=== PATIENT | male | born 1945 | race Caucasian/White ===

== ENCOUNTER 2017-12-21 19:54 | Inpatient (IN) | payer MEDICARE, MEDICAID ==
[~2017-12-21] VITALS: Ht 172.7 cm; Wt 78.9 kg
[2017-12-21] MEDS ORDERED: Sodium Chloride 500ML 500 ML IV ONE (20:16)
[2017-12-21 20:17] VITALS: BP 128/76
[2017-12-21 21:14] LABS: ANION GAP 8 mmol/L (5-15); BLOOD UREA NITROGEN 17 mg/dL (7-18); CARBON DIOXIDE 31 MMOL/L (21-32); CHLORIDE 106 MMOL/L (98-107); CREATININE 1.3 MG/DL (0.55-1.30); EOSINOPHILS % (AUTO) 2.4 % (0.0-3.0); HEMATOCRIT 46.1 % (42.0-52.0); HEMOGLOBIN 15.1 G/DL (14.2-18.0); LYMPHOCYTES % (AUTO) 13.8 % (20.0-45.0); MEAN CORPUSCULAR VOLUME 92 FL (80-99); MONOCYTES % (AUTO) 7.6 % (1.0-10.0); NEUTROPHILS % (AUTO) 75.2 % (45.0-75.0); PLATELET COUNT 198 K/UL (150-450); POTASSIUM 3.6 MMOL/L (3.5-5.1); RED BLOOD COUNT 5.01 M/UL (4.70-6.10); RED CELL DISTRIBUTION WIDTH 12.7 % (11.6-14.8); SODIUM 145 MMOL/L (136-145); WHITE BLOOD COUNT 12.3 K/UL (4.8-10.8)
[2017-12-21] MEDS ORDERED: ASPIRIN325 MG ORAL (21:16)
[2017-12-21] MEDS ORDERED: ATIVAN0.5 MG ORAL (21:16)
[2017-12-21] MEDS ORDERED: PROSCAR5 MG ORAL (21:16)
[2017-12-21] MEDS ORDERED: DEPAKOTE ER250 MG ORAL (21:16)
[2017-12-21] MEDS ORDERED: NIACIN100 MG ORAL (21:16)
[2017-12-21] MEDS ORDERED: MAG-OXIDE400 M1 PO (21:16)
[2017-12-21] MEDS ORDERED: TAMSULOSIN HCL0.4 MG ORAL (21:16)
[2017-12-21] MEDS ORDERED: AMANTADINE100 M2 ORAL (21:16)
[2017-12-21] MEDS ORDERED: NEURONTIN400 MG ORAL (21:16)
[2017-12-21] MEDS ORDERED: LABETALOL HCL100 MG ORAL (21:16)
[2017-12-21] MEDS ORDERED: BACLOFEN10 MG ORAL (21:16)
[2017-12-21] MEDS ORDERED: ACETAMINOPHEN325 M1 ORAL (21:16)
[2017-12-21] MEDS ORDERED: NORVASC10 MG ORAL (21:16)
[2017-12-21 21:18] LABS: ALANINE AMINOTRANSFERASE 18 U/L (12-78); ALBUMIN/GLOBULIN RATIO 0.9 (1.0-2.7); ALKALINE PHOSPHATASE 98 U/L (46-116); ASPARTATE AMINO TRANSFERASE 12 U/L (15-37); BILIRUBIN,TOTAL 0.3 MG/DL (0.2-1.0)
--- NOTE | 2017-12-21 21:57 | Emergency Room Report ---
History of Present Illness General Chief Complaint: Nausea, Vomiting, and Diarrhea Source: Patient, Medical Record Present Illness HPI 72-year-old male presents ED for evaluation. Coming from assisted facility with nausea vomiting and diarrhea. Multiple episodes of vomiting and diarrhea today. Patient states he feels weak. Denies chest pain or shortness of breath. Denies fevers or chills. No other aggravating relieving factors. Denies any other associated symptoms Allergies: Coded Allergies: No Known Allergies (Unverified , 12/21/17) Patient History Past Medical History: none Past Surgical History: none Pertinent Family History: none Social History: Denies: smoking, alcohol use, drug use Immunizations: UTD Reviewed Nursing Documentation: PMH: Agreed; PSxH: Agreed Review of Systems All Other Systems: negative except mentioned in HPI Physical Exam Vital Signs Date Time Temp Pulse Resp B/P (MAP) Pulse Ox O2 Delivery O2 Flow Rate FiO2 12/21/17 19:55 98.0 66 17 112/71 96 Room Air 98.1 Sp02 EP Interpretation: reviewed, normal General Appearance: no apparent distress, alert, GCS 15, non-toxic Head: normocephalic, atraumatic Eyes: bilateral eye normal inspection, bilateral eye PERRL ENT: hearing grossly normal, normal pharynx, no angioedema, normal voice Neck: full range of motion, supple/symm/no masses Respiratory: chest non-tender, lungs clear, normal breath sounds, speaking full sentences Cardiovascular #1: regular rate, rhythm, no edema Cardiovascular #2: 2+ carotid (R), 2+ carotid (L), 2+ radial (R), 2+ radial (L) , 2+ dorsalis pedis (R), 2+ dorsalis pedis (L) Gastrointestinal: normal bowel sounds, non tender, soft, non-distended, no guarding, no rebound Rectal: deferred Genitourinary: normal inspection, no CVA tenderness Musculoskeletal: back normal, gait/station normal, normal range of motion, non- tender Neurologic: alert, oriented x3, responsive, motor strength/tone normal, sensory intact, speech normal Psychiatric: judgement/insight normal, memory normal, mood/affect normal, no suicidal/homicidal ideation Reflexes: 3+ bicep (R), 3+ bicep (L), 3+ tricep (R), 3+ tricep (L), 3+ knee (R) , 3+ knee (L) Skin: normal color, no rash, warm/dry, well hydrated Lymphatic: no adenopathy Medical Decision Making Diagnostic Impression: Primary Impression: Gastroenteritis Additional Impression: Intractable vomiting Qualified Codes: R11.2 - Nausea with vomiting, unspecified ER Course Hospital Course 72-year-old male presenting to ED with repeated episodes of vomiting, diarrhea Differential diagnoses include: gastroenterits, dehydration, failure to thrive Clinical course Patient placed on stretcher. 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 After initial history and physical, I ordered labs, IV fluids, EKG, chest x-ray, blood cultures, UA. Labs - minimal leukocytosis, hb/hct stable, electrolytes ok After medications and IV hydration patient continues to have vomiting unable to tolerate by mouth intake Case discussed with Dr Robles and they agreed to admit patient to their service for further care and support I feel this is a highly complex case requiring extensive working including EKG/ Rhythm strip, Xray/CT/US, Blood/urine lab work, repeat exams while in ED, and administration of strong opiates/narcotics for pain control, admission to hospital or close patient follow up. Diagnosis - gastroenteritis, intractable vomiting Patient admitted to floor in serious condition Labs Test 12/21/17 20:35 White Blood Count 12.3 K/UL (4.8-10.8) Red Blood Count 5.01 M/UL (4.70-6.10) Hemoglobin 15.1 G/DL (14.2-18.0) Hematocrit 46.1 % (42.0-52.0) Mean Corpuscular Volume 92 FL (80-99) Mean Corpuscular Hemoglobin 30.1 PG (27.0-31.0) Mean Corpuscular Hemoglobin Concent 32.6 G/DL (32.0-36.0) Red Cell Distribution Width 12.7 % (11.6-14.8) Platelet Count 198 K/UL (150-450) Mean Platelet Volume 8.8 FL (6.5-10.1) Neutrophils (%) (Auto) 75.2 % (45.0-75.0) Lymphocytes (%) (Auto) 13.8 % (20.0-45.0) Monocytes (%) (Auto) 7.6 % (1.0-10.0) Eosinophils (%) (Auto) 2.4 % (0.0-3.0) Basophils (%) (Auto) 1.0 % (0.0-2.0) Sodium Level 145 MMOL/L (136-145) Potassium Level 3.6 MMOL/L (3.5-5.1) Chloride Level 106 MMOL/L (98-107) Carbon Dioxide Level 31 MMOL/L (21-32) Anion Gap 8 mmol/L (5-15) Blood Urea Nitrogen 17 mg/dL (7-18) Creatinine 1.3 MG/DL (0.55-1.30) Estimat Glomerular Filtration Rate mL/min (>60) Glucose Level 131 MG/DL (74-106) Calcium Level 9.0 MG/DL (8.5-10.1) Total Bilirubin 0.3 MG/DL (0.2-1.0) Aspartate Amino Transf (AST/SGOT) 12 U/L (15-37) Alanine Aminotransferase (ALT/SGPT) 18 U/L (12-78) Alkaline Phosphatase 98 U/L (46-116) Total Protein 6.5 G/DL (6.4-8.2) Albumin 3.0 G/DL (3.4-5.0) Globulin 3.5 g/dL Albumin/Globulin Ratio 0.9 (1.0-2.7) Lipase 114 U/L (73-393) Last Vital Signs Date Time Temp Pulse Resp B/P (MAP) Pulse Ox O2 Delivery O2 Flow Rate FiO2 12/21/17 20:17 98.1 64 18 128/76 96 Room Air 98.1 Status: improved Disposition: ADMITTED INPATIENT Condition: Serious Referrals: Sj Robles DO (PCP) Emanuel Medrano MD Dec 21, 2017 21:56
[2017-12-21 22:12] LABS: APPEARANCE,URINE CLEAR; BILIRUBIN, URINE NEGATIVE (NEGATIVE); GLUCOSE, URINE (UA) NEGATIVE (NEGATIVE); KETONES,URINE NEGATIVE (NEGATIVE); LEUKOCYTE ESTERASE ,URINE 1+ (NEGATIVE); NITRITE,URINE NEGATIVE (NEGATIVE); PH,URINE 5 (4.5-8.0); PROTEIN,URINE 2+ (NEGATIVE); UROBILINOGEN,URINE NORMAL MG/DL (0.0-1.0)
[2017-12-21 22:13] LABS: COLOR,URINE YELLOW
[2017-12-22] VITALS (7 sets, daily range): BP systolic 120–133; BP diastolic 68–78
[2017-12-22] MEDS ORDERED: Loperamide 2mg cap ORAL PRN (03:00)
[2017-12-22] MEDS: D5 1/2NS 1,000 ML IV SCH ×2 (04:24→20:27)
[2017-12-22] MEDS: Amantadine 100mg cap ORAL SCH ×2 (09:00→18:34)
[2017-12-22] MEDS: LORazepam 0.5mg tab ORAL SCH ×2 (09:45→18:34)
[2017-12-22] MEDS: Magnesium Oxide 400mg tab ORAL SCH (09:46)
[2017-12-22] MEDS: Depakote ER 250mg tab ORAL SCH ×2 (09:48→20:25)
--- NOTE | 2017-12-22 10:00 | History and Physical Report ---
DATE OF ADMISSION: 12/21/2017 TIME: 9 a.m. CONSULTANTS: 1. Sugey Love M.D. 2. Drew Mueller M.D. 3. Deanne Argueta M.D. CHIEF COMPLAINT: Nausea, vomiting x2, diarrhea, slight short of breath. BRIEF HISTORY: This is a 72-year-old male from [facility], presented with the above-mentioned diagnosis, admitted to medical floor for further treatment. Currently, slightly confused in bed, refusing laboratory draw. REVIEW OF SYSTEMS: No chest pain. Slight short of breath. Slight nausea, vomiting, and diarrhea. PAST MEDICAL HISTORY: Hypertension. PAST SURGICAL HISTORY: None. MEDICATIONS: Include Flomax, Emetrol, amlodipine, Depakote, , Proscar, Neurontin, labetalol, lorazepam, magnesium, niacin, Tylenol, Zofran, and famotidine. ALLERGIES: Include benazepril, quetiapine, and sertraline. SOCIAL HISTORY: No smoking. No alcohol. No intravenous drug abuse. FAMILY HISTORY: Noncontributory. PHYSICAL EXAMINATION: GENERAL: Calm in bed, oriented x2, in no acute distress. VITAL SIGNS: Temperature is 97, pulse 64, respirations 18, and blood pressure 120/73. CARDIOVASCULAR: No murmur. LUNGS: Distant and clear. ABDOMEN: Bowel sounds positive. Nontender. Nondistended. EXTREMITIES: No cyanosis, clubbing, or edema. NEUROLOGIC: The patient moves all extremities, slightly weak. LABORATORY AND DIAGNOSTIC DATA: White count 12.3, otherwise CBC is normal. BMP show glucose 131, otherwise BMP is normal. Albumin 3.0. Urinalysis show 1+ leukocyte esterase. ASSESSMENT: 1. Nausea, vomiting, and diarrhea. 2. Shortness of breath. 3. UTI. 4. Leukocytosis. 5. Hypertension. 6. Diabetes. 7. Malnutrition. 8. BPH. PLAN: 1. Antiemetic p.r.n. 2. Blood pressure and blood sugar control. 3. IV fluids. 4. Antibiotics per Infectious Disease. 5. Dietary followup. 6. OT, PT, dietary evaluation. 7. CBC, BMP in the morning. 8. We will continue to follow the patient. Sj Robles D.O. DR: JOSE JOB#: [id number] CC:
[2017-12-22] MEDS: Niacin 50mg tab ORAL SCH (10:03)
--- NOTE | 2017-12-22 10:25 | Consultation ---
History of Present Illness General Date patient seen: Dec 22, 2017 Chief Complaint: Nausea, Vomiting, and Diarrhea Reason for Consultation: Diarrhea Present Illness HPI Mr. Segovia is a 72 yo male with presented from a SNF with Hx of one day of N/V/ D. The patient reports that he has had no associated SOB, Fevers, Bleeding, abdominal pain or dysuria. He has had some generalized weakness but otherwise feel normal. He denies any N/V/D or fever today ID was consulted for possible IG infection. PMHx/PSHx CVA Parkinsons Dysphagia HDL BPH Gastritis Depression Anxiety Anemia SocHx No E/T/D FamHx Mom-HTN Allergies: Coded Allergies: DONEPEZIL (Verified Allergy, Unknown, 12/21/17) QUETIAPINE (Verified Allergy, Unknown, 12/21/17) SERTRALINE (Verified Allergy, Unknown, 12/21/17) Medication History Scheduled Amantadine Hcl* (Amantadine*), 100 MG ORAL TWICE A DAY, (Reported) Amlodipine Besylate (Norvasc), 10 MG ORAL DAILY, (Reported) Aspirin* (Aspirin*), 325 MG ORAL DAILY, (Reported) Baclofen* (Baclofen*), 10 MG ORAL THREE TIMES A DAY, (Reported) Divalproex Sodium* (Depakote Er*), 250 MG ORAL EVERY 12 HOURS, (Reported) Finasteride* (Proscar*), 5 MG ORAL DAILY, (Reported) Gabapentin* (Neurontin*), 300 MG ORAL THREE TIMES A DAY, (Reported) Labetalol Hcl* (Normodyne*), 50 MG ORAL EVERY 12 HOURS, (Reported) Lorazepam* (Ativan*), 0.5 MG ORAL BID, (Reported) Niacin* (Niacin*), 250 MG ORAL DAILY, (Reported) Tamsulosin Hcl (Tamsulosin Hcl*), 0.4 MG ORAL BEDTIME, (Reported) Scheduled PRN Acetaminophen* (Acetaminophen 325MG Tablet*), 650 MG ORAL Q4H PRN for For Pain, (Reported) Miscellaneous Medications Magnesium Oxide (Mag-Oxide), 400 MG PO, (Reported) Patient History Healthcare decision maker N Resuscitation status Full Code Advanced Directive on File Review of Systems All Other Systems: negative except mentioned in HPI Physical Exam Last 24 Hour Vital Signs Date Time Temp Pulse Resp B/P (MAP) Pulse Ox O2 Delivery O2 Flow Rate FiO2 12/22/17 10:00 64 122/71 (88) 12/22/17 09:00 64 122/71 12/22/17 09:00 64 122/71 12/22/17 08:00 98.0 67 20 133/72 (92) 96 98.0 12/22/17 04:00 97.8 64 18 120/73 (89) 96 97.8 12/22/17 00:00 98.5 75 18 132/73 (92) 96 98.5 12/21/17 23:39 Room Air 12/21/17 23:10 98.2 64 17 126/74 96 Room Air 98.1 12/21/17 20:17 98.1 64 18 128/76 96 Room Air 98.1 12/21/17 19:55 98.0 66 17 112/71 96 Room Air 98.1 Intake and Output 12/21/17 12/22/17 19:00 07:00 Intake Total 560 ml Balance 560 ml Intake Oral 0 ml IV Total 560 ml Laboratory Tests Test 12/21/17 20:35 12/21/17 21:50 White Blood Count 12.3 K/UL (4.8-10.8) H Red Blood Count 5.01 M/UL (4.70-6.10) Hemoglobin 15.1 G/DL (14.2-18.0) Hematocrit 46.1 % (42.0-52.0) Mean Corpuscular Volume 92 FL (80-99) Mean Corpuscular Hemoglobin 30.1 PG (27.0-31.0) Mean Corpuscular Hemoglobin Concent 32.6 G/DL (32.0-36.0) Red Cell Distribution Width 12.7 % (11.6-14.8) Platelet Count 198 K/UL (150-450) Mean Platelet Volume 8.8 FL (6.5-10.1) Neutrophils (%) (Auto) 75.2 % (45.0-75.0) H Lymphocytes (%) (Auto) 13.8 % (20.0-45.0) L Monocytes (%) (Auto) 7.6 % (1.0-10.0) Eosinophils (%) (Auto) 2.4 % (0.0-3.0) Basophils (%) (Auto) 1.0 % (0.0-2.0) Sodium Level 145 MMOL/L (136-145) Potassium Level 3.6 MMOL/L (3.5-5.1) Chloride Level 106 MMOL/L (98-107) Carbon Dioxide Level 31 MMOL/L (21-32) Anion Gap 8 mmol/L (5-15) Blood Urea Nitrogen 17 mg/dL (7-18) Creatinine 1.3 MG/DL (0.55-1.30) Estimat Glomerular Filtration Rate mL/min (>60) Glucose Level 131 MG/DL (74-106) H Calcium Level 9.0 MG/DL (8.5-10.1) Total Bilirubin 0.3 MG/DL (0.2-1.0) Aspartate Amino Transf (AST/SGOT) 12 U/L (15-37) L Alanine Aminotransferase (ALT/SGPT) 18 U/L (12-78) Alkaline Phosphatase 98 U/L (46-116) Total Protein 6.5 G/DL (6.4-8.2) Albumin 3.0 G/DL (3.4-5.0) L Globulin 3.5 g/dL Albumin/Globulin Ratio 0.9 (1.0-2.7) L Lipase 114 U/L (73-393) Urine Color Yellow Urine Appearance Clear Urine pH 5 (4.5-8.0) Urine Specific [place] 1.015 (1.005-1.035) Urine Protein 2+ (NEGATIVE) H Urine Glucose (UA) Negative (NEGATIVE) Urine Ketones Negative (NEGATIVE) Urine Blood 1+ (NEGATIVE) H Urine Nitrite Negative (NEGATIVE) Urine Bilirubin Negative (NEGATIVE) Urine Urobilinogen Normal MG/DL (0.0-1.0) Urine Leukocyte Esterase 1+ (NEGATIVE) H Urine RBC 2-4 /HPF (0 - 0) H Urine WBC 2-4 /HPF (0 - 0) Urine Squamous Epithelial Cells Occasional /LPF Urine Bacteria Occasional /HPF (NONE) Urine Hyaline Casts 2-4 /LPF (NONE) H Urine Fine Granular Casts 0-2 /LPF (NONE) H Height (Feet): 5 Height (Inches): 8.00 Weight (Pounds): 174 Medications Current Medications Medications (Trade) Dose Ordered Sig/Sonia Route PRN Reason Start Time Stop Time Status Last Admin Dose Admin Acetaminophen (Tylenol) 650 mg Q4H PRN ORAL Mild Pain/Temp > 100.5 12/22/17 03:00 01/21/18 02:59 Amantadine HCl (Symmetrel) 100 mg TWICE A DAY ORAL 12/22/17 09:00 01/21/18 08:59 Amlodipine Besylate (Norvasc) 10 mg DAILY ORAL 12/22/17 09:00 01/21/18 08:59 Aspirin (ASA) 325 mg DAILY ORAL 12/22/17 09:00 01/21/18 08:59 12/22/17 09:45 Baclofen (Lioresal) 10 mg THREE TIMES A DAY ORAL 12/22/17 09:00 01/21/18 08:59 12/22/17 09:46 Dextrose/Sodium Chloride 1,000 ml @ 60 mls/hr [id number] IV 12/22/17 04:00 01/21/18 03:59 12/22/17 04:24 Divalproex Sodium (Depakote ER) 250 mg EVERY 12 HOURS ORAL 12/22/17 09:00 01/21/18 08:59 12/22/17 09:48 Finasteride (Proscar) 5 mg DAILY ORAL 12/22/17 09:00 01/21/18 08:59 12/22/17 09:47 Gabapentin (Neurontin) 300 mg THREE TIMES A DAY ORAL 12/22/17 09:00 01/21/18 08:59 12/22/17 09:45 Labetalol HCl (Normodyne) 50 mg EVERY 12 HOURS ORAL 12/22/17 09:00 01/21/18 08:59 Loperamide HCl (Imodium) 2 mg QIDPRN PRN ORAL Diarrhea 12/22/17 03:00 01/21/18 02:59 Lorazepam (Ativan) 0.5 mg BID ORAL 12/22/17 09:00 12/29/17 08:59 12/22/17 09:45 Magnesium Oxide (Mag-Ox 400mg) 400 mg DAILY ORAL 12/22/17 09:00 01/21/18 08:59 12/22/17 09:46 Niacin (Niacin) 250 mg DAILY ORAL 12/22/17 09:00 01/21/18 08:59 12/22/17 10:03 Ondansetron HCl (Zofran) 4 mg Q4H PRN IVP Nausea & Vomiting 12/22/17 03:00 01/21/18 02:59 Tamsulosin HCl (Flomax) 0.4 mg BEDTIME ORAL 12/22/17 21:00 01/21/18 20:59 Objective Narrative Gen: NAD, well appearing, alert HEENT: NCAT, MMM, EOMI, PERRL, No Oral lesion, no scleral icterus NECK: full range of motion, supple, no meningismus, No LAD, No JVD LUNGS: CTAB, No W/C, No Accessory muscle use CARDS: RRR, S1, S2, No M/R/G ABD: Soft, NT, ND, No R/G, + BS, No HSM, No Masses : Deferred Ext: C/C/E, Pulses 2+ B/L (DP, Rad) NEURO: A/O x 4, Strength and Sensation Grossly intact PSYCH: mood/affect normal SKIN: warm/dry, No rashes Assessment/Plan Assessment/Plan 72 yo male with presented from a SNF with Hx of one day of N/V/D. Vomiting and Diarrhea - Likely viral gastritis Leukocytosis Hx CVA Parkinsons Dysphagia HDL BPH Gastritis Depression Anxiety Anemia PLAN - Hold Abx as no sign of bacterial infection - Monitor CBC and Temps - Supportive care Thank you for this consult. We will continue to follow the patient during this hospitalization. Tay Freeman MD Dec 22, 2017 10:25
--- NOTE | 2017-12-22 16:45 | Consultation ---
DATE OF CONSULTATION: 12/22/2017 GASTROLOGY CONSULTATION CHIEF COMPLAINT: I was asked to see this patient by Dr. Sj Robles for evaluation of vomiting and abdominal pain. HISTORY OF PRESENT ILLNESS: The patient is a pleasant 72-year-old white man with a history of stroke and left-sided hemiparesis, who comes in with one-day history of nausea, vomiting, and diarrhea. The patient denies any hematochezia or chest pain or shortness of breath. He has been into the hospital for 24 hours and he feels better now. His vomiting has resolved and he did not have any more diarrhea. He has been tolerating his oral intake. He has never had endoscopy or colonoscopy and does not want to have these procedures because he is afraid of them. He understands the risk of cancer if the screening procedures are not done. PAST MEDICAL HISTORY: History of stroke, left-sided hemiparesis, Parkinson disease, dysphagia, prostatic hypertrophy, gastritis, depression, anxiety, and anemia. FAMILY HISTORY: Positive for hypertension in mother. SOCIAL HISTORY: The patient does not smoke or drink alcohol. REVIEW OF SYSTEMS: Otherwise negative. PHYSICAL EXAMINATION: GENERAL: The patient is a pleasant elderly white man, seen in his room. HEENT: Normocephalic and atraumatic. Sclerae anicteric. Oropharynx clear. NECK: Supple. CHEST: Clear to auscultation. CARDIOVASCULAR: Revealed a regular rate. ABDOMEN: Soft and flat. Good bowel sounds. EXTREMITIES: Revealed no edema. NEUROLOGIC: Notable for left-sided hemiparesis. LABORATORY DATA: Noted. ASSESSMENT: This patient presents with one-day history of nausea, vomiting, and diarrhea, which appears to be acute presentations, which has rapidly improved. Since the patient has minimal symptomatology now, he can be managed conservatively. He did have a mild leukocytosis on admission and this can be repeated, but I doubt if he will require any aggressive therapy. The differential diagnosis usually includes viral gastroenteritis, which typically resolves with conservative measures. RECOMMENDATIONS: 1. Supportive care. 2. Oral intake as tolerated. 3. Follow laboratory parameters and exam. 4. Discharge planning once fully stabilized. Thank you for asking me to participate in the care of this patient. Scott Dubon M.D. DR: ELIEZER JOB#: [id number] CC:
[2017-12-22] MEDS: Tamsulosin 0.4mg cap ORAL SCH (20:25)
[2017-12-23 05:35] VITALS: BP 132/66
[2017-12-23 06:26] LABS: BASOPHILS % (AUTO) 1.1 % (0.0-2.0); EOSINOPHILS % (AUTO) 5.9 % (0.0-3.0); HEMATOCRIT 41.2 % (42.0-52.0); LYMPHOCYTES % (AUTO) 27.6 % (20.0-45.0); MEAN CORPUSCULAR VOLUME 92 FL (80-99); MONOCYTES % (AUTO) 7.3 % (1.0-10.0); NEUTROPHILS % (AUTO) 58.1 % (45.0-75.0); PLATELET COUNT 166 K/UL (150-450); RED CELL DISTRIBUTION WIDTH 12.3 % (11.6-14.8); WHITE BLOOD COUNT 7.5 K/UL (4.8-10.8)
[2017-12-23 06:32] LABS: ANION GAP 8 mmol/L (5-15); BLOOD UREA NITROGEN 15 mg/dL (7-18); CALCIUM 8.8 MG/DL (8.5-10.1); CARBON DIOXIDE 28 MMOL/L (21-32); CHLORIDE 107 MMOL/L (98-107); CREATININE 1.2 MG/DL (0.55-1.30); POTASSIUM 3.6 MMOL/L (3.5-5.1); SODIUM 143 MMOL/L (136-145)
[2017-12-23 08:00] VITALS: BP 141/78
--- NOTE | 2017-12-23 08:27 | General Progress Note ---
Assessment/Plan Problem List: (1) Nausea & vomiting ICD Codes: R11.2 - Nausea with vomiting, unspecified SNOMED: 83555903 (2) Diarrhea ICD Codes: R19.7 - Diarrhea, unspecified SNOMED: 22828791 (3) UTI (urinary tract infection) ICD Codes: N39.0 - Urinary tract infection, site not specified SNOMED: 07668733 (4) SOB (shortness of breath) ICD Codes: R06.02 - Shortness of breath SNOMED: 525497580 (5) HTN (hypertension) ICD Codes: I10 - Essential (primary) hypertension SNOMED: 46226835 (6) Diabetes ICD Codes: E11.9 - Type 2 diabetes mellitus without complications SNOMED: 78026770 (7) Malnutrition ICD Codes: E46 - Unspecified protein-calorie malnutrition SNOMED: 53886748 (8) BPH (benign prostatic hyperplasia) ICD Codes: N40.0 - Benign prostatic hyperplasia without lower urinary tract symptoms SNOMED: 294320916 (9) Intractable vomiting ICD Codes: R11.10 - Vomiting, unspecified SNOMED: 400408283 Qualifiers: Qualified Codes: R11.2 - Nausea with vomiting, unspecified (10) Gastroenteritis ICD Codes: K52.9 - Noninfective gastroenteritis and colitis, unspecified SNOMED: 38079114 Status: unchanged Assessment/Plan ot pt diet abc bp bs control cbc bmp am Subjective Constitutional: Reports: weakness Allergies: Coded Allergies: DONEPEZIL (Verified Allergy, Unknown, 12/21/17) QUETIAPINE (Verified Allergy, Unknown, 12/21/17) SERTRALINE (Verified Allergy, Unknown, 12/21/17) All Systems: reviewed and negative except above Subjective sleepy calm Objective Last 24 Hour Vital Signs Date Time Temp Pulse Resp B/P (MAP) Pulse Ox O2 Delivery O2 Flow Rate FiO2 12/23/17 05:35 98.1 56 18 132/66 (88) 96 98.1 12/22/17 21:00 Room Air 12/22/17 20:27 56 122/68 12/22/17 20:00 98.8 56 18 122/68 (86) 96 98.8 12/22/17 16:00 97.8 67 18 120/77 (91) 96 97.8 12/22/17 12:00 98.4 68 20 131/78 (95) 98 98.4 12/22/17 11:09 Room Air 12/22/17 10:00 64 122/71 (88) 12/22/17 09:00 64 122/71 12/22/17 09:00 64 122/71 Intake and Output 12/22/17 12/23/17 19:00 07:00 Intake Total 1680 ml 120 ml Output Total 1050 ml 500 ml Balance 630 ml -380 ml Intake Oral 1320 ml 120 ml IV Total 360 ml Output Urine Total 1050 ml 500 ml # Voids 2 2 Laboratory Tests 12/23/17 04:50: White Blood Count 7.5, Red Blood Count 4.50L, Hemoglobin 14.0L, Hematocrit 41.2L , Mean Corpuscular Volume 92, Mean Corpuscular Hemoglobin 31.2H, Mean Corpuscular Hemoglobin Concent 34.1, Red Cell Distribution Width 12.3, Platelet Count 166, Mean Platelet Volume 8.7, Neutrophils (%) (Auto) 58.1, Lymphocytes (% ) (Auto) 27.6, Monocytes (%) (Auto) 7.3, Eosinophils (%) (Auto) 5.9H, Basophils (%) (Auto) 1.1, Sodium Level 143, Potassium Level 3.6, Chloride Level 107, Carbon Dioxide Level 28, Anion Gap 8, Blood Urea Nitrogen 15, Creatinine 1.2, Estimat Glomerular Filtration Rate , Glucose Level 90, Calcium Level 8.8 Height (Feet): 5 Height (Inches): 8.00 Weight (Pounds): 174 General Appearance: lethargic EENT: normal ENT inspection Neck: normal alignment Cardiovascular: normal peripheral pulses, normal rate, regular rhythm Respiratory/Chest: chest wall non-tender, lungs clear, normal breath sounds Abdomen: normal bowel sounds, non tender, soft Extremities: normal inspection Edema: no edema noted Arm (L), no edema noted Arm (R), no edema noted Leg (L), no edema noted Leg (R), no edema noted Pedal (L), no edema noted Pedal (R), no edema noted Generalized Neurologic: motor weakness Skin: normal pigmentation, warm/dry Sj Robles DO Dec 23, 2017 08:27
[2017-12-23] MEDS: Magnesium Oxide 400mg tab ORAL SCH (08:36)
[2017-12-23] MEDS: Niacin 50mg tab ORAL SCH (08:36)
[2017-12-23] MEDS: Amantadine 100mg cap ORAL SCH ×2 (08:36→18:31)
[2017-12-23] MEDS: LORazepam 0.5mg tab ORAL SCH ×2 (08:37→18:31)
[2017-12-23] MEDS: Depakote ER 250mg tab ORAL SCH ×2 (08:37→20:40)
[2017-12-23 12:00] VITALS: BP 119/72
[2017-12-23] MEDS: D5 1/2NS 1,000 ML IV SCH (12:26)
[2017-12-23 16:00] VITALS: BP 128/65
--- NOTE | 2017-12-23 17:10 | General Progress Note ---
Assessment/Plan Assessment/Plan Assessment - Acute N/V/D - resolved - HTN - BPH - debilitation Recommendation - push po - supportive care - continue current meds - d/c planning Subjective Allergies: Coded Allergies: DONEPEZIL (Verified Allergy, Unknown, 12/21/17) QUETIAPINE (Verified Allergy, Unknown, 12/21/17) SERTRALINE (Verified Allergy, Unknown, 12/21/17) Subjective Feels OK no N/V tolerating PO Objective Last 24 Hour Vital Signs Date Time Temp Pulse Resp B/P (MAP) Pulse Ox O2 Delivery O2 Flow Rate FiO2 12/23/17 16:00 97.9 56 19 128/65 (86) 98 97.9 12/23/17 12:00 98.7 57 18 119/72 (88) 96 98.7 12/23/17 09:00 Room Air 12/23/17 08:37 65 141/78 12/23/17 08:36 65 141/78 12/23/17 08:00 98.0 65 20 141/78 (99) 97 98.0 12/23/17 05:35 98.1 56 18 132/66 (88) 96 98.1 12/22/17 21:00 Room Air 12/22/17 20:27 56 122/68 12/22/17 20:00 98.8 56 18 122/68 (86) 96 98.8 Intake and Output 12/22/17 12/23/17 19:00 07:00 Intake Total 1680 ml 120 ml Output Total 1050 ml 500 ml Balance 630 ml -380 ml Intake Oral 1320 ml 120 ml IV Total 360 ml Output Urine Total 1050 ml 500 ml # Voids 2 2 Laboratory Tests 12/23/17 04:50: White Blood Count 7.5, Red Blood Count 4.50L, Hemoglobin 14.0L, Hematocrit 41.2L , Mean Corpuscular Volume 92, Mean Corpuscular Hemoglobin 31.2H, Mean Corpuscular Hemoglobin Concent 34.1, Red Cell Distribution Width 12.3, Platelet Count 166, Mean Platelet Volume 8.7, Neutrophils (%) (Auto) 58.1, Lymphocytes (% ) (Auto) 27.6, Monocytes (%) (Auto) 7.3, Eosinophils (%) (Auto) 5.9H, Basophils (%) (Auto) 1.1, Sodium Level 143, Potassium Level 3.6, Chloride Level 107, Carbon Dioxide Level 28, Anion Gap 8, Blood Urea Nitrogen 15, Creatinine 1.2, Estimat Glomerular Filtration Rate , Glucose Level 90, Calcium Level 8.8 Height (Feet): 5 Height (Inches): 8.00 Weight (Pounds): 174 Objective WDWN NCAT supple CTA RRR Abd soft NT ND no edema Scott Dubon MD Dec 23, 2017 17:10
[2017-12-23 20:00] VITALS: BP 113/62
[2017-12-23] MEDS: Tamsulosin 0.4mg cap ORAL SCH (20:39)
[2017-12-24] VITALS: BP 139/66
[2017-12-24 04:00] VITALS: BP 115/69
[2017-12-24] MEDS: D5 1/2NS 1,000 ML IV SCH (06:00)
[2017-12-24 08:00] VITALS: BP 130/81
[2017-12-24] MEDS: Niacin 50mg tab ORAL SCH (08:30)
[2017-12-24] MEDS: Magnesium Oxide 400mg tab ORAL SCH (08:30)
[2017-12-24] MEDS: Depakote ER 250mg tab ORAL SCH (08:31)
[2017-12-24] MEDS: Amantadine 100mg cap ORAL SCH ×2 (08:31→18:14)
[2017-12-24] MEDS: LORazepam 0.5mg tab ORAL SCH ×2 (08:31→18:14)
--- NOTE | 2017-12-24 08:31 | Infectious Diseases Prog Note ---
Assessment/Plan Assessment/Plan -- 72 yo male with presented from a SNF with Hx of one day of N/V/D. 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 Subjective Allergies: Coded Allergies: DONEPEZIL (Verified Allergy, Unknown, 12/21/17) QUETIAPINE (Verified Allergy, Unknown, 12/21/17) SERTRALINE (Verified Allergy, Unknown, 12/21/17) Subjective No Acte events No N/V/D and fever Objective Vital Signs Last 24 Hour Vital Signs Date Time Temp Pulse Resp B/P (MAP) Pulse Ox O2 Delivery O2 Flow Rate FiO2 12/24/17 08:00 98.3 63 20 130/81 (97) 97 98.3 12/24/17 04:00 97.8 59 20 115/69 (84) 99 97.8 12/24/17 00:00 97.6 59 20 139/66 (90) 98 97.6 12/23/17 21:00 Room Air 12/23/17 20:39 56 113/62 12/23/17 20:00 97.9 56 18 113/62 (79) 97 97.9 12/23/17 16:00 97.9 56 19 128/65 (86) 98 97.9 12/23/17 12:00 98.7 57 18 119/72 (88) 96 98.7 12/23/17 09:00 Room Air 12/23/17 08:37 65 141/78 12/23/17 08:36 65 141/78 Height (Feet): 5 Height (Inches): 8.00 Weight (Pounds): 174 Objective Gen: NAD, well appearing, alert and oriented HEENT: NCAT, MMM, EOMI, LUNGS: CTAB, No W/C, No Accessory muscle use CARDS: RRR, S1, S2, No M/R/G ABD: Soft, NT, ND, No R/G, + BS, Microbiology Date/Time Source Procedure Growth Status 12/21/17 23:05 Nasal Nares MRSA Culture - Final Staphylococcus Aureus - Mrsa Complete Current Medications Medications (Trade) Dose Ordered Sig/Sonia Route PRN Reason Start Time Stop Time Status Last Admin Dose Admin Acetaminophen (Tylenol) 650 mg Q4H PRN ORAL Mild Pain/Temp > 100.5 12/22/17 03:00 01/21/18 02:59 Amantadine HCl (Symmetrel) 100 mg TWICE A DAY ORAL 12/22/17 09:00 01/21/18 08:59 12/23/17 18:31 Amlodipine Besylate (Norvasc) 10 mg DAILY ORAL 12/22/17 09:00 01/21/18 08:59 12/23/17 08:37 Aspirin (ASA) 325 mg DAILY ORAL 12/22/17 09:00 01/21/18 08:59 12/23/17 08:36 Baclofen (Lioresal) 10 mg THREE TIMES A DAY ORAL 12/22/17 09:00 01/21/18 08:59 12/23/17 18:31 Dextrose/Sodium Chloride 1,000 ml @ 60 mls/hr [id number] IV 12/22/17 04:00 01/21/18 03:59 12/22/17 04:24 Divalproex Sodium (Depakote ER) 250 mg EVERY 12 HOURS ORAL 12/22/17 09:00 01/21/18 08:59 12/23/17 20:40 Finasteride (Proscar) 5 mg DAILY ORAL 12/22/17 09:00 01/21/18 08:59 12/23/17 08:36 Gabapentin (Neurontin) 300 mg THREE TIMES A DAY ORAL 12/22/17 09:00 01/21/18 08:59 12/23/17 18:31 Labetalol HCl (Normodyne) 50 mg EVERY 12 HOURS ORAL 12/22/17 09:00 01/21/18 08:59 12/23/17 20:39 Loperamide HCl (Imodium) 2 mg QIDPRN PRN ORAL Diarrhea 12/22/17 03:00 01/21/18 02:59 Lorazepam (Ativan) 0.5 mg BID ORAL 12/22/17 09:00 12/29/17 08:59 12/23/17 18:31 Magnesium Oxide (Mag-Ox 400mg) 400 mg DAILY ORAL 12/22/17 09:00 01/21/18 08:59 12/23/17 08:36 Niacin (Niacin) 250 mg DAILY ORAL 12/22/17 09:00 01/21/18 08:59 12/23/17 08:36 Ondansetron HCl (Zofran) 4 mg Q4H PRN IVP Nausea & Vomiting 12/22/17 03:00 01/21/18 02:59 Tamsulosin HCl (Flomax) 0.4 mg BEDTIME ORAL 12/22/17 21:00 01/21/18 20:59 12/23/17 20:39 Tay Freeman MD Dec 24, 2017 08:31
--- NOTE | 2017-12-24 11:05 | GI Progress Note ---
Assessment/Plan Problems: (1) BPH (benign prostatic hyperplasia) ICD Codes: N40.0 - Benign prostatic hyperplasia without lower urinary tract symptoms SNOMED: 219394101 (2) Nausea & vomiting ICD Codes: R11.2 - Nausea with vomiting, unspecified SNOMED: 34160040 (3) Malnutrition ICD Codes: E46 - Unspecified protein-calorie malnutrition SNOMED: 89708554 (4) Gastroenteritis ICD Codes: K52.9 - Noninfective gastroenteritis and colitis, unspecified SNOMED: 15222882 (5) Diarrhea ICD Codes: R19.7 - Diarrhea, unspecified SNOMED: 32194587 (6) Diabetes ICD Codes: E11.9 - Type 2 diabetes mellitus without complications SNOMED: 42998159 Status: stable Status Narrative Discussed with Dr. Mueller. Assessment/Plan Assessment - Acute N/V/D - resolved - HTN - BPH - debilitation Recommendation - push po - supportive care - continue current meds - d/c planning Subjective Gastrointestinal/Abdominal: Reports: no symptoms Subjective ready to be discharged Objective Last 24 Hour Vital Signs Date Time Temp Pulse Resp B/P (MAP) Pulse Ox O2 Delivery O2 Flow Rate FiO2 12/24/17 09:00 Room Air 12/24/17 08:31 63 130/81 12/24/17 08:30 63 130/81 12/24/17 08:00 98.3 63 20 130/81 (97) 97 98.3 12/24/17 04:00 97.8 59 20 115/69 (84) 99 97.8 12/24/17 00:00 97.6 59 20 139/66 (90) 98 97.6 12/23/17 21:00 Room Air 12/23/17 20:39 56 113/62 12/23/17 20:00 97.9 56 18 113/62 (79) 97 97.9 12/23/17 16:00 97.9 56 19 128/65 (86) 98 97.9 12/23/17 12:00 98.7 57 18 119/72 (88) 96 98.7 Intake and Output 12/23/17 12/24/17 19:00 07:00 Intake Total 500 ml 240 ml Output Total 700 ml Balance 500 ml -460 ml Intake Oral 500 ml 240 ml Output Urine Total 700 ml # Voids 4 Height (Feet): 5 Height (Inches): 8.00 Weight (Pounds): 174 General Appearance: WD/WN, no apparent distress, alert Cardiovascular: normal rate Respiratory/Chest: normal breath sounds, no respiratory distress Abdominal Exam: normal bowel sounds, non tender, soft Extremities: normal range of motion, non-tender Rebecca Hayes NP Dec 24, 2017 11:05
--- NOTE | 2017-12-24 11:58 | Consultation ---
History of Present Illness General Date patient seen: Dec 24, 2017 Chief Complaint: Nausea, Vomiting, and Diarrhea Reason for Consultation: Diarrhea Present Illness HPI 72-year-old male with psychiatric disorder presented to ED for evaluation of nausea vomiting and diarrhea today. Patient states he feels weak. Denies chest pain or shortness of breath. Denies fevers or chills. No other aggravating relieving factors. Denies any other associated symptoms. He is admitted for further management. Allergies: Coded Allergies: DONEPEZIL (Verified Allergy, Unknown, 12/21/17) QUETIAPINE (Verified Allergy, Unknown, 12/21/17) SERTRALINE (Verified Allergy, Unknown, 12/21/17) Medication History Scheduled Amantadine Hcl* (Amantadine*), 100 MG ORAL TWICE A DAY, (Reported) Amlodipine Besylate (Norvasc), 10 MG ORAL DAILY, (Reported) Aspirin* (Aspirin*), 325 MG ORAL DAILY, (Reported) Baclofen* (Baclofen*), 10 MG ORAL THREE TIMES A DAY, (Reported) Divalproex Sodium* (Depakote Er*), 250 MG ORAL EVERY 12 HOURS, (Reported) Finasteride* (Proscar*), 5 MG ORAL DAILY, (Reported) Gabapentin* (Neurontin*), 300 MG ORAL THREE TIMES A DAY, (Reported) Labetalol Hcl* (Normodyne*), 50 MG ORAL EVERY 12 HOURS, (Reported) Lorazepam* (Ativan*), 0.5 MG ORAL BID, (Reported) Niacin* (Niacin*), 250 MG ORAL DAILY, (Reported) Tamsulosin Hcl (Tamsulosin Hcl*), 0.4 MG ORAL BEDTIME, (Reported) Scheduled PRN Acetaminophen* (Acetaminophen 325MG Tablet*), 650 MG ORAL Q4H PRN for For Pain, (Reported) Miscellaneous Medications Magnesium Oxide (Mag-Oxide), 400 MG PO, (Reported) Patient History Healthcare decision maker N Resuscitation status Full Code Advanced Directive on File Past Medical/Surgical History Past Medical/Surgical History: (1) BPH (benign prostatic hyperplasia) (2) HTN (hypertension) (3) Diabetes Review of Systems Constitutional: Reports: malaise, weakness All Other Systems: negative except mentioned in HPI Physical Exam General Appearance: WD/WN Lines, tubes and drains: peripheral HEENT: normocephalic, atraumatic Neck: non-tender, normal alignment Respiratory/Chest: chest wall non-tender, lungs clear Cardiovascular/Chest: normal peripheral pulses Abdomen: normal bowel sounds, non tender Genitourinary/Rectal: normal genital exam Extremities: normal range of motion Skin Exam: normal pigmentation Last 24 Hour Vital Signs Date Time Temp Pulse Resp B/P (MAP) Pulse Ox O2 Delivery O2 Flow Rate FiO2 12/24/17 09:00 Room Air 12/24/17 08:31 63 130/81 12/24/17 08:30 63 130/81 12/24/17 08:00 98.3 63 20 130/81 (97) 97 98.3 12/24/17 04:00 97.8 59 20 115/69 (84) 99 97.8 12/24/17 00:00 97.6 59 20 139/66 (90) 98 97.6 12/23/17 21:00 Room Air 12/23/17 20:39 56 113/62 12/23/17 20:00 97.9 56 18 113/62 (79) 97 97.9 12/23/17 16:00 97.9 56 19 128/65 (86) 98 97.9 12/23/17 12:00 98.7 57 18 119/72 (88) 96 98.7 Intake and Output 12/23/17 12/24/17 19:00 07:00 Intake Total 500 ml 240 ml Output Total 700 ml Balance 500 ml -460 ml Intake Oral 500 ml 240 ml Output Urine Total 700 ml # Voids 4 Height (Feet): 5 Height (Inches): 8.00 Weight (Pounds): 174 Medications Current Medications Medications (Trade) Dose Ordered Sig/Sonia Route PRN Reason Start Time Stop Time Status Last Admin Dose Admin Acetaminophen (Tylenol) 650 mg Q4H PRN ORAL Mild Pain/Temp > 100.5 12/22/17 03:00 01/21/18 02:59 Amantadine HCl (Symmetrel) 100 mg TWICE A DAY ORAL 12/22/17 09:00 01/21/18 08:59 12/24/17 08:31 Amlodipine Besylate (Norvasc) 10 mg DAILY ORAL 12/22/17 09:00 01/21/18 08:59 12/24/17 08:31 Aspirin (ASA) 325 mg DAILY ORAL 12/22/17 09:00 01/21/18 08:59 12/24/17 08:31 Baclofen (Lioresal) 10 mg THREE TIMES A DAY ORAL 12/22/17 09:00 01/21/18 08:59 12/24/17 08:31 Dextrose/Sodium Chloride 1,000 ml @ 60 mls/hr [id number] IV 12/22/17 04:00 01/21/18 03:59 12/22/17 04:24 Divalproex Sodium (Depakote ER) 250 mg EVERY 12 HOURS ORAL 12/22/17 09:00 01/21/18 08:59 12/24/17 08:31 Finasteride (Proscar) 5 mg DAILY ORAL 12/22/17 09:00 01/21/18 08:59 12/24/17 08:31 Gabapentin (Neurontin) 300 mg THREE TIMES A DAY ORAL 12/22/17 09:00 01/21/18 08:59 12/24/17 08:31 Labetalol HCl (Normodyne) 50 mg EVERY 12 HOURS ORAL 12/22/17 09:00 01/21/18 08:59 12/24/17 08:30 Loperamide HCl (Imodium) 2 mg QIDPRN PRN ORAL Diarrhea 12/22/17 03:00 01/21/18 02:59 Lorazepam (Ativan) 0.5 mg BID ORAL 12/22/17 09:00 12/29/17 08:59 12/24/17 08:31 Magnesium Oxide (Mag-Ox 400mg) 400 mg DAILY ORAL 12/22/17 09:00 01/21/18 08:59 12/24/17 08:30 Niacin (Niacin) 250 mg DAILY ORAL 12/22/17 09:00 01/21/18 08:59 12/24/17 08:30 Ondansetron HCl (Zofran) 4 mg Q4H PRN IVP Nausea & Vomiting 12/22/17 03:00 01/21/18 02:59 Tamsulosin HCl (Flomax) 0.4 mg BEDTIME ORAL 12/22/17 21:00 01/21/18 20:59 12/23/17 20:39 Assessment/Plan Problem List: (1) Intractable vomiting ICD Codes: R11.10 - Vomiting, unspecified SNOMED: 002045929 Qualifiers: Qualified Codes: R11.2 - Nausea with vomiting, unspecified (2) Gastroenteritis ICD Codes: K52.9 - Noninfective gastroenteritis and colitis, unspecified SNOMED: 42503828 (3) BPH (benign prostatic hyperplasia) ICD Codes: N40.0 - Benign prostatic hyperplasia without lower urinary tract symptoms SNOMED: 759527912 (4) Diabetes ICD Codes: E11.9 - Type 2 diabetes mellitus without complications SNOMED: 67655074 Assessment/Plan NPO iv fluids endoscopy by GI symptomatic treatment dvt prophylaxis check electrolytes Sugey Love MD Dec 24, 2017 11:58
[2017-12-24 12:00] VITALS: BP 125/73
[2017-12-24] MEDS ORDERED: LOPERAMIDE2 MG PO (13:12)
--- NOTE | 2017-12-24 13:12 | General Progress Note ---
Assessment/Plan Problem List: (1) Nausea & vomiting ICD Codes: R11.2 - Nausea with vomiting, unspecified SNOMED: 38358991 (2) Diarrhea ICD Codes: R19.7 - Diarrhea, unspecified SNOMED: 22550134 (3) UTI (urinary tract infection) ICD Codes: N39.0 - Urinary tract infection, site not specified SNOMED: 91307616 (4) SOB (shortness of breath) ICD Codes: R06.02 - Shortness of breath SNOMED: 689146245 (5) HTN (hypertension) ICD Codes: I10 - Essential (primary) hypertension SNOMED: 35235921 (6) Diabetes ICD Codes: E11.9 - Type 2 diabetes mellitus without complications SNOMED: 83877426 (7) Malnutrition ICD Codes: E46 - Unspecified protein-calorie malnutrition SNOMED: 49209329 (8) BPH (benign prostatic hyperplasia) ICD Codes: N40.0 - Benign prostatic hyperplasia without lower urinary tract symptoms SNOMED: 915328816 (9) Intractable vomiting ICD Codes: R11.10 - Vomiting, unspecified SNOMED: 087935255 Qualifiers: Qualified Codes: R11.2 - Nausea with vomiting, unspecified (10) Gastroenteritis ICD Codes: K52.9 - Noninfective gastroenteritis and colitis, unspecified SNOMED: 66349973 Status: stable, progressing Assessment/Plan ot pt diet abc bp bs control cbc bmp am dc if clear Subjective Constitutional: Reports: weakness Allergies: Coded Allergies: DONEPEZIL (Verified Allergy, Unknown, 12/21/17) QUETIAPINE (Verified Allergy, Unknown, 12/21/17) SERTRALINE (Verified Allergy, Unknown, 12/21/17) All Systems: reviewed and negative except above Subjective calm wants to go home Objective Last 24 Hour Vital Signs Date Time Temp Pulse Resp B/P (MAP) Pulse Ox O2 Delivery O2 Flow Rate FiO2 12/24/17 12:00 98.9 59 19 125/73 (90) 98 98.9 12/24/17 09:00 Room Air 12/24/17 08:31 63 130/81 12/24/17 08:30 63 130/81 12/24/17 08:00 98.3 63 20 130/81 (97) 97 98.3 12/24/17 04:00 97.8 59 20 115/69 (84) 99 97.8 12/24/17 00:00 97.6 59 20 139/66 (90) 98 97.6 12/23/17 21:00 Room Air 12/23/17 20:39 56 113/62 12/23/17 20:00 97.9 56 18 113/62 (79) 97 97.9 12/23/17 16:00 97.9 56 19 128/65 (86) 98 97.9 Intake and Output 12/23/17 12/24/17 19:00 07:00 Intake Total 500 ml 240 ml Output Total 700 ml Balance 500 ml -460 ml Intake Oral 500 ml 240 ml Output Urine Total 700 ml # Voids 4 Height (Feet): 5 Height (Inches): 8.00 Weight (Pounds): 174 General Appearance: lethargic EENT: normal ENT inspection Neck: normal alignment Cardiovascular: normal peripheral pulses, normal rate, regular rhythm Respiratory/Chest: chest wall non-tender, lungs clear, normal breath sounds Abdomen: normal bowel sounds, non tender, soft Extremities: normal inspection Edema: no edema noted Arm (L), no edema noted Arm (R), no edema noted Leg (L), no edema noted Leg (R), no edema noted Pedal (L), no edema noted Pedal (R), no edema noted Generalized Neurologic: responsive, motor weakness Skin: normal pigmentation, warm/dry Sj Robles DO Dec 24, 2017 13:12
[2017-12-24 16:00] VITALS: BP 133/76
--- NOTE | 2017-12-24 18:30 | Diagnostic Imaging Report ---
Indication: Abdominal pain Technique: Multiplanar grayscale imaging of the abdomen with duplex Doppler evaluation. Comparison: None Findings: Please note that per technologist notes very limited study due to patient inability to cooperate with exam positioning as well as patient body habitus and overlying bowel gas. The pancreas, portions of the left lobe of the liver as well as the abdominal aorta are not visualized. The right hepatic lobe measures approximately 15 cm in length. Echotexture appears coarsened. No definite focal hepatic mass lesion is identified. No definite evidence of cholecystitis. No appreciable pericholecystic fluid. Sonographic Xiong sign was reported as negative. The common bile duct measures approximately 2 mm in diameter. The kidneys demonstrate normal echogenicity. There is no evidence of hydronephrosis bilaterally. Some subcentimeter simple hepatic cysts are noted within the bilateral kidneys. There is a punctate echogenic focus in the upper pole of the right kidney which may represent a stone. The spleen is normal in size. No appreciable ascites. IMPRESSION: Significantly limited exam lack of visualization of the pancreas, abdominal aorta and portions of the liver. Further imaging with CT may be obtained as clinically indicated. Within these limitations: * No definite cholelithiasis or definite evidence to suggest acute cholecystitis. Sonographic Xiong sign reported as negative. * Simple appearing subcentimeter cysts in the bilateral kidneys. * Subcentimeter echogenic focus in the upper pole of the right kidney may possibly represent a nonobstructing stone. No evidence of hydronephrosis bilaterally.
[2017-12-24 20:00] VITALS: BP 132/69
--- NOTE | 2017-12-26 12:13 | Discharge Summary ---
Discharge Summary Discharge Summary _ DATE OF ADMISSION: 12/21/2017 DATE OF DISCHARGE: 12/24/2017 REASON FOR ADMISSION: 72 years old male, resident of [facility] facility ,with past medical history of hypertension, hyperlipidemia, CVA, BPH, Parkinson disease, presented to emergency department for evaluation due to multiply episodes of vomiting and diarrhea. Patient reported feeling weak. No chest pain or shortness of breath. No fever, no chills. Upon evaluation vital signs were stable. Urinalysis revealed no evidence of UTI. Leukocytosis 12.3. Stable electrolytes and renal parameters. Patient started on IV hydration. Patient received antidiarrheal , antiemetic and Pepcid in emergency department. Patient still felt nauseous and was unable to tolerate oral fluids. Patient subsequently was admitted with diagnoses of gastroenteritis. intractable vomiting CONSULTANTS: pulmonary Dr. Love ID specialist Dr. Hays GI specialist Dr. Dubon [facility] COURSE: Patient admitted to the floor. Patient started on IV hydration. Patient initially kept nothing by mouth . GI consult was requested. Abdominal ultrasound revealed no evidence of cholelithiasis, no evidence to suggest acute cholecystitis. Xiong sign was negative. Supportive care provided. Antiemetics provided as needed. Patient started on GI prophylaxis. Electrolytes , LFT and lipase were all within normal limits. Patient slowly started on diet and was advanced as tolerated. Bowel regimen instituted. Nutritional recommendation implemented in plan of care. GI recommended to push oral fluids. ID specialsit followed and recommended to keep patient off antibiotics, likely viral gastroenteritis. Leukocytosis resolved, no fevers. Supplemental oxygen provided as needed to keep pulse oximetry above 92%. Strict aspiration precautions were maintained. Blood pressure was managed with calcium channel jose and beta jose , and was stable. SNF medications resumed, including Proscar and Flomax. Aspirin was continued. Patient was working with physical and occupational therapists. No further episodes of vomiting and diarrhea. According to GI specialist, intractable episodes of vomiting and diarrhea were likely due to viral gastroenteritis and resolved. . Patient was cleared for discharge FINAL DIAGNOSES: Likely viral gastroenteritis Hypertension BPH Malnutrition Dysphagia Anxiety History of CVA DISCHARGE MEDICATIONS: See Medication Reconciliation list. DISCHARGE INSTRUCTIONS: Patient was discharged to the [facility]. Follow up with medical doctor at the facility. I have been assigned to dictate discharge summary for this account. I was not involved in the patient's management. Elizabeth Main NP Dec 26, 2017 12:13
== END 2017-12-24 21:00 | DRG 392 ==
LOC: EDBD 19:54 → EMR 20:22 → 3E 20:48 → EDBEDREQ 21:25 → 3E 23:03
DX: A08.4 Viral intestinal infection, unspecified (principal); N39.0 Urinary tract infection, site not specified; E46 Unspecified protein-calorie malnutrition; I69.354 Hemiplegia and hemiparesis following cerebral infarction affecting left non-dominant side; I10 Essential (primary) hypertension; Z88.8 Allergy status to other drugs, medicaments and biological substances; E11.9 Type 2 diabetes mellitus without complications; R06.02 Shortness of breath; N40.0 Benign prostatic hyperplasia without lower urinary tract symptoms; E78.5 Hyperlipidemia, unspecified; G20 Parkinson's disease; R13.10 Dysphagia, unspecified; F41.9 Anxiety disorder, unspecified; D64.9 Anemia, unspecified
CPT/HCPCS: 36415; 76700; 80048; 80053; 81003; 83690; 85025; 87081; 96374; 96375; 99285; J2405

== ENCOUNTER 2018-06-30 16:42 | Inpatient (IN) | payer MEDICARE, MEDICAID ==
[~2018-06-30] VITALS: Ht 180.3 cm; Wt 79.8 kg
[~2018-06-30 16:42] MED LIST: ACETAMINOPHEN325 M1 ORAL; AMANTADINE100 M2 ORAL; ASPIRIN325 MG ORAL; ATIVAN0.5 MG ORAL; BACLOFEN10 MG ORAL; DEPAKOTE ER250 MG ORAL; LABETALOL HCL100 MG ORAL; LOPERAMIDE2 MG PO; MAG-OXIDE400 M1 PO; NEURONTIN400 MG ORAL; NIACIN100 MG ORAL; NORVASC10 MG ORAL; PROSCAR5 MG ORAL; TAMSULOSIN HCL0.4 MG ORAL
[2018-06-30] MEDS ORDERED: LORazepam Inj 2mg/ml 1ml IV ONE (17:00)
[2018-06-30] MEDS ORDERED: levETIRAcetam 500 MG in D5W 110 ML IV ONE (17:00)
[2018-06-30 17:25] VITALS: BP 163/85
[2018-06-30] MEDS ORDERED: GABAPENTIN300 MG ORAL (17:42)
--- NOTE | 2018-06-30 17:52 | Emergency Room Report ---
History of Present Illness General Chief Complaint: Seizure Source: Patient, EMS Present Illness HPI Patient presents after having a generalized witnessed tonic clonic seizure at the [facility] facility where [facility] is. He has a history of a prior stroke. There is no prior history of seizures according to staff, however the patient is on Depakote (he has prior psych history). Patient is anxious and complains about some back pain and he says the back pain is chronic. He denies biting his tongue or hitting his head. He denies chest pain or palpitations. He does not answer most questions. Patient admitted in December 2017. Discharge diagnoses: Likely viral gastroenteritis Hypertension BPH Malnutrition Dysphagia Anxiety History of CVA Allergies: Coded Allergies: DONEPEZIL (Verified Allergy, Unknown, 12/21/17) QUETIAPINE (Verified Allergy, Unknown, 12/21/17) SERTRALINE (Verified Allergy, Unknown, 12/21/17) Patient History Limited by: medical condition Past Medical History: see triage record, old chart reviewed Social History Narrative SNF Reviewed Nursing Documentation: PMH: Agreed; PSxH: Agreed Nursing Documentation-PMH Past Medical History: No History, Except For Hx Cardiac Problems: Yes - hyperlipidemia Hx Hypertension: Yes Hx Cancer: No Hx Gastrointestinal Problems: Yes - gastritis, dyspepsia Hx Neurological Problems: Yes - neuralgia & neuritis Hx Cerebrovascular Accident: Yes Hx Parkinson's Disease: Yes Hx Paralysis: Yes - LEFT SIDE PARALYSIS Review of Systems All Other Systems: limited Physical Exam Vital Signs Date Time Temp Pulse Resp B/P (MAP) Pulse Ox O2 Delivery O2 Flow Rate FiO2 06/30/18 16:44 98.8 62 18 143/75 98 06/30/18 17:25 Room Air Sp02 EP Interpretation: reviewed, normal General Appearance: well appearing, no apparent distress, other - GCS 14 Head: normocephalic, atraumatic Eyes: bilateral eye normal inspection, bilateral eye PERRL ENT: moist mucus membranes Neck: supple Respiratory: lungs clear, normal breath sounds Cardiovascular #1: regular rate, rhythm Cardiovascular #2: 2+ radial (R) Gastrointestinal: normal inspection, normal bowel sounds, non tender, no mass, non-distended Genitourinary: no CVA tenderness Musculoskeletal: other - Contractures left-hand, tender - Lumbar area no bony tenderness Neurologic: alert, responsive, motor weakness - Left hemiparesis, Babinski - Left foot, other - cogwheeling and some regidity, oriented - X2 Psychiatric: anxious Skin: normal inspection, warm/dry Medical Decision Making Diagnostic Impression: Primary Impression: Seizure Additional Impressions: Subtherapeutic valproic acid level UTI (urinary tract infection) Qualified Codes: N30.00 - Acute cystitis without hematuria ER Course Patient presents after witnessed tonic-clonic seizure. Differential includes seizure post stroke, epilepsy, subtherapeutic medication levels, electrolyte imbalance, arrhythmia, acute myocardial infarction amongst others. Patient will be evaluated with CT the head, chest x-ray, EKG and labs. The patient will receive Ativan IV and Keppra. In addition his neurologic exam appears that he has parkinsonian symptoms. EKG with normal sinus rhythm no injury. Chest x-ray without infiltrate. CT without acute pathology. White count slightly elevated. CMP unremarkable. Urinalysis with pyuria. Valproic acid level. Patient had received Ativan and Keppra. No further seizure activity was noted. Antibiotics were begun for the urinary tract infection. Patient improved with treatment. Admitted for observation for further seizures as well as neurologic evaluation and continued treatment for urinary tract infection. Laboratory Tests Test 06/30/18 17:21 White Blood Count 11.7 K/UL (4.8-10.8) H Red Blood Count 4.50 M/UL (4.70-6.10) L Hemoglobin 13.7 G/DL (14.2-18.0) L Hematocrit 41.6 % (42.0-52.0) L Mean Corpuscular Volume 92 FL (80-99) Mean Corpuscular Hemoglobin 30.4 PG (27.0-31.0) Mean Corpuscular Hemoglobin Concent 32.9 G/DL (32.0-36.0) Red Cell Distribution Width 12.4 % (11.6-14.8) Platelet Count 180 K/UL (150-450) Mean Platelet Volume 8.6 FL (6.5-10.1) Neutrophils (%) (Auto) 74.8 % (45.0-75.0) Lymphocytes (%) (Auto) 15.8 % (20.0-45.0) L Monocytes (%) (Auto) 5.5 % (1.0-10.0) Eosinophils (%) (Auto) 2.8 % (0.0-3.0) Basophils (%) (Auto) 1.1 % (0.0-2.0) Urine Color Pale yellow Urine Appearance Slightly cloudy Urine pH 6 (4.5-8.0) Urine Specific [place] 1.015 (1.005-1.035) Urine Protein 2+ (NEGATIVE) H Urine Glucose (UA) Negative (NEGATIVE) Urine Ketones Negative (NEGATIVE) Urine Blood 5+ (NEGATIVE) H Urine Nitrite Negative (NEGATIVE) Urine Bilirubin Negative (NEGATIVE) Urine Urobilinogen Normal MG/DL (0.0-1.0) Urine Leukocyte Esterase 2+ (NEGATIVE) H Urine RBC 15-20 /HPF (0 - 0) H Urine WBC 10-15 /HPF (0 - 0) H Urine Squamous Epithelial Cells Few /LPF (NONE/OCC) Urine Bacteria Few /HPF (NONE) Sodium Level 143 MMOL/L (136-145) Potassium Level 3.9 MMOL/L (3.5-5.1) Chloride Level 106 MMOL/L (98-107) Carbon Dioxide Level 28 MMOL/L (21-32) Anion Gap 9 mmol/L (5-15) Blood Urea Nitrogen 18 mg/dL (7-18) Creatinine 1.3 MG/DL (0.55-1.30) Estimate Glomerular Filtration Rate mL/min (>60) Glucose Level 102 MG/DL (74-106) Calcium Level 9.3 MG/DL (8.5-10.1) Magnesium Level 2.1 MG/DL (1.8-2.4) Total Bilirubin 0.2 MG/DL (0.2-1.0) Aspartate Amino Transferase (AST) 15 U/L (15-37) Alanine Aminotransferase (ALT) 15 U/L (12-78) Alkaline Phosphatase 94 U/L (46-116) Total Creatine Kinase 122 U/L (26-308) Troponin I 0.009 ng/mL (0.000-0.056) Total Protein 6.4 G/DL (6.4-8.2) Albumin 2.8 G/DL (3.4-5.0) L Globulin 3.6 g/dL Albumin/Globulin Ratio 0.8 (1.0-2.7) L Valproic Acid Level 31 MCG/ML (50-100) L EKG Diagnostic Results Rate: normal Rhythm: NSR ST Segments: no acute changes Rhythm Strip Diag. Results EP Interpretation: yes Rhythm: NSR, no PVC's, no ectopy Chest X-Ray Diagnostic Results Chest X-Ray Diagnostic Results : Chest X-Ray Ordered: Yes # of Views/Limited/Complete: 1 View Indication: Other EP Interpretation: Yes Interpretation: no consolidation, no effusion, no pneumothorax, other - Mild cardiomegaly Impression: Other Electronically Signed by: Electronically signed by Tay Cox MD CT/MRI/US Diagnostic Results CT/MRI/US Diagnostic Results : Imaging Test Ordered: head Impression atrophy, no bleed or masses Last Vital Signs Date Time Temp Pulse Resp B/P (MAP) Pulse Ox O2 Delivery O2 Flow Rate FiO2 07/01/18 00:00 98.3 59 19 125/82 (96) 99 06/30/18 22:58 Nasal Cannula 2.0 Status: improved Disposition: ADMITTED INPATIENT Condition: Serious Referrals: Sj Robles DO (PCP) Tay Cox MD Jun 30, 2018 17:52
[2018-06-30 18:02] LABS: BASOPHILS % (AUTO) 1.1 % (0.0-2.0); EOSINOPHILS % (AUTO) 2.8 % (0.0-3.0); HEMATOCRIT 41.6 % (42.0-52.0); HEMOGLOBIN 13.7 G/DL (14.2-18.0); LYMPHOCYTES % (AUTO) 15.8 % (20.0-45.0); MEAN CORPUSCULAR VOLUME 92 FL (80-99); MONOCYTES % (AUTO) 5.5 % (1.0-10.0); NEUTROPHILS % (AUTO) 74.8 % (45.0-75.0); PLATELET COUNT 180 K/UL (150-450); RED CELL DISTRIBUTION WIDTH 12.4 % (11.6-14.8); WHITE BLOOD COUNT 11.7 K/UL (4.8-10.8)
[2018-06-30] MEDS ORDERED: MULTIVITAMINS1 EAC8 ORAL (18:08)
[2018-06-30 18:16] LABS: APPEARANCE,URINE SLIGHTLY CLOUDY; BILIRUBIN, URINE NEGATIVE (NEGATIVE); COLOR,URINE PALE YELLOW; GLUCOSE, URINE (UA) NEGATIVE (NEGATIVE); KETONES,URINE NEGATIVE (NEGATIVE); LEUKOCYTE ESTERASE ,URINE 2+ (NEGATIVE); NITRITE,URINE NEGATIVE (NEGATIVE); PH,URINE 6 (4.5-8.0); PROTEIN,URINE 2+ (NEGATIVE); UROBILINOGEN,URINE NORMAL MG/DL (0.0-1.0)
[2018-06-30 18:22] LABS: ANION GAP 9 mmol/L (5-15); BLOOD UREA NITROGEN 18 mg/dL (7-18); CALCIUM 9.3 MG/DL (8.5-10.1); CARBON DIOXIDE 28 MMOL/L (21-32); CHLORIDE 106 MMOL/L (98-107); CREATININE 1.3 MG/DL (0.55-1.30); POTASSIUM 3.9 MMOL/L (3.5-5.1); SODIUM 143 MMOL/L (136-145)
[2018-06-30 18:23] LABS: ALANINE AMINOTRANSFERASE 15 U/L (12-78); ALBUMIN 2.8 G/DL (3.4-5.0); ALBUMIN/GLOBULIN RATIO 0.8 (1.0-2.7); ALKALINE PHOSPHATASE 94 U/L (46-116); ASPARTATE AMINO TRANSFERASE 15 U/L (15-37); BILIRUBIN,TOTAL 0.2 MG/DL (0.2-1.0); CREATINE KINASE 122 U/L (26-308)
[2018-06-30] MEDS ORDERED: cefTRIAXone 1 GM in NS 55 ML IVPB ONE (19:00)
[2018-06-30] MEDS ORDERED: Miralax 17gm pkt ORAL PRN (20:00)
[2018-06-30] MEDS ORDERED: Morphine Sulfate 2mg/ml Inj(IV/IM USE ONLY) IVP PRN (20:00)
[2018-06-30] MEDS ORDERED: LORazepam Inj 2mg/ml 1ml IV PRN (20:00)
[2018-06-30] MEDS ORDERED: Zolpidem 5mg tab ORAL PRN (20:00)
[2018-06-30] MEDS ORDERED: Mylanta II UD 30ml ORAL PRN (20:04)
[2018-06-30] MEDS ORDERED: Dextrose 50% 25ml Syringe IV PRN (20:15)
[2018-06-30 22:00] VITALS: BP_SYST 137; BP_SYST 145; BP_DIAS 75; BP_DIAS 82
[2018-07-01] VITALS: BP 125/82
[2018-07-01 04:00] VITALS: BP 136/73
[2018-07-01 06:45] LABS: BASOPHILS % (AUTO) 1.1 % (0.0-2.0); EOSINOPHILS % (AUTO) 5.3 % (0.0-3.0); HEMATOCRIT 40.6 % (42.0-52.0); HEMOGLOBIN 13.2 G/DL (14.2-18.0); LYMPHOCYTES % (AUTO) 23.3 % (20.0-45.0); MEAN CORPUSCULAR VOLUME 93 FL (80-99); MONOCYTES % (AUTO) 7.7 % (1.0-10.0); NEUTROPHILS % (AUTO) 62.6 % (45.0-75.0); PLATELET COUNT 165 K/UL (150-450); RED BLOOD COUNT 4.38 M/UL (4.70-6.10); RED CELL DISTRIBUTION WIDTH 12.7 % (11.6-14.8); WHITE BLOOD COUNT 8.5 K/UL (4.8-10.8)
[2018-07-01 07:23] LABS: ALANINE AMINOTRANSFERASE 14 U/L (12-78); ALBUMIN 2.6 G/DL (3.4-5.0); ALBUMIN/GLOBULIN RATIO 0.8 (1.0-2.7); ALKALINE PHOSPHATASE 84 U/L (46-116); ANION GAP 10 mmol/L (5-15); ASPARTATE AMINO TRANSFERASE 13 U/L (15-37); BILIRUBIN,TOTAL 0.3 MG/DL (0.2-1.0); BLOOD UREA NITROGEN 18 mg/dL (7-18); CARBON DIOXIDE 27 MMOL/L (21-32); CHLORIDE 107 MMOL/L (98-107); CREATININE 1.1 MG/DL (0.55-1.30); POTASSIUM 3.6 MMOL/L (3.5-5.1); SODIUM 144 MMOL/L (136-145)
[2018-07-01 08:00] VITALS: BP 128/68
[2018-07-01] MEDS: Heparin 5000 units/ml inj SUBQ SCH ×3 (09:00→21:06)
[2018-07-01] MEDS: Depakote ER 250mg tab ORAL SCH ×2 (09:13→21:05)
--- NOTE | 2018-07-01 10:42 | Consultation ---
History of Present Illness General Date patient seen: Jul 01, 2018 Chief Complaint: Seizure Present Illness HPI 73 year old male with hx of CVA, LEFT SIDE PARALYSIS, Parkinson, hypertension presented to ER after having a generalized witnessed tonic clonic seizure at the snf facility where he lives. He has a history of a prior stroke. There is no prior history of seizures according to staff, however the patient is on Depakote (he has prior psych history). Patient is anxious and complains about some back pain and he says the back pain is chronic. Pt is admitted to telemetry for further management. Allergies: Coded Allergies: DONEPEZIL (Verified Allergy, Unknown, 12/21/17) QUETIAPINE (Verified Allergy, Unknown, 12/21/17) SERTRALINE (Verified Allergy, Unknown, 12/21/17) Medication History Scheduled Amantadine Hcl* (Amantadine*), 100 MG ORAL TWICE A DAY, (Reported) Amlodipine Besylate (Norvasc), 10 MG ORAL DAILY, (Reported) Aspirin* (Aspirin*), 325 MG ORAL DAILY, (Reported) Baclofen* (Baclofen*), 10 MG ORAL THREE TIMES A DAY, (Reported) Divalproex Sodium* (Depakote Er*), 250 MG ORAL EVERY 12 HOURS, (Reported) Finasteride* (Proscar*), 5 MG ORAL DAILY, (Reported) Gabapentin* (Gabapentin*), 300 MG ORAL THREE TIMES A DAY, (Reported) Labetalol Hcl* (Normodyne*), 50 MG ORAL EVERY 12 HOURS, (Reported) Lorazepam* (Ativan*), 0.5 MG ORAL BID, (Reported) Magnesium Oxide (Mag-Oxide), 400 MG PO DAILY, (Reported) Multivitamin With Minerals (Multivitamins With Minerals*), 1 TAB ORAL DAILY, ( Reported) Niacin* (Niacin*), 250 MG ORAL DAILY, (Reported) Tamsulosin Hcl (Tamsulosin Hcl*), 0.4 MG ORAL BEDTIME, (Reported) Scheduled PRN Acetaminophen* (Acetaminophen 325MG Tablet*), 650 MG ORAL Q4H PRN for For Pain, (Reported) Loperamide Hcl (Loperamide), 2 MG PO QID PRN for Diarrhea, (Reported) Discontinued Medications Gabapentin* (Neurontin*), 300 MG ORAL THREE TIMES A DAY, (Reported) Discontinued Reason: Prescription changed Patient History Healthcare decision maker Marielos Segovia/Sheyla Segovia Resuscitation status Full Code Advanced Directive on File Past Medical/Surgical History Past Medical/Surgical History: (1) Parkinson disease (2) Left-sided weakness (3) History of cerebrovascular accident (4) BPH (benign prostatic hyperplasia) (5) HTN (hypertension) Review of Systems All Other Systems: negative except mentioned in HPI Physical Exam General Appearance: WD/WN Lines, tubes and drains: peripheral HEENT: normocephalic, atraumatic Neck: non-tender, normal alignment Respiratory/Chest: chest wall non-tender, lungs clear Breasts: no masses Cardiovascular/Chest: normal peripheral pulses, normal rate Abdomen: normal bowel sounds, non tender Genitourinary/Rectal: normal genital exam Extremities: normal range of motion, non-tender Skin Exam: normal pigmentation Last 24 Hour Vital Signs Date Time Temp Pulse Resp B/P (MAP) Pulse Ox O2 Delivery O2 Flow Rate FiO2 07/01/18 09:13 55 128/68 07/01/18 09:00 55 128/68 07/01/18 08:00 55 07/01/18 08:00 97.6 53 20 128/68 (88) 95 07/01/18 04:00 97.7 55 22 136/73 (94) 98 07/01/18 04:00 56 07/01/18 00:00 98.3 59 19 125/82 (96) 99 06/30/18 23:00 55 06/30/18 22:58 Nasal Cannula 2.0 06/30/18 22:22 98.0 57 18 137/82 98 Room Air 06/30/18 22:00 98.0 57 18 145/75 (98) 98 06/30/18 22:00 98.0 62 18 137/82 98 Room Air 06/30/18 17:38 62 18 Room Air 06/30/18 17:25 62 18 163/85 100 Room Air 06/30/18 16:44 98.8 62 18 143/75 98 Intake and Output 06/30/18 07/01/18 19:00 07:00 Intake Total 415 ml Output Total 400 ml Balance 415 ml -400 ml Intake IV Total 415 ml Output Urine Total 400 ml # Voids 1 Laboratory Tests Test 06/30/18 17:21 07/01/18 05:20 White Blood Count 11.7 K/UL (4.8-10.8) H 8.5 K/UL (4.8-10.8) Red Blood Count 4.50 M/UL (4.70-6.10) L 4.38 M/UL (4.70-6.10) L Hemoglobin 13.7 G/DL (14.2-18.0) L 13.2 G/DL (14.2-18.0) L Hematocrit 41.6 % (42.0-52.0) L 40.6 % (42.0-52.0) L Mean Corpuscular Volume 92 FL (80-99) 93 FL (80-99) Mean Corpuscular Hemoglobin 30.4 PG (27.0-31.0) 30.1 PG (27.0-31.0) Mean Corpuscular Hemoglobin Concent 32.9 G/DL (32.0-36.0) 32.6 G/DL (32.0-36.0) Red Cell Distribution Width 12.4 % (11.6-14.8) 12.7 % (11.6-14.8) Platelet Count 180 K/UL (150-450) 165 K/UL (150-450) Mean Platelet Volume 8.6 FL (6.5-10.1) 8.9 FL (6.5-10.1) Neutrophils (%) (Auto) 74.8 % (45.0-75.0) 62.6 % (45.0-75.0) Lymphocytes (%) (Auto) 15.8 % (20.0-45.0) L 23.3 % (20.0-45.0) Monocytes (%) (Auto) 5.5 % (1.0-10.0) 7.7 % (1.0-10.0) Eosinophils (%) (Auto) 2.8 % (0.0-3.0) 5.3 % (0.0-3.0) H Basophils (%) (Auto) 1.1 % (0.0-2.0) 1.1 % (0.0-2.0) Urine Color Pale yellow Urine Appearance Slightly cloudy Urine pH 6 (4.5-8.0) Urine Specific [place] 1.015 (1.005-1.035) Urine Protein 2+ (NEGATIVE) H Urine Glucose (UA) Negative (NEGATIVE) Urine Ketones Negative (NEGATIVE) Urine Blood 5+ (NEGATIVE) H Urine Nitrite Negative (NEGATIVE) Urine Bilirubin Negative (NEGATIVE) Urine Urobilinogen Normal MG/DL (0.0-1.0) Urine Leukocyte Esterase 2+ (NEGATIVE) H Urine RBC 15-20 /HPF (0 - 0) H Urine WBC 10-15 /HPF (0 - 0) H Urine Squamous Epithelial Cells Few /LPF (NONE/OCC) Urine Bacteria Few /HPF (NONE) Sodium Level 143 MMOL/L (136-145) 144 MMOL/L (136-145) Potassium Level 3.9 MMOL/L (3.5-5.1) 3.6 MMOL/L (3.5-5.1) Chloride Level 106 MMOL/L (98-107) 107 MMOL/L (98-107) Carbon Dioxide Level 28 MMOL/L (21-32) 27 MMOL/L (21-32) Anion Gap 9 mmol/L (5-15) 10 mmol/L (5-15) Blood Urea Nitrogen 18 mg/dL (7-18) 18 mg/dL (7-18) Creatinine 1.3 MG/DL (0.55-1.30) 1.1 MG/DL (0.55-1.30) Estimat Glomerular Filtration Rate mL/min (>60) mL/min (>60) Glucose Level 102 MG/DL (74-106) 87 MG/DL (74-106) Calcium Level 9.3 MG/DL (8.5-10.1) 9.0 MG/DL (8.5-10.1) Magnesium Level 2.1 MG/DL (1.8-2.4) Total Bilirubin 0.2 MG/DL (0.2-1.0) 0.3 MG/DL (0.2-1.0) Aspartate Amino Transf (AST/SGOT) 15 U/L (15-37) 13 U/L (15-37) L Alanine Aminotransferase (ALT/SGPT) 15 U/L (12-78) 14 U/L (12-78) Alkaline Phosphatase 94 U/L (46-116) 84 U/L (46-116) Total Creatine Kinase 122 U/L (26-308) Troponin I 0.009 ng/mL (0.000-0.056) Total Protein 6.4 G/DL (6.4-8.2) 5.8 G/DL (6.4-8.2) L Albumin 2.8 G/DL (3.4-5.0) L 2.6 G/DL (3.4-5.0) L Globulin 3.6 g/dL 3.2 g/dL Albumin/Globulin Ratio 0.8 (1.0-2.7) L 0.8 (1.0-2.7) L Valproic Acid (Depakene) Level 31 MCG/ML (50-100) L Microbiology Date/Time Source Procedure Growth Status 06/30/18 17:21 Urine,Clean Catch Urine Culture - Preliminary NO GROWTH Resulted Height (Feet): 5 Height (Inches): 11.00 Weight (Pounds): 172 Medications Current Medications Medications (Trade) Dose Ordered Sig/Sonia Route PRN Reason Start Time Stop Time Status Last Admin Dose Admin Acetaminophen (Tylenol) 650 mg Q4H PRN ORAL fever 06/30/18 20:00 07/30/18 19:59 Al Hydroxide/Mg Hydroxide (Mylanta II) 30 ml Q6H PRN ORAL dyspepsia 06/30/18 20:04 07/30/18 20:03 Amlodipine Besylate (Norvasc) 10 mg DAILY ORAL 07/01/18 09:00 07/31/18 08:59 07/01/18 09:13 Baclofen (Lioresal) 10 mg THREE TIMES A DAY ORAL 07/01/18 09:00 07/31/18 08:59 07/01/18 09:13 Dextrose (Dextrose 50%) 25 ml Q30M PRN IV Hypoglycemia 07/01/18 07:30 07/31/18 07:29 Dextrose (Dextrose 50%) 50 ml Q30M PRN IV Hypoglycemia 07/01/18 07:30 07/31/18 07:29 Divalproex Sodium (Depakote ER) 250 mg EVERY 12 HOURS ORAL 07/01/18 09:00 07/31/18 08:59 07/01/18 09:13 Gabapentin (Neurontin) 300 mg THREE TIMES A DAY ORAL 07/01/18 09:00 07/31/18 08:59 07/01/18 09:13 Heparin Sodium (Porcine) (Heparin 5000 units/ml) 5,000 units EVERY 12 HOURS SUBQ 07/01/18 09:00 07/31/18 08:59 Insulin Aspart (NovoLOG) BEFORE MEALS AND HS SUBQ 07/01/18 11:30 07/31/18 11:29 Labetalol HCl (Normodyne) 50 mg EVERY 12 HOURS ORAL 07/01/18 09:00 07/31/18 08:59 Lorazepam (Ativan 2mg/ml 1ml) 2 mg Q1H PRN IV seizures 06/30/18 20:00 07/07/18 19:59 Morphine Sulfate (Morphine Sulfate) 1 mg Q4H PRN IVP For Pain 06/30/18 20:00 07/07/18 19:59 Ondansetron HCl (Zofran) 4 mg Q6H PRN IVP Nausea & Vomiting 06/30/18 20:00 07/30/18 19:59 Polyethylene Glycol (Miralax) 17 gm HSPRN PRN ORAL Constipation 06/30/18 20:00 07/30/18 19:59 Tamsulosin HCl (Flomax) 0.4 mg BEDTIME ORAL 07/01/18 21:00 07/31/18 20:59 Zolpidem Tartrate (Ambien) 5 mg HSPRN PRN ORAL Insomnia 06/30/18 20:00 07/07/18 19:59 Assessment/Plan Problem List: (1) New onset seizure ICD Codes: R56.9 - Unspecified convulsions SNOMED: 45679172 (2) History of cerebrovascular accident ICD Codes: Z86.73 - Personal history of transient ischemic attack (TIA), and cerebral infarction without residual deficits SNOMED: 001778294 (3) Left-sided weakness ICD Codes: R53.1 - Weakness SNOMED: 897059680 (4) Parkinson disease ICD Codes: G20 - Parkinson's disease SNOMED: 75234334 (5) HTN (hypertension) ICD Codes: I10 - Essential (primary) hypertension SNOMED: 47976609 Assessment/Plan MRI of head neuro evaluation seizure medication monitor BP symptomatic treatment seizure precaution dvt prophylaxis increased WBC is most likely secondary to seizures, there is no sign of infection Sugey Love MD Jul 01, 2018 10:42
--- NOTE | 2018-07-01 11:19 | Diagnostic Imaging Report ---
Indication: Chest pain Technique: One view of the chest Comparison: 04/29/2009 Findings: The heart is borderline enlarged. The lungs and pleural spaces are clear. Inspiration is suboptimal. No significant interim change Impression: Borderline cardiomegaly. No acute process
--- NOTE | 2018-07-01 11:25 | Diagnostic Imaging Report ---
Indications: Seizures Technique: Spiral acquisitions obtained through the brain. Angled axial and coronal 5 x 5 mm slices were reconstructed. Total dose length product 3582.4 mGycm. CTDI vol(s) 70.38,70.38,70.38 mGy. Dose reduction achieved using automated exposure control Comparison: 04/29/2009 Findings: There is extensive image degradation due to motion artifact, despite multiple acquisitions. Previously demonstrated right posterior temporal intraparenchymal hematoma is no longer evident. There is evidence of prior right convexity craniotomy There is a large area of encephalomalacia involving the right frontal, parietal, and temporal lobes deep to the craniotomy. This also involves the right basal ganglia. There is resultant ex vacuo dilatation of the right lateral ventricle. This is a new finding. There is generalized enlargement of the ventricles and extra-axial CSF spaces which has progressed since the previous study. No definite acute intracranial hemorrhage nor edema, although evaluation for such is very limited. Visualized orbits and sinuses are grossly unremarkable. The mastoids are grossly clear. Impression: Very limited exam, due to motion artifact Evidence of prior right craniotomy Extensive right middle cerebral artery distribution encephalomalacia and right basal ganglia encephalomalacia, likely on the basis of old infarcts Progressive age-related volume loss Other findings as noted No definite gross acute intracranial bleed or mass effect This agrees with the preliminary interpretation provided overnight by [facility] teleradiology service. The CT scanner at [facility] is accredited by the [place] [employer] and the scans are performed using protocols designed to limit radiation exposure to as low as reasonably achievable to attain images of sufficient resolution adequate for diagnostic evaluation.
[2018-07-01] MEDS: NovoLOG Insulin Flexpen SUBQ SCH ×3 (11:30→21:00)
[2018-07-01 12:00] VITALS: BP 135/70
--- NOTE | 2018-07-01 15:22 | Cardiac Electrophysiology PN ---
Subjective Subjective [id number] Objective Last 24 Hour Vital Signs Date Time Temp Pulse Resp B/P (MAP) Pulse Ox O2 Delivery O2 Flow Rate FiO2 07/01/18 12:00 Nasal Cannula 2.0 07/01/18 12:00 97.9 52 16 135/70 (91) 100 07/01/18 09:13 55 128/68 07/01/18 09:00 55 128/68 07/01/18 08:00 Nasal Cannula 2.0 07/01/18 08:00 55 07/01/18 08:00 97.6 53 20 128/68 (88) 95 07/01/18 04:00 97.7 55 22 136/73 (94) 98 07/01/18 04:00 56 07/01/18 00:00 98.3 59 19 125/82 (96) 99 06/30/18 23:00 55 06/30/18 22:58 Nasal Cannula 2.0 06/30/18 22:22 98.0 57 18 137/82 98 Room Air 06/30/18 22:00 98.0 57 18 145/75 (98) 98 06/30/18 22:00 98.0 62 18 137/82 98 Room Air 06/30/18 17:38 62 18 Room Air 06/30/18 17:25 62 18 163/85 100 Room Air 06/30/18 16:44 98.8 62 18 143/75 98 Intake and Output 06/30/18 07/01/18 19:00 07:00 Intake Total 415 ml Output Total 400 ml Balance 415 ml -400 ml Intake IV Total 415 ml Output Urine Total 400 ml # Voids 1 Laboratory Tests Test 06/30/18 17:21 07/01/18 05:20 White Blood Count 11.7 K/UL (4.8-10.8) H 8.5 K/UL (4.8-10.8) Red Blood Count 4.50 M/UL (4.70-6.10) L 4.38 M/UL (4.70-6.10) L Hemoglobin 13.7 G/DL (14.2-18.0) L 13.2 G/DL (14.2-18.0) L Hematocrit 41.6 % (42.0-52.0) L 40.6 % (42.0-52.0) L Mean Corpuscular Volume 92 FL (80-99) 93 FL (80-99) Mean Corpuscular Hemoglobin 30.4 PG (27.0-31.0) 30.1 PG (27.0-31.0) Mean Corpuscular Hemoglobin Concent 32.9 G/DL (32.0-36.0) 32.6 G/DL (32.0-36.0) Red Cell Distribution Width 12.4 % (11.6-14.8) 12.7 % (11.6-14.8) Platelet Count 180 K/UL (150-450) 165 K/UL (150-450) Mean Platelet Volume 8.6 FL (6.5-10.1) 8.9 FL (6.5-10.1) Neutrophils (%) (Auto) 74.8 % (45.0-75.0) 62.6 % (45.0-75.0) Lymphocytes (%) (Auto) 15.8 % (20.0-45.0) L 23.3 % (20.0-45.0) Monocytes (%) (Auto) 5.5 % (1.0-10.0) 7.7 % (1.0-10.0) Eosinophils (%) (Auto) 2.8 % (0.0-3.0) 5.3 % (0.0-3.0) H Basophils (%) (Auto) 1.1 % (0.0-2.0) 1.1 % (0.0-2.0) Urine Color Pale yellow Urine Appearance Slightly cloudy Urine pH 6 (4.5-8.0) Urine Specific [place] 1.015 (1.005-1.035) Urine Protein 2+ (NEGATIVE) H Urine Glucose (UA) Negative (NEGATIVE) Urine Ketones Negative (NEGATIVE) Urine Blood 5+ (NEGATIVE) H Urine Nitrite Negative (NEGATIVE) Urine Bilirubin Negative (NEGATIVE) Urine Urobilinogen Normal MG/DL (0.0-1.0) Urine Leukocyte Esterase 2+ (NEGATIVE) H Urine RBC 15-20 /HPF (0 - 0) H Urine WBC 10-15 /HPF (0 - 0) H Urine Squamous Epithelial Cells Few /LPF (NONE/OCC) Urine Bacteria Few /HPF (NONE) Sodium Level 143 MMOL/L (136-145) 144 MMOL/L (136-145) Potassium Level 3.9 MMOL/L (3.5-5.1) 3.6 MMOL/L (3.5-5.1) Chloride Level 106 MMOL/L (98-107) 107 MMOL/L (98-107) Carbon Dioxide Level 28 MMOL/L (21-32) 27 MMOL/L (21-32) Anion Gap 9 mmol/L (5-15) 10 mmol/L (5-15) Blood Urea Nitrogen 18 mg/dL (7-18) 18 mg/dL (7-18) Creatinine 1.3 MG/DL (0.55-1.30) 1.1 MG/DL (0.55-1.30) Estimat Glomerular Filtration Rate mL/min (>60) mL/min (>60) Glucose Level 102 MG/DL (74-106) 87 MG/DL (74-106) Calcium Level 9.3 MG/DL (8.5-10.1) 9.0 MG/DL (8.5-10.1) Magnesium Level 2.1 MG/DL (1.8-2.4) Total Bilirubin 0.2 MG/DL (0.2-1.0) 0.3 MG/DL (0.2-1.0) Aspartate Amino Transf (AST/SGOT) 15 U/L (15-37) 13 U/L (15-37) L Alanine Aminotransferase (ALT/SGPT) 15 U/L (12-78) 14 U/L (12-78) Alkaline Phosphatase 94 U/L (46-116) 84 U/L (46-116) Total Creatine Kinase 122 U/L (26-308) Troponin I 0.009 ng/mL (0.000-0.056) Total Protein 6.4 G/DL (6.4-8.2) 5.8 G/DL (6.4-8.2) L Albumin 2.8 G/DL (3.4-5.0) L 2.6 G/DL (3.4-5.0) L Globulin 3.6 g/dL 3.2 g/dL Albumin/Globulin Ratio 0.8 (1.0-2.7) L 0.8 (1.0-2.7) L Valproic Acid (Depakene) Level 31 MCG/ML (50-100) L Microbiology Date/Time Source Procedure Growth Status 06/30/18 17:21 Urine,Clean Catch Urine Culture - Preliminary NO GROWTH Resulted Crow Villalobos MD Jul 01, 2018 15:22
[2018-07-01 16:00] VITALS: BP 136/67
--- NOTE | 2018-07-01 16:59 | Consultation ---
History of Present Illness General Date patient seen: Jul 01, 2018 Chief Complaint: Seizure Present Illness HPI 73 y/o M with hx of of CVA c/w L side paralysis, HLD, gastritis/GERD, Parkinson' s disease, HTN, SNF resident presented to ED on 06/30 after having a witnessed generalized tonic-clonic seizure at SNF Denied CP, palpitations. Allergies: Coded Allergies: DONEPEZIL (Verified Allergy, Unknown, 12/21/17) QUETIAPINE (Verified Allergy, Unknown, 12/21/17) SERTRALINE (Verified Allergy, Unknown, 12/21/17) Medication History Scheduled Amantadine Hcl* (Amantadine*), 100 MG ORAL TWICE A DAY, (Reported) Amlodipine Besylate (Norvasc), 10 MG ORAL DAILY, (Reported) Aspirin* (Aspirin*), 325 MG ORAL DAILY, (Reported) Baclofen* (Baclofen*), 10 MG ORAL THREE TIMES A DAY, (Reported) Divalproex Sodium* (Depakote Er*), 250 MG ORAL EVERY 12 HOURS, (Reported) Finasteride* (Proscar*), 5 MG ORAL DAILY, (Reported) Gabapentin* (Gabapentin*), 300 MG ORAL THREE TIMES A DAY, (Reported) Labetalol Hcl* (Normodyne*), 50 MG ORAL EVERY 12 HOURS, (Reported) Lorazepam* (Ativan*), 0.5 MG ORAL BID, (Reported) Magnesium Oxide (Mag-Oxide), 400 MG PO DAILY, (Reported) Multivitamin With Minerals (Multivitamins With Minerals*), 1 TAB ORAL DAILY, ( Reported) Niacin* (Niacin*), 250 MG ORAL DAILY, (Reported) Tamsulosin Hcl (Tamsulosin Hcl*), 0.4 MG ORAL BEDTIME, (Reported) Scheduled PRN Acetaminophen* (Acetaminophen 325MG Tablet*), 650 MG ORAL Q4H PRN for For Pain, (Reported) Loperamide Hcl (Loperamide), 2 MG PO QID PRN for Diarrhea, (Reported) Discontinued Medications Gabapentin* (Neurontin*), 300 MG ORAL THREE TIMES A DAY, (Reported) Discontinued Reason: Prescription changed Patient History Healthcare decision maker Marielos Segovia/Sheyla Segovia Resuscitation status Full Code Advanced Directive on File Patient History Narrative Pmhx: as above Shx: reviewed Fhx: non contributory Review of Systems All Other Systems: negative except mentioned in HPI Physical Exam Physical Exam Narrative General Appearance: WD/WN Lines, tubes and drains: peripheral HEENT: normocephalic, atraumatic Neck: non-tender, normal alignment Respiratory/Chest: chest wall non-tender, lungs clear Cardiovascular/Chest: normal peripheral pulses, normal rate Abdomen: normal bowel sounds, non tender Extremities: normal range of motion, non-tender Skin Exam: normal pigmentation Last 24 Hour Vital Signs Date Time Temp Pulse Resp B/P (MAP) Pulse Ox O2 Delivery O2 Flow Rate FiO2 07/01/18 12:00 51 07/01/18 12:00 Nasal Cannula 2.0 07/01/18 12:00 97.9 52 16 135/70 (91) 100 07/01/18 09:13 55 128/68 07/01/18 09:00 55 128/68 07/01/18 08:00 Nasal Cannula 2.0 07/01/18 08:00 55 07/01/18 08:00 97.6 53 20 128/68 (88) 95 07/01/18 04:00 97.7 55 22 136/73 (94) 98 07/01/18 04:00 56 07/01/18 00:00 98.3 59 19 125/82 (96) 99 06/30/18 23:00 55 06/30/18 22:58 Nasal Cannula 2.0 06/30/18 22:22 98.0 57 18 137/82 98 Room Air 06/30/18 22:00 98.0 57 18 145/75 (98) 98 06/30/18 22:00 98.0 62 18 137/82 98 Room Air 06/30/18 17:38 62 18 Room Air 06/30/18 17:25 62 18 163/85 100 Room Air Intake and Output 06/30/18 07/01/18 19:00 07:00 Intake Total 415 ml Output Total 400 ml Balance 415 ml -400 ml Intake IV Total 415 ml Output Urine Total 400 ml # Voids 1 Laboratory Tests Test 06/30/18 17:21 07/01/18 05:20 White Blood Count 11.7 K/UL (4.8-10.8) H 8.5 K/UL (4.8-10.8) Red Blood Count 4.50 M/UL (4.70-6.10) L 4.38 M/UL (4.70-6.10) L Hemoglobin 13.7 G/DL (14.2-18.0) L 13.2 G/DL (14.2-18.0) L Hematocrit 41.6 % (42.0-52.0) L 40.6 % (42.0-52.0) L Mean Corpuscular Volume 92 FL (80-99) 93 FL (80-99) Mean Corpuscular Hemoglobin 30.4 PG (27.0-31.0) 30.1 PG (27.0-31.0) Mean Corpuscular Hemoglobin Concent 32.9 G/DL (32.0-36.0) 32.6 G/DL (32.0-36.0) Red Cell Distribution Width 12.4 % (11.6-14.8) 12.7 % (11.6-14.8) Platelet Count 180 K/UL (150-450) 165 K/UL (150-450) Mean Platelet Volume 8.6 FL (6.5-10.1) 8.9 FL (6.5-10.1) Neutrophils (%) (Auto) 74.8 % (45.0-75.0) 62.6 % (45.0-75.0) Lymphocytes (%) (Auto) 15.8 % (20.0-45.0) L 23.3 % (20.0-45.0) Monocytes (%) (Auto) 5.5 % (1.0-10.0) 7.7 % (1.0-10.0) Eosinophils (%) (Auto) 2.8 % (0.0-3.0) 5.3 % (0.0-3.0) H Basophils (%) (Auto) 1.1 % (0.0-2.0) 1.1 % (0.0-2.0) Urine Color Pale yellow Urine Appearance Slightly cloudy Urine pH 6 (4.5-8.0) Urine Specific Manning 1.015 (1.005-1.035) Urine Protein 2+ (NEGATIVE) H Urine Glucose (UA) Negative (NEGATIVE) Urine Ketones Negative (NEGATIVE) Urine Blood 5+ (NEGATIVE) H Urine Nitrite Negative (NEGATIVE) Urine Bilirubin Negative (NEGATIVE) Urine Urobilinogen Normal MG/DL (0.0-1.0) Urine Leukocyte Esterase 2+ (NEGATIVE) H Urine RBC 15-20 /HPF (0 - 0) H Urine WBC 10-15 /HPF (0 - 0) H Urine Squamous Epithelial Cells Few /LPF (NONE/OCC) Urine Bacteria Few /HPF (NONE) Sodium Level 143 MMOL/L (136-145) 144 MMOL/L (136-145) Potassium Level 3.9 MMOL/L (3.5-5.1) 3.6 MMOL/L (3.5-5.1) Chloride Level 106 MMOL/L (98-107) 107 MMOL/L (98-107) Carbon Dioxide Level 28 MMOL/L (21-32) 27 MMOL/L (21-32) Anion Gap 9 mmol/L (5-15) 10 mmol/L (5-15) Blood Urea Nitrogen 18 mg/dL (7-18) 18 mg/dL (7-18) Creatinine 1.3 MG/DL (0.55-1.30) 1.1 MG/DL (0.55-1.30) Estimat Glomerular Filtration Rate mL/min (>60) mL/min (>60) Glucose Level 102 MG/DL (74-106) 87 MG/DL (74-106) Calcium Level 9.3 MG/DL (8.5-10.1) 9.0 MG/DL (8.5-10.1) Magnesium Level 2.1 MG/DL (1.8-2.4) Total Bilirubin 0.2 MG/DL (0.2-1.0) 0.3 MG/DL (0.2-1.0) Aspartate Amino Transf (AST/SGOT) 15 U/L (15-37) 13 U/L (15-37) L Alanine Aminotransferase (ALT/SGPT) 15 U/L (12-78) 14 U/L (12-78) Alkaline Phosphatase 94 U/L (46-116) 84 U/L (46-116) Total Creatine Kinase 122 U/L (26-308) Troponin I 0.009 ng/mL (0.000-0.056) Total Protein 6.4 G/DL (6.4-8.2) 5.8 G/DL (6.4-8.2) L Albumin 2.8 G/DL (3.4-5.0) L 2.6 G/DL (3.4-5.0) L Globulin 3.6 g/dL 3.2 g/dL Albumin/Globulin Ratio 0.8 (1.0-2.7) L 0.8 (1.0-2.7) L Valproic Acid (Depakene) Level 31 MCG/ML (50-100) L Microbiology Date/Time Source Procedure Growth Status 06/30/18 17:21 Urine,Clean Catch Urine Culture - Preliminary NO GROWTH Resulted Height (Feet): 5 Height (Inches): 11.00 Weight (Pounds): 172 Medications Current Medications Medications (Trade) Dose Ordered Sig/Sonia Route PRN Reason Start Time Stop Time Status Last Admin Dose Admin Acetaminophen (Tylenol) 650 mg Q4H PRN ORAL fever 06/30/18 20:00 07/30/18 19:59 Al Hydroxide/Mg Hydroxide (Mylanta II) 30 ml Q6H PRN ORAL dyspepsia 06/30/18 20:04 07/30/18 20:03 Amlodipine Besylate (Norvasc) 10 mg DAILY ORAL 07/01/18 09:00 07/31/18 08:59 07/01/18 09:13 Baclofen (Lioresal) 10 mg THREE TIMES A DAY ORAL 07/01/18 09:00 07/31/18 08:59 07/01/18 13:50 Clonidine HCl (Catapres Tab) 0.1 mg Q4H PRN ORAL sbp>170 07/01/18 15:41 07/31/18 15:40 Dextrose (Dextrose 50%) 25 ml Q30M PRN IV Hypoglycemia 07/01/18 07:30 07/31/18 07:29 Dextrose (Dextrose 50%) 50 ml Q30M PRN IV Hypoglycemia 07/01/18 07:30 07/31/18 07:29 Divalproex Sodium (Depakote ER) 250 mg EVERY 12 HOURS ORAL 07/01/18 09:00 07/31/18 08:59 07/01/18 09:13 Gabapentin (Neurontin) 300 mg THREE TIMES A DAY ORAL 07/01/18 09:00 07/31/18 08:59 07/01/18 13:50 Heparin Sodium (Porcine) (Heparin 5000 units/ml) 5,000 units EVERY 12 HOURS SUBQ 07/01/18 09:00 07/31/18 08:59 Insulin Aspart (NovoLOG) BEFORE MEALS AND HS SUBQ 07/01/18 11:30 07/31/18 11:29 Lisinopril (Zestril) 10 mg DAILY ORAL 07/02/18 09:00 08/01/18 08:59 Lorazepam (Ativan 2mg/ml 1ml) 2 mg Q1H PRN IV seizures 06/30/18 20:00 07/07/18 19:59 Morphine Sulfate (Morphine Sulfate) 1 mg Q4H PRN IVP For Pain 06/30/18 20:00 07/07/18 19:59 Ondansetron HCl (Zofran) 4 mg Q6H PRN IVP Nausea & Vomiting 06/30/18 20:00 07/30/18 19:59 Polyethylene Glycol (Miralax) 17 gm HSPRN PRN ORAL Constipation 06/30/18 20:00 07/30/18 19:59 Tamsulosin HCl (Flomax) 0.4 mg BEDTIME ORAL 07/01/18 21:00 07/31/18 20:59 Zolpidem Tartrate (Ambien) 5 mg HSPRN PRN ORAL Insomnia 06/30/18 20:00 07/07/18 19:59 Assessment/Plan Assessment/Plan Abx: Ceftriaxone x 1 06/30 Assessment: Seizure -CT head: Very limited exam, due to motion artifact. Evidence of prior right craniotomy. Extensive right middle cerebral artery distribution encephalomalacia and right basal ganglia encephalomalacia, likely on the basis of old infarcts. Progressive age-related volume loss. No definite gross acute intracranial bleed or mass effect Leukocytosis, SP- likely reactive 2ry to above -u/a 10-15, nit neg, leuk +2; ucx nTD -CXR: Borderline cardiomegaly. No acute process Afebrile CVA c/w L side paralysis HLD gastritis/GERD Parkinson's disease HTN SNF resident Plan: -Continue to monitor off abx as no evidence of infectious process -f/u cx -Monitor CBC/CMP, temperatures -aspiration/seizure precautions -neuro eval Thank you for this consultation. Will continue to follow along with you. Discussed with Maria Esther Smith M.D. Jul 01, 2018 16:59
[2018-07-01 20:00] VITALS: BP 153/73
[2018-07-01] MEDS: Tamsulosin 0.4mg cap ORAL SCH (21:05)
--- NOTE | 2018-07-01 21:45 | History and Physical Report ---
DATE OF ADMISSION: 06/30/2018 TIME SEEN: 2 p.m. CONSULTANTS: 1. . 2. Sugey Love M.D. 3. Deanne Argueta M.D. CHIEF COMPLAINT: New onset seizure. BRIEF HISTORY: A 73-year-old male from [facility], presented today with new onset of seizure, came to [facility], diagnosed as above, admitted to [facility] for further care. Currently, O2 NC, confused in bed, not sure why he is here. PAST MEDICAL HISTORY: Includes hypertension, BPH, CVA, Parkinson. PAST SURGICAL HISTORY: Unknown. MEDICATIONS: Include Flomax, NovoLog, Norvasc, Depakote, Neurontin, . ALLERGIES: Benazepril, quetiapine, sertraline. SOCIAL HISTORY: No smoking. No alcohol. No intravenous drug abuse. FAMILY HISTORY: Noncontributory. PHYSICAL EXAMINATION: GENERAL: Calm in bed, slightly confused, oriented x1, in no acute distress. VITAL SIGNS: Temperature 97 degrees, pulse 52, respiratory rate 16, blood pressure 130/70. CARDIOVASCULAR: No murmur. LUNGS: Distant and clear. ABDOMEN: Bowel sounds positive. Nontender. Nondistended. EXTREMITIES: No cyanosis, clubbing, or edema. NEUROLOGIC: The patient moves all extremities, slightly weak. LABORATORY AND DIAGNOSTIC DATA: H and H 13/40, otherwise CBC is normal. BMP show albumin 2.6. Otherwise normal. Urinalysis 2+ leukocyte esterase. ASSESSMENT: 1. New onset of seizure. 2. UTI. 3. Hypertension. 4. BPH. 5. CVA. 6. Parkinson. 7. Bradycardia. 8. Malnutrition. PLAN: 1. PT. 2. Dietary evaluation. 3. CBC and BMP in the morning. 4. Resume home medications. 5. Seizure control. 6. Antibiotics per Infectious Disease. 7. We will continue to follow this patient. 8. We will add Dr. Duke, Dr. Villalobos, and Dr. Hays to consult. Sj Robles D.O. DR: Delonte JOB#: [id number] CC:
--- NOTE | 2018-07-01 22:00 | Consultation ---
DATE OF CONSULTATION: 07/01/2018 CARDIOLOGY CONSULTATION CONSULTING PHYSICIAN: Crow Villalobos M.D. REFERRING PHYSICIAN: Sj Robles D.O. REASON FOR CONSULTATION: Management of hypertension in the patient with history of stroke. 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 The patient presented to the emergency room after generalized tonic-clonic seizure at the snf facility. The patient had no prior history of seizures, even though he is on Depakote. His was [facility] to [facility] and a Cardiology consultation was obtained for further evaluation and management. REVIEW OF SYSTEMS: Review of systems was negative other than what was mentioned in the history of present illness. PAST MEDICAL HISTORY: As mentioned above. FAMILY HISTORY: Noncontributory. 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 He does not smoke or drink alcohol. Currently, he has been in the senior care for 9 years. PHYSICAL EXAMINATION: VITAL SIGNS: Blood pressure is 135/70, pulse is 52, respirations 18, and he is afebrile. HEAD AND NECK: Shows no JVD or carotid bruits. LUNGS: Clear. CARDIOVASCULAR: Shows bradycardic S1 and S2 with no gallop or murmur. ABDOMEN: Soft. EXTREMITIES: No pitting edema. NEUROLOGIC: He has left hemiplegia. LABORATORY AND DIAGNOSTIC DATA: His labs show white count of 8.5, hematocrit of 13.2, hematocrit of 40, and platelet count is 165,000. Sodium 144, potassium 3.6, BUN of 18, creatinine 1.1, and glucose of 87. Troponin is negative. is 31. ASSESSMENT/PLAN: 1. Bradycardia. Heart rate in the 50s. We will get an EKG and we will completely rule out myocardial infarction protocol even though he does not have any chest pain. We will get a thyroid function test as well. 2. Hypertension. On Norvasc 10 mg daily. The patient is also on labetalol 50 mg b.i.d. that would discontinue the bradycardia. I will add lisinopril 10 mg b.i.d. to his medical regimen. 3. History of hemorrhagic stroke. No seizures. Further evaluation by Neurology. The CT of the brain showed evidence of prior right craniotomy and extensive right middle cerebral artery distribution encephalomalacia and there is an old infarct. Thank you very much for allowing me to participate in the care of this patient. Please do not hesitate to contact me for any questions regarding my evaluation. Crow Villalobos M.D. DR: CONCETTA JOB#: [id number] CC:
[2018-07-02] VITALS: BP 158/77
[2018-07-02 04:00] VITALS: BP 160/87
[2018-07-02] MEDS: NovoLOG Insulin Flexpen SUBQ SCH ×4 (05:57→21:00)
[2018-07-02 07:14] LABS: BASOPHILS % (AUTO) 1.2 % (0.0-2.0); EOSINOPHILS % (AUTO) 4.8 % (0.0-3.0); HEMATOCRIT 46.9 % (42.0-52.0); HEMOGLOBIN 15.4 G/DL (14.2-18.0); LYMPHOCYTES % (AUTO) 24.4 % (20.0-45.0); MEAN CORPUSCULAR VOLUME 92 FL (80-99); MONOCYTES % (AUTO) 6.5 % (1.0-10.0); NEUTROPHILS % (AUTO) 63.2 % (45.0-75.0); PLATELET COUNT 193 K/UL (150-450); RED BLOOD COUNT 5.08 M/UL (4.70-6.10); RED CELL DISTRIBUTION WIDTH 12.4 % (11.6-14.8); WHITE BLOOD COUNT 8.4 K/UL (4.8-10.8)
[2018-07-02 07:35] LABS: ALANINE AMINOTRANSFERASE 17 U/L (12-78); ALBUMIN 3.1 G/DL (3.4-5.0); ALBUMIN/GLOBULIN RATIO 0.8 (1.0-2.7); ALKALINE PHOSPHATASE 100 U/L (46-116); ANION GAP 10 mmol/L (5-15); ASPARTATE AMINO TRANSFERASE 22 U/L (15-37); BILIRUBIN,TOTAL 0.3 MG/DL (0.2-1.0); BLOOD UREA NITROGEN 13 mg/dL (7-18); CALCIUM 9.3 MG/DL (8.5-10.1); CARBON DIOXIDE 27 MMOL/L (21-32); CHLORIDE 106 MMOL/L (98-107); CREATININE 1.2 MG/DL (0.55-1.30); PHOSPHORUS 2.9 MG/DL (2.5-4.9); POTASSIUM 4.1 MMOL/L (3.5-5.1); SODIUM 143 MMOL/L (136-145)
[2018-07-02 08:00] VITALS: BP 163/93
[2018-07-02] MEDS: Lisinopril 10mg tab ORAL SCH (08:57)
[2018-07-02] MEDS: Depakote ER 250mg tab ORAL SCH (08:57)
[2018-07-02] MEDS: Heparin 5000 units/ml inj SUBQ SCH ×2 (08:58→21:29)
[2018-07-02] MEDS: Memantine 5 MG TAB ORAL SCH (09:40)
--- NOTE | 2018-07-02 10:09 | Cardiac Electrophysiology PN ---
Assessment/Plan Assessment/Plan 1. Bradycardia. Heart rate in the 50s. Ruled out for myocardial infarction. We will get a thyroid function test as well. Echo EF 60% 2. Hypertension. On Norvasc 10 mg daily and lisinopril 10 mg daily 3. History of hemorrhagic stroke. No seizures. Further evaluation by Neurology. The CT of the brain showed evidence of prior right craniotomy and extensive right middle cerebral artery distribution encephalomalacia and there is an old infarct. DW RN and daughter Subjective Subjective Feeling better. No CP or SOB Objective Last 24 Hour Vital Signs Date Time Temp Pulse Resp B/P (MAP) Pulse Ox O2 Delivery O2 Flow Rate FiO2 07/02/18 08:57 163/93 07/02/18 08:57 87 163/93 07/02/18 08:00 97.2 87 20 163/93 (116) 98 07/02/18 04:00 71 07/02/18 04:00 98.1 71 18 160/87 (111) 96 07/02/18 00:00 98.6 67 18 158/77 (104) 99 07/02/18 00:00 61 07/01/18 21:00 Nasal Cannula 2.0 07/01/18 20:00 98.9 57 18 153/73 (99) 100 07/01/18 20:00 55 07/01/18 16:00 97.2 57 14 136/67 (90) 99 07/01/18 16:00 58 07/01/18 16:00 Nasal Cannula 2.0 07/01/18 12:00 51 07/01/18 12:00 Nasal Cannula 2.0 07/01/18 12:00 97.9 52 16 135/70 (91) 100 Intake and Output 07/01/18 07/02/18 19:00 07:00 Intake Total 250 ml Output Total 700 ml 800 ml Balance -450 ml -800 ml Intake Oral 250 ml Output Urine Total 700 ml 800 ml Laboratory Tests Test 07/02/18 06:25 White Blood Count 8.4 K/UL (4.8-10.8) Red Blood Count 5.08 M/UL (4.70-6.10) Hemoglobin 15.4 G/DL (14.2-18.0) Hematocrit 46.9 % (42.0-52.0) Mean Corpuscular Volume 92 FL (80-99) Mean Corpuscular Hemoglobin 30.3 PG (27.0-31.0) Mean Corpuscular Hemoglobin Concent 32.8 G/DL (32.0-36.0) Red Cell Distribution Width 12.4 % (11.6-14.8) Platelet Count 193 K/UL (150-450) Mean Platelet Volume 9.3 FL (6.5-10.1) Neutrophils (%) (Auto) 63.2 % (45.0-75.0) Lymphocytes (%) (Auto) 24.4 % (20.0-45.0) Monocytes (%) (Auto) 6.5 % (1.0-10.0) Eosinophils (%) (Auto) 4.8 % (0.0-3.0) H Basophils (%) (Auto) 1.2 % (0.0-2.0) Erythrocyte Sedimentation Rate 18 MM/HR (0-20) Sodium Level 143 MMOL/L (136-145) Potassium Level 4.1 MMOL/L (3.5-5.1) Chloride Level 106 MMOL/L (98-107) Carbon Dioxide Level 27 MMOL/L (21-32) Anion Gap 10 mmol/L (5-15) Blood Urea Nitrogen 13 mg/dL (7-18) Creatinine 1.2 MG/DL (0.55-1.30) Estimat Glomerular Filtration Rate mL/min (>60) Glucose Level 100 MG/DL (74-106) Calcium Level 9.3 MG/DL (8.5-10.1) Phosphorus Level 2.9 MG/DL (2.5-4.9) Magnesium Level 1.9 MG/DL (1.8-2.4) Total Bilirubin 0.3 MG/DL (0.2-1.0) Aspartate Amino Transf (AST/SGOT) 22 U/L (15-37) Alanine Aminotransferase (ALT/SGPT) 17 U/L (12-78) Alkaline Phosphatase 100 U/L (46-116) Troponin I 0.008 ng/mL (0.000-0.056) Total Protein 7.0 G/DL (6.4-8.2) Albumin 3.1 G/DL (3.4-5.0) L Globulin 3.9 g/dL Albumin/Globulin Ratio 0.8 (1.0-2.7) L Microbiology Date/Time Source Procedure Growth Status 06/30/18 17:35 Nasal Nares MRSA Culture - Final Staphylococcus Aureus - Mrsa Complete 06/30/18 17:21 Urine,Clean Catch Urine Culture - Preliminary NO GROWTH AFTER 24 HOURS Resulted 06/30/18 17:35 Rectum VRE Culture - Final NO VANCOMYCIN RESISTANT ENTEROCOCCUS ... Complete 06/30/18 17:35 Rectum - Final NO CARBAPENEM-RESISTANT ENTEROBACTERI... Complete Objective HEAD AND NECK: No JVD or carotid bruits. LUNGS: Clear. CARDIOVASCULAR: Bradycardic S1 and S2 with no gallop or murmur. ABDOMEN: Soft. EXTREMITIES: No pitting edema. NEUROLOGIC: He has left hemiplegia. Crow Villalobos MD Jul 02, 2018 10:09
[2018-07-02 12:00] VITALS: BP 140/101
--- NOTE | 2018-07-02 12:00 | Pulmonology Progress Note ---
Assessment/Plan Problems: (1) New onset seizure (2) History of cerebrovascular accident (3) Left-sided weakness (4) Parkinson disease (5) HTN (hypertension) Assessment/Plan no more seizures MRI of brain pending neuro evaluation pending on Depakote 250BID monitor BP PT/ot symptomatic treatment. dvt prophylaxis. Subjective Constitutional: Reports: no symptoms HEENT: Repors: no symptoms Respiratory: Reports: no symptoms Allergies: Coded Allergies: DONEPEZIL (Verified Allergy, Unknown, 12/21/17) QUETIAPINE (Verified Allergy, Unknown, 12/21/17) SERTRALINE (Verified Allergy, Unknown, 12/21/17) Objective Last 24 Hour Vital Signs Date Time Temp Pulse Resp B/P (MAP) Pulse Ox O2 Delivery O2 Flow Rate FiO2 07/02/18 09:00 Nasal Cannula 2.0 07/02/18 08:57 163/93 07/02/18 08:57 87 163/93 07/02/18 08:00 97.2 87 20 163/93 (116) 98 07/02/18 07:43 90 07/02/18 04:00 71 07/02/18 04:00 98.1 71 18 160/87 (111) 96 07/02/18 00:00 98.6 67 18 158/77 (104) 99 07/02/18 00:00 61 07/01/18 21:00 Nasal Cannula 2.0 07/01/18 20:00 98.9 57 18 153/73 (99) 100 07/01/18 20:00 55 07/01/18 16:00 97.2 57 14 136/67 (90) 99 07/01/18 16:00 58 07/01/18 16:00 Nasal Cannula 2.0 07/01/18 12:00 51 07/01/18 12:00 Nasal Cannula 2.0 07/01/18 12:00 97.9 52 16 135/70 (91) 100 Intake and Output 07/01/18 07/02/18 19:00 07:00 Intake Total 250 ml Output Total 700 ml 800 ml Balance -450 ml -800 ml Intake Oral 250 ml Output Urine Total 700 ml 800 ml General Appearance: WD/WN HEENT: normocephalic, atraumatic Cardiovascular: normal peripheral pulses, normal rate Abdomen: normal bowel sounds, no organomegaly Neurologic/Psychiatric: crossbar switch adjuster II-XII grossly normal Microbiology Date/Time Source Procedure Growth Status 06/30/18 17:35 Nasal Nares MRSA Culture - Final Staphylococcus Aureus - Mrsa Complete 06/30/18 17:21 Urine,Clean Catch Urine Culture - Preliminary NO GROWTH AFTER 24 HOURS Resulted 06/30/18 17:35 Rectum VRE Culture - Final NO VANCOMYCIN RESISTANT ENTEROCOCCUS ... Complete 06/30/18 17:35 Rectum - Final NO CARBAPENEM-RESISTANT ENTEROBACTERI... Complete Laboratory Tests 07/02/18 06:25: White Blood Count 8.4, Red Blood Count 5.08, Hemoglobin 15.4, Hematocrit 46.9, Mean Corpuscular Volume 92, Mean Corpuscular Hemoglobin 30.3, Mean Corpuscular Hemoglobin Concent 32.8, Red Cell Distribution Width 12.4, Platelet Count 193, Mean Platelet Volume 9.3, Neutrophils (%) (Auto) 63.2, Lymphocytes (%) (Auto) 24.4, Monocytes (%) (Auto) 6.5, Eosinophils (%) (Auto) 4.8H, Basophils (%) (Auto ) 1.2, Erythrocyte Sedimentation Rate 18, Sodium Level 143, Potassium Level 4.1 , Chloride Level 106, Carbon Dioxide Level 27, Anion Gap 10, Blood Urea Nitrogen 13, Creatinine 1.2, Estimat Glomerular Filtration Rate , Glucose Level 100, Calcium Level 9.3, Phosphorus Level 2.9, Magnesium Level 1.9, Total Bilirubin 0.3, Aspartate Amino Transf (AST/SGOT) 22, Alanine Aminotransferase ( ALT/SGPT) 17, Alkaline Phosphatase 100, Troponin I 0.008, Total Protein 7.0, Albumin 3.1L, Globulin 3.9, Albumin/Globulin Ratio 0.8L Current Medications Medications (Trade) Dose Ordered Sig/Sonia Route PRN Reason Start Time Stop Time Status Last Admin Dose Admin Acetaminophen (Tylenol) 650 mg Q4H PRN ORAL fever 06/30/18 20:00 07/30/18 19:59 Al Hydroxide/Mg Hydroxide (Mylanta II) 30 ml Q6H PRN ORAL dyspepsia 06/30/18 20:04 07/30/18 20:03 Amlodipine Besylate (Norvasc) 10 mg DAILY ORAL 07/01/18 09:00 07/31/18 08:59 07/02/18 08:57 Baclofen (Lioresal) 10 mg THREE TIMES A DAY ORAL 07/01/18 09:00 07/31/18 08:59 07/02/18 08:56 Clonidine HCl (Catapres Tab) 0.1 mg Q4H PRN ORAL sbp>170 07/01/18 15:41 07/31/18 15:40 Dextrose (Dextrose 50%) 25 ml Q30M PRN IV Hypoglycemia 07/01/18 07:30 07/31/18 07:29 Dextrose (Dextrose 50%) 50 ml Q30M PRN IV Hypoglycemia 07/01/18 07:30 07/31/18 07:29 Divalproex Sodium (Depakote ER) 250 mg EVERY 12 HOURS ORAL 07/01/18 09:00 07/31/18 08:59 07/02/18 08:57 Gabapentin (Neurontin) 300 mg THREE TIMES A DAY ORAL 07/01/18 09:00 07/31/18 08:59 07/02/18 08:57 Heparin Sodium (Porcine) (Heparin 5000 units/ml) 5,000 units EVERY 12 HOURS SUBQ 07/01/18 09:00 07/31/18 08:59 07/02/18 08:58 Insulin Aspart (NovoLOG) BEFORE MEALS AND HS SUBQ 07/01/18 11:30 07/31/18 11:29 07/01/18 17:18 Lisinopril (Zestril) 10 mg DAILY ORAL 07/02/18 09:00 08/01/18 08:59 07/02/18 08:57 Lorazepam (Ativan 2mg/ml 1ml) 2 mg Q1H PRN IV seizures 06/30/18 20:00 07/07/18 19:59 Memantine (Namenda) 5 mg DAILY ORAL 07/02/18 09:00 08/01/18 08:59 07/02/18 09:40 Morphine Sulfate (Morphine Sulfate) 1 mg Q4H PRN IVP For Pain 06/30/18 20:00 07/07/18 19:59 Ondansetron HCl (Zofran) 4 mg Q6H PRN IVP Nausea & Vomiting 06/30/18 20:00 07/30/18 19:59 Polyethylene Glycol (Miralax) 17 gm HSPRN PRN ORAL Constipation 06/30/18 20:00 07/30/18 19:59 Tamsulosin HCl (Flomax) 0.4 mg BEDTIME ORAL 07/01/18 21:00 07/31/18 20:59 07/01/18 21:05 Zolpidem Tartrate (Ambien) 5 mg HSPRN PRN ORAL Insomnia 06/30/18 20:00 07/07/18 19:59 Sugey Love MD Jul 02, 2018 12:00
--- NOTE | 2018-07-02 14:18 | General Progress Note ---
Assessment/Plan Problem List: (1) New onset seizure ICD Codes: R56.9 - Unspecified convulsions SNOMED: 10524156 (2) HTN (hypertension) ICD Codes: I10 - Essential (primary) hypertension SNOMED: 26627739 (3) Malnutrition ICD Codes: E46 - Unspecified protein-calorie malnutrition SNOMED: 25396266 (4) BPH (benign prostatic hyperplasia) ICD Codes: N40.0 - Benign prostatic hyperplasia without lower urinary tract symptoms SNOMED: 327346115 (5) UTI (urinary tract infection) ICD Codes: N39.0 - Urinary tract infection, site not specified SNOMED: 79656422 (6) History of cerebrovascular accident ICD Codes: Z86.73 - Personal history of transient ischemic attack (TIA), and cerebral infarction without residual deficits SNOMED: 273394479 (7) Parkinson disease ICD Codes: G20 - Parkinson's disease SNOMED: 44804723 Status: unchanged Assessment/Plan pt diet cbc bmp am seizufre control Subjective Constitutional: Reports: weakness Allergies: Coded Allergies: DONEPEZIL (Verified Allergy, Unknown, 12/21/17) QUETIAPINE (Verified Allergy, Unknown, 12/21/17) SERTRALINE (Verified Allergy, Unknown, 12/21/17) All Systems: reviewed and negative except above Subjective o2 nc eating Objective Last 24 Hour Vital Signs Date Time Temp Pulse Resp B/P (MAP) Pulse Ox O2 Delivery O2 Flow Rate FiO2 07/02/18 12:00 98.6 93 18 140/101 (114) 97 07/02/18 11:39 94 07/02/18 09:00 Nasal Cannula 2.0 07/02/18 08:57 163/93 07/02/18 08:57 87 163/93 07/02/18 08:00 97.2 87 20 163/93 (116) 98 07/02/18 07:43 90 07/02/18 04:00 71 07/02/18 04:00 98.1 71 18 160/87 (111) 96 07/02/18 00:00 98.6 67 18 158/77 (104) 99 07/02/18 00:00 61 07/01/18 21:00 Nasal Cannula 2.0 07/01/18 20:00 98.9 57 18 153/73 (99) 100 07/01/18 20:00 55 07/01/18 16:00 97.2 57 14 136/67 (90) 99 07/01/18 16:00 58 07/01/18 16:00 Nasal Cannula 2.0 Intake and Output 07/01/18 07/02/18 19:00 07:00 Intake Total 250 ml Output Total 700 ml 800 ml Balance -450 ml -800 ml Intake Oral 250 ml Output Urine Total 700 ml 800 ml Laboratory Tests 07/02/18 06:25: White Blood Count 8.4, Red Blood Count 5.08, Hemoglobin 15.4, Hematocrit 46.9, Mean Corpuscular Volume 92, Mean Corpuscular Hemoglobin 30.3, Mean Corpuscular Hemoglobin Concent 32.8, Red Cell Distribution Width 12.4, Platelet Count 193, Mean Platelet Volume 9.3, Neutrophils (%) (Auto) 63.2, Lymphocytes (%) (Auto) 24.4, Monocytes (%) (Auto) 6.5, Eosinophils (%) (Auto) 4.8H, Basophils (%) (Auto ) 1.2, Erythrocyte Sedimentation Rate 18, Sodium Level 143, Potassium Level 4.1 , Chloride Level 106, Carbon Dioxide Level 27, Anion Gap 10, Blood Urea Nitrogen 13, Creatinine 1.2, Estimat Glomerular Filtration Rate , Glucose Level 100, Calcium Level 9.3, Phosphorus Level 2.9, Magnesium Level 1.9, Total Bilirubin 0.3, Aspartate Amino Transf (AST/SGOT) 22, Alanine Aminotransferase ( ALT/SGPT) 17, Alkaline Phosphatase 100, Troponin I 0.008, Total Protein 7.0, Albumin 3.1L, Globulin 3.9, Albumin/Globulin Ratio 0.8L Height (Feet): 5 Height (Inches): 11.00 Weight (Pounds): 172 General Appearance: lethargic EENT: normal ENT inspection Neck: normal alignment Cardiovascular: normal peripheral pulses, normal rate, regular rhythm Respiratory/Chest: chest wall non-tender, lungs clear, normal breath sounds Abdomen: normal bowel sounds, non tender, soft Extremities: normal inspection Edema: no edema noted Arm (L), no edema noted Arm (R), no edema noted Leg (L), no edema noted Leg (R), no edema noted Pedal (L), no edema noted Pedal (R), no edema noted Generalized Neurologic: motor weakness Skin: normal pigmentation, warm/dry RoblesSj Chi-Martha DO Jul 02, 2018 14:17
[2018-07-02 16:00] VITALS: BP 113/77
--- NOTE | 2018-07-02 16:01 | Infectious Diseases Prog Note ---
Assessment/Plan Assessment/Plan Assessment: Seizure -MRI brain p -CT head: Very limited exam, due to motion artifact. Evidence of prior right craniotomy. Extensive right middle cerebral artery distribution encephalomalacia and right basal ganglia encephalomalacia, likely on the basis of old infarcts. Progressive age-related volume loss. No definite gross acute intracranial bleed or mass effect Leukocytosis, SP- likely reactive 2ry to above -u/a 10-15, nit neg, leuk +2; ucx nTD -CXR: Borderline cardiomegaly. No acute process Afebrile CVA c/w L side paralysis HLD gastritis/GERD Parkinson's disease HTN SNF resident Plan: -Continue to monitor off abx as no evidence of infectious process -06/30 SP Ceftriaxone x 1 -f/u cx -Monitor CBC/CMP, temperatures -aspiration/seizure precautions -neuro eval -f/u MRI brain Thank you for this consultation. Will continue to follow along with you. Discussed with RN. Subjective Allergies: Coded Allergies: DONEPEZIL (Verified Allergy, Unknown, 12/21/17) QUETIAPINE (Verified Allergy, Unknown, 12/21/17) SERTRALINE (Verified Allergy, Unknown, 12/21/17) Subjective afebrile no leukocytosis off abx no more seizures MRI brain pending Objective Vital Signs Last 24 Hour Vital Signs Date Time Temp Pulse Resp B/P (MAP) Pulse Ox O2 Delivery O2 Flow Rate FiO2 07/02/18 12:00 98.6 93 18 140/101 (114) 97 07/02/18 11:39 94 07/02/18 09:00 Nasal Cannula 2.0 07/02/18 08:57 163/93 07/02/18 08:57 87 163/93 07/02/18 08:00 97.2 87 20 163/93 (116) 98 07/02/18 07:43 90 07/02/18 04:00 71 07/02/18 04:00 98.1 71 18 160/87 (111) 96 07/02/18 00:00 98.6 67 18 158/77 (104) 99 07/02/18 00:00 61 07/01/18 21:00 Nasal Cannula 2.0 07/01/18 20:00 98.9 57 18 153/73 (99) 100 07/01/18 20:00 55 07/01/18 16:00 97.2 57 14 136/67 (90) 99 07/01/18 16:00 58 07/01/18 16:00 Nasal Cannula 2.0 Height (Feet): 5 Height (Inches): 11.00 Weight (Pounds): 172 Microbiology Date/Time Source Procedure Growth Status 06/30/18 17:35 Nasal Nares MRSA Culture - Final Staphylococcus Aureus - Mrsa Complete 06/30/18 17:21 Urine,Clean Catch Urine Culture - Preliminary NO GROWTH AFTER 24 HOURS Resulted 06/30/18 17:35 Rectum VRE Culture - Final NO VANCOMYCIN RESISTANT ENTEROCOCCUS ... Complete 06/30/18 17:35 Rectum - Final NO CARBAPENEM-RESISTANT ENTEROBACTERI... Complete Laboratory Tests Test 07/02/18 06:25 White Blood Count 8.4 K/UL (4.8-10.8) Red Blood Count 5.08 M/UL (4.70-6.10) Hemoglobin 15.4 G/DL (14.2-18.0) Hematocrit 46.9 % (42.0-52.0) Mean Corpuscular Volume 92 FL (80-99) Mean Corpuscular Hemoglobin 30.3 PG (27.0-31.0) Mean Corpuscular Hemoglobin Concent 32.8 G/DL (32.0-36.0) Red Cell Distribution Width 12.4 % (11.6-14.8) Platelet Count 193 K/UL (150-450) Mean Platelet Volume 9.3 FL (6.5-10.1) Neutrophils (%) (Auto) 63.2 % (45.0-75.0) Lymphocytes (%) (Auto) 24.4 % (20.0-45.0) Monocytes (%) (Auto) 6.5 % (1.0-10.0) Eosinophils (%) (Auto) 4.8 % (0.0-3.0) H Basophils (%) (Auto) 1.2 % (0.0-2.0) Erythrocyte Sedimentation Rate 18 MM/HR (0-20) Sodium Level 143 MMOL/L (136-145) Potassium Level 4.1 MMOL/L (3.5-5.1) Chloride Level 106 MMOL/L (98-107) Carbon Dioxide Level 27 MMOL/L (21-32) Anion Gap 10 mmol/L (5-15) Blood Urea Nitrogen 13 mg/dL (7-18) Creatinine 1.2 MG/DL (0.55-1.30) Estimat Glomerular Filtration Rate mL/min (>60) Glucose Level 100 MG/DL (74-106) Calcium Level 9.3 MG/DL (8.5-10.1) Phosphorus Level 2.9 MG/DL (2.5-4.9) Magnesium Level 1.9 MG/DL (1.8-2.4) Total Bilirubin 0.3 MG/DL (0.2-1.0) Aspartate Amino Transf (AST/SGOT) 22 U/L (15-37) Alanine Aminotransferase (ALT/SGPT) 17 U/L (12-78) Alkaline Phosphatase 100 U/L (46-116) Troponin I 0.008 ng/mL (0.000-0.056) Total Protein 7.0 G/DL (6.4-8.2) Albumin 3.1 G/DL (3.4-5.0) L Globulin 3.9 g/dL Albumin/Globulin Ratio 0.8 (1.0-2.7) L Current Medications Medications (Trade) Dose Ordered Sig/Sonia Route PRN Reason Start Time Stop Time Status Last Admin Dose Admin Acetaminophen (Tylenol) 650 mg Q4H PRN ORAL fever 06/30/18 20:00 07/30/18 19:59 Al Hydroxide/Mg Hydroxide (Mylanta II) 30 ml Q6H PRN ORAL dyspepsia 06/30/18 20:04 07/30/18 20:03 Amlodipine Besylate (Norvasc) 10 mg DAILY ORAL 07/01/18 09:00 07/31/18 08:59 07/02/18 08:57 Baclofen (Lioresal) 10 mg THREE TIMES A DAY ORAL 07/01/18 09:00 07/31/18 08:59 07/02/18 12:49 Clonidine HCl (Catapres Tab) 0.1 mg Q4H PRN ORAL sbp>170 07/01/18 15:41 07/31/18 15:40 Dextrose (Dextrose 50%) 25 ml Q30M PRN IV Hypoglycemia 07/01/18 07:30 07/31/18 07:29 Dextrose (Dextrose 50%) 50 ml Q30M PRN IV Hypoglycemia 07/01/18 07:30 07/31/18 07:29 Divalproex Sodium (Depakote ER) 250 mg EVERY 12 HOURS ORAL 07/01/18 09:00 07/31/18 08:59 07/02/18 08:57 Gabapentin (Neurontin) 300 mg THREE TIMES A DAY ORAL 07/01/18 09:00 07/31/18 08:59 07/02/18 12:49 Heparin Sodium (Porcine) (Heparin 5000 units/ml) 5,000 units EVERY 12 HOURS SUBQ 07/01/18 09:00 07/31/18 08:59 07/02/18 08:58 Insulin Aspart (NovoLOG) BEFORE MEALS AND HS SUBQ 07/01/18 11:30 07/31/18 11:29 07/01/18 17:18 Lisinopril (Zestril) 10 mg DAILY ORAL 07/02/18 09:00 08/01/18 08:59 07/02/18 08:57 Lorazepam (Ativan 2mg/ml 1ml) 2 mg Q1H PRN IV seizures 06/30/18 20:00 07/07/18 19:59 Memantine (Namenda) 5 mg DAILY ORAL 07/02/18 09:00 08/01/18 08:59 07/02/18 09:40 Polyethylene Glycol (Miralax) 17 gm HSPRN PRN ORAL Constipation 06/30/18 20:00 07/30/18 19:59 Tamsulosin HCl (Flomax) 0.4 mg BEDTIME ORAL 07/01/18 21:00 07/31/18 20:59 07/01/18 21:05 Zolpidem Tartrate (Ambien) 5 mg HSPRN PRN ORAL Insomnia 06/30/18 20:00 07/07/18 19:59 Maria Esther Inman M.D. Jul 02, 2018 16:01
--- NOTE | 2018-07-02 16:29 | Diagnostic Imaging Report ---
Indication: New onset seizure, left-sided weakness Technique: sagittal T1 fast spin echo, axial T1 FLAIR, axial T2 FLAIR, axial T2 FS PROPELLER, axial T2* GRE, axial diffusion weighted images. ADC and exponential ADC maps generated Comparison: Comparison made to CT brain dated 06/30/2018 Findings: No definite abnormal areas of restricted diffusion to suggest acute infarction, although artifacts in the anterior temporal lobes bilaterally precludes complete exclusion of acute ischemic pathology in these areas. There is an area of cystic encephalomalacia involving the high posterior frontal lobe extending into the right basal ganglia. Much larger area of encephalomalacia is seen involving the right temporal lobe and parietal lobe and much of the high posterior central frontal and parietal lobe. There is resultant ex vacuo dilatation of the right lateral ventricle. No acute hemorrhage or edema. Areas of susceptibility artifact in the periphery of the high right frontal and parietal lobes may reflect areas old hemorrhage related to prior surgery in this area. Round areas of susceptibility artifact in the high right anterior frontal lobe and in the right basal ganglia likely from reflect old microbleeds. A slightly larger area of susceptibility artifact is seen in the anterior right juan, not appreciated on other sequences other than the perfusion images; this could represent an old microbleed or a small cavernous malformation. Some susceptibility artifact is also seen at the periphery of the old right basal ganglia infarct. No mass effect nor midline shift. In addition to the ex vacuo dilatation, there is generalized age-related enlargement of the ventricles and extra axial CSF spaces. Normal flow void is seen within the left vertebral artery. Normal flow void is not visualized within the right vertebral artery, and occlusion of more sluggish flow within this vessel is possible. There is minimal left maxillary sinus disease. Periventricular deep white matter high T2 signal is seen on the left The visualized orbits are unremarkable. The prior craniotomy demonstrated on previous CT scan is less evident on these images but visible on the axial T1 and T2-weighted images. Impression: Extensive chronic changes, including age-related volume loss, periventricular chronic ischemic changes, and multiple and extensive right-sided old infarcts Multiple foci of susceptibility artifact, likely prior old microbleeds, as well as likely postsurgical hemorrhage in the right frontal and parietal region Negative for acute infarct, mass effect, or hemorrhage Postsurgical changes as described previously Diminished right vertebral artery flow-void; slow flow in or occlusion of this vessel possible Minimal sinus disease
--- NOTE | 2018-07-02 18:26 | Cardiology Report ---
APPROVED REPORT EKG Measurement Heart [id number] SD 170P48 [id number] Sinus bradycardia Otherwise normal ECG
[2018-07-02 20:00] VITALS: BP 110/67
--- NOTE | 2018-07-02 21:24 | Cardiology Report ---
APPROVED REPORT EXAM: Two-dimensional and M-mode echocardiogram with Doppler and color Doppler. INDICATION Syncope M-Mode DIMENSIONS IVSd1.5 (0.7-1.1cm)Left Atrium (MM)3.4 (1.6-4.0cm) LVDd5.6 (3.5-5.6cm)Aortic Root3.8 (2.0-3.7cm) PWd1.1 (0.7-1.1cm)Aortic Cusp Exc.1.8 (1.5-2.0cm) IVSs1.4 cm LVDs3.6 (2.5-4.0cm) PWs1.8 cm Other Information Technically limited study due to poor acoustical windows . Normal left ventricular chamber size, systolic function and wall motion. Left ventricular ejection fraction estimated to be 55-60%. Mild left ventricular hypertrophy by 2-D. No evidence of pericardial effusion. All other cardiac chamber sizes are within normal limits. Focal aortic valve sclerosis with adequate cusp excursion. Thickened mitral valve leaflets with normal excursion. Mitral annulus and aortic root calcification. Pulmonic valve not well visualized. IVC at normal size with physiologic collapse . A color flow and spectral Doppler study was performed and revealed: No aortic insufficiency . Mitral diastolic velocities suggest reduced left ventricular relaxation c/w mild LV diastolic dysfunction (Grade I ) Trace mitral regurgitation. Trace tricuspid regurgitation. Tricuspid systolic velocities suggests peak right ventricular systolic pressure of 23 mmHg.
[2018-07-02] MEDS: Tamsulosin 0.4mg cap ORAL SCH (21:27)
[2018-07-02] MEDS: Depakote ER 500mg tab ORAL SCH (21:27)
--- NOTE | 2018-07-02 21:29 | Cardiology Report ---
APPROVED REPORT EKG Measurement Heart [id number] NM 178P54 [id number] Normal sinus rhythm Normal ECG
[2018-07-03] VITALS: BP 137/80
--- NOTE | 2018-07-03 03:15 | Consultation ---
DATE OF CONSULTATION: 07/02/2018 NOTE: POOR AUDIO HISTORY OF PRESENT ILLNESS: The patient is a 73-year-old male patient who presented to the hospital with seizure disorder, but he still has some confusion, disorganized thought processes. He also has a history of bipolar 2 disorder, that is the reason why there was a daily psychiatric consultation requested. the patient has history of psychosis and mood disorder this patient also has some confusion and altered mental status. His cognition has declined below his baseline worsened by stress of his medical illness. PAST MEDICAL HISTORY: hypertension, BPH, cerebrovascular accident with . ALLERGIES: Seroquel . MEDICATIONS: Psychotropic medications on admission, the patient is currently on psychotropic medication regimen consisting of Depakote 250 mg twice a day, Neurontin , Ativan 2 mg IV p.r.n. anxiety. SUBSTANCE ABUSE HISTORY: The patient has no history of any drug and alcohol use. FAMILY PSYCHIATRIC HISTORY: Denies. PAIN ASSESSMENT: 0/10. DEVELOPMENTAL PROBLEMS: Denies. SOCIAL HISTORY: He lives with his . He is financially supported by [employer] and Medicare. PSYCHIATRIC HISTORY: The patient has depression, . STRENGTHS: He is motivated to get better and has a place to live. WEAKNESSES: He is impulsive and minimal support system. MENTAL STATUS EXAMINATION: This is an 73-year-old male. Appearance is disheveled. Attitude, irritable and agitated. Affect is flat. Thought process, disorganized. Intellect poor because he does not know current events, does not know the last four presidents. Mood depressed and anxious. Motor activity, psychomotor agitation. Attention span is poor because he cannot do serial 7's or spell world backwards. Orientation x1. He is alert to , but not to time and situation. Speech is low volume and slurred, . Thought process, disorganized and illogical. Thought content, he does have slight paranoia. Abstract reasoning is poor because he does not understand proverbs, only concrete thinking. Insight is poor because he is unable to recognize he has psych disorder. Judgment is poor because he is unable to make clear decisions for self. No signs of any suicidal or homicidal ideations. Short-term memory, 0/3 of 3-word recall, so poor short-term memory. Long-term memory is poor as well because he cannot recall long-term events in his life such as high school he went to. DIAGNOSES: 1. Major depressive disorder, mild, recurrent with psychotic features. 2. Medical includes seizure disorder, BPH, history of CVA, left-sided weakness, . 3. Psychosocial stressors, financial. PLAN: I am going to treat with Namenda 5 twice a day, because he is confused and disorganized, prevent any further decline in his cognition. Also twenty minutes of insight-oriented psychotherapy to improve her insight into his illness, medical and cognitive better control and impulse control. Twenty minutes of insight-oriented psychotherapy. The patient is seen and assessed at the bedside. I would like to thank Dr. Sj Robles for this interesting consultation. Deanne Argueta M.D. DR: Becca JOB#: [id number] CC:
[2018-07-03 04:00] VITALS: BP 123/78
[2018-07-03 06:27] LABS: BASOPHILS % (AUTO) 1.2 % (0.0-2.0); EOSINOPHILS % (AUTO) 6.8 % (0.0-3.0); HEMATOCRIT 45.4 % (42.0-52.0); LYMPHOCYTES % (AUTO) 25.1 % (20.0-45.0); MEAN CORPUSCULAR VOLUME 93 FL (80-99); MONOCYTES % (AUTO) 7.8 % (1.0-10.0); PLATELET COUNT 186 K/UL (150-450); RED BLOOD COUNT 4.89 M/UL (4.70-6.10); RED CELL DISTRIBUTION WIDTH 12.9 % (11.6-14.8); WHITE BLOOD COUNT 9.6 K/UL (4.8-10.8)
[2018-07-03] MEDS: NovoLOG Insulin Flexpen SUBQ SCH ×4 (06:30→21:00)
[2018-07-03 06:54] LABS: ANION GAP 10 mmol/L (5-15); BLOOD UREA NITROGEN 24 mg/dL (7-18); CALCIUM 9.3 MG/DL (8.5-10.1); CARBON DIOXIDE 27 MMOL/L (21-32); CHLORIDE 106 MMOL/L (98-107); CREATININE 1.3 MG/DL (0.55-1.30); SODIUM 143 MMOL/L (136-145)
[2018-07-03 08:00] VITALS: BP 127/76
[2018-07-03] MEDS: Depakote ER 500mg tab ORAL SCH (08:44)
[2018-07-03] MEDS: Lisinopril 10mg tab ORAL SCH (08:44)
[2018-07-03] MEDS: Memantine 5 MG TAB ORAL SCH (08:45)
[2018-07-03] MEDS: Heparin 5000 units/ml inj SUBQ SCH ×4 (08:49→21:11)
--- NOTE | 2018-07-03 09:16 | Infectious Diseases Prog Note ---
Assessment/Plan Assessment/Plan Seizure -MRI brain p -CT head: Very limited exam, due to motion artifact. Evidence of prior right craniotomy. Extensive right middle cerebral artery distribution encephalomalacia and right basal ganglia encephalomalacia, likely on the basis of old infarcts. Progressive age-related volume loss. No definite gross acute intracranial bleed or mass effect Leukocytosis, SP- likely reactive 2ry to above -u/a 10-15, nit neg, leuk +2; ucx nTD -CXR: Borderline cardiomegaly. No acute process Afebrile CVA c/w L side paralysis HLD gastritis/GERD Parkinson's disease HTN SNF resident Plan: -Continue to monitor off abx -06/30 SP Ceftriaxone x 1 -f/u cx -Monitor CBC/CMP, temperatures -aspiration/seizure precautions -neuro eval -f/u MRI brain . Will continue to follow along with you. Subjective Allergies: Coded Allergies: DONEPEZIL (Verified Allergy, Unknown, 12/21/17) QUETIAPINE (Verified Allergy, Unknown, 12/21/17) SERTRALINE (Verified Allergy, Unknown, 12/21/17) Subjective Afebrile No Leukocytosis Objective Vital Signs Last 24 Hour Vital Signs Date Time Temp Pulse Resp B/P (MAP) Pulse Ox O2 Delivery O2 Flow Rate FiO2 07/03/18 08:44 127/76 07/03/18 08:44 68 127/76 07/03/18 08:00 99.4 68 20 127/76 (93) 98 07/03/18 04:00 98.7 64 18 123/78 (93) 98 07/03/18 04:00 60 07/03/18 00:00 66 07/03/18 00:00 99.1 66 18 137/80 (99) 99 07/02/18 21:00 Nasal Cannula 2.0 07/02/18 20:00 98.5 68 18 110/67 (81) 99 07/02/18 20:00 73 07/02/18 16:00 98.9 80 20 113/77 (89) 98 07/02/18 15:26 78 07/02/18 12:00 98.6 93 18 140/101 (114) 97 07/02/18 11:39 94 Height (Feet): 5 Height (Inches): 11.00 Weight (Pounds): 176 Objective General Appearance: NAD HEENT: normocephalic, atraumatic, MMM Respiratory/Chest: chest wall non-tender, lungs clear Cardiovascular/Chest: normal peripheral pulses, normal rate Abdomen: normal bowel sounds, non tender Microbiology Date/Time Source Procedure Growth Status 06/30/18 17:35 Nasal Nares MRSA Culture - Final Staphylococcus Aureus - Mrsa Complete 06/30/18 17:21 Urine,Clean Catch Urine Culture - Final NO GROWTH AFTER 48 HOURS Complete 06/30/18 17:35 Rectum VRE Culture - Final NO VANCOMYCIN RESISTANT ENTEROCOCCUS ... Complete 06/30/18 17:35 Rectum - Final NO CARBAPENEM-RESISTANT ENTEROBACTERI... Complete Laboratory Tests Test 07/03/18 05:20 White Blood Count 9.6 K/UL (4.8-10.8) Red Blood Count 4.89 M/UL (4.70-6.10) Hemoglobin 15.0 G/DL (14.2-18.0) Hematocrit 45.4 % (42.0-52.0) Mean Corpuscular Volume 93 FL (80-99) Mean Corpuscular Hemoglobin 30.6 PG (27.0-31.0) Mean Corpuscular Hemoglobin Concent 33.0 G/DL (32.0-36.0) Red Cell Distribution Width 12.9 % (11.6-14.8) Platelet Count 186 K/UL (150-450) Mean Platelet Volume 8.4 FL (6.5-10.1) Neutrophils (%) (Auto) 59.0 % (45.0-75.0) Lymphocytes (%) (Auto) 25.1 % (20.0-45.0) Monocytes (%) (Auto) 7.8 % (1.0-10.0) Eosinophils (%) (Auto) 6.8 % (0.0-3.0) H Basophils (%) (Auto) 1.2 % (0.0-2.0) Sodium Level 143 MMOL/L (136-145) Potassium Level 4.0 MMOL/L (3.5-5.1) Chloride Level 106 MMOL/L (98-107) Carbon Dioxide Level 27 MMOL/L (21-32) Anion Gap 10 mmol/L (5-15) Blood Urea Nitrogen 24 mg/dL (7-18) H Creatinine 1.3 MG/DL (0.55-1.30) Estimat Glomerular Filtration Rate mL/min (>60) Glucose Level 86 MG/DL (74-106) Calcium Level 9.3 MG/DL (8.5-10.1) Current Medications Medications (Trade) Dose Ordered Sig/Sonia Route PRN Reason Start Time Stop Time Status Last Admin Dose Admin Acetaminophen (Tylenol) 650 mg Q4H PRN ORAL fever 06/30/18 20:00 07/30/18 19:59 Al Hydroxide/Mg Hydroxide (Mylanta II) 30 ml Q6H PRN ORAL dyspepsia 06/30/18 20:04 07/30/18 20:03 Amlodipine Besylate (Norvasc) 10 mg DAILY ORAL 07/01/18 09:00 07/31/18 08:59 07/03/18 08:44 Baclofen (Lioresal) 10 mg THREE TIMES A DAY ORAL 07/01/18 09:00 07/31/18 08:59 07/03/18 08:44 Clonidine HCl (Catapres Tab) 0.1 mg Q4H PRN ORAL sbp>170 07/01/18 15:41 07/31/18 15:40 Dextrose (Dextrose 50%) 25 ml Q30M PRN IV Hypoglycemia 07/01/18 07:30 07/31/18 07:29 Dextrose (Dextrose 50%) 50 ml Q30M PRN IV Hypoglycemia 07/01/18 07:30 07/31/18 07:29 Divalproex Sodium (Depakote ER) 500 mg EVERY 12 HOURS ORAL 07/02/18 21:00 08/01/18 20:59 07/03/18 08:44 Gabapentin (Neurontin) 300 mg THREE TIMES A DAY ORAL 07/01/18 09:00 07/31/18 08:59 07/03/18 08:44 Heparin Sodium (Porcine) (Heparin 5000 units/ml) 5,000 units EVERY 12 HOURS SUBQ 07/01/18 09:00 07/31/18 08:59 07/02/18 21:29 Insulin Aspart (NovoLOG) BEFORE MEALS AND HS SUBQ 07/01/18 11:30 07/31/18 11:29 07/01/18 17:18 Lisinopril (Zestril) 10 mg DAILY ORAL 07/02/18 09:00 08/01/18 08:59 07/03/18 08:44 Lorazepam (Ativan 2mg/ml 1ml) 2 mg Q1H PRN IV seizures 06/30/18 20:00 07/07/18 19:59 Memantine (Namenda) 5 mg DAILY ORAL 07/02/18 09:00 08/01/18 08:59 07/03/18 08:45 Polyethylene Glycol (Miralax) 17 gm HSPRN PRN ORAL Constipation 06/30/18 20:00 07/30/18 19:59 Tamsulosin HCl (Flomax) 0.4 mg BEDTIME ORAL 07/01/18 21:00 07/31/18 20:59 07/02/18 21:27 Zolpidem Tartrate (Ambien) 5 mg HSPRN PRN ORAL Insomnia 06/30/18 20:00 07/07/18 19:59 Tay Freeman MD Jul 03, 2018 09:16
--- NOTE | 2018-07-03 11:53 | Pulmonology Progress Note ---
Assessment/Plan Problems: (1) New onset seizure (2) History of cerebrovascular accident (3) Left-sided weakness (4) Parkinson disease (5) HTN (hypertension) Assessment/Plan no more seizures MRI of brain pending neuro evaluation pending on Depakote 250BID monitor BP PT/ot symptomatic treatment. dvt prophylaxis. MRI: Impression: Extensive chronic changes, including age-related volume loss, periventricular chronic ischemic changes, and multiple and extensive right- sided old infarcts Multiple foci of susceptibility artifact, likely prior old microbleeds, as well as likely postsurgical hemorrhage in the right frontal and parietal region Negative for acute infarct, mass effect, or hemorrhage Subjective ROS Limited/Unobtainable: No Constitutional: Reports: no symptoms HEENT: Repors: no symptoms Allergies: Coded Allergies: DONEPEZIL (Verified Allergy, Unknown, 12/21/17) QUETIAPINE (Verified Allergy, Unknown, 12/21/17) SERTRALINE (Verified Allergy, Unknown, 12/21/17) Objective Last 24 Hour Vital Signs Date Time Temp Pulse Resp B/P (MAP) Pulse Ox O2 Delivery O2 Flow Rate FiO2 07/03/18 09:00 Nasal Cannula 2.0 07/03/18 08:44 127/76 07/03/18 08:44 68 127/76 07/03/18 08:00 99.4 68 20 127/76 (93) 98 07/03/18 08:00 59 07/03/18 04:00 98.7 64 18 123/78 (93) 98 07/03/18 04:00 60 07/03/18 00:00 66 07/03/18 00:00 99.1 66 18 137/80 (99) 99 07/02/18 21:00 Nasal Cannula 2.0 07/02/18 20:00 98.5 68 18 110/67 (81) 99 07/02/18 20:00 73 07/02/18 16:00 98.9 80 20 113/77 (89) 98 07/02/18 15:26 78 07/02/18 12:00 98.6 93 18 140/101 (114) 97 Intake and Output 07/02/18 07/03/18 19:00 07:00 Intake Total 360 ml Output Total 700 ml 600 ml Balance -340 ml -600 ml Intake Oral 360 ml Output Urine Total 700 ml 600 ml Objective General Appearance: cachetic HEENT: normocephalic, atraumatic Respiratory/Chest: chest wall non-tender, lungs clear Cardiovascular: normal peripheral pulses, normal rate Abdomen: normal bowel sounds, no organomegaly Genitourinary: normal external genitalia Extremities: no clubbing, right arm fistula Neurologic/Psychiatric: log driver II-XII grossly normal Microbiology Date/Time Source Procedure Growth Status 06/30/18 17:35 Nasal Nares MRSA Culture - Final Staphylococcus Aureus - Mrsa Complete 06/30/18 17:21 Urine,Clean Catch Urine Culture - Final NO GROWTH AFTER 48 HOURS Complete 06/30/18 17:35 Rectum VRE Culture - Final NO VANCOMYCIN RESISTANT ENTEROCOCCUS ... Complete 06/30/18 17:35 Rectum - Final NO CARBAPENEM-RESISTANT ENTEROBACTERI... Complete Laboratory Tests 07/03/18 05:20: White Blood Count 9.6, Red Blood Count 4.89, Hemoglobin 15.0, Hematocrit 45.4, Mean Corpuscular Volume 93, Mean Corpuscular Hemoglobin 30.6, Mean Corpuscular Hemoglobin Concent 33.0, Red Cell Distribution Width 12.9, Platelet Count 186, Mean Platelet Volume 8.4, Neutrophils (%) (Auto) 59.0, Lymphocytes (%) (Auto) 25.1, Monocytes (%) (Auto) 7.8, Eosinophils (%) (Auto) 6.8H, Basophils (%) (Auto ) 1.2, Sodium Level 143, Potassium Level 4.0, Chloride Level 106, Carbon Dioxide Level 27, Anion Gap 10, Blood Urea Nitrogen 24H, Creatinine 1.3, Estimat Glomerular Filtration Rate , Glucose Level 86, Calcium Level 9.3 Current Medications Medications (Trade) Dose Ordered Sig/Sonia Route PRN Reason Start Time Stop Time Status Last Admin Dose Admin Acetaminophen (Tylenol) 650 mg Q4H PRN ORAL fever 06/30/18 20:00 07/30/18 19:59 Al Hydroxide/Mg Hydroxide (Mylanta II) 30 ml Q6H PRN ORAL dyspepsia 06/30/18 20:04 07/30/18 20:03 Amlodipine Besylate (Norvasc) 10 mg DAILY ORAL 07/01/18 09:00 07/31/18 08:59 07/03/18 08:44 Baclofen (Lioresal) 10 mg THREE TIMES A DAY ORAL 07/01/18 09:00 07/31/18 08:59 07/03/18 08:44 Clonidine HCl (Catapres Tab) 0.1 mg Q4H PRN ORAL sbp>170 07/01/18 15:41 07/31/18 15:40 Dextrose (Dextrose 50%) 25 ml Q30M PRN IV Hypoglycemia 07/01/18 07:30 07/31/18 07:29 Dextrose (Dextrose 50%) 50 ml Q30M PRN IV Hypoglycemia 07/01/18 07:30 07/31/18 07:29 Divalproex Sodium (Depakote ER) 500 mg EVERY 12 HOURS ORAL 07/02/18 21:00 08/01/18 20:59 07/03/18 08:44 Gabapentin (Neurontin) 300 mg THREE TIMES A DAY ORAL 07/01/18 09:00 07/31/18 08:59 07/03/18 08:44 Heparin Sodium (Porcine) (Heparin 5000 units/ml) 5,000 units EVERY 12 HOURS SUBQ 07/01/18 09:00 07/31/18 08:59 07/02/18 21:29 Insulin Aspart (NovoLOG) BEFORE MEALS AND HS SUBQ 07/01/18 11:30 07/31/18 11:29 07/01/18 17:18 Lisinopril (Zestril) 10 mg DAILY ORAL 07/02/18 09:00 08/01/18 08:59 07/03/18 08:44 Lorazepam (Ativan 2mg/ml 1ml) 2 mg Q1H PRN IV seizures 06/30/18 20:00 07/07/18 19:59 Memantine (Namenda) 5 mg DAILY ORAL 07/02/18 09:00 08/01/18 08:59 07/03/18 08:45 Polyethylene Glycol (Miralax) 17 gm HSPRN PRN ORAL Constipation 06/30/18 20:00 07/30/18 19:59 Tamsulosin HCl (Flomax) 0.4 mg BEDTIME ORAL 07/01/18 21:00 07/31/18 20:59 07/02/18 21:27 Zolpidem Tartrate (Ambien) 5 mg HSPRN PRN ORAL Insomnia 06/30/18 20:00 07/07/18 19:59 Sugey Love MD Jul 03, 2018 11:53
[2018-07-03 12:00] VITALS: BP 136/73
[2018-07-03] MEDS ORDERED: OLANZapine 2.5mg tab ORAL SCH (12:00)
[2018-07-03] MEDS ORDERED: Mylanta II UD 30ml ORAL PRN (14:23)
[2018-07-03] MEDS ORDERED: LORazepam Inj 2mg/ml 1ml IV PRN (14:24)
[2018-07-03] MEDS ORDERED: Miralax 17gm pkt ORAL PRN (14:25)
[2018-07-03] MEDS ORDERED: Zolpidem 5mg tab ORAL PRN (14:25)
--- NOTE | 2018-07-03 15:11 | Cardiac Electrophysiology PN ---
Assessment/Plan Assessment/Plan 1. Bradycardia. Heart rate in the 50s. Ruled out for myocardial infarction. Echo EF 60%. HR better 2. Hypertension. On Norvasc 10 mg daily and lisinopril 10 mg daily 3. History of hemorrhagic stroke. No seizures. The CT of the brain showed evidence of prior right craniotomy and extensive right middle cerebral artery distribution encephalomalacia and there is an old infarct. DW RN and daughter Subjective Subjective No CP or SOB on tele. Being transferred to Objective Last 24 Hour Vital Signs Date Time Temp Pulse Resp B/P (MAP) Pulse Ox O2 Delivery O2 Flow Rate FiO2 07/03/18 12:00 97.9 63 21 136/73 (94) 94 07/03/18 09:00 Nasal Cannula 2.0 07/03/18 08:44 127/76 07/03/18 08:44 68 127/76 07/03/18 08:00 99.4 68 20 127/76 (93) 98 07/03/18 08:00 59 07/03/18 04:00 98.7 64 18 123/78 (93) 98 07/03/18 04:00 60 07/03/18 00:00 66 07/03/18 00:00 99.1 66 18 137/80 (99) 99 07/02/18 21:00 Nasal Cannula 2.0 07/02/18 20:00 98.5 68 18 110/67 (81) 99 07/02/18 20:00 73 07/02/18 16:00 98.9 80 20 113/77 (89) 98 07/02/18 15:26 78 Intake and Output 07/02/18 07/03/18 19:00 07:00 Intake Total 360 ml Output Total 700 ml 600 ml Balance -340 ml -600 ml Intake Oral 360 ml Output Urine Total 700 ml 600 ml Laboratory Tests Test 07/03/18 05:20 White Blood Count 9.6 K/UL (4.8-10.8) Red Blood Count 4.89 M/UL (4.70-6.10) Hemoglobin 15.0 G/DL (14.2-18.0) Hematocrit 45.4 % (42.0-52.0) Mean Corpuscular Volume 93 FL (80-99) Mean Corpuscular Hemoglobin 30.6 PG (27.0-31.0) Mean Corpuscular Hemoglobin Concent 33.0 G/DL (32.0-36.0) Red Cell Distribution Width 12.9 % (11.6-14.8) Platelet Count 186 K/UL (150-450) Mean Platelet Volume 8.4 FL (6.5-10.1) Neutrophils (%) (Auto) 59.0 % (45.0-75.0) Lymphocytes (%) (Auto) 25.1 % (20.0-45.0) Monocytes (%) (Auto) 7.8 % (1.0-10.0) Eosinophils (%) (Auto) 6.8 % (0.0-3.0) H Basophils (%) (Auto) 1.2 % (0.0-2.0) Sodium Level 143 MMOL/L (136-145) Potassium Level 4.0 MMOL/L (3.5-5.1) Chloride Level 106 MMOL/L (98-107) Carbon Dioxide Level 27 MMOL/L (21-32) Anion Gap 10 mmol/L (5-15) Blood Urea Nitrogen 24 mg/dL (7-18) H Creatinine 1.3 MG/DL (0.55-1.30) Estimat Glomerular Filtration Rate mL/min (>60) Glucose Level 86 MG/DL (74-106) Calcium Level 9.3 MG/DL (8.5-10.1) Microbiology Date/Time Source Procedure Growth Status 06/30/18 17:35 Nasal Nares MRSA Culture - Final Staphylococcus Aureus - Mrsa Complete 06/30/18 17:21 Urine,Clean Catch Urine Culture - Final NO GROWTH AFTER 48 HOURS Complete 06/30/18 17:35 Rectum VRE Culture - Final NO VANCOMYCIN RESISTANT ENTEROCOCCUS ... Complete 06/30/18 17:35 Rectum - Final NO CARBAPENEM-RESISTANT ENTEROBACTERI... Complete Objective HEAD AND NECK: No JVD or carotid bruits. LUNGS: Clear. CARDIOVASCULAR: Bradycardic S1 and S2 with no gallop or murmur. ABDOMEN: Soft. EXTREMITIES: No pitting edema. NEUROLOGIC: Left hemiplegia. Crow Villalobos MD Jul 03, 2018 15:11
--- NOTE | 2018-07-03 15:33 | General Progress Note ---
Assessment/Plan Problem List: (1) New onset seizure ICD Codes: R56.9 - Unspecified convulsions SNOMED: 25457056 (2) HTN (hypertension) ICD Codes: I10 - Essential (primary) hypertension SNOMED: 22500850 (3) Malnutrition ICD Codes: E46 - Unspecified protein-calorie malnutrition SNOMED: 00781235 (4) BPH (benign prostatic hyperplasia) ICD Codes: N40.0 - Benign prostatic hyperplasia without lower urinary tract symptoms SNOMED: 490772610 (5) UTI (urinary tract infection) ICD Codes: N39.0 - Urinary tract infection, site not specified SNOMED: 96356895 Qualifiers: Qualified Codes: N30.00 - Acute cystitis without hematuria (6) History of cerebrovascular accident ICD Codes: Z86.73 - Personal history of transient ischemic attack (TIA), and cerebral infarction without residual deficits SNOMED: 932605977 (7) Parkinson disease ICD Codes: G20 - Parkinson's disease SNOMED: 86319325 Status: stable, progressing Assessment/Plan pt diet cbc bmp am seizufre control dc plan snf Subjective Constitutional: Reports: weakness Allergies: Coded Allergies: DONEPEZIL (Verified Allergy, Unknown, 12/21/17) QUETIAPINE (Verified Allergy, Unknown, 12/21/17) SERTRALINE (Verified Allergy, Unknown, 12/21/17) All Systems: reviewed and negative except above Subjective o2 nc sleeping Objective Last 24 Hour Vital Signs Date Time Temp Pulse Resp B/P (MAP) Pulse Ox O2 Delivery O2 Flow Rate FiO2 07/03/18 12:00 97.9 63 21 136/73 (94) 94 07/03/18 09:00 Nasal Cannula 2.0 07/03/18 08:44 127/76 07/03/18 08:44 68 127/76 07/03/18 08:00 99.4 68 20 127/76 (93) 98 07/03/18 08:00 59 07/03/18 04:00 98.7 64 18 123/78 (93) 98 07/03/18 04:00 60 07/03/18 00:00 66 07/03/18 00:00 99.1 66 18 137/80 (99) 99 07/02/18 21:00 Nasal Cannula 2.0 07/02/18 20:00 98.5 68 18 110/67 (81) 99 07/02/18 20:00 73 07/02/18 16:00 98.9 80 20 113/77 (89) 98 Intake and Output 07/02/18 07/03/18 19:00 07:00 Intake Total 360 ml Output Total 700 ml 600 ml Balance -340 ml -600 ml Intake Oral 360 ml Output Urine Total 700 ml 600 ml Laboratory Tests 07/03/18 05:20: White Blood Count 9.6, Red Blood Count 4.89, Hemoglobin 15.0, Hematocrit 45.4, Mean Corpuscular Volume 93, Mean Corpuscular Hemoglobin 30.6, Mean Corpuscular Hemoglobin Concent 33.0, Red Cell Distribution Width 12.9, Platelet Count 186, Mean Platelet Volume 8.4, Neutrophils (%) (Auto) 59.0, Lymphocytes (%) (Auto) 25.1, Monocytes (%) (Auto) 7.8, Eosinophils (%) (Auto) 6.8H, Basophils (%) (Auto ) 1.2, Sodium Level 143, Potassium Level 4.0, Chloride Level 106, Carbon Dioxide Level 27, Anion Gap 10, Blood Urea Nitrogen 24H, Creatinine 1.3, Estimat Glomerular Filtration Rate , Glucose Level 86, Calcium Level 9.3 Height (Feet): 5 Height (Inches): 11.00 Weight (Pounds): 176 General Appearance: lethargic EENT: normal ENT inspection Neck: normal alignment Cardiovascular: normal peripheral pulses, normal rate, regular rhythm Respiratory/Chest: chest wall non-tender, lungs clear, normal breath sounds Abdomen: normal bowel sounds, non tender, soft Extremities: normal inspection Edema: no edema noted Arm (L), no edema noted Arm (R), no edema noted Leg (L), no edema noted Leg (R), no edema noted Pedal (L), no edema noted Pedal (R), no edema noted Generalized Skin: normal pigmentation, warm/dry Sj Robles DO Jul 03, 2018 15:33
[2018-07-03 16:00] VITALS: BP 134/78
--- NOTE | 2018-07-03 16:30 | Progress Note ---
DATE: 07/03/2018 SUBJECTIVE: This is a 73-year-old male patient with new-onset seizures. This patient continues to have some confusion, disorganized thought process, and decline in cognition below his baseline. He has new-onset seizure disorder, but he does have some confusion and disorganized thought process. He was seen and assessed at bedside. He still has some mood lability and confusion. MENTAL STATUS EXAMINATION: This is a 73-year-old male. Appearance is disheveled. Attitude, irritable and agitated. Affect, guarded and restricted. Intellect, poor. Mood, depressed and anxious. Motor activity, psychomotor agitation. Attention span is poor. Orientation x2. Speech is low volume and slurred. Thought process, disorganized and illogical. Insight and judgment is poor. DIAGNOSIS: Bipolar II disorder. PLAN: Plan for this patient is to treat him with a medication regimen of Depakote 500 mg q.12 h., also Neurontin at a dose of 300 mg three times a day, Ativan 2 mg as needed, and Namenda at a dose of 5 mg daily. Provide him with 20 minutes of reality-based supportive psychotherapy and encouraged to interact appropriately with staff and the patients. 20 minutes of cognitive behavioral therapy to help him identify automatic negative thoughts and help convert negative thoughts to more positive thoughts to reduce depression, anxiety, and suicidality. Seen and assessed in the room. Chart reviewed and discussed with staff. Deanne Argueta M.D. DR: SHARON JOB#: [id number] CC:
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
[2018-07-03 20:00] VITALS: BP 142/75
[2018-07-03] MEDS: Tamsulosin 0.4mg cap ORAL SCH ×2 (21:00→21:10)
[2018-07-03] MEDS ORDERED: Depakote ER 500mg tab ORAL SCH (21:00)
[2018-07-04] VITALS: BP 118/78
--- NOTE | 2018-07-04 01:30 | Consultation ---
DATE OF CONSULTATION: 07/02/2018 CONSULTING PHYSICIAN: Pao Mcpherson M.D. TREATING ATTENDING PHYSICIAN: Sj Robles D.O. HISTORY OF PRESENT ILLNESS: The patient is 73 years old. The patient's daughter was at the bedside. The patient was brought in from [facility] for onset of seizures. The patient has a history of Parkinson disease as well. 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 The patient states that since his stroke, he has lost his ability to work. He has had difficulty with his speech and his thoughts. He is responsive. It does take some time for the patient to be able to respond and communicate. The patient's daughter states that the family has taken extensive care of the patient and continues to care and having encouraged the patient to participate in his treatment. At this time, his daughter states that the patient has been confused and disorganized. For these reasons, he was referred for psychotherapeutic services. However, the patient denies any feelings of suicidal or homicidal thoughts of ideation and auditory or visual hallucinations. There is no significant depression or anxiety reports. The patient is confused and disoriented. The patient was able to recall some words. He was able to communicate with time. His speech is pressured and thought process disorganized. PAST MEDICAL HISTORY: Includes history of Parkinson's, CVA, and hypertension. ALLERGIES: The patient has allergies to benazepril, sertraline, and quetiapine. SUBSTANCE ABUSE HISTORY: There is no indication of alcohol use or illicit substance use. PSYCHIATRIC HISTORY: The patient does not have a significant history of mental illness. FAMILY SOCIAL HISTORY: The patient is a 73-year-old male patient from [facility]. Financially sustained through [facility]. MENTAL STATUS EXAMINATION: The patient is alert and oriented to person. Mood is dysphoric. Affect blunted. Thought process, disorganized. Thought content, confused. He has poor attention and concentration. Poor insight, judgment, and impulse control. DIAGNOSIS: Rule out major neurocognitive disorder, Alzheimer's type without behavioral disturbances. PLAN: I assessed this patient extensively with the family. I provided the patient with reality orientation with focus on improving cognitive function. The patient is very confused and disorganized. Oriented to person, place, time, and situation. Provided the patient with supportive psychotherapy. Provided the patient with emotional outlet and means to cope with her emotional distress and spoke to the family about his need to communicate and express himself and stating that the patient does benefit from interaction especially with a English-speaking individual. The patient's daughter states that the patient does speak about 6 languages and English is his mother language and the language that he most preferred; however, the patient can speak Syriac very well. The patient's daughter states that the patient had a English physical therapist that had worked with him in the past. However, he is no longer working with him and this has been a loss for the family. The patient's daughter states that she would also pursue services available facility. The clinician assessed this patient. Continue with behavioral management. Reviewed the patient's chart and discussed the treatment with treatment team. Pao Mcpherson PsyD. DR: JACY JOB#: [id number] CC:
[2018-07-04 04:00] VITALS: BP 128/67
[2018-07-04] MEDS: NovoLOG Insulin Flexpen SUBQ SCH ×4 (06:13→21:00)
[2018-07-04] MEDS: Lisinopril 10mg tab ORAL SCH (09:00)
[2018-07-04] MEDS: Memantine 5 MG TAB ORAL SCH (09:00)
[2018-07-04] MEDS: Depakote ER 250mg tab ORAL SCH ×2 (09:00→17:05)
[2018-07-04] MEDS: Heparin 5000 units/ml inj SUBQ SCH ×2 (09:00→21:15)
[2018-07-04] MEDS: OLANZapine 2.5mg tab ORAL SCH (09:00)
[2018-07-04 10:36] LABS: BASOPHILS % (AUTO) 0.8 % (0.0-2.0); EOSINOPHILS % (AUTO) 4.7 % (0.0-3.0); HEMATOCRIT 46.9 % (42.0-52.0); LYMPHOCYTES % (AUTO) 21.3 % (20.0-45.0); MEAN CORPUSCULAR VOLUME 93 FL (80-99); MONOCYTES % (AUTO) 6.9 % (1.0-10.0); NEUTROPHILS % (AUTO) 66.2 % (45.0-75.0); PLATELET COUNT 213 K/UL (150-450); RED BLOOD COUNT 5.03 M/UL (4.70-6.10); RED CELL DISTRIBUTION WIDTH 12.7 % (11.6-14.8); WHITE BLOOD COUNT 10.4 K/UL (4.8-10.8)
[2018-07-04 10:41] LABS: ANION GAP 9 mmol/L (5-15); BLOOD UREA NITROGEN 24 mg/dL (7-18); CALCIUM 9.3 MG/DL (8.5-10.1); CARBON DIOXIDE 30 MMOL/L (21-32); CHLORIDE 107 MMOL/L (98-107); CREATININE 1.1 MG/DL (0.55-1.30); POTASSIUM 4.1 MMOL/L (3.5-5.1); SODIUM 146 MMOL/L (136-145)
--- NOTE | 2018-07-04 11:01 | Infectious Diseases Prog Note ---
Assessment/Plan Assessment/Plan Seizure -MRI brain p -CT head: Very limited exam, due to motion artifact. Evidence of prior right craniotomy. Extensive right middle cerebral artery distribution encephalomalacia and right basal ganglia encephalomalacia, likely on the basis of old infarcts. Progressive age-related volume loss. No definite gross acute intracranial bleed or mass effect Leukocytosis, SP- likely reactive 2ry to above -u/a 10-15, nit neg, leuk +2; ucx nTD -CXR: Borderline cardiomegaly. No acute process Afebrile CVA c/w L side paralysis HLD gastritis/GERD Parkinson's disease HTN SNF resident Plan: -Monitor off abx -06/30 SP Ceftriaxone x 1 -f/u cx -Monitor CBC/CMP, temperatures -aspiration/seizure precautions -neuro eval -f/u MRI brain . Will continue to follow along with you. Subjective Allergies: Coded Allergies: DONEPEZIL (Verified Allergy, Unknown, 12/21/17) QUETIAPINE (Verified Allergy, Unknown, 12/21/17) SERTRALINE (Verified Allergy, Unknown, 12/21/17) Subjective [place] Afebrile No Leukocytosis Objective Vital Signs Last 24 Hour Vital Signs Date Time Temp Pulse Resp B/P (MAP) Pulse Ox O2 Delivery O2 Flow Rate FiO2 07/04/18 09:00 128/67 07/04/18 09:00 53 128/67 07/04/18 04:00 97.6 53 18 128/67 (87) 53 07/04/18 00:00 97.8 59 18 118/78 (91) 07/03/18 21:00 Nasal Cannula 2.0 07/03/18 20:00 98.3 61 18 142/75 (97) 61 07/03/18 16:00 98.1 64 21 134/78 (96) 99 07/03/18 12:00 97.9 63 21 136/73 (94) 94 Height (Feet): 5 Height (Inches): 11.00 Weight (Pounds): 176 Objective Gen: NAD HEENT: NCAT, MMM Respiratory/Chest: chest wall non-tender, lungs clear Cardiovascular/Chest: normal peripheral pulses, normal rate Abdomen: normal bowel sounds, non tender Laboratory Tests Test 07/04/18 10:00 White Blood Count 10.4 K/UL (4.8-10.8) Red Blood Count 5.03 M/UL (4.70-6.10) Hemoglobin 15.0 G/DL (14.2-18.0) Hematocrit 46.9 % (42.0-52.0) Mean Corpuscular Volume 93 FL (80-99) Mean Corpuscular Hemoglobin 29.9 PG (27.0-31.0) Mean Corpuscular Hemoglobin Concent 32.1 G/DL (32.0-36.0) Red Cell Distribution Width 12.7 % (11.6-14.8) Platelet Count 213 K/UL (150-450) Mean Platelet Volume 8.9 FL (6.5-10.1) Neutrophils (%) (Auto) 66.2 % (45.0-75.0) Lymphocytes (%) (Auto) 21.3 % (20.0-45.0) Monocytes (%) (Auto) 6.9 % (1.0-10.0) Eosinophils (%) (Auto) 4.7 % (0.0-3.0) H Basophils (%) (Auto) 0.8 % (0.0-2.0) Sodium Level 146 MMOL/L (136-145) H Potassium Level 4.1 MMOL/L (3.5-5.1) Chloride Level 107 MMOL/L (98-107) Carbon Dioxide Level 30 MMOL/L (21-32) Anion Gap 9 mmol/L (5-15) Blood Urea Nitrogen 24 mg/dL (7-18) H Creatinine 1.1 MG/DL (0.55-1.30) Estimat Glomerular Filtration Rate mL/min (>60) Glucose Level 92 MG/DL (74-106) Calcium Level 9.3 MG/DL (8.5-10.1) Ammonia 91 umol/L (11-32) H Current Medications Medications (Trade) Dose Ordered Sig/Sonia Route PRN Reason Start Time Stop Time Status Last Admin Dose Admin Acetaminophen (Tylenol) 650 mg Q4H PRN ORAL fever 07/03/18 14:23 08/02/18 14:22 Al Hydroxide/Mg Hydroxide (Mylanta II) 30 ml Q6H PRN ORAL dyspepsia 07/03/18 14:23 08/02/18 14:22 Amlodipine Besylate (Norvasc) 10 mg DAILY ORAL 07/04/18 09:00 07/31/18 08:59 Baclofen (Lioresal) 10 mg THREE TIMES A DAY ORAL 07/03/18 18:00 07/31/18 08:59 07/03/18 17:37 Clonidine HCl (Catapres Tab) 0.1 mg Q4H PRN ORAL sbp>170 07/03/18 14:24 08/02/18 14:23 Dextrose (Dextrose 50%) 25 ml Q30M PRN IV Hypoglycemia 07/03/18 14:30 07/31/18 07:29 Dextrose (Dextrose 50%) 50 ml Q30M PRN IV Hypoglycemia 07/03/18 14:30 07/31/18 07:29 Divalproex Sodium (Depakote ER) 250 mg BID ORAL 07/04/18 09:00 08/01/18 20:59 Gabapentin (Neurontin) 300 mg THREE TIMES A DAY ORAL 07/03/18 18:00 07/31/18 08:59 07/03/18 17:37 Heparin Sodium (Porcine) (Heparin 5000 units/ml) 5,000 units EVERY 12 HOURS SUBQ 07/03/18 21:00 07/31/18 08:59 Insulin Aspart (NovoLOG) BEFORE MEALS AND HS SUBQ 07/03/18 16:30 07/31/18 11:29 Lisinopril (Zestril) 10 mg DAILY ORAL 07/04/18 09:00 08/01/18 08:59 Lorazepam (Ativan 2mg/ml 1ml) 2 mg Q1H PRN IV seizures 07/03/18 14:24 07/10/18 14:23 Memantine (Namenda) 5 mg DAILY ORAL 07/04/18 09:00 08/01/18 08:59 Olanzapine (ZyPREXA) 2.5 mg DAILY ORAL 07/04/18 09:00 08/02/18 11:59 Polyethylene Glycol (Miralax) 17 gm HSPRN PRN ORAL Constipation 07/03/18 14:25 08/02/18 14:24 Tamsulosin HCl (Flomax) 0.4 mg BEDTIME ORAL 07/03/18 21:00 07/31/18 20:59 Zolpidem Tartrate (Ambien) 5 mg HSPRN PRN ORAL Insomnia 07/03/18 14:25 07/10/18 14:24 Tay Freeman MD Jul 04, 2018 11:01
--- NOTE | 2018-07-04 13:02 | General Progress Note ---
Assessment/Plan Problem List: (1) New onset seizure ICD Codes: R56.9 - Unspecified convulsions SNOMED: 26970601 (2) HTN (hypertension) ICD Codes: I10 - Essential (primary) hypertension SNOMED: 12344226 (3) Malnutrition ICD Codes: E46 - Unspecified protein-calorie malnutrition SNOMED: 38019326 (4) BPH (benign prostatic hyperplasia) ICD Codes: N40.0 - Benign prostatic hyperplasia without lower urinary tract symptoms SNOMED: 587640239 (5) UTI (urinary tract infection) ICD Codes: N39.0 - Urinary tract infection, site not specified SNOMED: 28437644 Qualifiers: Qualified Codes: N30.00 - Acute cystitis without hematuria (6) History of cerebrovascular accident ICD Codes: Z86.73 - Personal history of transient ischemic attack (TIA), and cerebral infarction without residual deficits SNOMED: 023390365 (7) Parkinson disease ICD Codes: G20 - Parkinson's disease SNOMED: 47128267 (8) Hyperammonemia ICD Codes: E72.20 - Disorder of urea cycle metabolism, unspecified SNOMED: 8348755 Status: unchanged Assessment/Plan pt diet cbc bmp am seizure control gi eval dc plan snf Subjective Constitutional: Reports: weakness Allergies: Coded Allergies: DONEPEZIL (Verified Allergy, Unknown, 12/21/17) QUETIAPINE (Verified Allergy, Unknown, 12/21/17) SERTRALINE (Verified Allergy, Unknown, 12/21/17) All Systems: reviewed and negative except above Subjective o2 nc sleeping Objective Last 24 Hour Vital Signs Date Time Temp Pulse Resp B/P (MAP) Pulse Ox O2 Delivery O2 Flow Rate FiO2 07/04/18 09:00 128/67 07/04/18 09:00 53 128/67 07/04/18 09:00 Nasal Cannula 2.0 07/04/18 04:00 97.6 53 18 128/67 (87) 53 07/04/18 00:00 97.8 59 18 118/78 (91) 07/03/18 21:00 Nasal Cannula 2.0 07/03/18 20:00 98.3 61 18 142/75 (97) 61 07/03/18 16:00 98.1 64 21 134/78 (96) 99 Intake and Output 07/03/18 07/04/18 19:00 07:00 # Voids 2 # Bowel Movements 1 Laboratory Tests 07/04/18 10:00: White Blood Count 10.4, Red Blood Count 5.03, Hemoglobin 15.0, Hematocrit 46.9, Mean Corpuscular Volume 93, Mean Corpuscular Hemoglobin 29.9, Mean Corpuscular Hemoglobin Concent 32.1, Red Cell Distribution Width 12.7, Platelet Count 213, Mean Platelet Volume 8.9, Neutrophils (%) (Auto) 66.2, Lymphocytes (%) (Auto) 21.3, Monocytes (%) (Auto) 6.9, Eosinophils (%) (Auto) 4.7H, Basophils (%) (Auto ) 0.8, Sodium Level 146H, Potassium Level 4.1, Chloride Level 107, Carbon Dioxide Level 30, Anion Gap 9, Blood Urea Nitrogen 24H, Creatinine 1.1, Estimat Glomerular Filtration Rate , Glucose Level 92, Calcium Level 9.3, Ammonia 91H Height (Feet): 5 Height (Inches): 11.00 Weight (Pounds): 176 General Appearance: lethargic EENT: normal ENT inspection Neck: normal alignment Cardiovascular: normal peripheral pulses, normal rate, regular rhythm Respiratory/Chest: chest wall non-tender, lungs clear, normal breath sounds Abdomen: normal bowel sounds, non tender, soft Extremities: normal inspection Edema: no edema noted Arm (L), no edema noted Arm (R), no edema noted Leg (L), no edema noted Leg (R), no edema noted Pedal (L), no edema noted Pedal (R), no edema noted Generalized Neurologic: motor weakness Skin: normal pigmentation, warm/dry Sj Robles DO Jul 04, 2018 13:02
--- NOTE | 2018-07-04 14:48 | Pulmonology Progress Note ---
Assessment/Plan Problems: (1) New onset seizure (2) History of cerebrovascular accident (3) Left-sided weakness (4) Parkinson disease (5) HTN (hypertension) Assessment/Plan shouting and screaming no more seizures MRI of brain pending neuro evaluation pending on Depakote 250BID monitor BP PT/ot symptomatic treatment. dvt prophylaxis. MRI: Impression: Extensive chronic changes, including age-related volume loss, periventricular chronic ischemic changes, and multiple and extensive right- sided old infarcts Multiple foci of susceptibility artifact, likely prior old microbleeds, as well as likely postsurgical hemorrhage in the right frontal and parietal region Negative for acute infarct, mass effect, or hemorrhage Subjective ROS Limited/Unobtainable: No Constitutional: Reports: no symptoms HEENT: Repors: no symptoms Allergies: Coded Allergies: DONEPEZIL (Verified Allergy, Unknown, 12/21/17) QUETIAPINE (Verified Allergy, Unknown, 12/21/17) SERTRALINE (Verified Allergy, Unknown, 12/21/17) Objective Last 24 Hour Vital Signs Date Time Temp Pulse Resp B/P (MAP) Pulse Ox O2 Delivery O2 Flow Rate FiO2 07/04/18 09:00 128/67 07/04/18 09:00 53 128/67 07/04/18 09:00 Nasal Cannula 2.0 07/04/18 04:00 97.6 53 18 128/67 (87) 53 07/04/18 00:00 97.8 59 18 118/78 (91) 07/03/18 21:00 Nasal Cannula 2.0 07/03/18 20:00 98.3 61 18 142/75 (97) 61 07/03/18 16:00 98.1 64 21 134/78 (96) 99 Intake and Output 07/03/18 07/04/18 19:00 07:00 # Voids 2 # Bowel Movements 1 Objective General Appearance: cachetic HEENT: normocephalic, atraumatic Respiratory/Chest: chest wall non-tender, lungs clear Cardiovascular: normal peripheral pulses, normal rate Abdomen: normal bowel sounds, no organomegaly Genitourinary: normal external genitalia Extremities: no clubbing, right arm fistula Neurologic/Psychiatric: 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 normal Laboratory Tests 07/04/18 10:00: White Blood Count 10.4, Red Blood Count 5.03, Hemoglobin 15.0, Hematocrit 46.9, Mean Corpuscular Volume 93, Mean Corpuscular Hemoglobin 29.9, Mean Corpuscular Hemoglobin Concent 32.1, Red Cell Distribution Width 12.7, Platelet Count 213, Mean Platelet Volume 8.9, Neutrophils (%) (Auto) 66.2, Lymphocytes (%) (Auto) 21.3, Monocytes (%) (Auto) 6.9, Eosinophils (%) (Auto) 4.7H, Basophils (%) (Auto ) 0.8, Sodium Level 146H, Potassium Level 4.1, Chloride Level 107, Carbon Dioxide Level 30, Anion Gap 9, Blood Urea Nitrogen 24H, Creatinine 1.1, Estimat Glomerular Filtration Rate , Glucose Level 92, Calcium Level 9.3, Ammonia 91H Current Medications Medications (Trade) Dose Ordered Sig/Sonia Route PRN Reason Start Time Stop Time Status Last Admin Dose Admin Acetaminophen (Tylenol) 650 mg Q4H PRN ORAL fever 07/03/18 14:23 08/02/18 14:22 Al Hydroxide/Mg Hydroxide (Mylanta II) 30 ml Q6H PRN ORAL dyspepsia 07/03/18 14:23 08/02/18 14:22 Amlodipine Besylate (Norvasc) 10 mg DAILY ORAL 07/04/18 09:00 07/31/18 08:59 Baclofen (Lioresal) 10 mg THREE TIMES A DAY ORAL 07/03/18 18:00 07/31/18 08:59 07/03/18 17:37 Clonidine HCl (Catapres Tab) 0.1 mg Q4H PRN ORAL sbp>170 07/03/18 14:24 08/02/18 14:23 Dextrose (Dextrose 50%) 25 ml Q30M PRN IV Hypoglycemia 07/03/18 14:30 07/31/18 07:29 Dextrose (Dextrose 50%) 50 ml Q30M PRN IV Hypoglycemia 07/03/18 14:30 07/31/18 07:29 Divalproex Sodium (Depakote ER) 250 mg BID ORAL 07/04/18 09:00 08/01/18 20:59 Gabapentin (Neurontin) 300 mg THREE TIMES A DAY ORAL 07/03/18 18:00 07/31/18 08:59 07/03/18 17:37 Heparin Sodium (Porcine) (Heparin 5000 units/ml) 5,000 units EVERY 12 HOURS SUBQ 07/03/18 21:00 07/31/18 08:59 Insulin Aspart (NovoLOG) BEFORE MEALS AND HS SUBQ 07/03/18 16:30 07/31/18 11:29 Lisinopril (Zestril) 10 mg DAILY ORAL 07/04/18 09:00 08/01/18 08:59 Lorazepam (Ativan 2mg/ml 1ml) 2 mg Q1H PRN IV seizures 07/03/18 14:24 07/10/18 14:23 Memantine (Namenda) 5 mg DAILY ORAL 07/04/18 09:00 08/01/18 08:59 Olanzapine (ZyPREXA) 2.5 mg DAILY ORAL 07/04/18 09:00 08/02/18 11:59 Polyethylene Glycol (Miralax) 17 gm HSPRN PRN ORAL Constipation 07/03/18 14:25 08/02/18 14:24 Tamsulosin HCl (Flomax) 0.4 mg BEDTIME ORAL 07/03/18 21:00 07/31/18 20:59 Zolpidem Tartrate (Ambien) 5 mg HSPRN PRN ORAL Insomnia 07/03/18 14:25 07/10/18 14:24 Sugey Love MD Jul 04, 2018 14:48
[2018-07-04] MEDS ORDERED: NS 275ml ONE (15:15)
--- NOTE | 2018-07-04 17:17 | Cardiac Electrophysiology PN ---
Assessment/Plan Assessment/Plan 1. Bradycardia in the 50s. Ruled out for MN Echo EF 60%. HR better 2. Hypertension. On Norvasc 10 mg daily and lisinopril 10 mg daily 3. History of hemorrhagic stroke. No seizures. The CT of the brain showed evidence of prior right craniotomy and extensive right middle cerebral artery distribution encephalomalacia and there is an old infarct. DW RN and daughter Subjective Subjective No CP or SOB transferred to . Daughter at bedside.His seizure medications are being adjusted Objective Last 24 Hour Vital Signs Date Time Temp Pulse Resp B/P (MAP) Pulse Ox O2 Delivery O2 Flow Rate FiO2 07/04/18 09:00 128/67 07/04/18 09:00 53 128/67 07/04/18 09:00 Nasal Cannula 2.0 07/04/18 04:00 97.6 53 18 128/67 (87) 53 07/04/18 00:00 97.8 59 18 118/78 (91) 07/03/18 21:00 Nasal Cannula 2.0 07/03/18 20:00 98.3 61 18 142/75 (97) 61 Intake and Output 07/03/18 07/04/18 19:00 07:00 # Voids 2 # Bowel Movements 1 Laboratory Tests Test 07/04/18 10:00 White Blood Count 10.4 K/UL (4.8-10.8) Red Blood Count 5.03 M/UL (4.70-6.10) Hemoglobin 15.0 G/DL (14.2-18.0) Hematocrit 46.9 % (42.0-52.0) Mean Corpuscular Volume 93 FL (80-99) Mean Corpuscular Hemoglobin 29.9 PG (27.0-31.0) Mean Corpuscular Hemoglobin Concent 32.1 G/DL (32.0-36.0) Red Cell Distribution Width 12.7 % (11.6-14.8) Platelet Count 213 K/UL (150-450) Mean Platelet Volume 8.9 FL (6.5-10.1) Neutrophils (%) (Auto) 66.2 % (45.0-75.0) Lymphocytes (%) (Auto) 21.3 % (20.0-45.0) Monocytes (%) (Auto) 6.9 % (1.0-10.0) Eosinophils (%) (Auto) 4.7 % (0.0-3.0) H Basophils (%) (Auto) 0.8 % (0.0-2.0) Sodium Level 146 MMOL/L (136-145) H Potassium Level 4.1 MMOL/L (3.5-5.1) Chloride Level 107 MMOL/L (98-107) Carbon Dioxide Level 30 MMOL/L (21-32) Anion Gap 9 mmol/L (5-15) Blood Urea Nitrogen 24 mg/dL (7-18) H Creatinine 1.1 MG/DL (0.55-1.30) Estimat Glomerular Filtration Rate mL/min (>60) Glucose Level 92 MG/DL (74-106) Calcium Level 9.3 MG/DL (8.5-10.1) Ammonia 91 umol/L (11-32) H Objective HEAD AND NECK: No JVD LUNGS: Clear. CARDIOVASCULAR: Rg S1 and S2 with no gallop or murmur. ABDOMEN: Soft. EXTREMITIES: No pitting edema. NEUROLOGIC: Left hemiplegia. Crow Villalobos MD Jul 04, 2018 17:17
--- NOTE | 2018-07-04 18:30 | Progress Note ---
DATE: 07/04/2018 SUBJECTIVE: This is a 73-year-old male with seizure disorder but he has increased mood lability and agitation worsened by stress of his medical illness and mood lability that is why his attending has requested daily psychiatric consultation. MENTAL STATUS EXAMINATION: The patient is a 73-year-old male. Appearance is disheveled. Attitude, irritable and agitated. Affect, guarded and restricted. Intellect poor. Mood depressed and anxious. Motor activity, psychomotor agitation. Attention span is poor. Orientation x2. Speech is low volume and slurred. Thought process, disorganized and illogical. Insight and judgment is poor. DIAGNOSIS: Bipolar 2, rule out depression with psychotic features, rule out dementia with psychosis. PLAN: Treat him with Depakote 500 mg q.12 h., Ativan 1 mg as needed, Neurontin 300 mg three times a day, and Namenda 5 mg daily to reduce any further decline in his cognition. Provide him with 20 minutes of insight-oriented psychotherapy to help have him insight into cognitive decline and behaviors so he has better impulse control and 20 minutes of insight-oriented psychotherapy. Chart reviewed and discussed with staff. Deanne Argueta M.D. DR: Becca JOB#: [id number] CC:
[2018-07-04 20:00] VITALS: BP 142/80
[2018-07-04] MEDS: Lactulose 20gm/30ml UDC ORAL SCH (21:09)
[2018-07-04] MEDS: Tamsulosin 0.4mg cap ORAL SCH (21:09)
--- NOTE | 2018-07-04 23:15 | Electroencephalogram ---
DATE OF PROCEDURE: 07/03/2018 REQUESTING PHYSICIANS: Sj Robles D.O. & Estuardo Carpio M.D. READING PHYSICIAN: Pablo Hernández M.D. PROCEDURE PERFORMED: EEG. HISTORY: This EEG was performed on a 73-year-old gentleman with a history of prior cerebral infarcts and in addition, a recent occipital hemorrhage. The patient has a history of seizures and thus this EEG was performed to evaluate the patient for the degree and type of cerebral dysfunction and to exclude ongoing ictal or interictal phenomena. TECHNICAL NOTE: This EEG was performed on a [employer] Unit with electrodes placed on the scalp according to the International 10-20 system. [id number] and [id number] montages were used. The EEG was technically satisfactory and was performed while the patient was predominantly in the awake state. OBSERVATIONS: In the best awake state, the background activity consisted of 5-6 Hz theta activity. Right frontocentral polymorphic delta activity was also seen. No definite epileptiform discharges were seen. IMPRESSION: This is an abnormal EEG characterized by: 1. Slowing of the background in the 5-6 Hz theta range in the awake state. 2. The presence of right frontocentral polymorphic delta activity seen throughout the tracing. COMMENT: This study is consistent with: 1. An encephalopathy of a moderate degree. 2. Focal dysfunction in the right frontocentral region. Clinical correlation is recommended. Pablo Hernández M.D., M.S.P.H. DR: JOSEPHINE JOB#: [id number] [facility] HOSPITALBlanca
[2018-07-05] VITALS: BP 145/69
--- NOTE | 2018-07-05 01:15 | Consultation ---
DATE OF CONSULTATION: SUBJECTIVE: The patient is more agitated today. His serum ammonia is 91. He still has right upper extremity tremor. PHYSICAL EXAMINATION: VITAL SIGNS: Temperature is 97.6, pulse is 53, blood pressure is 128/67. MENTAL STATUS: He is more alert and awake today than he was yesterday according to his daughter. Date, he does not know the year. Place, does not know the name of the hospital or if he is in the hospital. Person, he is oriented to his name. He perseverates a lot, repeating Depakote over and over again. CRANIAL NERVE EXAMINATION: CRANIAL NERVES II: Visual bartlett are probably intact to confrontation. CRANIAL NERVES III, IV, AND : Extraocular motility is full. Pupils are approximately 5 mm, round, reactive to light. CRANIAL NERVE V: Corneal sensation is intact. CRANIAL NERVE VII: There is slightly decreased nasolabial fold on the left. CRANIAL NERVE VIII: Auditory acuity easily is partially intact. CRANIAL NERVES IX AND X: Are not tested. CRANIAL NERVE XI: Sternocleidomastoid strength is probably 5/5. CRANIAL NERVE XII: Tongue is in midline with a significant tremor. Muscle examination is unchanged. He moves the right upper extremity and the right lower extremity. He has a 3 to 4 cycle per second tremor, mainly gets an action tremor and finger-finger correction. Reflexes are +1 in the right upper extremity, profound trace in the right upper extremity, +1 to 2 in the left upper extremity, +1 on the left knee, 0 at the right knee, 0 at the ankles. Toes were . LABORATORY DATA: See above. EEG reveals diffuse slowing, right side greater than the left. asterixis in the right arm given his tremor, he may actually have it. 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 I am going to decrease his Depakote to 125 mg b.i.d. and increase his gabapentin to mg a day. PLAN: 1. As above. 2. Reduce the Depakote and see if his serum ammonia decreased over the next couple of days. Estuardo Carpio MD DR: Yon JOB#: [id number] CC:
[2018-07-05] MEDS: Lactulose 20gm/30ml UDC ORAL SCH ×4 (01:42→17:18)
--- NOTE | 2018-07-05 02:15 | Consultation ---
DATE OF CONSULTATION: 07/04/2018 CONSULTING PHYSICIAN: Drew Mueller M.D. REFERRING PHYSICIAN: Sj Robles D.O. CHIEF COMPLAINT: Failure to thrive. HISTORY OF PRESENT ILLNESS: This is a 73-year-old male with history of CVA, left-sided weakness, paralysis, history of gastritis, chronic GERD, Parkinson disease, who was admitted to the hospital mainly for seizure. The patient now is refusing to eat and refusing to take any medications, and GI consult was requested for possible G-tube placement. PAST MEDICAL HISTORY: 1. History of CVA with left-sided weakness. 2. Gastritis and GERD. 3. Parkinson disease. 4. Hypertension. MEDICATIONS: Please see medication reconciliation list. ALLERGIES: Donepezil, quetiapine, sertraline. FAMILY HISTORY: Noncontributory. SOCIAL HISTORY: Currently lives in a skilled nursing. No recent history of tobacco, alcohol, or IV drug abuse. REVIEW OF SYSTEMS: Limited. The patient has been and right now, he is very agitated. PHYSICAL EXAMINATION: VITAL SIGNS: Temperature is 97.6, pulse 53, respirations 18, blood pressure 120/67. HEENT: Normocephalic and atraumatic. Sclerae anicteric. NECK: Supple. No evidence of obvious lymphadenopathy. CARDIOVASCULAR: Regular rhythm. Plus S1 and S2. No obvious murmur. LUNGS: Clear to auscultation bilaterally. ABDOMEN: Positive bowel sounds. Soft, nontender. No rebound. No guarding. No peritoneal sign. EXTREMITIES: No cyanosis, no clubbing. The patient has left-sided paralysis. LABORATORY DATA: White count 10, hemoglobin 15, hematocrit 46, platelet count is 213,000. Chem-7, sodium 146, potassium 4.1, BUN is 24, creatinine is 1.1. Ammonia level elevated at 91. Imaging studies, the patient had a brain MRI which showed extensive chronic changes including age-related volume loss, periventricular chronic ischemic changes and multiple and extensive right-sided old infarcts, multiple foci of susceptibility and microbleeds as well as likely postsurgical hemorrhage in the right frontal and parietal region, negative for acute infarct. ASSESSMENT AND PLAN: This is a 73-year-old male with seizure, Parkinson's, history of CVA with underlying left-sided paralysis. At this time, the patient is extremely agitated. According to the nurses, the patient is refusing to take anything, even medication and food, so the plan will be discussed with the family for possibility of the G-tube placement although the patient is at high risk for pulling the G-tube, so we also need Psychiatry to evaluate the patient for competency to see if he is competent to make decisions and if he does, we will ask the patient if he wants a G-tube and then if he states no and he is competent, then we cannot do and if he states no and the family wants it and he is not competent, then we will consider doing an EGD with PEG. I want to thank Dr. Sj Robles for this kind referral. Drew Mueller M.D. DR: Kerwin JOB#: [id number] CC: Sj Robles D.O.
[2018-07-05 04:00] VITALS: BP 134/72
[2018-07-05] MEDS: NovoLOG Insulin Flexpen SUBQ SCH ×4 (06:15→21:00)
[2018-07-05 06:27] LABS: BASOPHILS % (AUTO) 1.2 % (0.0-2.0); EOSINOPHILS % (AUTO) 7.5 % (0.0-3.0); HEMATOCRIT 46.9 % (42.0-52.0); HEMOGLOBIN 15.2 G/DL (14.2-18.0); LYMPHOCYTES % (AUTO) 29.8 % (20.0-45.0); MEAN CORPUSCULAR VOLUME 93 FL (80-99); MONOCYTES % (AUTO) 7.5 % (1.0-10.0); PLATELET COUNT 186 K/UL (150-450); RED BLOOD COUNT 5.03 M/UL (4.70-6.10); RED CELL DISTRIBUTION WIDTH 12.5 % (11.6-14.8); WHITE BLOOD COUNT 7.5 K/UL (4.8-10.8)
[2018-07-05 07:01] LABS: ANION GAP 10 mmol/L (5-15); BLOOD UREA NITROGEN 21 mg/dL (7-18); CALCIUM 9.3 MG/DL (8.5-10.1); CARBON DIOXIDE 25 MMOL/L (21-32); CHLORIDE 108 MMOL/L (98-107); CREATININE 1.1 MG/DL (0.55-1.30); POTASSIUM 4.2 MMOL/L (3.5-5.1); SODIUM 143 MMOL/L (136-145)
[2018-07-05 08:00] VITALS: BP 136/69
--- NOTE | 2018-07-05 08:03 | Infectious Diseases Prog Note ---
Assessment/Plan Assessment/Plan Seizure -MRI brain p -CT head: Very limited exam, due to motion artifact. Evidence of prior right craniotomy. Extensive right middle cerebral artery distribution encephalomalacia and right basal ganglia encephalomalacia, likely on the basis of old infarcts. Progressive age-related volume loss. No definite gross acute intracranial bleed or mass effect Leukocytosis, SP- likely reactive 2ry to above -u/a 10-15, nit neg, leuk +2; ucx nTD -CXR: Borderline cardiomegaly. No acute process Afebrile CVA c/w L side paralysis HLD gastritis/GERD Parkinson's disease HTN SNF resident Plan: -Monitor off abx as he is clinically stable -06/30 SP Ceftriaxone x 1 -f/u cx -Monitor CBC/CMP, temperatures -aspiration/seizure precautions -neuro eval -f/u MRI brain . Will continue to follow along with you. Subjective Allergies: Coded Allergies: DONEPEZIL (Verified Allergy, Unknown, 12/21/17) QUETIAPINE (Verified Allergy, Unknown, 12/21/17) SERTRALINE (Verified Allergy, Unknown, 12/21/17) Subjective Afebrile No Leukocytosis Objective Vital Signs Last 24 Hour Vital Signs Date Time Temp Pulse Resp B/P (MAP) Pulse Ox O2 Delivery O2 Flow Rate FiO2 07/05/18 04:00 97.8 60 18 134/72 (92) 96 07/05/18 00:00 98.0 61 18 145/69 (94) 94 07/04/18 21:00 Nasal Cannula 2.0 07/04/18 20:00 97.7 72 18 142/80 (100) 95 07/04/18 17:36 97.6 07/04/18 09:00 128/67 07/04/18 09:00 53 128/67 07/04/18 09:00 Nasal Cannula 2.0 Height (Feet): 5 Height (Inches): 11.00 Weight (Pounds): 176 Objective Gen: NAD, Laying in bed HEENT: NCAT, MMM Respiratory/Chest: chest wall non-tender, lungs clear Cardiovascular/Chest: normal peripheral pulses, normal rate Abdomen: normal bowel sounds, non tender Laboratory Tests Test 07/04/18 10:00 07/05/18 06:12 White Blood Count 10.4 K/UL (4.8-10.8) 7.5 K/UL (4.8-10.8) Red Blood Count 5.03 M/UL (4.70-6.10) 5.03 M/UL (4.70-6.10) Hemoglobin 15.0 G/DL (14.2-18.0) 15.2 G/DL (14.2-18.0) Hematocrit 46.9 % (42.0-52.0) 46.9 % (42.0-52.0) Mean Corpuscular Volume 93 FL (80-99) 93 FL (80-99) Mean Corpuscular Hemoglobin 29.9 PG (27.0-31.0) 30.1 PG (27.0-31.0) Mean Corpuscular Hemoglobin Concent 32.1 G/DL (32.0-36.0) 32.3 G/DL (32.0-36.0) Red Cell Distribution Width 12.7 % (11.6-14.8) 12.5 % (11.6-14.8) Platelet Count 213 K/UL (150-450) 186 K/UL (150-450) Mean Platelet Volume 8.9 FL (6.5-10.1) 8.1 FL (6.5-10.1) Neutrophils (%) (Auto) 66.2 % (45.0-75.0) 54.0 % (45.0-75.0) Lymphocytes (%) (Auto) 21.3 % (20.0-45.0) 29.8 % (20.0-45.0) Monocytes (%) (Auto) 6.9 % (1.0-10.0) 7.5 % (1.0-10.0) Eosinophils (%) (Auto) 4.7 % (0.0-3.0) H 7.5 % (0.0-3.0) H Basophils (%) (Auto) 0.8 % (0.0-2.0) 1.2 % (0.0-2.0) Sodium Level 146 MMOL/L (136-145) H 143 MMOL/L (136-145) Potassium Level 4.1 MMOL/L (3.5-5.1) 4.2 MMOL/L (3.5-5.1) Chloride Level 107 MMOL/L (98-107) 108 MMOL/L (98-107) H Carbon Dioxide Level 30 MMOL/L (21-32) 25 MMOL/L (21-32) Anion Gap 9 mmol/L (5-15) 10 mmol/L (5-15) Blood Urea Nitrogen 24 mg/dL (7-18) H 21 mg/dL (7-18) H Creatinine 1.1 MG/DL (0.55-1.30) 1.1 MG/DL (0.55-1.30) Estimat Glomerular Filtration Rate mL/min (>60) mL/min (>60) Glucose Level 92 MG/DL (74-106) 106 MG/DL (74-106) Calcium Level 9.3 MG/DL (8.5-10.1) 9.3 MG/DL (8.5-10.1) Ammonia 91 umol/L (11-32) H Current Medications Medications (Trade) Dose Ordered Sig/Sonia Route PRN Reason Start Time Stop Time Status Last Admin Dose Admin Acetaminophen (Tylenol) 650 mg Q4H PRN ORAL fever 07/03/18 14:23 08/02/18 14:22 07/04/18 17:06 Al Hydroxide/Mg Hydroxide (Mylanta II) 30 ml Q6H PRN ORAL dyspepsia 07/03/18 14:23 08/02/18 14:22 Amlodipine Besylate (Norvasc) 10 mg DAILY ORAL 07/04/18 09:00 07/31/18 08:59 Baclofen (Lioresal) 10 mg THREE TIMES A DAY ORAL 07/03/18 18:00 07/31/18 08:59 07/04/18 17:06 Clonidine HCl (Catapres Tab) 0.1 mg Q4H PRN ORAL sbp>170 07/03/18 14:24 08/02/18 14:23 Dextrose (Dextrose 50%) 25 ml Q30M PRN IV Hypoglycemia 07/03/18 14:30 07/31/18 07:29 Dextrose (Dextrose 50%) 50 ml Q30M PRN IV Hypoglycemia 07/03/18 14:30 07/31/18 07:29 Divalproex Sodium (Depakote Sprinkles) 125 mg BID ORAL 07/05/18 09:00 08/01/18 20:59 Gabapentin (Neurontin) 500 mg THREE TIMES A DAY ORAL 07/05/18 09:00 07/31/18 08:59 Heparin Sodium (Porcine) (Heparin 5000 units/ml) 5,000 units EVERY 12 HOURS SUBQ 07/03/18 21:00 07/31/18 08:59 07/04/18 21:15 Insulin Aspart (NovoLOG) BEFORE MEALS AND HS SUBQ 07/03/18 16:30 07/31/18 11:29 Lactulose (Cephulac) 20 gm TID ORAL 07/05/18 09:00 08/03/18 20:44 Lisinopril (Zestril) 10 mg DAILY ORAL 07/04/18 09:00 08/01/18 08:59 Lorazepam (Ativan 2mg/ml 1ml) 2 mg Q1H PRN IV seizures 07/03/18 14:24 07/10/18 14:23 Memantine (Namenda) 5 mg DAILY ORAL 07/04/18 09:00 08/01/18 08:59 Olanzapine (ZyPREXA) 2.5 mg DAILY ORAL 07/04/18 09:00 08/02/18 11:59 Polyethylene Glycol (Miralax) 17 gm HSPRN PRN ORAL Constipation 07/03/18 14:25 08/02/18 14:24 Tamsulosin HCl (Flomax) 0.4 mg BEDTIME ORAL 07/03/18 21:00 07/31/18 20:59 07/04/18 21:09 Zolpidem Tartrate (Ambien) 5 mg HSPRN PRN ORAL Insomnia 07/03/18 14:25 07/10/18 14:24 07/04/18 21:09 Tay Freeman MD Jul 05, 2018 08:03
[2018-07-05] MEDS ORDERED: Depakote 125mg Sprinkles ORAL SCH (09:00)
[2018-07-05] MEDS: Heparin 5000 units/ml inj SUBQ SCH ×3 (09:00→21:32)
[2018-07-05] MEDS: OLANZapine 2.5mg tab ORAL SCH (09:10)
[2018-07-05] MEDS: Lisinopril 10mg tab ORAL SCH (09:10)
[2018-07-05] MEDS: Memantine 5 MG TAB ORAL SCH (09:11)
[2018-07-05 12:00] VITALS: BP 130/76
--- NOTE | 2018-07-05 12:09 | General Progress Note ---
Assessment/Plan Problem List: (1) New onset seizure ICD Codes: R56.9 - Unspecified convulsions SNOMED: 78412178 (2) HTN (hypertension) ICD Codes: I10 - Essential (primary) hypertension SNOMED: 53917649 (3) Malnutrition ICD Codes: E46 - Unspecified protein-calorie malnutrition SNOMED: 54573506 (4) BPH (benign prostatic hyperplasia) ICD Codes: N40.0 - Benign prostatic hyperplasia without lower urinary tract symptoms SNOMED: 158695193 (5) UTI (urinary tract infection) ICD Codes: N39.0 - Urinary tract infection, site not specified SNOMED: 03767266 Qualifiers: Qualified Codes: N30.00 - Acute cystitis without hematuria (6) History of cerebrovascular accident ICD Codes: Z86.73 - Personal history of transient ischemic attack (TIA), and cerebral infarction without residual deficits SNOMED: 670416612 (7) Parkinson disease ICD Codes: G20 - Parkinson's disease SNOMED: 53617674 (8) Hyperammonemia ICD Codes: E72.20 - Disorder of urea cycle metabolism, unspecified SNOMED: 1676787 Status: stable, progressing Assessment/Plan pt diet cbc bmp am seizure control gi eval dc plan snf Subjective Constitutional: Reports: weakness Allergies: Coded Allergies: DONEPEZIL (Verified Allergy, Unknown, 12/21/17) QUETIAPINE (Verified Allergy, Unknown, 12/21/17) SERTRALINE (Verified Allergy, Unknown, 12/21/17) All Systems: reviewed and negative except above Subjective calm in bed no seizures Objective Last 24 Hour Vital Signs Date Time Temp Pulse Resp B/P (MAP) Pulse Ox O2 Delivery O2 Flow Rate FiO2 07/05/18 09:11 66 136/69 07/05/18 09:10 136/69 07/05/18 09:00 Nasal Cannula 2.0 07/05/18 08:00 98.4 66 18 136/69 (91) 95 07/05/18 04:00 97.8 60 18 134/72 (92) 96 07/05/18 00:00 98.0 61 18 145/69 (94) 94 07/04/18 21:00 Nasal Cannula 2.0 07/04/18 20:00 97.7 72 18 142/80 (100) 95 07/04/18 17:36 97.6 Intake and Output 07/04/18 07/05/18 18:59 06:59 Intake Total 900 ml Output Total 350 ml Balance 550 ml Intake Oral 900 ml Output Urine Total 350 ml # Voids 3 3 Laboratory Tests 07/05/18 06:12: White Blood Count 7.5, Red Blood Count 5.03, Hemoglobin 15.2, Hematocrit 46.9, Mean Corpuscular Volume 93, Mean Corpuscular Hemoglobin 30.1, Mean Corpuscular Hemoglobin Concent 32.3, Red Cell Distribution Width 12.5, Platelet Count 186, Mean Platelet Volume 8.1, Neutrophils (%) (Auto) 54.0, Lymphocytes (%) (Auto) 29.8, Monocytes (%) (Auto) 7.5, Eosinophils (%) (Auto) 7.5H, Basophils (%) (Auto ) 1.2, Sodium Level 143, Potassium Level 4.2, Chloride Level 108H, Carbon Dioxide Level 25, Anion Gap 10, Blood Urea Nitrogen 21H, Creatinine 1.1, Estimat Glomerular Filtration Rate , Glucose Level 106, Calcium Level 9.3 Height (Feet): 5 Height (Inches): 11.00 Weight (Pounds): 176 General Appearance: lethargic EENT: normal ENT inspection Neck: normal alignment Cardiovascular: normal peripheral pulses, normal rate, regular rhythm Respiratory/Chest: chest wall non-tender, lungs clear, normal breath sounds Abdomen: normal bowel sounds, non tender, soft Extremities: normal inspection Edema: no edema noted Arm (L), no edema noted Arm (R), no edema noted Leg (L), no edema noted Leg (R), no edema noted Pedal (L), no edema noted Pedal (R), no edema noted Generalized Neurologic: motor weakness Skin: normal pigmentation, warm/dry Sj Robles DO Jul 05, 2018 12:09
--- NOTE | 2018-07-05 12:36 | GI Progress Note ---
Assessment/Plan Problems: (1) Parkinson disease ICD Codes: G20 - Parkinson's disease SNOMED: 12037001 (2) Uncontrolled seizures ICD Codes: R56.9 - Unspecified convulsions SNOMED: 13419405 (3) Seizure ICD Codes: R56.9 - Unspecified convulsions SNOMED: 82820453 (4) Nausea & vomiting ICD Codes: R11.2 - Nausea with vomiting, unspecified SNOMED: 19310171 (5) Malnutrition ICD Codes: E46 - Unspecified protein-calorie malnutrition SNOMED: 08492171 Status: unchanged Status Narrative Discussed with Dr. Mueller. Assessment/Plan We will consider PEG placement pending workup and if family agrees, but would be high risk for pulling the G-tube given his psychiatric history. Calorie count ordered to see if nutritional needs are met Push p.o. Bowel regimen Zofran as needed ppi follow labs The patient was seen and examined at bedside and all new and available data was reviewed in the patients chart. I agree with the above findings, impression and plan. (Patient seen earlier today. Signature stamp does not reflect patient encounter time.). - Drew Mueller MD Subjective Gastrointestinal/Abdominal: Reports: no symptoms Objective Last 24 Hour Vital Signs Date Time Temp Pulse Resp B/P (MAP) Pulse Ox O2 Delivery O2 Flow Rate FiO2 07/05/18 09:11 66 136/69 07/05/18 09:10 136/69 07/05/18 09:00 Nasal Cannula 2.0 07/05/18 08:00 98.4 66 18 136/69 (91) 95 07/05/18 04:00 97.8 60 18 134/72 (92) 96 07/05/18 00:00 98.0 61 18 145/69 (94) 94 07/04/18 21:00 Nasal Cannula 2.0 07/04/18 20:00 97.7 72 18 142/80 (100) 95 07/04/18 17:36 97.6 Intake and Output 07/04/18 07/05/18 18:59 06:59 Intake Total 900 ml Output Total 350 ml Balance 550 ml Intake Oral 900 ml Output Urine Total 350 ml # Voids 3 3 Laboratory Tests Test 07/05/18 06:12 White Blood Count 7.5 K/UL (4.8-10.8) Red Blood Count 5.03 M/UL (4.70-6.10) Hemoglobin 15.2 G/DL (14.2-18.0) Hematocrit 46.9 % (42.0-52.0) Mean Corpuscular Volume 93 FL (80-99) Mean Corpuscular Hemoglobin 30.1 PG (27.0-31.0) Mean Corpuscular Hemoglobin Concent 32.3 G/DL (32.0-36.0) Red Cell Distribution Width 12.5 % (11.6-14.8) Platelet Count 186 K/UL (150-450) Mean Platelet Volume 8.1 FL (6.5-10.1) Neutrophils (%) (Auto) 54.0 % (45.0-75.0) Lymphocytes (%) (Auto) 29.8 % (20.0-45.0) Monocytes (%) (Auto) 7.5 % (1.0-10.0) Eosinophils (%) (Auto) 7.5 % (0.0-3.0) H Basophils (%) (Auto) 1.2 % (0.0-2.0) Sodium Level 143 MMOL/L (136-145) Potassium Level 4.2 MMOL/L (3.5-5.1) Chloride Level 108 MMOL/L (98-107) H Carbon Dioxide Level 25 MMOL/L (21-32) Anion Gap 10 mmol/L (5-15) Blood Urea Nitrogen 21 mg/dL (7-18) H Creatinine 1.1 MG/DL (0.55-1.30) Estimat Glomerular Filtration Rate mL/min (>60) Glucose Level 106 MG/DL (74-106) Calcium Level 9.3 MG/DL (8.5-10.1) Height (Feet): 5 Height (Inches): 11.00 Weight (Pounds): 176 General Appearance: WD/WN, no apparent distress, alert Cardiovascular: normal rate Respiratory/Chest: normal breath sounds, no respiratory distress Abdominal Exam: normal bowel sounds, non tender, soft Extremities: normal range of motion, non-tender Rebecca Hayes NP Jul 05, 2018 12:36
--- NOTE | 2018-07-05 14:47 | Pulmonology Progress Note ---
Assessment/Plan Problems: (1) New onset seizure (2) History of cerebrovascular accident (3) Left-sided weakness (4) Parkinson disease (5) HTN (hypertension) Assessment/Plan shouting and screaming no more seizures MRI of brain pending neuro evaluation pending on Depakote 250BID monitor BP PT/ot symptomatic treatment. dvt prophylaxis. MRI: Impression: Extensive chronic changes, including age-related volume loss, periventricular chronic ischemic changes, and multiple and extensive right- sided old infarcts Multiple foci of susceptibility artifact, likely prior old microbleeds, as well as likely postsurgical hemorrhage in the right frontal and parietal region Negative for acute infarct, mass effect, or hemorrhage Subjective ROS Limited/Unobtainable: No Constitutional: Reports: no symptoms HEENT: Repors: no symptoms Respiratory: Reports: no symptoms Allergies: Coded Allergies: DONEPEZIL (Verified Allergy, Unknown, 12/21/17) QUETIAPINE (Verified Allergy, Unknown, 12/21/17) SERTRALINE (Verified Allergy, Unknown, 12/21/17) Objective Last 24 Hour Vital Signs Date Time Temp Pulse Resp B/P (MAP) Pulse Ox O2 Delivery O2 Flow Rate FiO2 07/05/18 12:00 98.6 89 18 130/76 (94) 95 07/05/18 09:11 66 136/69 07/05/18 09:10 136/69 07/05/18 09:00 Nasal Cannula 2.0 07/05/18 08:00 98.4 66 18 136/69 (91) 95 07/05/18 04:00 97.8 60 18 134/72 (92) 96 07/05/18 00:00 98.0 61 18 145/69 (94) 94 07/04/18 21:00 Nasal Cannula 2.0 07/04/18 20:00 97.7 72 18 142/80 (100) 95 07/04/18 17:36 97.6 Intake and Output 07/04/18 07/05/18 19:00 07:00 Intake Total 900 ml Output Total 350 ml Balance 550 ml Intake Oral 900 ml Output Urine Total 350 ml # Voids 3 3 Objective General Appearance: cachetic HEENT: normocephalic, atraumatic Respiratory/Chest: chest wall non-tender, lungs clear Cardiovascular: normal peripheral pulses, normal rate Abdomen: normal bowel sounds, no organomegaly Genitourinary: normal external genitalia Extremities: no clubbing, right arm fistula Neurologic/Psychiatric: stamp machine servicer II-XII grossly normal Laboratory Tests 07/05/18 06:12: White Blood Count 7.5, Red Blood Count 5.03, Hemoglobin 15.2, Hematocrit 46.9, Mean Corpuscular Volume 93, Mean Corpuscular Hemoglobin 30.1, Mean Corpuscular Hemoglobin Concent 32.3, Red Cell Distribution Width 12.5, Platelet Count 186, Mean Platelet Volume 8.1, Neutrophils (%) (Auto) 54.0, Lymphocytes (%) (Auto) 29.8, Monocytes (%) (Auto) 7.5, Eosinophils (%) (Auto) 7.5H, Basophils (%) (Auto ) 1.2, Sodium Level 143, Potassium Level 4.2, Chloride Level 108H, Carbon Dioxide Level 25, Anion Gap 10, Blood Urea Nitrogen 21H, Creatinine 1.1, Estimat Glomerular Filtration Rate , Glucose Level 106, Calcium Level 9.3 Current Medications Medications (Trade) Dose Ordered Sig/Sonia Route PRN Reason Start Time Stop Time Status Last Admin Dose Admin Acetaminophen (Tylenol) 650 mg Q4H PRN ORAL fever 07/03/18 14:23 08/02/18 14:22 07/04/18 17:06 Al Hydroxide/Mg Hydroxide (Mylanta II) 30 ml Q6H PRN ORAL dyspepsia 07/03/18 14:23 08/02/18 14:22 Amlodipine Besylate (Norvasc) 10 mg DAILY ORAL 07/04/18 09:00 07/31/18 08:59 07/05/18 09:11 Baclofen (Lioresal) 10 mg THREE TIMES A DAY ORAL 07/03/18 18:00 07/31/18 08:59 07/05/18 12:12 Clonidine HCl (Catapres Tab) 0.1 mg Q4H PRN ORAL sbp>170 07/03/18 14:24 08/02/18 14:23 Dextrose (Dextrose 50%) 25 ml Q30M PRN IV Hypoglycemia 07/03/18 14:30 07/31/18 07:29 Dextrose (Dextrose 50%) 50 ml Q30M PRN IV Hypoglycemia 07/03/18 14:30 07/31/18 07:29 Gabapentin (Neurontin) 500 mg THREE TIMES A DAY ORAL 07/05/18 09:00 07/31/18 08:59 07/05/18 12:12 Heparin Sodium (Porcine) (Heparin 5000 units/ml) 5,000 units EVERY 12 HOURS SUBQ 07/03/18 21:00 07/31/18 08:59 07/04/18 21:15 Insulin Aspart (NovoLOG) BEFORE MEALS AND HS SUBQ 07/03/18 16:30 07/31/18 11:29 Lactulose (Cephulac) 20 gm TID ORAL 07/05/18 09:00 08/03/18 20:44 07/05/18 12:12 Lisinopril (Zestril) 10 mg DAILY ORAL 07/04/18 09:00 08/01/18 08:59 07/05/18 09:10 Lorazepam (Ativan 2mg/ml 1ml) 2 mg Q1H PRN IV seizures 07/03/18 14:24 07/10/18 14:23 Memantine (Namenda) 5 mg DAILY ORAL 07/04/18 09:00 08/01/18 08:59 07/05/18 09:11 Olanzapine (ZyPREXA) 2.5 mg DAILY ORAL 07/04/18 09:00 08/02/18 11:59 07/05/18 09:10 Polyethylene Glycol (Miralax) 17 gm HSPRN PRN ORAL Constipation 07/03/18 14:25 08/02/18 14:24 Tamsulosin HCl (Flomax) 0.4 mg BEDTIME ORAL 07/03/18 21:00 07/31/18 20:59 07/04/18 21:09 Zolpidem Tartrate (Ambien) 5 mg HSPRN PRN ORAL Insomnia 07/03/18 14:25 07/10/18 14:24 07/04/18 21:09 Sugey Love MD Jul 05, 2018 14:47
--- NOTE | 2018-07-05 15:52 | Cardiac Electrophysiology PN ---
Assessment/Plan Assessment/Plan 1. Bradycardia in the 50s. Ruled out for NV Echo EF 60%. HR better 2. Hypertension. On Norvasc 10 mg daily and lisinopril 10 mg daily 3. History of hemorrhagic stroke. No seizures. The CT of the brain showed evidence of prior right craniotomy and extensive right middle cerebral artery distribution encephalomalacia Off Depakote now. DW RN and daughter Subjective Subjective No CP or SOB. Daughter at bedside.Depakote was DCed. Objective Last 24 Hour Vital Signs Date Time Temp Pulse Resp B/P (MAP) Pulse Ox O2 Delivery O2 Flow Rate FiO2 07/05/18 12:00 98.6 89 18 130/76 (94) 95 07/05/18 09:11 66 136/69 07/05/18 09:10 136/69 07/05/18 09:00 Nasal Cannula 2.0 07/05/18 08:00 98.4 66 18 136/69 (91) 95 07/05/18 04:00 97.8 60 18 134/72 (92) 96 07/05/18 00:00 98.0 61 18 145/69 (94) 94 07/04/18 21:00 Nasal Cannula 2.0 07/04/18 20:00 97.7 72 18 142/80 (100) 95 07/04/18 17:36 97.6 Intake and Output 07/04/18 07/05/18 19:00 07:00 Intake Total 900 ml Output Total 350 ml Balance 550 ml Intake Oral 900 ml Output Urine Total 350 ml # Voids 3 3 Laboratory Tests Test 07/05/18 06:12 White Blood Count 7.5 K/UL (4.8-10.8) Red Blood Count 5.03 M/UL (4.70-6.10) Hemoglobin 15.2 G/DL (14.2-18.0) Hematocrit 46.9 % (42.0-52.0) Mean Corpuscular Volume 93 FL (80-99) Mean Corpuscular Hemoglobin 30.1 PG (27.0-31.0) Mean Corpuscular Hemoglobin Concent 32.3 G/DL (32.0-36.0) Red Cell Distribution Width 12.5 % (11.6-14.8) Platelet Count 186 K/UL (150-450) Mean Platelet Volume 8.1 FL (6.5-10.1) Neutrophils (%) (Auto) 54.0 % (45.0-75.0) Lymphocytes (%) (Auto) 29.8 % (20.0-45.0) Monocytes (%) (Auto) 7.5 % (1.0-10.0) Eosinophils (%) (Auto) 7.5 % (0.0-3.0) H Basophils (%) (Auto) 1.2 % (0.0-2.0) Sodium Level 143 MMOL/L (136-145) Potassium Level 4.2 MMOL/L (3.5-5.1) Chloride Level 108 MMOL/L (98-107) H Carbon Dioxide Level 25 MMOL/L (21-32) Anion Gap 10 mmol/L (5-15) Blood Urea Nitrogen 21 mg/dL (7-18) H Creatinine 1.1 MG/DL (0.55-1.30) Estimat Glomerular Filtration Rate mL/min (>60) Glucose Level 106 MG/DL (74-106) Calcium Level 9.3 MG/DL (8.5-10.1) Objective HEAD AND NECK: No JVD LUNGS: Clear. CARDIOVASCULAR: Rg S1 and S2 with no gallop or murmur. ABDOMEN: Soft. EXTREMITIES: No pitting edema. NEUROLOGIC: Left hemiplegia. Crow Villalobos MD Jul 05, 2018 15:52
[2018-07-05 16:00] VITALS: BP 146/86
--- NOTE | 2018-07-05 16:30 | Progress Note ---
DATE: 07/05/2018 SUBJECTIVE: This is a 73-year-old male patient. This patient was admitted to the hospital because of seizure disorder but he also has lot of mood lability and confusion, altered mental status, cognition has declined below his baseline secondary to stress of his medical illness that is why attending has requested daily psychiatric consultation. MENTAL STATUS EXAMINATION: The patient is a 73-year-old male. Appearance is disheveled. Attitude, irritable and agitated. Affect, guarded and restricted. Intellect poor. Mood depressed and anxious. Motor activity, psychomotor agitation. Attention span is poor. Orientation x2. Speech is low volume and slurred. Thought process disorganized and illogical. Insight and judgment is poor. DIAGNOSIS: Bipolar II disorder, rule out dementia with psychosis. PLAN: Treat him with Depakote 500 mg q.12 hours, Ativan 1 IV as needed for anxiety, Neurontin 300 mg three times a day, and Namenda 5 mg daily to prevent any further decline in his cognition. Chart reviewed and discussed with staff. Seen and assessed in the room. Deanne Argueta M.D. DR: Becca JOB#: [id number] CC:
[2018-07-05 20:00] VITALS: BP 135/68
[2018-07-05] MEDS: Tamsulosin 0.4mg cap ORAL SCH (21:30)
--- NOTE | 2018-07-05 22:00 | Consultation ---
DATE OF CONSULTATION: SUBJECTIVE: The patient's serum ammonia is 91. He had a couple doses of lactulose and was allegedly better today, less agitated, talking more in sentences according to his daughter. PHYSICAL EXAMINATION: VITAL SIGNS: Pulse rate 105, blood pressure is 146/86, temperature is 98.1 degrees, pulse oximetry is 96%. MENTAL STATUS: He is alert and awake and still perseverates date. He does know the date, month, and year. He thinks the year is 2011. Place, he does not know where he is at. Person, he is oriented to person. Knows his daughter's name. CRANIAL NERVE EXAMINATION: CRANIAL II: Visual bartlett intact to confrontation. CRANIAL NERVES III, IV, AND : Extraocular motility is full. Pupils are approximately 4.5 mm to 5 mm, round, light reactive. CRANIAL NERVE V: Corneal sensation is intact to fine touch. CRANIAL NERVE AND VII: Facial strength revealed decreased left nasolabial fold and smile. CRANIAL NERVE VIII: Auditory acuity is intact partially AD. CRANIAL NERVES IX AND X: Gag is symmetrically decreased. CRANIAL NERVE XI: Sternocleidomastoid mastoid strength is 5/5. CRANIAL NERVE XII: Tongue protrudes in the midline. Still with some tremor, but not as much as before. MUSCULOSKELETAL: He has intention tremor of the right upper extremity. He can move the right upper extremity. He moves minimally. The right lower extremity does not move the left side. His strength is at least 4/5 in the right upper extremity, 2/5 in the right lower extremity. He has probably asterixis of the right hand, although he also has a tremor, which makes it difficult to evaluate. Reflexes are 0 on the right upper extremity, +1 on the left upper extremity, 0 at both knees and 0 both ankles. Coordination finger nose shows there is a tremor throughout, but there is no dysmetria. SENSORY EXAM: His sensation is intact to deep pain. IMPRESSION: The patient has a metabolic encephalopathy due to hyperammonemia and he also has independent typical tremor. There may be some slight improvement from yesterday, the patient . PLAN: Serum ammonia in the a.m. . Estuardo MD Balaji DR: Yon JOB#: [id number] CC:
[2018-07-06] VITALS: BP 136/73
[2018-07-06 04:00] VITALS: BP 124/70
[2018-07-06] MEDS: NovoLOG Insulin Flexpen SUBQ SCH ×4 (05:31→20:51)
[2018-07-06 08:00] VITALS: BP 132/82
--- NOTE | 2018-07-06 08:31 | General Progress Note ---
Assessment/Plan Problem List: (1) New onset seizure ICD Codes: R56.9 - Unspecified convulsions SNOMED: 31172182 (2) HTN (hypertension) ICD Codes: I10 - Essential (primary) hypertension SNOMED: 57182418 (3) Malnutrition ICD Codes: E46 - Unspecified protein-calorie malnutrition SNOMED: 81907470 (4) BPH (benign prostatic hyperplasia) ICD Codes: N40.0 - Benign prostatic hyperplasia without lower urinary tract symptoms SNOMED: 644367961 (5) UTI (urinary tract infection) ICD Codes: N39.0 - Urinary tract infection, site not specified SNOMED: 00938499 Qualifiers: Qualified Codes: N30.00 - Acute cystitis without hematuria (6) History of cerebrovascular accident ICD Codes: Z86.73 - Personal history of transient ischemic attack (TIA), and cerebral infarction without residual deficits SNOMED: 713958360 (7) Parkinson disease ICD Codes: G20 - Parkinson's disease SNOMED: 36507785 (8) Hyperammonemia ICD Codes: E72.20 - Disorder of urea cycle metabolism, unspecified SNOMED: 6857560 Status: unchanged Assessment/Plan pt diet cbc bmp am seizure control gi eval dc plan snf Subjective Constitutional: Reports: weakness Allergies: Coded Allergies: DONEPEZIL (Verified Allergy, Unknown, 12/21/17) QUETIAPINE (Verified Allergy, Unknown, 12/21/17) SERTRALINE (Verified Allergy, Unknown, 12/21/17) All Systems: reviewed and negative except above Subjective calm in bed sleepy Objective Last 24 Hour Vital Signs Date Time Temp Pulse Resp B/P (MAP) Pulse Ox O2 Delivery O2 Flow Rate FiO2 07/06/18 04:00 97.2 60 17 124/70 (88) 97 07/06/18 00:55 Nasal Cannula 2.0 07/06/18 00:00 97.4 64 18 136/73 (94) 96 07/05/18 21:00 Nasal Cannula 2.0 07/05/18 20:00 99.6 74 17 135/68 (90) 95 07/05/18 16:00 98.1 105 20 146/86 (106) 96 07/05/18 12:00 98.6 89 18 130/76 (94) 95 07/05/18 09:11 66 136/69 07/05/18 09:10 136/69 07/05/18 09:00 Nasal Cannula 2.0 Intake and Output 07/05/18 07/06/18 19:00 07:00 Intake Total 600 ml Balance 600 ml Other 600 ml # Voids 2 Height (Feet): 5 Height (Inches): 11.00 Weight (Pounds): 176 General Appearance: lethargic EENT: normal ENT inspection Neck: normal alignment Cardiovascular: normal peripheral pulses, normal rate, regular rhythm Respiratory/Chest: chest wall non-tender, lungs clear, normal breath sounds Abdomen: normal bowel sounds, non tender, soft Extremities: normal inspection Edema: no edema noted Arm (L), no edema noted Arm (R), no edema noted Leg (L), no edema noted Leg (R), no edema noted Pedal (L), no edema noted Pedal (R), no edema noted Generalized Neurologic: motor weakness Skin: normal pigmentation, warm/dry Sj Robles DO Jul 06, 2018 08:31
[2018-07-06] MEDS: Memantine 5 MG TAB ORAL SCH (09:19)
[2018-07-06] MEDS: Lisinopril 10mg tab ORAL SCH (09:20)
[2018-07-06] MEDS: OLANZapine 2.5mg tab ORAL SCH (09:20)
[2018-07-06] MEDS: Lactulose 20gm/30ml UDC ORAL SCH ×3 (09:20→17:56)
[2018-07-06] MEDS: Heparin 5000 units/ml inj SUBQ SCH ×2 (09:22→20:51)
[2018-07-06 12:00] VITALS: BP 149/83
--- NOTE | 2018-07-06 12:04 | Pulmonology Progress Note ---
Assessment/Plan Problems: (1) New onset seizure (2) History of cerebrovascular accident (3) Left-sided weakness (4) Parkinson disease (5) HTN (hypertension) Assessment/Plan calmer now no more seizures on Depakote 250BID monitor BP PT/ot symptomatic treatment. dvt prophylaxis. MRI: Impression: Extensive chronic changes, including age-related volume loss, periventricular chronic ischemic changes, and multiple and extensive right- sided old infarcts Multiple foci of susceptibility artifact, likely prior old microbleeds, as well as likely postsurgical hemorrhage in the right frontal and parietal region Negative for acute infarct, mass effect, or hemorrhage Subjective ROS Limited/Unobtainable: No Constitutional: Reports: no symptoms HEENT: Repors: no symptoms Respiratory: Reports: no symptoms Allergies: Coded Allergies: DONEPEZIL (Verified Allergy, Unknown, 12/21/17) QUETIAPINE (Verified Allergy, Unknown, 12/21/17) SERTRALINE (Verified Allergy, Unknown, 12/21/17) Objective Last 24 Hour Vital Signs Date Time Temp Pulse Resp B/P (MAP) Pulse Ox O2 Delivery O2 Flow Rate FiO2 07/06/18 09:20 132/82 07/06/18 09:20 74 132/82 07/06/18 09:00 Nasal Cannula 2.0 07/06/18 08:00 98.4 74 17 132/82 (99) 92 07/06/18 04:00 97.2 60 17 124/70 (88) 97 07/06/18 00:55 Nasal Cannula 2.0 07/06/18 00:00 97.4 64 18 136/73 (94) 96 07/05/18 21:00 Nasal Cannula 2.0 07/05/18 20:00 99.6 74 17 135/68 (90) 95 07/05/18 16:00 98.1 105 20 146/86 (106) 96 Intake and Output 07/05/18 07/06/18 18:59 06:59 Intake Total 600 ml Balance 600 ml Other 600 ml # Voids 2 Objective General Appearance: cachetic HEENT: normocephalic, atraumatic Respiratory/Chest: chest wall non-tender, lungs clear Cardiovascular: normal peripheral pulses, normal rate Abdomen: normal bowel sounds, no organomegaly Genitourinary: normal external genitalia Extremities: no clubbing, right arm fistula 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 Current Medications Medications (Trade) Dose Ordered Sig/Sonia Route PRN Reason Start Time Stop Time Status Last Admin Dose Admin Acetaminophen (Tylenol) 650 mg Q4H PRN ORAL fever 07/03/18 14:23 08/02/18 14:22 07/04/18 17:06 Al Hydroxide/Mg Hydroxide (Mylanta II) 30 ml Q6H PRN ORAL dyspepsia 07/03/18 14:23 08/02/18 14:22 Amlodipine Besylate (Norvasc) 10 mg DAILY ORAL 07/04/18 09:00 07/31/18 08:59 07/06/18 09:20 Baclofen (Lioresal) 10 mg THREE TIMES A DAY ORAL 07/03/18 18:00 07/31/18 08:59 07/06/18 09:19 Clonidine HCl (Catapres Tab) 0.1 mg Q4H PRN ORAL sbp>170 07/03/18 14:24 08/02/18 14:23 Dextrose (Dextrose 50%) 25 ml Q30M PRN IV Hypoglycemia 07/03/18 14:30 07/31/18 07:29 Dextrose (Dextrose 50%) 50 ml Q30M PRN IV Hypoglycemia 07/03/18 14:30 07/31/18 07:29 Gabapentin (Neurontin) 500 mg THREE TIMES A DAY ORAL 07/05/18 09:00 07/31/18 08:59 07/06/18 09:20 Heparin Sodium (Porcine) (Heparin 5000 units/ml) 5,000 units EVERY 12 HOURS SUBQ 07/03/18 21:00 07/31/18 08:59 07/06/18 09:22 Insulin Aspart (NovoLOG) BEFORE MEALS AND HS SUBQ 07/03/18 16:30 07/31/18 11:29 Lactulose (Cephulac) 20 gm TID ORAL 07/05/18 09:00 08/03/18 20:44 07/06/18 09:20 Lisinopril (Zestril) 10 mg DAILY ORAL 07/04/18 09:00 08/01/18 08:59 07/06/18 09:20 Lorazepam (Ativan 2mg/ml 1ml) 2 mg Q1H PRN IV seizures 07/03/18 14:24 4/10/19 14:23 Memantine (Namenda) 5 mg DAILY ORAL 07/04/18 09:00 08/01/18 08:59 07/06/18 09:19 Olanzapine (ZyPREXA) 2.5 mg DAILY ORAL 07/04/18 09:00 08/02/18 11:59 07/06/18 09:20 Polyethylene Glycol (Miralax) 17 gm HSPRN PRN ORAL Constipation 07/03/18 14:25 08/02/18 14:24 Tamsulosin HCl (Flomax) 0.4 mg BEDTIME ORAL 07/03/18 21:00 07/31/18 20:59 07/05/18 21:30 Zolpidem Tartrate (Ambien) 5 mg HSPRN PRN ORAL Insomnia 07/03/18 14:25 07/10/18 14:24 07/04/18 21:09 Sugey Love MD Jul 06, 2018 12:04
--- NOTE | 2018-07-06 14:58 | Infectious Diseases Prog Note ---
Assessment/Plan Assessment/Plan Seizure -MRI brain p -CT head: Very limited exam, due to motion artifact. Evidence of prior right craniotomy. Extensive right middle cerebral artery distribution encephalomalacia and right basal ganglia encephalomalacia, likely on the basis of old infarcts. Progressive age-related volume loss. No definite gross acute intracranial bleed or mass effect Leukocytosis, SP- likely reactive 2ry to above -u/a 10-15, nit neg, leuk +2; ucx nTD -CXR: Borderline cardiomegaly. No acute process Afebrile CVA c/w L side paralysis HLD gastritis/GERD Parkinson's disease HTN SNF resident Plan: -Monitor off abx as he is clinically stable -06/30 SP Ceftriaxone x 1 -f/u cx -Monitor CBC/CMP, temperatures -aspiration/seizure precautions -neuro eval -f/u MRI brain . Will continue to follow along with you. Subjective Allergies: Coded Allergies: DONEPEZIL (Verified Allergy, Unknown, 12/21/17) QUETIAPINE (Verified Allergy, Unknown, 12/21/17) SERTRALINE (Verified Allergy, Unknown, 12/21/17) Subjective afebrile no leukocytosis Objective Vital Signs Last 24 Hour Vital Signs Date Time Temp Pulse Resp B/P (MAP) Pulse Ox O2 Delivery O2 Flow Rate FiO2 07/06/18 12:00 98.7 79 17 149/83 (105) 100 07/06/18 09:20 132/82 07/06/18 09:20 74 132/82 07/06/18 09:00 Nasal Cannula 2.0 07/06/18 08:00 98.4 74 17 132/82 (99) 92 07/06/18 04:00 97.2 60 17 124/70 (88) 97 07/06/18 00:55 Nasal Cannula 2.0 07/06/18 00:00 97.4 64 18 136/73 (94) 96 07/05/18 21:00 Nasal Cannula 2.0 07/05/18 20:00 99.6 74 17 135/68 (90) 95 07/05/18 16:00 98.1 105 20 146/86 (106) 96 Height (Feet): 5 Height (Inches): 11.00 Weight (Pounds): 176 Current Medications Medications (Trade) Dose Ordered Sig/Sonia Route PRN Reason Start Time Stop Time Status Last Admin Dose Admin Acetaminophen (Tylenol) 650 mg Q4H PRN ORAL fever 07/03/18 14:23 08/02/18 14:22 07/04/18 17:06 Amlodipine Besylate (Norvasc) 10 mg DAILY ORAL 07/04/18 09:00 07/31/18 08:59 07/06/18 09:20 Baclofen (Lioresal) 10 mg THREE TIMES A DAY ORAL 07/03/18 18:00 07/31/18 08:59 07/06/18 09:19 Gabapentin (Neurontin) 300 mg THREE TIMES A DAY ORAL 07/06/18 18:00 07/31/18 08:59 Heparin Sodium (Porcine) (Heparin 5000 units/ml) 5,000 units EVERY 12 HOURS SUBQ 07/03/18 21:00 07/31/18 08:59 07/06/18 09:22 Insulin Aspart (NovoLOG) BEFORE MEALS AND HS SUBQ 07/03/18 16:30 07/31/18 11:29 Lactulose (Cephulac) 20 gm TID ORAL 07/05/18 09:00 08/03/18 20:44 07/06/18 09:20 Lisinopril (Zestril) 10 mg DAILY ORAL 07/04/18 09:00 08/01/18 08:59 07/06/18 09:20 Lorazepam (Ativan 2mg/ml 1ml) 2 mg Q1H PRN IV seizures 07/03/18 14:24 07/10/18 14:23 Memantine (Namenda) 5 mg DAILY ORAL 07/04/18 09:00 08/01/18 08:59 07/06/18 09:19 Olanzapine (ZyPREXA) 2.5 mg DAILY ORAL 07/04/18 09:00 08/02/18 11:59 07/06/18 09:20 Tamsulosin HCl (Flomax) 0.4 mg BEDTIME ORAL 07/03/18 21:00 07/31/18 20:59 07/05/18 21:30 Zolpidem Tartrate (Ambien) 5 mg HSPRN PRN ORAL Insomnia 07/03/18 14:25 07/10/18 14:24 07/04/18 21:09 Maira Esther Inman M.D. Jul 06, 2018 14:57
--- NOTE | 2018-07-06 15:45 | Cardiac Electrophysiology PN ---
Assessment/Plan Assessment/Plan 1. Bradycardia in the 50s. Ruled out for [place] Echo EF 60%. HR better after Depakote was DCed 2. Hypertension. On Norvasc 10 mg daily and lisinopril 10 mg daily 3. History of hemorrhagic stroke. No seizures. The CT of the brain showed evidence of prior right craniotomy and extensive right middle cerebral artery distribution encephalomalacia Off Depakote now. DW RN Subjective Subjective No CP or SOB. Objective Last 24 Hour Vital Signs Date Time Temp Pulse Resp B/P (MAP) Pulse Ox O2 Delivery O2 Flow Rate FiO2 07/06/18 12:00 98.7 79 17 149/83 (105) 100 07/06/18 09:20 132/82 07/06/18 09:20 74 132/82 07/06/18 09:00 Nasal Cannula 2.0 07/06/18 08:00 98.4 74 17 132/82 (99) 92 07/06/18 04:00 97.2 60 17 124/70 (88) 97 07/06/18 00:55 Nasal Cannula 2.0 07/06/18 00:00 97.4 64 18 136/73 (94) 96 07/05/18 21:00 Nasal Cannula 2.0 07/05/18 20:00 99.6 74 17 135/68 (90) 95 07/05/18 16:00 98.1 105 20 146/86 (106) 96 Intake and Output 07/05/18 07/06/18 18:59 06:59 Intake Total 600 ml Balance 600 ml Other 600 ml # Voids 2 Objective HEAD AND NECK: No JVD LUNGS: Clear. CARDIOVASCULAR: Rg S1 and S2 with no gallop or murmur. ABDOMEN: Soft. EXTREMITIES: No pitting edema. NEUROLOGIC: Left hemiplegia. Crow Villalobos MD Jul 06, 2018 15:44
[2018-07-06 16:00] VITALS: BP 133/79
--- NOTE | 2018-07-06 19:15 | Progress Note ---
DATE: 07/06/2018 SUBJECTIVE: This is a 73-year-old male patient with seizure disorder, but he still has some mood lability, confusion, and altered mental status, worsened by stress of his medical illness. That is why, his attending has requested daily psychiatric consultation. MENTAL STATUS EXAMINATION: This is a 73-year-old male. Appearance is disheveled. Attitude, irritable and agitated. Affect, guarded and restricted. Intellect poor. Mood depressed and anxious. Motor activity, psychomotor agitation. Attention span is poor. Orientation x2. Speech is pressured. Thought process, disorganized and illogical. Insight and judgment is poor. DIAGNOSIS: Major depressive disorder, severe, recurrent with psychotic features, rule out dementia with psychosis. PLAN: Treat him with Depakote 500 mg q.12 hours, Neurontin 300 mg 3 times a day, Namenda 5 mg daily, Ativan 1 IV as needed for anxiety and agitation. Chart reviewed. Discussed with staff. Seen and assessed in his room. Deanne Argueta M.D. DR: ZANA JOB#: [id number] CC:
--- NOTE | 2018-07-06 19:45 | Progress Note ---
DATE: 07/06/2018 SUBJECTIVE: The patient is about the same as it was yesterday and is less agitated according to his daughter, but still has trouble answering questions. There is no headaches. No further seizures or blackouts. PHYSICAL EXAMINATION: VITAL SIGNS: His pulse is 74 and regular, blood pressure 132/82, temperature is 98.4 degrees, pulse oximetry is 92%. NEUROLOGIC: MENTAL STATUS: He is awake and pretty much alert. Orientation, he does not know the year, thinks it is 1978. Place, he does not answer to the question where he is at. Person, he is oriented to person, knows his daughter's name. Memory, past memory he does not remember his birthday. Recent memory testing was not done. CRANIAL NERVE EXAMINATION: CRANIAL NERVE II: Visual bartlett grossly intact to threat. CRANIAL NERVES III, IV, AND : Extraocular motility is full. Pupils are approximately 4 mm, round, light reactive. CRANIAL NERVE V: Corneal sensation is intact to fine touch. CRANIAL NERVE VII: Has minimal decreased left nasolabial fold and smile. CRANIAL NERVE VIII: Auditory acuity is partially intact. CRANIAL NERVES IX AND X: Not tested. CRANIAL NERVE XI: Not tested. CRANIAL NERVE XII: Tongue protrudes with mild tremor less than before. MUSCLE EXAMINATION: Muscle bulk is normal. Strength is 4 to at least 4/5 strength in the right upper, right lower extremity. He has probable slight asterixis in the right upper extremity intermixed with his intention tremor, but it is less. REFLEXES: 0 on the right and on the left in the upper extremities, 0 at the knees and ankles. Babinski signs, there is a lot of withdrawal, could not be tested. SENSORY EXAM: Sensation is intact to deep pain. IMPRESSION: The patient has metabolic encephalopathy superimposed on his cognitive disorder from his stroke with a large right cerebral hemorrhage. The patient refused blood testing for further ammonia testing. However, we can get it as an outpatient. I talked to you about using more lactulose although his serum ammonia is most likely decreased. He has probable some asterixis intermixed with his tremor in the right upper extremity. Speak to Dr. Robles. We plan on cutting the patient's Sinemet and reduce his Neurontin back to 300 mg p.o. t.i.d. The seizure that he had could have been partially caused by his increased ammonia along with his agitation. PLAN: 1. Speak with Dr. Robles. 2. Reduce his Neurontin to 300 mg p.o. t.i.d. 3. He can probably be discharged today. Estuardo Carpio MD DR: BERNARDO JOB#: [id number] CC:
[2018-07-06 20:00] VITALS: BP 119/70
[2018-07-06] MEDS: Tamsulosin 0.4mg cap ORAL SCH (20:46)
[2018-07-07] VITALS: BP 130/78
[2018-07-07 04:00] VITALS: BP 124/65
[2018-07-07] MEDS: NovoLOG Insulin Flexpen SUBQ SCH ×4 (06:30→20:56)
[2018-07-07 07:33] LABS: ANION GAP 8 mmol/L (5-15); BLOOD UREA NITROGEN 26 mg/dL (7-18); CALCIUM 9.5 MG/DL (8.5-10.1); CARBON DIOXIDE 29 MMOL/L (21-32); CHLORIDE 109 MMOL/L (98-107); CREATININE 1.4 MG/DL (0.55-1.30); POTASSIUM 4.4 MMOL/L (3.5-5.1); SODIUM 146 MMOL/L (136-145)
[2018-07-07 07:35] LABS: BASOPHILS % (AUTO) 0.8 % (0.0-2.0); EOSINOPHILS % (AUTO) 6.9 % (0.0-3.0); HEMATOCRIT 45.5 % (42.0-52.0); HEMOGLOBIN 14.7 G/DL (14.2-18.0); LYMPHOCYTES % (AUTO) 28.8 % (20.0-45.0); MEAN CORPUSCULAR VOLUME 94 FL (80-99); MONOCYTES % (AUTO) 6.4 % (1.0-10.0); NEUTROPHILS % (AUTO) 57.1 % (45.0-75.0); PLATELET COUNT 200 K/UL (150-450); RED BLOOD COUNT 4.85 M/UL (4.70-6.10); RED CELL DISTRIBUTION WIDTH 13.3 % (11.6-14.8); WHITE BLOOD COUNT 8.1 K/UL (4.8-10.8)
[2018-07-07 08:00] VITALS: BP 130/70
--- NOTE | 2018-07-07 08:34 | General Progress Note ---
Assessment/Plan Problem List: (1) New onset seizure ICD Codes: R56.9 - Unspecified convulsions SNOMED: 98659861 (2) HTN (hypertension) ICD Codes: I10 - Essential (primary) hypertension SNOMED: 11342046 (3) Malnutrition ICD Codes: E46 - Unspecified protein-calorie malnutrition SNOMED: 25238375 (4) BPH (benign prostatic hyperplasia) ICD Codes: N40.0 - Benign prostatic hyperplasia without lower urinary tract symptoms SNOMED: 985734812 (5) UTI (urinary tract infection) ICD Codes: N39.0 - Urinary tract infection, site not specified SNOMED: 14677018 Qualifiers: Qualified Codes: N30.00 - Acute cystitis without hematuria (6) History of cerebrovascular accident ICD Codes: Z86.73 - Personal history of transient ischemic attack (TIA), and cerebral infarction without residual deficits SNOMED: 857142228 (7) Parkinson disease ICD Codes: G20 - Parkinson's disease SNOMED: 28079148 (8) Hyperammonemia ICD Codes: E72.20 - Disorder of urea cycle metabolism, unspecified SNOMED: 4853461 Status: stable, progressing Assessment/Plan pt diet cbc bmp am seizure control gi eval dc if clear Subjective Constitutional: Reports: weakness Allergies: Coded Allergies: DONEPEZIL (Verified Allergy, Unknown, 12/21/17) QUETIAPINE (Verified Allergy, Unknown, 12/21/17) SERTRALINE (Verified Allergy, Unknown, 12/21/17) All Systems: reviewed and negative except above Subjective calm in bed sleepy Objective Last 24 Hour Vital Signs Date Time Temp Pulse Resp B/P (MAP) Pulse Ox O2 Delivery O2 Flow Rate FiO2 07/07/18 04:00 97.7 59 17 124/65 (84) 96 07/07/18 00:00 97.2 58 17 130/78 (95) 94 07/06/18 21:00 Nasal Cannula 2.0 07/06/18 20:00 98.6 76 19 119/70 (86) 95 07/06/18 16:00 98.6 83 17 133/79 (97) 96 07/06/18 12:00 98.7 79 17 149/83 (105) 100 07/06/18 09:20 132/82 07/06/18 09:20 74 132/82 07/06/18 09:00 Nasal Cannula 2.0 Intake and Output 07/06/18 07/07/18 19:00 07:00 Intake Total 480 ml Output Total 150 ml 275 ml Balance 330 ml -275 ml Intake Oral 480 ml Output Urine Total 150 ml 275 ml # Voids 2 Laboratory Tests 07/07/18 05:35: White Blood Count 8.1, Red Blood Count 4.85, Hemoglobin 14.7, Hematocrit 45.5, Mean Corpuscular Volume 94, Mean Corpuscular Hemoglobin 30.4, Mean Corpuscular Hemoglobin Concent 32.4, Red Cell Distribution Width 13.3, Platelet Count 200, Mean Platelet Volume 8.0, Neutrophils (%) (Auto) 57.1, Lymphocytes (%) (Auto) 28.8, Monocytes (%) (Auto) 6.4, Eosinophils (%) (Auto) 6.9H, Basophils (%) (Auto ) 0.8, Sodium Level 146H, Potassium Level 4.4, Chloride Level 109H, Carbon Dioxide Level 29, Anion Gap 8, Blood Urea Nitrogen 26H, Creatinine 1.4H, Estimat Glomerular Filtration Rate , Glucose Level 89, Calcium Level 9.5 Height (Feet): 5 Height (Inches): 11.00 Weight (Pounds): 176 General Appearance: lethargic EENT: normal ENT inspection Neck: normal alignment Cardiovascular: normal peripheral pulses, normal rate, regular rhythm Respiratory/Chest: chest wall non-tender, lungs clear, normal breath sounds Abdomen: normal bowel sounds, non tender, soft Extremities: normal inspection Edema: no edema noted Arm (L), no edema noted Arm (R), no edema noted Leg (L), no edema noted Leg (R), no edema noted Pedal (L), no edema noted Pedal (R), no edema noted Generalized Neurologic: responsive, motor weakness Skin: normal pigmentation, warm/dry Sj Robles DO Jul 07, 2018 08:34
[2018-07-07] MEDS: Memantine 5 MG TAB ORAL SCH (09:19)
[2018-07-07] MEDS: Lisinopril 10mg tab ORAL SCH (09:19)
[2018-07-07] MEDS: OLANZapine 2.5mg tab ORAL SCH ×2 (09:19→09:30)
[2018-07-07] MEDS: Lactulose 20gm/30ml UDC ORAL SCH ×3 (09:20→17:22)
[2018-07-07] MEDS: Heparin 5000 units/ml inj SUBQ SCH ×3 (09:22→20:54)
[2018-07-07 12:00] VITALS: BP 139/66
--- NOTE | 2018-07-07 13:09 | Pulmonology Progress Note ---
Assessment/Plan Problems: (1) New onset seizure (2) History of cerebrovascular accident (3) Left-sided weakness (4) Parkinson disease (5) HTN (hypertension) Assessment/Plan calmer now no more seizures on Depakote 250BID monitor BP PT/ot symptomatic treatment. dvt prophylaxis. MRI: Impression: Extensive chronic changes, including age-related volume loss, periventricular chronic ischemic changes, and multiple and extensive right- sided old infarcts Multiple foci of susceptibility artifact, likely prior old microbleeds, as well as likely postsurgical hemorrhage in the right frontal and parietal region Negative for acute infarct, mass effect, or hemorrhage Subjective ROS Limited/Unobtainable: No Constitutional: Reports: no symptoms HEENT: Repors: no symptoms Respiratory: Reports: no symptoms Allergies: Coded Allergies: DONEPEZIL (Verified Allergy, Unknown, 12/21/17) QUETIAPINE (Verified Allergy, Unknown, 12/21/17) SERTRALINE (Verified Allergy, Unknown, 12/21/17) Objective Last 24 Hour Vital Signs Date Time Temp Pulse Resp B/P (MAP) Pulse Ox O2 Delivery O2 Flow Rate FiO2 07/07/18 12:00 97.9 66 17 139/66 (90) 98 07/07/18 09:20 57 130/70 07/07/18 09:19 130/70 07/07/18 09:00 Nasal Cannula 2.0 07/07/18 08:00 98.0 57 17 130/70 (90) 97 07/07/18 04:00 97.7 59 17 124/65 (84) 96 07/07/18 00:00 97.2 58 17 130/78 (95) 94 07/06/18 21:00 Nasal Cannula 2.0 07/06/18 20:00 98.6 76 19 119/70 (86) 95 07/06/18 16:00 98.6 83 17 133/79 (97) 96 Intake and Output 07/06/18 07/07/18 19:00 07:00 Intake Total 480 ml Output Total 150 ml 275 ml Balance 330 ml -275 ml Intake Oral 480 ml Output Urine Total 150 ml 275 ml # Voids 2 Objective General Appearance: cachetic HEENT: normocephalic, atraumatic Respiratory/Chest: chest wall non-tender, lungs clear Cardiovascular: normal peripheral pulses, normal rate Abdomen: normal bowel sounds, no organomegaly Genitourinary: normal external genitalia Extremities: no clubbing, right arm fistula 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 normal Laboratory Tests 07/07/18 05:35: White Blood Count 8.1, Red Blood Count 4.85, Hemoglobin 14.7, Hematocrit 45.5, Mean Corpuscular Volume 94, Mean Corpuscular Hemoglobin 30.4, Mean Corpuscular Hemoglobin Concent 32.4, Red Cell Distribution Width 13.3, Platelet Count 200, Mean Platelet Volume 8.0, Neutrophils (%) (Auto) 57.1, Lymphocytes (%) (Auto) 28.8, Monocytes (%) (Auto) 6.4, Eosinophils (%) (Auto) 6.9H, Basophils (%) (Auto ) 0.8, Sodium Level 146H, Potassium Level 4.4, Chloride Level 109H, Carbon Dioxide Level 29, Anion Gap 8, Blood Urea Nitrogen 26H, Creatinine 1.4H, Estimat Glomerular Filtration Rate , Glucose Level 89, Calcium Level 9.5 07/07/18 10:15: Ammonia 35H Current Medications Medications (Trade) Dose Ordered Sig/Sonia Route PRN Reason Start Time Stop Time Status Last Admin Dose Admin Acetaminophen (Tylenol) 650 mg Q4H PRN ORAL fever 07/03/18 14:23 08/02/18 14:22 07/04/18 17:06 Amlodipine Besylate (Norvasc) 10 mg DAILY ORAL 07/04/18 09:00 07/31/18 08:59 07/07/18 09:20 Baclofen (Lioresal) 10 mg THREE TIMES A DAY ORAL 07/03/18 18:00 07/31/18 08:59 07/07/18 12:47 Gabapentin (Neurontin) 300 mg THREE TIMES A DAY ORAL 07/06/18 18:00 07/31/18 08:59 07/07/18 12:46 Heparin Sodium (Porcine) (Heparin 5000 units/ml) 5,000 units EVERY 12 HOURS SUBQ 07/03/18 21:00 07/31/18 08:59 07/06/18 20:51 Insulin Aspart (NovoLOG) BEFORE MEALS AND HS SUBQ 07/03/18 16:30 07/31/18 11:29 Lactulose (Cephulac) 20 gm TID ORAL 07/05/18 09:00 08/03/18 20:44 07/07/18 12:46 Lisinopril (Zestril) 10 mg DAILY ORAL 07/04/18 09:00 08/01/18 08:59 07/07/18 09:19 Lorazepam (Ativan 2mg/ml 1ml) 2 mg Q1H PRN IV seizures 07/03/18 14:24 07/10/18 14:23 Memantine (Namenda) 5 mg DAILY ORAL 07/04/18 09:00 08/01/18 08:59 07/07/18 09:19 Olanzapine (ZyPREXA) 2.5 mg DAILY ORAL 07/04/18 09:00 08/02/18 11:59 07/07/18 09:30 Tamsulosin HCl (Flomax) 0.4 mg BEDTIME ORAL 07/03/18 21:00 07/31/18 20:59 07/06/18 20:46 Zolpidem Tartrate (Ambien) 5 mg HSPRN PRN ORAL Insomnia 07/03/18 14:25 07/10/18 14:24 07/04/18 21:09 Sugey Love MD Jul 07, 2018 13:09
--- NOTE | 2018-07-07 13:20 | General Progress Note ---
Assessment/Plan Assessment/Plan Assessment (1) Parkinson disease ICD Codes: G20 - Parkinson's disease SNOMED: 08507845 (2) Uncontrolled seizures ICD Codes: R56.9 - Unspecified convulsions SNOMED: 05032023 (3) Seizure ICD Codes: R56.9 - Unspecified convulsions SNOMED: 76235291 (4) Nausea & vomiting - resolved ICD Codes: R11.2 - Nausea with vomiting, unspecified SNOMED: 66225465 (5) Malnutrition ICD Codes: E46 - Unspecified protein-calorie malnutrition SNOMED: 78658390 Status: unchanged Plan Push p.o. Bowel regimen Zofran as needed ppi follow labs Subjective Allergies: Coded Allergies: DONEPEZIL (Verified Allergy, Unknown, 12/21/17) QUETIAPINE (Verified Allergy, Unknown, 12/21/17) SERTRALINE (Verified Allergy, Unknown, 12/21/17) Subjective Above noted plans for d/c for today tolerating po awake,minimally interactive Objective Last 24 Hour Vital Signs Date Time Temp Pulse Resp B/P (MAP) Pulse Ox O2 Delivery O2 Flow Rate FiO2 07/07/18 12:00 97.9 66 17 139/66 (90) 98 07/07/18 09:20 57 130/70 07/07/18 09:19 130/70 07/07/18 09:00 Nasal Cannula 2.0 07/07/18 08:00 98.0 57 17 130/70 (90) 97 07/07/18 04:00 97.7 59 17 124/65 (84) 96 07/07/18 00:00 97.2 58 17 130/78 (95) 94 07/06/18 21:00 Nasal Cannula 2.0 07/06/18 20:00 98.6 76 19 119/70 (86) 95 07/06/18 16:00 98.6 83 17 133/79 (97) 96 Intake and Output 07/06/18 07/07/18 18:59 06:59 Intake Total 480 ml Output Total 150 ml 275 ml Balance 330 ml -275 ml Intake Oral 480 ml Output Urine Total 150 ml 275 ml # Voids 2 Laboratory Tests 07/07/18 05:35: White Blood Count 8.1, Red Blood Count 4.85, Hemoglobin 14.7, Hematocrit 45.5, Mean Corpuscular Volume 94, Mean Corpuscular Hemoglobin 30.4, Mean Corpuscular Hemoglobin Concent 32.4, Red Cell Distribution Width 13.3, Platelet Count 200, Mean Platelet Volume 8.0, Neutrophils (%) (Auto) 57.1, Lymphocytes (%) (Auto) 28.8, Monocytes (%) (Auto) 6.4, Eosinophils (%) (Auto) 6.9H, Basophils (%) (Auto ) 0.8, Sodium Level 146H, Potassium Level 4.4, Chloride Level 109H, Carbon Dioxide Level 29, Anion Gap 8, Blood Urea Nitrogen 26H, Creatinine 1.4H, Estimat Glomerular Filtration Rate , Glucose Level 89, Calcium Level 9.5 07/07/18 10:15: Ammonia 35H Height (Feet): 5 Height (Inches): 11.00 Weight (Pounds): 176 Objective WDWN NCAT supple CTA RRR Abd soft ND NT no edema Scott Dubon MD Jul 07, 2018 13:20
[2018-07-07 16:00] VITALS: BP 131/78
--- NOTE | 2018-07-07 17:02 | Cardiac Electrophysiology PN ---
Assessment/Plan Assessment/Plan 1. Bradycardia in the 50s. Ruled out for [place] Echo EF 60%. HR better after Depakote was DCed 2. Hypertension. On Norvasc 10 mg and lisinopril 10 mg daily 3. History of hemorrhagic stroke. No seizures. The CT of the brain showed evidence of prior right craniotomy and extensive right middle cerebral artery distribution encephalomalacia Off Depakote now. STEPHANIE RN OK to DC Subjective Subjective No CP or SOB.RN at bedside Objective Last 24 Hour Vital Signs Date Time Temp Pulse Resp B/P (MAP) Pulse Ox O2 Delivery O2 Flow Rate FiO2 07/07/18 12:00 97.9 66 17 139/66 (90) 98 07/07/18 09:20 57 130/70 07/07/18 09:19 130/70 07/07/18 09:00 Nasal Cannula 2.0 07/07/18 08:00 98.0 57 17 130/70 (90) 97 07/07/18 04:00 97.7 59 17 124/65 (84) 96 07/07/18 00:00 97.2 58 17 130/78 (95) 94 07/06/18 21:00 Nasal Cannula 2.0 07/06/18 20:00 98.6 76 19 119/70 (86) 95 Intake and Output 07/06/18 07/07/18 18:59 06:59 Intake Total 480 ml Output Total 150 ml 275 ml Balance 330 ml -275 ml Intake Oral 480 ml Output Urine Total 150 ml 275 ml # Voids 2 Laboratory Tests Test 07/07/18 05:35 07/07/18 10:15 White Blood Count 8.1 K/UL (4.8-10.8) Red Blood Count 4.85 M/UL (4.70-6.10) Hemoglobin 14.7 G/DL (14.2-18.0) Hematocrit 45.5 % (42.0-52.0) Mean Corpuscular Volume 94 FL (80-99) Mean Corpuscular Hemoglobin 30.4 PG (27.0-31.0) Mean Corpuscular Hemoglobin Concent 32.4 G/DL (32.0-36.0) Red Cell Distribution Width 13.3 % (11.6-14.8) Platelet Count 200 K/UL (150-450) Mean Platelet Volume 8.0 FL (6.5-10.1) Neutrophils (%) (Auto) 57.1 % (45.0-75.0) Lymphocytes (%) (Auto) 28.8 % (20.0-45.0) Monocytes (%) (Auto) 6.4 % (1.0-10.0) Eosinophils (%) (Auto) 6.9 % (0.0-3.0) H Basophils (%) (Auto) 0.8 % (0.0-2.0) Sodium Level 146 MMOL/L (136-145) H Potassium Level 4.4 MMOL/L (3.5-5.1) Chloride Level 109 MMOL/L (98-107) H Carbon Dioxide Level 29 MMOL/L (21-32) Anion Gap 8 mmol/L (5-15) Blood Urea Nitrogen 26 mg/dL (7-18) H Creatinine 1.4 MG/DL (0.55-1.30) H Estimat Glomerular Filtration Rate mL/min (>60) Glucose Level 89 MG/DL (74-106) Calcium Level 9.5 MG/DL (8.5-10.1) Ammonia 35 umol/L (11-32) H Objective HEAD AND NECK: No JVD LUNGS: Clear. CARDIOVASCULAR: Rg S1 and S2 with no gallop or murmur. ABDOMEN: Soft. EXTREMITIES: No pitting edema. NEUROLOGIC: Left hemiplegia. Crow Villalobos MD Jul 07, 2018 17:02
--- NOTE | 2018-07-07 19:15 | Progress Note ---
DATE: 07/07/2018 SUBJECTIVE: This is a 73-year-old male patient with new onset seizure disorder. This patient continues to have some confusion, disorganized thought process, and decline in cognition below his baseline. MENTAL STATUS EXAMINATION: The patient is a 73-year-old male. Appearance is disheveled. Attitude, irritable and agitated. Affect, guarded and restricted. Intellect poor. Mood depressed and anxious. Motor activity, psychomotor agitation. Attention span is poor. Insight and judgment is poor. DIAGNOSIS: with psychotic features, rule out dementia with psychotic features. PLAN: Continue treatment with psychotropic medications to prevent any further decline in his cognition. . 20 minutes of cognitive behavioral therapy to help him identify automatic negative thoughts and help convert negative thoughts to more positive thoughts to reduce depression, anxiety, and . Chart reviewed and discussed with staff. Seen and assessed in the room. Deanne Argueta M.D. DR: GERARD JOB#: [id number] CC:
[2018-07-07 20:00] VITALS: BP 141/74
[2018-07-07] MEDS: Tamsulosin 0.4mg cap ORAL SCH (20:48)
[2018-07-08] VITALS: BP 141/66
[2018-07-08 04:00] VITALS: BP 130/71
[2018-07-08] MEDS: NovoLOG Insulin Flexpen SUBQ SCH ×2 (06:28→11:30)
[2018-07-08 07:05] LABS: BASOPHILS % (AUTO) 1.4 % (0.0-2.0); EOSINOPHILS % (AUTO) 6.6 % (0.0-3.0); HEMATOCRIT 43.4 % (42.0-52.0); HEMOGLOBIN 14.3 G/DL (14.2-18.0); LYMPHOCYTES % (AUTO) 25.6 % (20.0-45.0); MEAN CORPUSCULAR VOLUME 93 FL (80-99); MONOCYTES % (AUTO) 6.9 % (1.0-10.0); NEUTROPHILS % (AUTO) 59.5 % (45.0-75.0); PLATELET COUNT 179 K/UL (150-450); RED BLOOD COUNT 4.67 M/UL (4.70-6.10); RED CELL DISTRIBUTION WIDTH 12.8 % (11.6-14.8)
[2018-07-08 07:07] LABS: ANION GAP 11 mmol/L (5-15); BLOOD UREA NITROGEN 39 mg/dL (7-18); CALCIUM 9.2 MG/DL (8.5-10.1); CARBON DIOXIDE 25 MMOL/L (21-32); CHLORIDE 112 MMOL/L (98-107); CREATININE 1.4 MG/DL (0.55-1.30); POTASSIUM 4.3 MMOL/L (3.5-5.1); SODIUM 148 MMOL/L (136-145)
[2018-07-08 08:00] VITALS: BP 127/72
[2018-07-08] MEDS: Heparin 5000 units/ml inj SUBQ SCH (09:00)
[2018-07-08] MEDS: OLANZapine 2.5mg tab ORAL SCH (09:09)
[2018-07-08 09:10] VITALS: BP 127/72
[2018-07-08] MEDS: Memantine 5 MG TAB ORAL SCH (09:10)
[2018-07-08] MEDS: Lisinopril 10mg tab ORAL SCH (09:10)
[2018-07-08] MEDS: Lactulose 20gm/30ml UDC ORAL SCH (09:10)
--- NOTE | 2018-07-08 09:24 | Infectious Diseases Prog Note ---
Assessment/Plan Assessment/Plan Seizure -MRI brain p -CT head: Very limited exam, due to motion artifact. Evidence of prior right craniotomy. Extensive right middle cerebral artery distribution encephalomalacia and right basal ganglia encephalomalacia, likely on the basis of old infarcts. Progressive age-related volume loss. No definite gross acute intracranial bleed or mass effect Leukocytosis, SP- likely reactive 2ry to above -u/a 10-15, nit neg, leuk +2; ucx nTD -CXR: Borderline cardiomegaly. No acute process Afebrile CVA c/w L side paralysis HLD gastritis/GERD Parkinson's disease HTN SNF resident Plan: -Monitor off abx -06/30 SP Ceftriaxone x 1 -f/u cx -Monitor CBC/CMP, temperatures -aspiration/seizure precautions -neuro eval -f/u MRI brain . Will continue to follow along with you. Subjective Allergies: Coded Allergies: DONEPEZIL (Verified Allergy, Unknown, 12/21/17) QUETIAPINE (Verified Allergy, Unknown, 12/21/17) SERTRALINE (Verified Allergy, Unknown, 12/21/17) Subjective [place] Afebrile No Leukocytosis Objective Vital Signs Last 24 Hour Vital Signs Date Time Temp Pulse Resp B/P (MAP) Pulse Ox O2 Delivery O2 Flow Rate FiO2 07/08/18 09:10 127/72 07/08/18 09:10 62 127/72 07/08/18 04:00 98.2 65 18 130/71 (90) 94 07/08/18 00:00 97.8 73 18 141/66 (91) 94 07/07/18 21:00 Nasal Cannula 2.0 07/07/18 20:00 98.8 80 18 141/74 (96) 95 07/07/18 16:00 98.6 73 19 131/78 (95) 95 07/07/18 12:00 97.9 66 17 139/66 (90) 98 Height (Feet): 5 Height (Inches): 11.00 Weight (Pounds): 176 Objective Gen: NAD HEENT: NCAT, MMM Respiratory/Chest: chest wall non-tender, lungs clear Cardiovascular/Chest: normal peripheral pulses, normal rate Abdomen: normal bowel sounds, non tender Laboratory Tests Test 07/07/18 10:15 07/08/18 06:25 Ammonia 35 umol/L (11-32) H White Blood Count 9.0 K/UL (4.8-10.8) Red Blood Count 4.67 M/UL (4.70-6.10) L Hemoglobin 14.3 G/DL (14.2-18.0) Hematocrit 43.4 % (42.0-52.0) Mean Corpuscular Volume 93 FL (80-99) Mean Corpuscular Hemoglobin 30.7 PG (27.0-31.0) Mean Corpuscular Hemoglobin Concent 33.0 G/DL (32.0-36.0) Red Cell Distribution Width 12.8 % (11.6-14.8) Platelet Count 179 K/UL (150-450) Mean Platelet Volume 8.6 FL (6.5-10.1) Neutrophils (%) (Auto) 59.5 % (45.0-75.0) Lymphocytes (%) (Auto) 25.6 % (20.0-45.0) Monocytes (%) (Auto) 6.9 % (1.0-10.0) Eosinophils (%) (Auto) 6.6 % (0.0-3.0) H Basophils (%) (Auto) 1.4 % (0.0-2.0) Sodium Level 148 MMOL/L (136-145) H Potassium Level 4.3 MMOL/L (3.5-5.1) Chloride Level 112 MMOL/L (98-107) H Carbon Dioxide Level 25 MMOL/L (21-32) Anion Gap 11 mmol/L (5-15) Blood Urea Nitrogen 39 mg/dL (7-18) H Creatinine 1.4 MG/DL (0.55-1.30) H Estimat Glomerular Filtration Rate mL/min (>60) Glucose Level 106 MG/DL (74-106) Calcium Level 9.2 MG/DL (8.5-10.1) Current Medications Medications (Trade) Dose Ordered Sig/Sonia Route PRN Reason Start Time Stop Time Status Last Admin Dose Admin Acetaminophen (Tylenol) 650 mg Q4H PRN ORAL fever 07/03/18 14:23 08/02/18 14:22 07/04/18 17:06 Amlodipine Besylate (Norvasc) 10 mg DAILY ORAL 07/04/18 09:00 07/31/18 08:59 07/08/18 09:10 Baclofen (Lioresal) 10 mg THREE TIMES A DAY ORAL 07/03/18 18:00 07/31/18 08:59 07/08/18 09:10 Gabapentin (Neurontin) 300 mg THREE TIMES A DAY ORAL 07/06/18 18:00 07/31/18 08:59 07/08/18 09:11 Heparin Sodium (Porcine) (Heparin 5000 units/ml) 5,000 units EVERY 12 HOURS SUBQ 07/03/18 21:00 07/31/18 08:59 07/06/18 20:51 Insulin Aspart (NovoLOG) BEFORE MEALS AND HS SUBQ 07/03/18 16:30 07/31/18 11:29 Lactulose (Cephulac) 20 gm TID ORAL 07/05/18 09:00 08/03/18 20:44 07/08/18 09:10 Lisinopril (Zestril) 10 mg DAILY ORAL 07/04/18 09:00 08/01/18 08:59 07/08/18 09:10 Lorazepam (Ativan 2mg/ml 1ml) 2 mg Q1H PRN IV seizures 07/03/18 14:24 07/10/18 14:23 Memantine (Namenda) 5 mg DAILY ORAL 07/04/18 09:00 08/01/18 08:59 07/08/18 09:10 Olanzapine (ZyPREXA) 2.5 mg DAILY ORAL 07/04/18 09:00 08/02/18 11:59 07/08/18 09:09 Tamsulosin HCl (Flomax) 0.4 mg BEDTIME ORAL 07/03/18 21:00 07/31/18 20:59 07/07/18 20:48 Zolpidem Tartrate (Ambien) 5 mg HSPRN PRN ORAL Insomnia 07/03/18 14:25 07/10/18 14:24 07/04/18 21:09 Tay Freeman MD Jul 08, 2018 09:24
--- NOTE | 2018-07-08 11:56 | GI Progress Note ---
Assessment/Plan Problems: (1) Parkinson disease ICD Codes: G20 - Parkinson's disease SNOMED: 94152613 (2) Uncontrolled seizures ICD Codes: R56.9 - Unspecified convulsions SNOMED: 72260378 (3) Seizure ICD Codes: R56.9 - Unspecified convulsions SNOMED: 39653772 (4) Nausea & vomiting ICD Codes: R11.2 - Nausea with vomiting, unspecified SNOMED: 94966267 (5) Malnutrition ICD Codes: E46 - Unspecified protein-calorie malnutrition SNOMED: 11677149 Status: stable Status Narrative Discussed with Dr. Mueller. Assessment/Plan No plans for PEG, patient able to tolerate diet Push p.o. Bowel regimen Zofran as needed ppi follow labs Marinol if needed The patient was seen and examined at bedside and all new and available data was reviewed in the patients chart. I agree with the above findings, impression and plan. (Patient seen earlier today. Signature stamp does not reflect patient encounter time.). - Drew Mueller MD Subjective Gastrointestinal/Abdominal: Reports: no symptoms Subjective Patient tolerating diet. Patient requesting more food. Objective Last 24 Hour Vital Signs Date Time Temp Pulse Resp B/P (MAP) Pulse Ox O2 Delivery O2 Flow Rate FiO2 07/08/18 09:10 127/72 07/08/18 09:10 62 127/72 07/08/18 08:30 Nasal Cannula 2.0 07/08/18 08:00 98.8 62 19 127/72 (90) 96 07/08/18 04:00 98.2 65 18 130/71 (90) 94 07/08/18 00:00 97.8 73 18 141/66 (91) 94 07/07/18 21:00 Nasal Cannula 2.0 07/07/18 20:00 98.8 80 18 141/74 (96) 95 07/07/18 16:00 98.6 73 19 131/78 (95) 95 07/07/18 12:00 97.9 66 17 139/66 (90) 98 Intake and Output 07/07/18 07/08/18 19:00 07:00 Intake Total 1000 ml Output Total 750 ml Balance 1000 ml -750 ml Other 1000 ml Output Urine Total 750 ml # Bowel Movements 1 1 Laboratory Tests Test 07/08/18 06:25 White Blood Count 9.0 K/UL (4.8-10.8) Red Blood Count 4.67 M/UL (4.70-6.10) L Hemoglobin 14.3 G/DL (14.2-18.0) Hematocrit 43.4 % (42.0-52.0) Mean Corpuscular Volume 93 FL (80-99) Mean Corpuscular Hemoglobin 30.7 PG (27.0-31.0) Mean Corpuscular Hemoglobin Concent 33.0 G/DL (32.0-36.0) Red Cell Distribution Width 12.8 % (11.6-14.8) Platelet Count 179 K/UL (150-450) Mean Platelet Volume 8.6 FL (6.5-10.1) Neutrophils (%) (Auto) 59.5 % (45.0-75.0) Lymphocytes (%) (Auto) 25.6 % (20.0-45.0) Monocytes (%) (Auto) 6.9 % (1.0-10.0) Eosinophils (%) (Auto) 6.6 % (0.0-3.0) H Basophils (%) (Auto) 1.4 % (0.0-2.0) Sodium Level 148 MMOL/L (136-145) H Potassium Level 4.3 MMOL/L (3.5-5.1) Chloride Level 112 MMOL/L (98-107) H Carbon Dioxide Level 25 MMOL/L (21-32) Anion Gap 11 mmol/L (5-15) Blood Urea Nitrogen 39 mg/dL (7-18) H Creatinine 1.4 MG/DL (0.55-1.30) H Estimat Glomerular Filtration Rate mL/min (>60) Glucose Level 106 MG/DL (74-106) Calcium Level 9.2 MG/DL (8.5-10.1) Height (Feet): 5 Height (Inches): 11.00 Weight (Pounds): 176 General Appearance: WD/WN, no apparent distress, alert Cardiovascular: normal rate Respiratory/Chest: normal breath sounds, no respiratory distress Abdominal Exam: normal bowel sounds, non tender, soft Extremities: normal range of motion, non-tender Rebecca Hayes NP Jul 08, 2018 11:56
[2018-07-08] MEDS ORDERED: OLANZAPINE2.5 MG ORAL (12:03)
[2018-07-08] MEDS ORDERED: LACTULOSE20 GM/301 ORAL (12:03)
[2018-07-08] MEDS ORDERED: ZESTRIL10 M1 ORAL (12:04)
[2018-07-08] MEDS ORDERED: NAMENDA5 MG ORAL (12:04)
[2018-07-08] MEDS ORDERED: NOVOLOG100 UNIT/4 SQ (12:05)
--- NOTE | 2018-07-08 12:53 | General Progress Note ---
Assessment/Plan Problem List: (1) New onset seizure ICD Codes: R56.9 - Unspecified convulsions SNOMED: 00498670 (2) HTN (hypertension) ICD Codes: I10 - Essential (primary) hypertension SNOMED: 73456493 (3) Malnutrition ICD Codes: E46 - Unspecified protein-calorie malnutrition SNOMED: 70706219 (4) BPH (benign prostatic hyperplasia) ICD Codes: N40.0 - Benign prostatic hyperplasia without lower urinary tract symptoms SNOMED: 107745110 (5) UTI (urinary tract infection) ICD Codes: N39.0 - Urinary tract infection, site not specified SNOMED: 10495696 Qualifiers: Qualified Codes: N30.00 - Acute cystitis without hematuria (6) History of cerebrovascular accident ICD Codes: Z86.73 - Personal history of transient ischemic attack (TIA), and cerebral infarction without residual deficits SNOMED: 890334495 (7) Parkinson disease ICD Codes: G20 - Parkinson's disease SNOMED: 14836491 (8) Hyperammonemia ICD Codes: E72.20 - Disorder of urea cycle metabolism, unspecified SNOMED: 7070397 Status: stable, progressing Assessment/Plan pt diet cbc bmp am seizure control gi eval dc if clear Subjective Constitutional: Reports: weakness Allergies: Coded Allergies: DONEPEZIL (Verified Allergy, Unknown, 12/21/17) QUETIAPINE (Verified Allergy, Unknown, 12/21/17) SERTRALINE (Verified Allergy, Unknown, 12/21/17) All Systems: reviewed and negative except above Subjective calm in bed eating Objective Last 24 Hour Vital Signs Date Time Temp Pulse Resp B/P (MAP) Pulse Ox O2 Delivery O2 Flow Rate FiO2 07/08/18 09:10 127/72 07/08/18 09:10 62 127/72 07/08/18 08:30 Nasal Cannula 2.0 07/08/18 08:00 98.8 62 19 127/72 (90) 96 07/08/18 04:00 98.2 65 18 130/71 (90) 94 07/08/18 00:00 97.8 73 18 141/66 (91) 94 07/07/18 21:00 Nasal Cannula 2.0 07/07/18 20:00 98.8 80 18 141/74 (96) 95 07/07/18 16:00 98.6 73 19 131/78 (95) 95 Intake and Output 07/07/18 07/08/18 19:00 07:00 Intake Total 1000 ml Output Total 750 ml Balance 1000 ml -750 ml Other 1000 ml Output Urine Total 750 ml # Bowel Movements 1 1 Laboratory Tests 07/08/18 06:25: White Blood Count 9.0, Red Blood Count 4.67L, Hemoglobin 14.3, Hematocrit 43.4, Mean Corpuscular Volume 93, Mean Corpuscular Hemoglobin 30.7, Mean Corpuscular Hemoglobin Concent 33.0, Red Cell Distribution Width 12.8, Platelet Count 179, Mean Platelet Volume 8.6, Neutrophils (%) (Auto) 59.5, Lymphocytes (%) (Auto) 25.6, Monocytes (%) (Auto) 6.9, Eosinophils (%) (Auto) 6.6H, Basophils (%) (Auto ) 1.4, Sodium Level 148H, Potassium Level 4.3, Chloride Level 112H, Carbon Dioxide Level 25, Anion Gap 11, Blood Urea Nitrogen 39H, Creatinine 1.4H, Estimat Glomerular Filtration Rate , Glucose Level 106, Calcium Level 9.2 Height (Feet): 5 Height (Inches): 11.00 Weight (Pounds): 176 General Appearance: lethargic EENT: normal ENT inspection Neck: normal alignment Cardiovascular: normal peripheral pulses, normal rate, regular rhythm Respiratory/Chest: chest wall non-tender, lungs clear, normal breath sounds Abdomen: normal bowel sounds, non tender, soft Extremities: normal inspection Edema: no edema noted Arm (L), no edema noted Arm (R), no edema noted Leg (L), no edema noted Leg (R), no edema noted Pedal (L), no edema noted Pedal (R), no edema noted Generalized Neurologic: responsive, motor weakness Skin: normal pigmentation, warm/dry Sj Robles DO Jul 08, 2018 12:53
--- NOTE | 2018-07-08 13:20 | Pulmonology Progress Note ---
Assessment/Plan Problems: (1) New onset seizure (2) History of cerebrovascular accident (3) Left-sided weakness (4) Parkinson disease (5) HTN (hypertension) Assessment/Plan calmer now no more seizures on Depakote 250BID monitor BP PT/ot symptomatic treatment. dvt prophylaxis. dc planning in progress Subjective ROS Limited/Unobtainable: No Constitutional: Reports: no symptoms Allergies: Coded Allergies: DONEPEZIL (Verified Allergy, Unknown, 12/21/17) QUETIAPINE (Verified Allergy, Unknown, 12/21/17) SERTRALINE (Verified Allergy, Unknown, 12/21/17) Objective Last 24 Hour Vital Signs Date Time Temp Pulse Resp B/P (MAP) Pulse Ox O2 Delivery O2 Flow Rate FiO2 07/08/18 09:10 127/72 07/08/18 09:10 62 127/72 07/08/18 08:30 Nasal Cannula 2.0 07/08/18 08:00 98.8 62 19 127/72 (90) 96 07/08/18 04:00 98.2 65 18 130/71 (90) 94 07/08/18 00:00 97.8 73 18 141/66 (91) 94 07/07/18 21:00 Nasal Cannula 2.0 07/07/18 20:00 98.8 80 18 141/74 (96) 95 07/07/18 16:00 98.6 73 19 131/78 (95) 95 Intake and Output 07/07/18 07/08/18 19:00 07:00 Intake Total 1000 ml Output Total 750 ml Balance 1000 ml -750 ml Other 1000 ml Output Urine Total 750 ml # Bowel Movements 1 1 Objective General Appearance: cachetic HEENT: normocephalic, atraumatic Respiratory/Chest: chest wall non-tender, lungs clear Cardiovascular: normal peripheral pulses, normal rate Abdomen: normal bowel sounds, no organomegaly Genitourinary: normal external genitalia Extremities: no clubbing, right arm fistula 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 Laboratory Tests 07/08/18 06:25: White Blood Count 9.0, Red Blood Count 4.67L, Hemoglobin 14.3, Hematocrit 43.4, Mean Corpuscular Volume 93, Mean Corpuscular Hemoglobin 30.7, Mean Corpuscular Hemoglobin Concent 33.0, Red Cell Distribution Width 12.8, Platelet Count 179, Mean Platelet Volume 8.6, Neutrophils (%) (Auto) 59.5, Lymphocytes (%) (Auto) 25.6, Monocytes (%) (Auto) 6.9, Eosinophils (%) (Auto) 6.6H, Basophils (%) (Auto ) 1.4, Sodium Level 148H, Potassium Level 4.3, Chloride Level 112H, Carbon Dioxide Level 25, Anion Gap 11, Blood Urea Nitrogen 39H, Creatinine 1.4H, Estimat Glomerular Filtration Rate , Glucose Level 106, Calcium Level 9.2 Sugey Love MD Jul 08, 2018 13:20
--- NOTE | 2018-07-08 17:45 | Progress Note ---
DATE: 07/08/2018 SUBJECTIVE: This is a 73-year-old male with seizure disorder. The patient continues to have some mood lability, confusion, high levels of anxiety, altered mental status, worsened by stress of his medical illness. That is why, his attending has requested daily psychiatric consultation. MENTAL STATUS EXAMINATION: The patient is a 73-year-old male. Appearance is disheveled. Attitude, irritable and agitated. Affect, guarded and restricted. Intellect poor. Mood, depressed and anxious. Motor activity, psychomotor agitation. Attention span is poor. Orientation x2. Speech is pressured. Thought process, disorganized and illogical. Insight and judgment is poor. DIAGNOSIS: Major depressive disorder, mild, recurrent with psychotic features, rule out dementia with psychosis. PLAN: Treat the patient with Neurontin 300 mg three times a day . A 20 minutes of cognitive behavioral therapy provided to help him identify automatic negative thoughts and help convert negative thoughts to more positive thoughts to reduce depression, anxiety, and mood lability. Chart reviewed and discussed with staff. Seen and assessed in his room. Deanne Argueta M.D. DR: GERARD JOB#: [id number] CC:
--- NOTE | 2018-07-10 09:17 | Discharge Summary ---
Discharge Summary Discharge Summary _ DATE OF ADMISSION: 06/30/2018 DATE OF DISCHARGE: 07/08/2018 DISCHARGED BY: Dr Robles REASON FOR ADMISSION: 73 years old male with past medical history of hypertension, BPH, CVA, dysphagia , anxiety, hyperlipidemia, presented from the senior care facility with a witnessed tonic-clonic seizure episode. No prior history of seizure. Patient was on Depakote, but due to psychiatric history. Upon presentation patient was anxious and complaining about his back pain, however he reported that back pain was chronic. He denied biting his tongue or hitting his head. He denied chest pain or palpitations. Upon evaluation vital signs were stable. Laboratory workup revealed mild leukocytosis WBC 11.7. Hemoglobin 13.7, hematocrit 41.6 Urinalysis revealed evidence of pyuria, +2 protein, and few bacteria. BUN 18, creatinine 1.3. Stable LFT. Troponin negative. Albumin 2.8. Depakote level 31. EKG revealed normal sinus rhythm, no acute ischemic changes. Chest x-ray revealed mild cardiomegaly, otherwise no acute cardiopulmonary pathology. CT of the head demonstrated evidence of prior right craniotomy, extensive right middle cerebral artery distribution encephalomalacia and right basal ganglia encephalomalacia, likely on the basis of old infarcts. Progressive age-related volume loss. No definite gross acute intracranial bleeding or mass-effect. Patient was admitted for further management. CONSULTANTS: community education specialist Dr. Hood neurologist Dr. Carpio pulmonary Dr. Love ID specialist Dr. Hays GI specialist Dr. Mueller psychiatrist Dr. Argueta [facility] COURSE: Patient admitted on monitored floor initially. Seizure precautions were maintained. Neurologist consult was requested. MRI of the brain subsequently was done and revealed extensive chronic changes, including age-related volume loss, periventricular chronic ischemic changes, and multiple and extensive right- sided old infarcts. Multiple foci of susceptibility artifact, likely prior old microbleeds, as well as likely postsurgical hemorrhage in the right frontal and parietal regions. Negative for acute infarct, mass effect, or hemorrhage. EEG showed focal dysfunction in the right frontocentral region and encephalomalacia of a moderate degree. Neurologist followed. Ammonia level initially elevated 91. Patient started on lactulose, repeated ammonia down to 35. Per neurologist, patient had metabolic encephalopathy, superimposed on his cognitive disorder from history of stroke with large right cerebral hemorrhage. Neurologist recommended continue lactulose at this time. Neurologist readjusted Sinemet and Neurontin. Per neurologist, seizures, at least partially, caused by increased ammonia along with agitation. Depakote stopped since it can cause more Parkinsonian symptoms. Patient started on Keppra. Seizure precaution maintained. No further seizure activity while in the hospital. Neurontin and Sinemet were down titrated as per neurologist recommendation. Screen Printing Stencil Preparer followed for bradycardia, heart rate in 50s. Serial troponin were negative. EKG revealed no acute ischemic changes. Patient was ruled out for acute MO. Echocardiogram revealed preserved ejection fraction 55-60% with mild left ventricular hypertrophy, no evidence of pericardial effusion. Right ventricular systolic pressure of 23. Blood pressure was managed with calcium channel jose and MARITA inhibitor, and remained stable.. Supplemental oxygen and pulmonary toilet were on board as needed. Pulse oximetry was stable on room air. DVT prophylaxis provided. Home medication resumed. GI specialist followed. Bowel regimen instituted. Antiemetic provided as needed. Patient started on PPI. Protein supplements implemented in plan of care , as per registered dietitian recommendation. ID specialist followed. Urine culture back negative. No fevers, no leukocytosis. Per ID specialist, no evidence of infection. ID specialist recommended to keep patient off antibiotic and observe closely. Patient received 1 dose of antibiotic in emergency department for possible UTI. Patient remained afebrile, no leukocytosis. Aspiration precaution maintained. Fall precaution maintained. Patient was working with physical therapist. Psychiatrist followed. Per psychiatrist , patient with major depressive disorder , mild , recurrent, with psychotic features. Psychiatric medication regimen was optimized as per psychiatrist recommendation. Cognitive behavioral therapy provided. Patient clinically stabilized and was ready for transfer back to senior care facility for continuation of care. FINAL DIAGNOSES: New-onset of seizure History of CVA with left side weakness Parkinson disease Hypertension Metabolic encephalopathy due to hyperammonemia Extensive cerebrovascular disease with history of CVA and large right cerebral hemorrhage Bradycardia Malnutrition Major depressive disorder, mild, recurrent with psychotic features DISCHARGE MEDICATIONS: See Medication Reconciliation list. DISCHARGE INSTRUCTIONS: Patient was discharged to the senior care facility. Follow up with medical doctor at the facility. I have been assigned to dictate discharge summary for this account. I was not involved in the patient's management. Elizabeth Main NP Jul 10, 2018 09:17
== END 2018-07-08 12:57 | DRG 100 ==
LOC: EDUNIT# 16:42 → EDBD 16:42 → EDBEDREQ 17:04 → EMR 17:19 → 2E 18:12 → EDBEDREQ 20:49 → 2W 07-01 01:30 → 2E 07-01 17:20 → 4E 07-03 15:19
DX: R56.9 Unspecified convulsions (principal); G93.41 Metabolic encephalopathy; N39.0 Urinary tract infection, site not specified; E46 Unspecified protein-calorie malnutrition; F32.0 Major depressive disorder, single episode, mild; I69.354 Hemiplegia and hemiparesis following cerebral infarction affecting left non-dominant side; F31.81 Bipolar II disorder; E72.20 Disorder of urea cycle metabolism, unspecified; N40.0 Benign prostatic hyperplasia without lower urinary tract symptoms; I10 Essential (primary) hypertension; Z88.8 Allergy status to other drugs, medicaments and biological substances; G20 Parkinson's disease; R13.10 Dysphagia, unspecified
CPT/HCPCS: 36415; 70450; 70551; 71045; 80048; 80053; 80164; 81003; 82140; 82550; 82962; 83735; 84100; 84484; 85025; 85651; 87081; 87086; 93005; 93306; 95819; 96361; 96365; 96375; 99285; J1815

== ENCOUNTER 2019-10-14 12:46 | Inpatient (IN) | payer MEDICARE, OTHER ==
[~2019-10-14] VITALS: Ht 167.6 cm; Wt 62.6 kg
[~2019-10-14 12:46] MED LIST changes: +GABAPENTIN300 MG ORAL; +LACTULOSE20 GM/301 ORAL; +MULTIVITAMINS1 EAC8 ORAL; +NAMENDA5 MG ORAL; +NOVOLOG100 UNIT/4 SQ; +OLANZAPINE2.5 MG ORAL; +ZESTRIL10 M1 ORAL
[2019-10-14] MEDS ORDERED: SENNA LAXATIVE8.6 MG PO (13:02)
[2019-10-14] MEDS ORDERED: BISACODYL10 M1 RC (13:02)
[2019-10-14] MEDS ORDERED: CARVEDILOL3.125 MG ORAL (13:02)
[2019-10-14] MEDS ORDERED: NORCO 5-325 TA1 EAC1 ORAL (13:02)
[2019-10-14] MEDS ORDERED: KEPPRA LIQ100 MG/1 M ORAL (13:02)
[2019-10-14] MEDS ORDERED: DOCUSATE SODIU100 MG ORAL (13:02)
[2019-10-14] MEDS ORDERED: ASCORBIC ACID500 MG ORAL (13:02)
[2019-10-14] MEDS ORDERED: ENSURE PLUS237 ML PO (13:02)
[2019-10-14] MEDS ORDERED: PLAVIX75 MG ORAL (13:02)
[2019-10-14] MEDS ORDERED: ATORVASTATIN CA80 MG ORAL (13:02)
[2019-10-14 13:05] VITALS: BP 114/84
--- NOTE | 2019-10-14 13:05 | NUR ---
ED Nurse Note: Patient SUSY from [facility] d/t unwitnessed fall last night at facility. Patient AxO x 3, able to verbalize needs. No s/s of bleed or acute distress. Bed in lowest position. Patient placed in gown and blanket provided to patient.
--- NOTE | 2019-10-14 13:34 | NUR ---
ED Nurse Note: Blood drawn and sent to lab
[2019-10-14 13:37] LABS: EOSINOPHILS % (AUTO) 6.8 % (0.0-3.0); HEMATOCRIT 43.2 % (42.0-52.0); HEMOGLOBIN 13.5 G/DL (14.2-18.0); LYMPHOCYTES % (AUTO) 23.8 % (20.0-45.0); MEAN CORPUSCULAR VOLUME 92 FL (80-99); MONOCYTES % (AUTO) 6.2 % (1.0-10.0); NEUTROPHILS % (AUTO) 62.2 % (45.0-75.0); PLATELET COUNT 177 K/UL (150-450); RED BLOOD COUNT 4.67 M/UL (4.70-6.10); RED CELL DISTRIBUTION WIDTH 14.1 % (11.6-14.8); WHITE BLOOD COUNT 7.4 K/UL (4.8-10.8)
[2019-10-14 13:51] LABS: ANION GAP 8 mmol/L (5-15); BLOOD UREA NITROGEN 16 mg/dL (7-18); CALCIUM 8.7 MG/DL (8.5-10.1); CARBON DIOXIDE 29 MMOL/L (21-32); CHLORIDE 107 MMOL/L (98-107); INR 1.1 (0.9-1.1); POTASSIUM 4.1 MMOL/L (3.5-5.1); SODIUM 144 MMOL/L (136-145)
[2019-10-14 13:57] LABS: ALANINE AMINOTRANSFERASE 20 U/L (12-78); ALBUMIN 3.5 G/DL (3.4-5.0); ALBUMIN/GLOBULIN RATIO 1.1 (1.0-2.7); ALKALINE PHOSPHATASE 80 U/L (46-116); ASPARTATE AMINO TRANSFERASE 20 U/L (15-37); BILIRUBIN,TOTAL 0.3 MG/DL (0.2-1.0)
--- NOTE | 2019-10-14 14:23 | Emergency Room Report ---
History of Present Illness General Chief Complaint: Multiple Trauma/Fall [facility]: [facility] Record, [facility] Present Illness HPI This patient is brought in from a [facility] facility. He has a history of Parkinson's and dementia. He is brought in by EMS. History is obtained from the medical record and from EMS. Per report, the patient had an unwitnessed fall at the [facility] facility. There was no evidence of injury or trauma. The patient himself states he does not recall falling. He has no complaints. He denies pain. There are no other complaints. 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: Yes COVID-19 Screening: Negative COVID-19 COVID-19 Testing Source: 08/27/19 (GaganOdalis Charlie ) Patient History Past Medical History: see triage record, DM, HTN, CAD, CVA/TIA, dementia, other - Parkinson's Social History: Denies: smoking, alcohol use, drug use Reviewed Nursing Documentation: PMH: Agreed; PSxH: Agreed (GaganOdalis Charlie ) Nursing Documentation-PMH Past Medical History: No History, Except For Hx Cardiac Problems: Yes Hx Hypertension: Yes Hx Diabetes: Yes Hx Cancer: No Hx Gastrointestinal Problems: Yes - protein-calorie malnutrition Hx Neurological Problems: Yes - neuralgia, neuritis Hx Cerebrovascular Accident: Yes - hemorrhagic CVA (2006) Hx Parkinson's Disease: Yes Hx Paralysis: Yes - L side hemiparesis Hx Dysphasia: Yes (Odalis Irwin Charlie ) Review of Systems All Other Systems: negative except mentioned in HPI ([facility] Physical Exam Vital Signs Date Time Temp Pulse Resp B/P (MAP) Pulse Ox O2 Delivery O2 Flow Rate FiO2 10/14/19 12:48 97.9 53 18 114/84 (94) 97 Room Air Sp02 EP Interpretation: reviewed, normal General Appearance: no apparent distress, alert, GCS 15, non-toxic Head: normocephalic, atraumatic Eyes: bilateral eye normal inspection, bilateral eye PERRL ENT: hearing grossly normal, normal pharynx, no angioedema, normal voice Neck: normal inspection, full range of motion, supple/symm/no masses, tender midline Respiratory: chest non-tender, lungs clear, normal breath sounds, no respiratory distress, no retraction, no accessory muscle use, speaking full sentences Cardiovascular #1: regular rate, rhythm, no edema Gastrointestinal: normal bowel sounds, non tender, soft, non-distended, no guarding, no rebound Rectal: deferred Musculoskeletal: normal range of motion, non-tender, other - At baseline Neurologic: alert, responsive, speech normal, other - L. hemiparesis (baseline) Psychiatric: mood/affect normal, no suicidal/homicidal ideation Skin: Decubitus/Ulcer - See RN skin exam (Odalis Irwin DO) Medical Decision Making Diagnostic Impression: Primary Impression: Fall ER Course This patient presented with a fall. Unfortunately this patient has severe dementia and is unable to give a reliable history. He does not recall any events. As a precaution due to his age and that he is on Plavix, I did obtain a CT of the head and cervical spine. These are pending at the time of this dictation. There was no evidence of trauma on physical exam. Other work-up to include assessment for anemia, electrolyte abnormalities, infection or arrhythmia was negative. This included evaluation of a CBC, CMP, EKG and chest x-ray. Final disposition per Dr. Medrano. No significant abnl findings. See EMR. (Odalis Irwin DO) ER Course Patient here for fall Initially seen and evaluated by Dr Ramos. Resumed care of patient at 1430. In speaking with patient, he notes that he does not remember falling and possibly had syncope. Denies any prodromal symptoms of chest pain, back pain, abdominal pain or other complaints. On examination, he is neurologically intact. Laboratory evaluation is unremarkable. Troponin negative x1. CT scans of the head and neck were performed due to fall on blood thinners. There are no acute intracranial abnormalities including bleed or stroke. EKG shows sinus bradycardia with new lateral T wave inversions. The inferior leads have Q waves but no criteria meeting acute STEMI. Multiple attempts were made to contact family to update them on the plan of care which were unsuccessful. Will be admitted for continuation of syncope work-up. Dr Sj Robles accepts inpatient admission. Laboratory Tests Test 10/14/19 13:28 White Blood Count 7.4 K/UL (4.8-10.8) Red Blood Count 4.67 M/UL (4.70-6.10) L Hemoglobin 13.5 G/DL (14.2-18.0) L Hematocrit 43.2 % (42.0-52.0) Mean Corpuscular Volume 92 FL (80-99) Mean Corpuscular Hemoglobin 28.9 PG (27.0-31.0) Mean Corpuscular Hemoglobin Concent 31.3 G/DL (32.0-36.0) L Red Cell Distribution Width 14.1 % (11.6-14.8) Platelet Count 177 K/UL (150-450) Mean Platelet Volume 9.4 FL (6.5-10.1) Neutrophils (%) (Auto) 62.2 % (45.0-75.0) Lymphocytes (%) (Auto) 23.8 % (20.0-45.0) Monocytes (%) (Auto) 6.2 % (1.0-10.0) Eosinophils (%) (Auto) 6.8 % (0.0-3.0) H Basophils (%) (Auto) 1.0 % (0.0-2.0) Prothrombin Time 11.9 SEC (9.30-11.50) H Prothrombin Time INR 1.1 (0.9-1.1) Activated Partial Thromboplast Time 30 SEC (23-33) Sodium Level 144 MMOL/L (136-145) Potassium Level 4.1 MMOL/L (3.5-5.1) Chloride Level 107 MMOL/L (98-107) Carbon Dioxide Level 29 MMOL/L (21-32) Anion Gap 8 mmol/L (5-15) Blood Urea Nitrogen 16 mg/dL (7-18) Creatinine 1.0 MG/DL (0.55-1.30) Estimated Glomerular Filtration Rate > 60 mL/min (>60) Glucose Level 116 MG/DL (74-106) H Calcium Level 8.7 MG/DL (8.5-10.1) Total Bilirubin 0.3 MG/DL (0.2-1.0) Aspartate Amino Transferase (AST) 20 U/L (15-37) Alanine Aminotransferase (ALT) 20 U/L (12-78) Alkaline Phosphatase 80 U/L (46-116) Total Creatine Kinase Pending Troponin I Pending Total Protein 6.7 G/DL (6.4-8.2) Albumin 3.5 G/DL (3.4-5.0) Globulin 3.2 g/dL Albumin/Globulin Ratio 1.1 (1.0-2.7) (Pricila Perez D.O.) EKG Diagnostic Results Rate: bradycardiac Rhythm: other - S.bradycardia ST Segments: other - NSST findings. (Odalis Irwin Charlie VIDALES) EKG Time: 14:56 EP Interpretation: 12-lead EKG (interpreted by ) (Pricila Perez D.O.) Rhythm Strip Diag. Results EP Interpretation: yes Rate: 50's Rhythm: no PVC's, no ectopy, other - S.patience ([facility] Rhythm Strip Time: 17:00 EP Interpretation: yes Rate: 52 Rhythm: other - sinus patience, lateral TWI (Pricila Perez D.O.) Chest X-Ray Diagnostic Results Chest X-Ray Diagnostic Results : Chest X-Ray Ordered: Yes # of Views/Limited/Complete: 1 View Indication: Other EP Interpretation: Yes Interpretation: no consolidation, no effusion, no pneumothorax, no acute cardiopulmonary disease, other - Impression: Possible small right lung nodule. Recommend further evaluation with CT Impression: No acute disease Electronically Signed by: Odalis Irwin DO ([facility] Chest X-Ray Diagnostic Results : PA Scribe Text Chest X-ray: Views: [ 1 ] view(s) Indication: [Chest pain] Findings: 6 mm opacity in the right lower lung injecting just below the minor fissure, not evident previously. Lungs pleural spaces are otherwise clear. Impression: Possible small right lung nodule. Recommend further evaluation with CT No acute process otherwise The X-ray(s) were independently viewed and interpreted contemporaneously - Electronically signed by Pricila watson DO (Pricila Perez D.O.) CT/MRI/US Diagnostic Results CT/MRI/US Diagnostic Results : Imaging Test Ordered: CT head, CT c-spine Impression Pending. Turned over to Dr. Medrano. (Odalis Irwin DO) CT/MRI/US Diagnostic Results #1: Imaging Test Ordered: CT Brain Impression Procedure: CT Head no Contrast Indications: Headache, trauma, status post fall last night Technique: Spiral acquisitions obtained through the brain. Angled axial and coronal 5 x 5 mm slices were reconstructed. Total dose length product 177 mGycm. CTDI vol (s) 7 mGy. Dose reduction achieved using automated exposure control Comparison: 06/30/2018 Findings: There is age-related enlargement of the ventricles and extra axial CSF spaces. There is periventricular deep white matter low-attenuation consistent with chronic microvascular ischemic change. There is a large area of encephalomalacia involving the right frontal lobe, extending into the parietal deep white matter and into the basal ganglia and resulting in ex vacuo dilatation of the right lateral ventricle. There is also encephalomalacia of the right temporal lobe. There is an old lacunar infarct in the right thalamus. There is atrophy of the right cerebral peduncle. No acute intracranial hemorrhage or edema. No mass effect nor midline shift. The mastoids are clear. There is ethmoid sinus disease. Again demonstrated is a right frontal craniotomy. Visualized orbits are unremarkable. Impression: Chronic and age-related changes, including multiple old infarcts, as described Negative for acute intracranial bleed or mass effect Postsurgical changes, as described Minimal sinus disease incidentally noted CT/MRI/US Diagnostic Results #2: Imaging Test Ordered: CT C Spine Impression Procedure: CT C Spine no Contrast Indication: Pain, trauma Technique: Spiral acquisitions obtained through the cervical spine. No IV contrast utilized. Multiplanar reconstructions were generated. Total dose length product 177 mGycm. CTDIvol(s) 7.9 mGy. Dose reduction achieved using automated exposure control. Comparison: none Findings: Bony alignment is normal. Vertebral body heights are preserved. There is no prevertebral soft tissue swelling. No acute fractures. No dislocations. At C2-3, the disc space is preserved. There is bilateral facet arthrosis. There is mild central posterior disc protrusion, which does not significantly narrow the spinal canal. The neural foramina are preserved. At C3-4, the disc space is preserved. There is broad-based mild posterior disc protrusion which, in combination with ligament flavum hypertrophy, results in borderline narrowing of the spinal canal. There is mild left, moderate to severe right neural foraminal narrowing. There is bilateral facet arthrosis. C4-5, there is moderate to severe degenerative disc narrowing. Posterior disc protrusion/osteophyte complex results in moderate narrowing of the spinal canal. There is severe right, moderate to severe left neural foraminal narrowing. There is mild bilateral facet arthrosis. At C5-6, there is moderate to severe degenerative disc narrowing. Posterior disc bulge/osteophyte complex results in moderate narrowing spinal canal. There is severe neural foraminal stenosis bilaterally. At C6-7, there is moderate to severe degenerative disc narrowing. There is posterior disc/osteophyte, which likely compromises the right lateral recess. There is no significant central canal stenosis. There is moderate narrowing of the left neural foramen and severe narrowing of the right neural foramen. At C7-T1, no significant disc bulge or protrusion, spinal stenosis, or neural foraminal stenosis. Included extra spinal soft tissues are unremarkable. The upper aerodigestive tract is unremarkable. Impression: No acute bony trauma Degenerative changes, as detailed on a level by level basis above (Pricila Perez D.O.) Last Vital Signs Date Time Temp Pulse Resp B/P (MAP) Pulse Ox O2 Delivery O2 Flow Rate FiO2 10/14/19 13:05 97.9 18 114/84 97 Room Air 10/14/19 13:05 53 Status: improved (Odalis Iriwn M. DO) Reevaluation Time: 16:00 Status: improved (Pricila Perez D.O.) Disposition: ADMITTED INPATIENT Admit Decision Time: 15:17 (Pricila Perez D.O.) Condition: Stable Referrals: Sj Robles DO (PCP) Odalis Irwin M. DO Oct 14, 2019 14:23 Pricila Perez D.O. Oct 14, 2019 15:17
--- NOTE | 2019-10-14 14:43 | Diagnostic Imaging Report ---
Indications: Headache, trauma, status post fall last night Technique: Spiral acquisitions obtained through the brain. Angled axial and coronal 5 x 5 mm slices were reconstructed. Total dose length product 177 mGycm. CTDI vol(s) 7 mGy. Dose reduction achieved using automated exposure control Comparison: 06/30/2018 Findings: There is age-related enlargement of the ventricles and extra axial CSF spaces. There is periventricular deep white matter low-attenuation consistent with chronic microvascular ischemic change. There is a large area of encephalomalacia involving the right frontal lobe, extending into the parietal deep white matter and into the basal ganglia and resulting in ex vacuo dilatation of the right lateral ventricle. There is also encephalomalacia of the right temporal lobe. There is an old lacunar infarct in the right thalamus. There is atrophy of the right cerebral peduncle. No acute intracranial hemorrhage or edema. No mass effect nor midline shift. The mastoids are clear. There is ethmoid sinus disease. Again demonstrated is a right frontal craniotomy. Visualized orbits are unremarkable. Impression: Chronic and age-related changes, including multiple old infarcts, as described Negative for acute intracranial bleed or mass effect Postsurgical changes, as described Minimal sinus disease incidentally noted The CT scanner at [facility] is accredited by the [employer] and the scans are performed using protocols designed to limit radiation exposure to as low as reasonably achievable to attain images of sufficient resolution adequate for diagnostic evaluation.
--- NOTE | 2019-10-14 14:58 | Diagnostic Imaging Report ---
Indication: Pain, trauma Technique: Spiral acquisitions obtained through the cervical spine. No IV contrast utilized. Multiplanar reconstructions were generated. Total dose length product 177 mGycm. CTDIvol(s) 7.9 mGy. Dose reduction achieved using automated exposure control. Comparison: none Findings: Bony alignment is normal. Vertebral body heights are preserved. There is no prevertebral soft tissue swelling. No acute fractures. No dislocations. At C2-3, the disc space is preserved. There is bilateral facet arthrosis. There is mild central posterior disc protrusion, which does not significantly narrow the spinal canal. The neural foramina are preserved. At C3-4, the disc space is preserved. There is broad-based mild posterior disc protrusion which, in combination with ligament flavum hypertrophy, results in borderline narrowing of the spinal canal. There is mild left, moderate to severe right neural foraminal narrowing. There is bilateral facet arthrosis. C4-5, there is moderate to severe degenerative disc narrowing. Posterior disc protrusion/osteophyte complex results in moderate narrowing of the spinal canal. There is severe right, moderate to severe left neural foraminal narrowing. There is mild bilateral facet arthrosis. At C5-6, there is moderate to severe degenerative disc narrowing. Posterior disc bulge/osteophyte complex results in moderate narrowing spinal canal. There is severe neural foraminal stenosis bilaterally. At C6-7, there is moderate to severe degenerative disc narrowing. There is posterior disc/osteophyte, which likely compromises the right lateral recess. There is no significant central canal stenosis. There is moderate narrowing of the left neural foramen and severe narrowing of the right neural foramen. At C7-T1, no significant disc bulge or protrusion, spinal stenosis, or neural foraminal stenosis. Included extra spinal soft tissues are unremarkable. The upper aerodigestive tract is unremarkable. Impression: No acute bony trauma Degenerative changes, as detailed on a level by level basis above The CT scanner at [facility] is accredited by the [employer] and the scans are performed using protocols designed to limit radiation exposure to as low as reasonably achievable to attain images of sufficient resolution adequate for diagnostic evaluation.
[2019-10-14 15:16] LABS: CREATINE KINASE 57 U/L (26-308)
--- NOTE | 2019-10-14 15:23 | NUR ---
ED Nurse Note: Report received from STEW Mckeon. pt is AOx 2-3. pt has no visible abnormalities to skin. Addendum: 10/14/19 at 1528 by PDELEON ED Nurse Note: Report received from STEW Mckeon. pt is AOx3*. pt has no visible abnormalities to skin. redness noted on sacral region of patient. VRE/CRE collected. pt refused MRSA swabs.
--- NOTE | 2019-10-14 15:23 | NUR ---
ED Nurse Note: Handoff report given to Nelly MATHIAS. Patient cooperative, no s/s of acute distress.
[2019-10-14 15:37] VITALS: BP 151/79
--- NOTE | 2019-10-14 15:37 | NUR ---
ED Nurse Note: Spoke with ERMD, IV site etablished patent and intact.
--- NOTE | 2019-10-14 15:38 | NUR ---
ED Nurse Note: Pt requested meal, informed ERMD. ordered meal tray.
--- NOTE | 2019-10-14 15:40 | NUR ---
ED Nurse Note: MENDEZD is aware of pt bradycardic rhythm, no further orders at this time.
--- NOTE | 2019-10-14 15:47 | NUR ---
ED Nurse Note: Bed assignment received; 211-1. Per CRN on TELE floor, pt will be reassigned room to be properly placed as isolation precaution. Pending new room assignment.
--- NOTE | 2019-10-14 16:45 | NUR ---
ED Nurse Note: telephone report given to STEW Ny for continuity of care. PER CRN, bed 211-1 is not yet available.
--- NOTE | 2019-10-14 17:22 | Diagnostic Imaging Report ---
Indication: There is a breath Technique: One view of the chest Comparison: 06/30/2018 Findings: The heart is upper limits normal in size. The aorta is tortuous and ectatic. There is a 6 mm opacity in the right lower lung injecting just below the minor fissure, not evident previously. Lungs pleural spaces are otherwise clear. Impression: Possible small right lung nodule. Recommend further evaluation with CT No acute process otherwise
--- NOTE | 2019-10-14 17:32 | NUR ---
TRANSFER TO FLOOR: Patient transferred to tele as ordered, per ermd. Report given to autumn Ny. Belongings given to pt.
--- NOTE | 2019-10-14 17:45 | NUR ---
NURSE NOTES: Patient's transferred to by felicia. Nurse report given by STEW Villegas. Patient's AO x 1, confused, stated: "I want to kill myself, I don't want to live." Patient had no ID armband when brought up by ER. Tried to remove devices. Applied emergency restraints on patient. Patient on RA, 100%. Patient has reading glasses for belonging; unable to sign himself. IV is saline locked, patent and asymptomatic. Wound assessment performed, stage II wound noted on sacral area. Bed low and locked, call light within reach, side rails x 3, bed alarm is armed. Vital signs taken: BP 166/83, HR 140, RR 23, Temp 97.7, O2 100%. DR. Long was at bedside to assess patient and aware of patient's condition. Left message to Dr. Robles regarding admission orders. Awaiting for response.
--- NOTE | 2019-10-14 17:52 | Cardiac Electrophysiology PN ---
Subjective Subjective [id number] Objective Last 24 Hour Vital Signs Date Time Temp Pulse Resp B/P (MAP) Pulse Ox O2 Delivery O2 Flow Rate FiO2 10/14/19 17:31 98.5 59 16 156/70 100 Room Air 10/14/19 15:37 98.2 49 16 151/79 95 Room Air 10/14/19 13:05 97.9 18 114/84 97 Room Air 10/14/19 13:05 53 18 Room Air 10/14/19 12:48 97.9 53 18 114/84 (94) 97 Room Air Laboratory Tests Test 10/14/19 13:28 White Blood Count 7.4 K/UL (4.8-10.8) Red Blood Count 4.67 M/UL (4.70-6.10) L Hemoglobin 13.5 G/DL (14.2-18.0) L Hematocrit 43.2 % (42.0-52.0) Mean Corpuscular Volume 92 FL (80-99) Mean Corpuscular Hemoglobin 28.9 PG (27.0-31.0) Mean Corpuscular Hemoglobin Concent 31.3 G/DL (32.0-36.0) L Red Cell Distribution Width 14.1 % (11.6-14.8) Platelet Count 177 K/UL (150-450) Mean Platelet Volume 9.4 FL (6.5-10.1) Neutrophils (%) (Auto) 62.2 % (45.0-75.0) Lymphocytes (%) (Auto) 23.8 % (20.0-45.0) Monocytes (%) (Auto) 6.2 % (1.0-10.0) Eosinophils (%) (Auto) 6.8 % (0.0-3.0) H Basophils (%) (Auto) 1.0 % (0.0-2.0) Prothrombin Time 11.9 SEC (9.30-11.50) H Prothromb Time International Ratio 1.1 (0.9-1.1) Activated Partial Thromboplast Time 30 SEC (23-33) Sodium Level 144 MMOL/L (136-145) Potassium Level 4.1 MMOL/L (3.5-5.1) Chloride Level 107 MMOL/L (98-107) Carbon Dioxide Level 29 MMOL/L (21-32) Anion Gap 8 mmol/L (5-15) Blood Urea Nitrogen 16 mg/dL (7-18) Creatinine 1.0 MG/DL (0.55-1.30) Estimat Glomerular Filtration Rate > 60 mL/min (>60) Glucose Level 116 MG/DL (74-106) H Calcium Level 8.7 MG/DL (8.5-10.1) Total Bilirubin 0.3 MG/DL (0.2-1.0) Aspartate Amino Transf (AST/SGOT) 20 U/L (15-37) Alanine Aminotransferase (ALT/SGPT) 20 U/L (12-78) Alkaline Phosphatase 80 U/L (46-116) Total Creatine Kinase 57 U/L (26-308) Troponin I 0.011 ng/mL (0.000-0.056) Total Protein 6.7 G/DL (6.4-8.2) Albumin 3.5 G/DL (3.4-5.0) Globulin 3.2 g/dL Albumin/Globulin Ratio 1.1 (1.0-2.7) Microbiology Date/Time Source Procedure Growth Status 10/14/19 15:30 Rectal Mucosa Received Crow Villalobos MD Oct 14, 2019 17:52
--- NOTE | 2019-10-14 18:07 | NUR ---
NURSE NOTES: Dr. Robles ordered to call Dr. Love regarding admission orders. Left message to Dr. Love. Awaiting for response.
[2019-10-14] MEDS ORDERED: Nitroglycerin Subl 0.4mg tab SL PRN (18:15)
[2019-10-14] MEDS ORDERED: Albuterol/Ipratropium 3ml neb HHN PRN (18:15)
[2019-10-14] MEDS ORDERED: Miralax 17gm pkt ORAL PRN (18:15)
[2019-10-14] MEDS ORDERED: Promethazine/Codeine 5ml UD ORAL PRN (18:15)
[2019-10-14] MEDS: D5 1/2NS 1,000 ML IV SCH (18:15)
--- NOTE | 2019-10-14 19:24 | NUR ---
HAND-OFF: Report given to STEW Herring. Patient's stable, plan of care endorsed.
--- NOTE | 2019-10-14 19:25 | NUR ---
NURSE NOTES: Received report from STEW Alva. AOx1. On room air, saturating well. On bilateral soft restraints, skin, ROM, sensation normal. IV site on RAC #20g, intact. Bed in lowest position, brakes engaged, bed locked. Call light placed within reach. Patient noted to be agitated and screaming help. Will continue to monitor.
[2019-10-14 20:00] VITALS: BP 135/78
[2019-10-14] MEDS: Tamsulosin 0.4mg cap ORAL SCH (21:32)
[2019-10-14] MEDS: Heparin 5000 units/ml inj SUBQ SCH (21:33)
--- NOTE | 2019-10-14 23:30 | Consultation ---
DATE OF CONSULTATION: 10/14/2019 CARDIOLOGY CONSULTATION REASON FOR CONSULTATION: Syncope. REFERRING PHYSICIAN: Sj Robles D.O. HISTORY OF PRESENT ILLNESS: Patient is an elderly gentleman with history of hypertension and coronary artery disease, who [facility] after he had a syncopal episode. Patient does not remember falling. Patient denies any chest pain, shortness of breath, nausea, vomiting, or diaphoresis. the patient was neurologically intact. Troponin was negative. CT of the head and neck was negative. Patient's EKG shows sinus bradycardia, old inferior wall [place], and lateral T-wave inversion. Cardiology consultation was obtained for further evaluation. REVIEW OF SYSTEMS: Negative other than what was mentioned in history of present illness. The nurse is at the bedside. Patient is slightly confused. PAST MEDICAL HISTORY: As mentioned above. FAMILY HISTORY: Noncontributory. SOCIAL HISTORY: [facility] in a [facility]. Does not smoke or drink alcohol. PHYSICAL EXAMINATION: VITAL SIGNS: Blood pressure of 156/70, pulse is 49, respirations 18, and he is afebrile. NECK: No JVD. LUNGS: Clear. CARDIOVASCULAR: Regular S1 and S2 with no gallop or murmur. ABDOMEN: Soft. EXTREMITIES: No pitting edema. LABORATORIES: White count of 7.4, hematocrit 13.5, hematocrit 43, and platelet count is 177. Sodium 144, potassium 4.1, BUN 16, creatinine 1.0. Troponin is negative. ASSESSMENT AND PLAN: 1. Syncope. First troponin is negative. Patient does not have any chest pain. We will completely rule out AK protocol. Repeat EKG and echocardiogram for further evaluation. 2. Coronary artery disease with old inferior wall AK based on EKG and lateral T-wave inversion. Patient denies any chest pain. 3. History of bradycardia. Patient was bradycardic in the past also. 4. Hypertension. Resume Norvasc 10 mg and lisinopril 10 mg daily. 5. History of hemorrhagic stroke, no seizures, with evidence of prior right craniotomy and encephalomalacia. Further evaluation by Neurology. Thank you very much for allowing me to participate in the care of this patient. Please do not hesitate to contact me for any questions regarding my evaluation. Crow Villalobos M.D. DR: ALISSON JOB#: [id number] CC:
[2019-10-15] VITALS: BP 136/76
[2019-10-15 04:00] VITALS: BP 134/82
--- NOTE | 2019-10-15 06:38 | Consultation ---
History of Present Illness General Chief Complaint: Multiple Trauma/Fall Present Illness Allergies: Coded Allergies: DONEPEZIL (Verified Allergy, Unknown, 12/21/17) QUETIAPINE (Verified Allergy, Unknown, 12/21/17) SERTRALINE (Verified Allergy, Unknown, 12/21/17) Medication History Scheduled Amantadine Hcl* (Amantadine*), 100 MG ORAL TWICE A DAY, (Reported) Amlodipine Besylate (Norvasc), 10 MG ORAL DAILY, (Reported) Ascorbic Acid* (Ascorbic Acid*), 1,000 MG ORAL DAILY, (Reported) Aspirin* (Aspirin*), 81 MG ORAL DAILY, (Reported) Atorvastatin Calcium* (Lipitor*), 80 MG ORAL BEDTIME, (Reported) Baclofen* (Baclofen*), 10 MG ORAL THREE TIMES A DAY, (Reported) Bisacodyl (Bisacodyl), 10 MG RC EVERY OTHER DAY, (Reported) Carvedilol* (Carvedilol*), 3.125 MG ORAL EVERY 12 HOURS, (Reported) Clopidogrel Bisulfate* (Plavix*), 75 MG ORAL DAILY, (Reported) Divalproex Sodium* (Depakote Er*), 250 MG ORAL EVERY 12 HOURS, (Reported) Docusate Sodium* (Docusate Sodium*), 100 MG ORAL DAILY, (Reported) Finasteride* (Proscar*), 5 MG ORAL DAILY, (Reported) Gabapentin* (Gabapentin*), 300 MG ORAL THREE TIMES A DAY, (Reported) Labetalol Hcl* (Normodyne*), 50 MG ORAL EVERY 12 HOURS, (Reported) Lactose-Free Food (Ensure Plus), 237 ML PO THREE TIMES A DAY, (Reported) Lactulose (Lactulose*), 30 ML ORAL THREE TIMES A DAY, (Reported) Levetiracetam (Keppra), 5 ML ORAL DAILY, (Reported) Lisinopril* (Zestril*), 10 MG ORAL DAILY, (Reported) Magnesium Oxide (Mag-Oxide), 400 MG PO DAILY, (Reported) Memantine Hcl* (Namenda*), 5 MG ORAL DAILY, (Reported) Multivitamin With Minerals (Multivitamins With Minerals*), 1 TAB ORAL DAILY, ( Reported) Niacin* (Niacin*), 250 MG ORAL DAILY, (Reported) Olanzapine (Olanzapine), 2.5 MG ORAL DAILY, (Reported) Sennosides (Senna Laxative), 8.6 MG PO BEDTIME, (Reported) Tamsulosin Hcl (Tamsulosin Hcl*), 0.4 MG ORAL BEDTIME, (Reported) Scheduled PRN Acetaminophen* (Acetaminophen 325MG Tablet*), 650 MG ORAL Q4H PRN for For Pain, (Reported) Hydrocodone Bit/Acetaminophen 5-325* ([place] 5-325 Tablet*), 1 TAB ORAL Q4H PRN for For Pain, (Reported) Loperamide Hcl (Loperamide), 2 MG PO QID PRN for Diarrhea, (Reported) Lorazepam* (Ativan*), 0.5 MG ORAL Q6HR PRN for For Anxiety, (Reported) Miscellaneous Medications Insulin Aspart (Novolog), UNIT SQ, (Reported) Patient History Healthcare decision maker LULA SCHWARZ Resuscitation status Advanced Directive on File Physical Exam Last 24 Hour Vital Signs Date Time Temp Pulse Resp B/P (MAP) Pulse Ox O2 Delivery O2 Flow Rate FiO2 10/15/19 04:00 97.0 94 22 134/82 (99) 98 10/15/19 04:00 101 10/15/19 00:00 61 10/15/19 00:00 96.5 55 16 136/76 (96) 98 10/14/19 21:00 Room Air 10/14/19 20:00 96.4 61 20 135/78 (97) 99 10/14/19 20:00 62 10/14/19 18:20 Room Air 10/14/19 17:31 98.5 59 16 156/70 100 Room Air 10/14/19 15:37 98.2 49 16 151/79 95 Room Air 10/14/19 13:05 97.9 18 114/84 97 Room Air 10/14/19 13:05 53 18 Room Air 10/14/19 12:48 97.9 53 18 114/84 (94) 97 Room Air Intake and Output 10/14/19 10/15/19 19:00 07:00 Intake Total 100 ml Output Total 150 ml Balance -50 ml Intake Other 100 ml Output Urine Total 150 ml # Voids 1 Laboratory Tests Test 10/14/19 13:28 White Blood Count 7.4 K/UL (4.8-10.8) Red Blood Count 4.67 M/UL (4.70-6.10) L Hemoglobin 13.5 G/DL (14.2-18.0) L Hematocrit 43.2 % (42.0-52.0) Mean Corpuscular Volume 92 FL (80-99) Mean Corpuscular Hemoglobin 28.9 PG (27.0-31.0) Mean Corpuscular Hemoglobin Concent 31.3 G/DL (32.0-36.0) L Red Cell Distribution Width 14.1 % (11.6-14.8) Platelet Count 177 K/UL (150-450) Mean Platelet Volume 9.4 FL (6.5-10.1) Neutrophils (%) (Auto) 62.2 % (45.0-75.0) Lymphocytes (%) (Auto) 23.8 % (20.0-45.0) Monocytes (%) (Auto) 6.2 % (1.0-10.0) Eosinophils (%) (Auto) 6.8 % (0.0-3.0) H Basophils (%) (Auto) 1.0 % (0.0-2.0) Prothrombin Time 11.9 SEC (9.30-11.50) H Prothromb Time International Ratio 1.1 (0.9-1.1) Activated Partial Thromboplast Time 30 SEC (23-33) Sodium Level 144 MMOL/L (136-145) Potassium Level 4.1 MMOL/L (3.5-5.1) Chloride Level 107 MMOL/L (98-107) Carbon Dioxide Level 29 MMOL/L (21-32) Anion Gap 8 mmol/L (5-15) Blood Urea Nitrogen 16 mg/dL (7-18) Creatinine 1.0 MG/DL (0.55-1.30) Estimat Glomerular Filtration Rate > 60 mL/min (>60) Glucose Level 116 MG/DL (74-106) H Calcium Level 8.7 MG/DL (8.5-10.1) Total Bilirubin 0.3 MG/DL (0.2-1.0) Aspartate Amino Transf (AST/SGOT) 20 U/L (15-37) Alanine Aminotransferase (ALT/SGPT) 20 U/L (12-78) Alkaline Phosphatase 80 U/L (46-116) Total Creatine Kinase 57 U/L (26-308) Troponin I 0.011 ng/mL (0.000-0.056) Total Protein 6.7 G/DL (6.4-8.2) Albumin 3.5 G/DL (3.4-5.0) Globulin 3.2 g/dL Albumin/Globulin Ratio 1.1 (1.0-2.7) Microbiology Date/Time Source Procedure Growth Status 10/14/19 15:30 Rectal Mucosa Received Height (Feet): 5 Height (Inches): 6.00 Weight (Pounds): 138 Medications Current Medications Medications (Trade) Dose Ordered Sig/Sonia Route PRN Reason Start Time Stop Time Status Last Admin Dose Admin Acetaminophen (Tylenol) 650 mg Q4H PRN ORAL fever 10/14/19 18:15 11/13/19 18:14 Albuterol/ Ipratropium (Albuterol/ Ipratropium) 3 ml Q4H PRN HHN Shortness of Breath 10/14/19 18:15 10/19/19 18:14 Amantadine HCl (Symmetrel) 100 mg TWICE A DAY ORAL 10/15/19 09:00 11/14/19 08:59 Amlodipine Besylate (Norvasc) 5 mg DAILY ORAL 10/15/19 09:00 11/14/19 08:59 Aspirin (Ecotrin) 81 mg DAILY ORAL 10/15/19 09:00 11/29/19 08:59 Clonidine HCl (Catapres Tab) 0.1 mg Q4H PRN ORAL htn 10/14/19 18:00 01/12/20 17:59 Dextrose (Dextrose 50%) 25 ml Q30M PRN IV Hypoglycemia 10/14/19 18:15 01/12/20 18:14 Dextrose (Dextrose 50%) 50 ml Q30M PRN IV Hypoglycemia 10/14/19 18:15 01/12/20 18:14 Dextrose/Sodium Chloride 1,000 ml @ 50 mls/hr Q20H IV 10/14/19 18:15 11/13/19 18:14 10/14/19 18:15 Finasteride (Proscar) 5 mg DAILY ORAL 10/15/19 09:00 01/13/20 08:59 Heparin Sodium (Porcine) (Heparin 5000 units/ml) 5,000 units EVERY 12 HOURS SUBQ 10/14/19 21:00 11/28/19 20:59 10/14/19 21:33 Levetiracetam (Keppra) 500 mg DAILY ORAL 10/15/19 09:00 11/29/19 08:59 Memantine (Namenda) 5 mg DAILY ORAL 10/15/19 09:00 11/14/19 08:59 Nitroglycerin (Ntg) 0.4 mg Q5M X 3 DOSES PRN SL Prn Chest Pain 10/14/19 18:15 11/13/19 18:14 Olanzapine (ZyPREXA) 2.5 mg DAILY ORAL 10/15/19 09:00 11/29/19 08:59 Ondansetron HCl (Zofran) 4 mg Q6H PRN IVP Nausea & Vomiting 10/14/19 18:15 11/13/19 18:14 Polyethylene Glycol (Miralax) 17 gm HSPRN PRN ORAL Constipation 10/14/19 18:15 11/13/19 18:14 Promethazine HCl/ Codeine (Phenergan with Codeine) 5 ml Q4H PRN ORAL For Cough 10/14/19 18:15 11/13/19 18:14 Tamsulosin HCl (Flomax) 0.4 mg BEDTIME ORAL 10/14/19 21:00 11/13/19 20:59 10/14/19 21:32 Temazepam (Restoril) 15 mg HSPRN PRN ORAL Insomnia 10/14/19 18:15 10/21/19 18:14 Assessment/Plan Assessment/Plan: Hematology Consultation REQ MD: Christine Spencer RFC: Pulm nodule DOS 10/15/2019 ID [id number] old male gentleman with history of hypertension and coronary artery disease, who was brought from retirement after he had a syncopal episode. Patient does not remember falling. Patient denies any chest pain, shortness of breath, nausea, vomiting, or diaphoresis. The patient was neurologically intact. Troponin was negative. CT of the head and neck was negative. Patient's EKG shows sinus bradycardia, old inferior wall [place], and lateral T-wave, seen by cards, recs noted, also now with pulm nodule on cxr Allergies: DONEPEZIL (Verified Allergy, Unknown, 12/21/17) QUETIAPINE (Verified Allergy, Unknown, 12/21/17) SERTRALINE (Verified Allergy, Unknown, 12/21/17) COVID-19 Screening Contact w/high risk pt: No Experienced COVID-19 symptoms?: No COVID-19 Testing performed CHANGE OVER: Yes COVID-19 Screening: Negative COVID-19 COVID-19 Testing Source: 08/27/19 (Odalis Irwin DO) Nursing Documentation-PMH Past Medical History: No History, Except For Hx Cardiac Problems: Yes Hx Hypertension: Yes Hx Diabetes: Yes Hx Cancer: No Hx Gastrointestinal Problems: Yes - protein-calorie malnutrition Hx Neurological Problems: Yes - neuralgia, neuritis Hx Cerebrovascular Accident: Yes - hemorrhagic CVA (2006) Hx Parkinson's Disease: Yes Hx Paralysis: Yes - L side hemiparesis Hx Dysphasia: Yes (Odalis Irwin DO) ROS (review of systems): Constitutional: No fever, no chills, no night sweats, no fatigue Skin: No rashes, lumps, itchiness, dryness HEENT: No WARD, ear ache, visual changes, double vision, nosebleeds Breasts: No lumps, pain, discharge Pulmonary: No cough, sputum, shortness of breath, coughing up blood Cardiovascular: No chest pain, tightness, palpitations, syncope, PND GI: No nausea, vomiting, diarrhea, melena, hematochezia, change in appetite, : No dysuria, frequency, urgency, urinary incontinence, foamy urine Musculoskeletal: No joint swelling or muscle pain, trauma, back pain Neurologic: No dizziness, fainting, seizures, changes in smell or taste Psychiatric: No nervousness, stress, or depression, anxiety, hallucinations Endocrine: No weight change, heat or cold intolerance, tremor, insomnia Physical Exam: Vitals: reviewed General: NAD HEENT: nc, at Neck: supple Chest: clear breath sounds bilaterally Cardiovascular: RRR, no s3, s4 Abdomen: soft, nontender, nd Extremities: no cce, normal range of motion Neuro: alert and oriented Labs: reviewed Assessment and Recs # Pulmonary nodule, noted on cxr, total circumference 6mm --> recs to consider ct scan, will order at this time --> results based on above # Recent Fall, syncope --> orthostatics pending --> per neuro recs as well prn -> ekg has been reviewed # Coronary artery disease with old inferior wall [place] based on EKG and lateral T- wave inversion --> as per cards. # History of bradycardia. Patient was bradycardic in the past also. # Hypertension. --> per cards, Norvasc 10 mg and lisinopril 10 mg daily. # History of hemorrhagic stroke, no seizures, with evidence of prior right craniotomy and encephalomalacia The timing of this note does not necessarily reflect the time of the patient was seen. Greatly appreciate consultation. Mio Nassar MD Oct 15, 2019 06:38
--- NOTE | 2019-10-15 07:15 | NUR ---
HAND-OFF: Report given to STEW Funk. Patient stable. Plan of care endorsed.
[2019-10-15 07:19] LABS: EOSINOPHILS % (AUTO) 4.7 % (0.0-3.0); HEMATOCRIT 41.6 % (42.0-52.0); HEMOGLOBIN 13.3 G/DL (14.2-18.0); LYMPHOCYTES % (AUTO) 17.8 % (20.0-45.0); MEAN CORPUSCULAR VOLUME 91 FL (80-99); MONOCYTES % (AUTO) 5.2 % (1.0-10.0); NEUTROPHILS % (AUTO) 71.4 % (45.0-75.0); PLATELET COUNT 185 K/UL (150-450); RED BLOOD COUNT 4.57 M/UL (4.70-6.10); WHITE BLOOD COUNT 7.7 K/UL (4.8-10.8)
--- NOTE | 2019-10-15 07:30 | NUR ---
NURSE NOTES: Received report from Lucy MATHIAS. Pt alert and oriented x2, NPO, with soft restraints to the R wrist, L sided weakness and cannot move arm. L FA IV patent and infusing IVF. Pt in bed resting, bed locked and in lowest position, call light within reach.
[2019-10-15 07:54] LABS: INR 1.1 (0.9-1.1)
[2019-10-15 08:00] VITALS: BP 107/68
[2019-10-15 08:01] LABS: ALANINE AMINOTRANSFERASE 22 U/L (12-78); ALBUMIN 3.2 G/DL (3.4-5.0); ALKALINE PHOSPHATASE 71 U/L (46-116); ANION GAP 11 mmol/L (5-15); ASPARTATE AMINO TRANSFERASE 21 U/L (15-37); BILIRUBIN,TOTAL 0.7 MG/DL (0.2-1.0); BLOOD UREA NITROGEN 14 mg/dL (7-18); CALCIUM 8.9 MG/DL (8.5-10.1); CARBON DIOXIDE 24 MMOL/L (21-32); CHLORIDE 106 MMOL/L (98-107); CHOLESTEROL 97 MG/DL (< 200); HDL CHOLESTEROL 38 MG/DL (40-60); POTASSIUM 2.8 MMOL/L (3.5-5.1); SODIUM 142 MMOL/L (136-145); TRIGLYCERIDES 89 MG/DL (30-150)
[2019-10-15] MEDS: Heparin 5000 units/ml inj SUBQ SCH ×2 (09:00→21:44)
[2019-10-15] MEDS: levETIRAcetam 500mg/5ml Liquid ORAL SCH (09:32)
[2019-10-15] MEDS: Amantadine 100mg cap ORAL SCH ×2 (09:32→17:37)
[2019-10-15] MEDS: Memantine 5 MG TAB ORAL SCH (09:32)
[2019-10-15] MEDS: OLANZapine 2.5mg tab ORAL SCH (09:32)
[2019-10-15] MEDS: Aspirin EC 81mg tab ORAL SCH (09:32)
--- NOTE | 2019-10-15 09:54 | NUR ---
*-*DISCHARGE PLANNING*-* PATIENT HAS BEEN REFERRED TO: MAJO PADILLA P: [phone]
--- NOTE | 2019-10-15 10:30 | History and Physical Report ---
DATE OF ADMISSION: 10/14/2019 DATE AND TIME SEEN: 10/15/2019 at 9 a.m. CONSULTANTS: 1. Crow Villalobos MD. 2. Dr. Carpio. 3. Dr. Nassar. 4. Sugey Love MD. 5. Deanne Argueta MD. CHIEF COMPLAINT: Status post syncope, fall, weakness, bradycardia, and lung nodule. BRIEF HISTORY: This is a 74-year-old male from [facility], who presents with history of syncopal episode, came to [place], diagnosed with the above as well as bradycardia and incidental finding of lung nodule, admitted to telemetry for further care. Currently, calm in bed, slightly confused. No complaint otherwise. REVIEW OF SYSTEMS: No chest pain. No shortness of breath. No nausea or vomiting. PAST MEDICAL HISTORY: Includes seizure, hypertension, malnutrition, BPH, CVA , Parkinson. PAST SURGICAL HISTORY: Unknown. ALLERGIES: Benazepril, quetiapine, and sertraline. MEDICATIONS: Include Norvasc, amlodipine, amantadine, Finasteride, levetiracetam, memantine, olanzapine, albuterol, polyethylene glycol, Zofran, and nitroglycerin. SOCIAL HISTORY: No smoking. No alcohol. No intravenous drug abuse. FAMILY HISTORY: Noncontributory. PHYSICAL EXAMINATION: GENERAL: Calm in bed, oriented x1, in no acute distress. VITAL SIGNS: Temperature is 97, pulse 101, respirations 22, blood pressure 134/82. CARDIOVASCULAR: No murmurs. LUNGS: Distant and clear. ABDOMEN: Bowel sound positive. Nontender. Nondistended. EXTREMITIES: No cyanosis, clubbing, or edema. NEUROLOGIC: The patient is slightly weak x4, otherwise moves all extremities. LABORATORY AND DIAGNOSTIC DATA: Labs at this time show hemoglobin and hematocrit 13/41, otherwise CBC is normal. BMP shows potassium 2.8. BNP is 946. Albumin 3.2. TSH 1.14. Troponin is 0.05. INR is 1.1. ASSESSMENT: 1. Syncope. 2. Weakness. 3. Bradycardia. 4. History of CVA. 5. Lung nodule. 6. Seizure. 7. Hypertension. 8. Malnutrition. 9. Parkinson. 10. BPH. PLAN: 1. PT, OT and dietary followup. 2. Blood pressure, pain control, and seizure control. 3. Troponin q.8 h. x3. 4. EKG in a.m. 5. Resume home medications. 6. evaluation. 7. CBC and BMP in the morning. jS Robles D.O. DR: KENDY JOB#: [id number] CC:
--- NOTE | 2019-10-15 10:52 | NUR ---
CASE MANAGEMENT: INITIAL REVIEW 74YR OLD MALE BIBA FROM [facility] CC:MULTIPLE TRAMA /FALL SI:FALL/SYNCOPE . SINUS RHYTHM 97.8 53 18 114/84 97% ON RA BG 116 PT 11.9 IS:IV D5@50ML/HR HEPARIN SQ BID FLOMAX PO QHS CT HEAD- Chronic and age-related changes, including multiple old infarcts, a described Negative for acute intracranial bleed or mass effect. Postsurgical changes, as described. Minimal sinus disease incidentally noted CT C Spine no Contrast-No acute bony trauma XRAY Chest 1v-Possible small right lung nodule. Recommend further evaluation with CT. No acute process otherwise \:2E TELE UNIT DCP:[facility] PLAN: PT EVAL IN AM CASE MANAGEMENT: REVIEW 10/15/19 SI:FALL/SYNCOPE . SINUS RHYTHM PMH: LEFT SIDED WEAKNESS FROM PREVIOUS STROKE 97.5 71 20 107/68 97% ON RA PT 12.1 K+2.8 BNP 946 ALB 3.2 HDL CHOL 38 IS:IV D5@50ML/HR NORVASC PO QD SYMMETREL PO BID ASPIRIN PO QD PROSCAR PO QD KEPPRA PO QD NAMENDA PO QD ZYPREXA PO QD HEPARIN SQ BID FLOMAX PO QHS CAROTID DUPLEX- Less than 50% stenosis bilaterally \:2E TELE UNIT DCP:[facility] PLAN: ESTABLISHED PLAN OF CARE FROM PT NOTE-PENDING MAJO EVAL IN PROCESS BEDSIDE SPEECH EVAL NUTRITIONAL EVAL NPO NON-VIOLENT RESTRAINTS
--- NOTE | 2019-10-15 10:58 | Diagnostic Imaging Report ---
Indication: Syncope Technique: Grayscale and duplex images of the extracranial carotid circulation were obtained Comparison: None Findings: Bilaterally, grayscale and duplex images demonstrate mild atherosclerotic plaquing resulting in less than 50% diameter narrowing. Normal Doppler flow velocities and waveforms. Patent bilateral vertebral arteries, antegrade flow Impression: Less than 50% stenosis bilaterally All stenosis was measured based on the NASCET criteria. Velocity criteria are extrapolated from diameter data as defined by the Society of radiologists in ultrasound consensus conference. Radiology 2003:229; 340-346
--- NOTE | 2019-10-15 11:15 | NUR ---
NURSE NOTES: Potassium level 2.8, Dr. Love made aware.
--- NOTE | 2019-10-15 11:23 | NUR ---
*-*DISCHARGE PLANNING*-* PATIENT HAS BEEN REFERRED TO: MAJO PADILLA P: [phone] S/W DESTINY, NEED PHYSICAL THERAPY NOT, WILL CALL BACK AFTER REVIEW.
[2019-10-15 11:55] VITALS: BP 123/73
[2019-10-15] MEDS: D5 1/2NS 1,000 ML IV SCH (12:59)
--- NOTE | 2019-10-15 13:46 | NUR ---
P.T NOTE: P.T EVALUATION COMPLETED AND TX INITIATED. PLEASE REFER TO P.T EVALUATION FOR CURRENT FUNCTIONAL STATUS AND RECOMMENDATION. Addendum: 10/15/19 at 1350 by PAOLA ANDERSON PT Amended: Links added.
--- NOTE | 2019-10-15 14:36 | Consultation ---
History of Present Illness General Date patient seen: Oct 15, 2019 Chief Complaint: Multiple Trauma/Fall Present Illness HPI 73 year old male with hx of CVA, LEFT SIDE PARALYSIS, Parkinson, hypertension presented to ER because of frequent falls in the last days. He has a history of a prior stroke. Patient is anxious and asking to see his . Pt is admitted to telemetry for further management. Allergies: Coded Allergies: DONEPEZIL (Verified Allergy, Unknown, 12/21/17) QUETIAPINE (Verified Allergy, Unknown, 12/21/17) SERTRALINE (Verified Allergy, Unknown, 12/21/17) Medication History Scheduled Amantadine Hcl* (Amantadine*), 100 MG ORAL TWICE A DAY, (Reported) Amlodipine Besylate (Norvasc), 10 MG ORAL DAILY, (Reported) Ascorbic Acid* (Ascorbic Acid*), 1,000 MG ORAL DAILY, (Reported) Aspirin* (Aspirin*), 81 MG ORAL DAILY, (Reported) Atorvastatin Calcium* (Lipitor*), 80 MG ORAL BEDTIME, (Reported) Baclofen* (Baclofen*), 10 MG ORAL THREE TIMES A DAY, (Reported) Bisacodyl (Bisacodyl), 10 MG RC EVERY OTHER DAY, (Reported) Carvedilol* (Carvedilol*), 3.125 MG ORAL EVERY 12 HOURS, (Reported) Clopidogrel Bisulfate* (Plavix*), 75 MG ORAL DAILY, (Reported) Divalproex Sodium* (Depakote Er*), 250 MG ORAL EVERY 12 HOURS, (Reported) Docusate Sodium* (Docusate Sodium*), 100 MG ORAL DAILY, (Reported) Finasteride* (Proscar*), 5 MG ORAL DAILY, (Reported) Gabapentin* (Gabapentin*), 300 MG ORAL THREE TIMES A DAY, (Reported) Labetalol Hcl* (Normodyne*), 50 MG ORAL EVERY 12 HOURS, (Reported) Lactose-Free Food (Ensure Plus), 237 ML PO THREE TIMES A DAY, (Reported) Lactulose (Lactulose*), 30 ML ORAL THREE TIMES A DAY, (Reported) Levetiracetam (Keppra), 5 ML ORAL DAILY, (Reported) Lisinopril* (Zestril*), 10 MG ORAL DAILY, (Reported) Magnesium Oxide (Mag-Oxide), 400 MG PO DAILY, (Reported) Memantine Hcl* (Namenda*), 5 MG ORAL DAILY, (Reported) Multivitamin With Minerals (Multivitamins With Minerals*), 1 TAB ORAL DAILY, ( Reported) Niacin* (Niacin*), 250 MG ORAL DAILY, (Reported) Olanzapine (Olanzapine), 2.5 MG ORAL DAILY, (Reported) Sennosides (Senna Laxative), 8.6 MG PO BEDTIME, (Reported) Tamsulosin Hcl (Tamsulosin Hcl*), 0.4 MG ORAL BEDTIME, (Reported) Scheduled PRN Acetaminophen* (Acetaminophen 325MG Tablet*), 650 MG ORAL Q4H PRN for For Pain, (Reported) Hydrocodone Bit/Acetaminophen 5-325* (Caldwell 5-325 Tablet*), 1 TAB ORAL Q4H PRN for For Pain, (Reported) Loperamide Hcl (Loperamide), 2 MG PO QID PRN for Diarrhea, (Reported) Lorazepam* (Ativan*), 0.5 MG ORAL Q6HR PRN for For Anxiety, (Reported) Miscellaneous Medications Insulin Aspart (Novolog), UNIT SQ, (Reported) Patient History Healthcare decision maker LULA SCHWARZ Resuscitation status Advanced Directive on File Past Medical/Surgical History Past Medical/Surgical History: (1) HTN (hypertension) (2) BPH (benign prostatic hyperplasia) (3) History of cerebrovascular accident (4) Left-sided weakness (5) Parkinson disease Review of Systems All Other Systems: negative except mentioned in HPI Physical Exam General Appearance: WD/WN, no apparent distress Lines, tubes and drains: peripheral Neck: non-tender, normal alignment Respiratory/Chest: chest wall non-tender, lungs clear Breasts: no masses Cardiovascular/Chest: normal peripheral pulses, normal rate Abdomen: normal bowel sounds Genitourinary/Rectal: normal genital exam Extremities: non-tender Skin Exam: normal pigmentation 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 Last 24 Hour Vital Signs Date Time Temp Pulse Resp B/P (MAP) Pulse Ox O2 Delivery O2 Flow Rate FiO2 10/15/19 11:55 97.7 69 18 123/73 (90) 99 10/15/19 11:40 67 10/15/19 09:33 71 107/68 10/15/19 09:00 Room Air 10/15/19 08:00 97.5 71 20 107/68 (81) 97 10/15/19 07:40 72 10/15/19 04:00 97.0 94 22 134/82 (99) 98 10/15/19 04:00 101 10/15/19 00:00 61 10/15/19 00:00 96.5 55 16 136/76 (96) 98 10/14/19 21:00 Room Air 10/14/19 20:00 96.4 61 20 135/78 (97) 99 10/14/19 20:00 62 10/14/19 18:20 Room Air 10/14/19 17:31 98.5 59 16 156/70 100 Room Air 10/14/19 15:37 98.2 49 16 151/79 95 Room Air Intake and Output 10/14/19 10/15/19 19:00 07:00 Intake Total 100 ml Output Total 150 ml Balance -50 ml Intake Other 100 ml Output Urine Total 150 ml # Voids 1 Laboratory Tests Test 10/15/19 06:34 White Blood Count 7.7 K/UL (4.8-10.8) Red Blood Count 4.57 M/UL (4.70-6.10) L Hemoglobin 13.3 G/DL (14.2-18.0) L Hematocrit 41.6 % (42.0-52.0) L Mean Corpuscular Volume 91 FL (80-99) Mean Corpuscular Hemoglobin 29.1 PG (27.0-31.0) Mean Corpuscular Hemoglobin Concent 32.1 G/DL (32.0-36.0) Red Cell Distribution Width 14.0 % (11.6-14.8) Platelet Count 185 K/UL (150-450) Mean Platelet Volume 10.0 FL (6.5-10.1) Neutrophils (%) (Auto) 71.4 % (45.0-75.0) Lymphocytes (%) (Auto) 17.8 % (20.0-45.0) L Monocytes (%) (Auto) 5.2 % (1.0-10.0) Eosinophils (%) (Auto) 4.7 % (0.0-3.0) H Basophils (%) (Auto) 1.0 % (0.0-2.0) Prothrombin Time 12.1 SEC (9.30-11.50) H Prothromb Time International Ratio 1.1 (0.9-1.1) Activated Partial Thromboplast Time 32 SEC (23-33) Sodium Level 142 MMOL/L (136-145) Potassium Level 2.8 MMOL/L (3.5-5.1) L Chloride Level 106 MMOL/L (98-107) Carbon Dioxide Level 24 MMOL/L (21-32) Anion Gap 11 mmol/L (5-15) Blood Urea Nitrogen 14 mg/dL (7-18) Creatinine 1.0 MG/DL (0.55-1.30) Estimat Glomerular Filtration Rate > 60 mL/min (>60) Glucose Level 102 MG/DL (74-106) Calcium Level 8.9 MG/DL (8.5-10.1) Total Bilirubin 0.7 MG/DL (0.2-1.0) Aspartate Amino Transf (AST/SGOT) 21 U/L (15-37) Alanine Aminotransferase (ALT/SGPT) 22 U/L (12-78) Alkaline Phosphatase 71 U/L (46-116) Ammonia 20 umol/L (11-32) Troponin I 0.050 ng/mL (0.000-0.056) Pro-B-Type Natriuretic Peptide 946 pg/mL (0-125) H Total Protein 6.3 G/DL (6.4-8.2) L Albumin 3.2 G/DL (3.4-5.0) L Globulin 3.1 g/dL Albumin/Globulin Ratio 1.0 (1.0-2.7) Triglycerides Level 89 MG/DL (30-150) Cholesterol Level 97 MG/DL (< 200) LDL Cholesterol 46 mg/dL (<100) HDL Cholesterol 38 MG/DL (40-60) L Cholesterol/HDL Ratio 2.6 (3.3-4.4) L Thyroid Stimulating Hormone (TSH) 1.143 uiU/mL (0.358-3.740) Microbiology Date/Time Source Procedure Growth Status 10/14/19 15:30 Rectal Mucosa Received Height (Feet): 5 Height (Inches): 6.00 Weight (Pounds): 138 Medications Current Medications Medications (Trade) Dose Ordered Sig/Sonia Route PRN Reason Start Time Stop Time Status Last Admin Dose Admin Acetaminophen (Tylenol) 650 mg Q4H PRN ORAL fever 10/14/19 18:15 11/13/19 18:14 Albuterol/ Ipratropium (Albuterol/ Ipratropium) 3 ml Q4H PRN HHN Shortness of Breath 10/14/19 18:15 10/19/19 18:14 Amantadine HCl (Symmetrel) 100 mg TWICE A DAY ORAL 10/15/19 09:00 11/14/19 08:59 10/15/19 09:32 Amlodipine Besylate (Norvasc) 5 mg DAILY ORAL 10/15/19 09:00 11/14/19 08:59 10/15/19 09:33 Aspirin (Ecotrin) 81 mg DAILY ORAL 10/15/19 09:00 11/29/19 08:59 10/15/19 09:32 Clonidine HCl (Catapres Tab) 0.1 mg Q4H PRN ORAL htn 10/14/19 18:00 01/12/20 17:59 Dextrose (Dextrose 50%) 25 ml Q30M PRN IV Hypoglycemia 10/14/19 18:15 01/12/20 18:14 Dextrose (Dextrose 50%) 50 ml Q30M PRN IV Hypoglycemia 10/14/19 18:15 01/12/20 18:14 Dextrose/Sodium Chloride 1,000 ml @ 50 mls/hr Q20H IV 10/14/19 18:15 11/13/19 18:14 10/15/19 12:59 Finasteride (Proscar) 5 mg DAILY ORAL 10/15/19 09:00 01/13/20 08:59 10/15/19 09:33 Heparin Sodium (Porcine) (Heparin 5000 units/ml) 5,000 units EVERY 12 HOURS SUBQ 10/14/19 21:00 11/28/19 20:59 10/15/19 09:00 Levetiracetam (Keppra) 500 mg DAILY ORAL 10/15/19 09:00 11/29/19 08:59 10/15/19 09:32 Memantine (Namenda) 5 mg DAILY ORAL 10/15/19 09:00 11/14/19 08:59 10/15/19 09:32 Nitroglycerin (Ntg) 0.4 mg Q5M X 3 DOSES PRN SL Prn Chest Pain 10/14/19 18:15 11/13/19 18:14 Olanzapine (ZyPREXA) 2.5 mg DAILY ORAL 10/15/19 09:00 11/29/19 08:59 10/15/19 09:32 Ondansetron HCl (Zofran) 4 mg Q6H PRN IVP Nausea & Vomiting 10/14/19 18:15 11/13/19 18:14 Polyethylene Glycol (Miralax) 17 gm HSPRN PRN ORAL Constipation 10/14/19 18:15 11/13/19 18:14 Promethazine HCl/ Codeine (Phenergan with Codeine) 5 ml Q4H PRN ORAL For Cough 10/14/19 18:15 11/13/19 18:14 Tamsulosin HCl (Flomax) 0.4 mg BEDTIME ORAL 10/14/19 21:00 11/13/19 20:59 10/14/19 21:32 Temazepam (Restoril) 15 mg HSPRN PRN ORAL Insomnia 10/14/19 18:15 10/21/19 18:14 Assessment/Plan Problem List: (1) Frequent falls ICD Codes: R29.6 - Repeated falls SNOMED: 680211464 (2) Seizure as late effect of cerebrovascular accident (CVA) ICD Codes: I69.398 - Other sequelae of cerebral infarction; R56.9 - Unspecified convulsions SNOMED: 284876282804562 (3) Parkinson disease ICD Codes: G20 - Parkinson's disease SNOMED: 78671695 (4) HTN (hypertension) ICD Codes: I10 - Essential (primary) hypertension SNOMED: 65575165 (5) Left-sided weakness ICD Codes: R53.1 - Weakness SNOMED: 122640041 (6) Vascular dementia ICD Codes: F01.50 - Vascular dementia without behavioral disturbance SNOMED: 682399995 (7) BPH (benign prostatic hyperplasia) ICD Codes: N40.0 - Benign prostatic hyperplasia without lower urinary tract symptoms SNOMED: 309755798 (8) History of cerebrovascular accident ICD Codes: Z86.73 - Personal history of transient ischemic attack (TIA), and cerebral infarction without residual deficits SNOMED: 300910395 Assessment/Plan: telemetry monitoring Neuro evaluation for possible uncontrolled seizures monitor BP seizure precaution fall precaution psych evaluation K supplement Sugey Love MD Oct 15, 2019 14:36
--- NOTE | 2019-10-15 14:43 | Cardiac Electrophysiology PN ---
Assessment/Plan Assessment/Plan 1. Syncope. Patient does not have any chest pain. Ruled out for TX protocol. Carotid duplex less than 50% stenosis Echo pending. 2. Coronary artery disease with old inferior wall TX based on EKG and lateral T-wave inversion. Patient denies any chest pain. 3. History of bradycardia. Patient was bradycardic in the past also. 4. Hypertension. On Norvasc 10 mg and lisinopril 10 mg daily. 5. History of hemorrhagic stroke, no seizures, with evidence of prior right craniotomy and encephalomalacia. Further evaluation by Neurology. 6. Rule out Covid STEPHANIE RN Subjective Subjective Alert in NAD. Is being ruled out for Covid.Carotid duplex no critical stenosis. No more syncope Objective Last 24 Hour Vital Signs Date Time Temp Pulse Resp B/P (MAP) Pulse Ox O2 Delivery O2 Flow Rate FiO2 10/15/19 11:55 97.7 69 18 123/73 (90) 99 10/15/19 11:40 67 10/15/19 09:33 71 107/68 10/15/19 09:00 Room Air 10/15/19 08:00 97.5 71 20 107/68 (81) 97 10/15/19 07:40 72 10/15/19 04:00 97.0 94 22 134/82 (99) 98 10/15/19 04:00 101 10/15/19 00:00 61 10/15/19 00:00 96.5 55 16 136/76 (96) 98 10/14/19 21:00 Room Air 10/14/19 20:00 96.4 61 20 135/78 (97) 99 10/14/19 20:00 62 10/14/19 18:20 Room Air 10/14/19 17:31 98.5 59 16 156/70 100 Room Air 10/14/19 15:37 98.2 49 16 151/79 95 Room Air Intake and Output 10/14/19 10/15/19 19:00 07:00 Intake Total 100 ml Output Total 150 ml Balance -50 ml Intake Other 100 ml Output Urine Total 150 ml # Voids 1 Laboratory Tests Test 10/15/19 06:34 White Blood Count 7.7 K/UL (4.8-10.8) Red Blood Count 4.57 M/UL (4.70-6.10) L Hemoglobin 13.3 G/DL (14.2-18.0) L Hematocrit 41.6 % (42.0-52.0) L Mean Corpuscular Volume 91 FL (80-99) Mean Corpuscular Hemoglobin 29.1 PG (27.0-31.0) Mean Corpuscular Hemoglobin Concent 32.1 G/DL (32.0-36.0) Red Cell Distribution Width 14.0 % (11.6-14.8) Platelet Count 185 K/UL (150-450) Mean Platelet Volume 10.0 FL (6.5-10.1) Neutrophils (%) (Auto) 71.4 % (45.0-75.0) Lymphocytes (%) (Auto) 17.8 % (20.0-45.0) L Monocytes (%) (Auto) 5.2 % (1.0-10.0) Eosinophils (%) (Auto) 4.7 % (0.0-3.0) H Basophils (%) (Auto) 1.0 % (0.0-2.0) Prothrombin Time 12.1 SEC (9.30-11.50) H Prothromb Time International Ratio 1.1 (0.9-1.1) Activated Partial Thromboplast Time 32 SEC (23-33) Sodium Level 142 MMOL/L (136-145) Potassium Level 2.8 MMOL/L (3.5-5.1) L Chloride Level 106 MMOL/L (98-107) Carbon Dioxide Level 24 MMOL/L (21-32) Anion Gap 11 mmol/L (5-15) Blood Urea Nitrogen 14 mg/dL (7-18) Creatinine 1.0 MG/DL (0.55-1.30) Estimat Glomerular Filtration Rate > 60 mL/min (>60) Glucose Level 102 MG/DL (74-106) Calcium Level 8.9 MG/DL (8.5-10.1) Total Bilirubin 0.7 MG/DL (0.2-1.0) Aspartate Amino Transf (AST/SGOT) 21 U/L (15-37) Alanine Aminotransferase (ALT/SGPT) 22 U/L (12-78) Alkaline Phosphatase 71 U/L (46-116) Ammonia 20 umol/L (11-32) Troponin I 0.050 ng/mL (0.000-0.056) Pro-B-Type Natriuretic Peptide 946 pg/mL (0-125) H Total Protein 6.3 G/DL (6.4-8.2) L Albumin 3.2 G/DL (3.4-5.0) L Globulin 3.1 g/dL Albumin/Globulin Ratio 1.0 (1.0-2.7) Triglycerides Level 89 MG/DL (30-150) Cholesterol Level 97 MG/DL (< 200) LDL Cholesterol 46 mg/dL (<100) HDL Cholesterol 38 MG/DL (40-60) L Cholesterol/HDL Ratio 2.6 (3.3-4.4) L Thyroid Stimulating Hormone (TSH) 1.143 uiU/mL (0.358-3.740) Microbiology Date/Time Source Procedure Growth Status 10/14/19 15:30 Rectal Mucosa Received Objective NECK: No JVD. LUNGS: Clear. CARDIOVASCULAR: Regular S1 and S2 with no gallop or murmur. ABDOMEN: Soft. EXTREMITIES: No pitting edema. Crow Villalobos MD Oct 15, 2019 14:43
[2019-10-15 16:00] VITALS: BP 118/68
--- NOTE | 2019-10-15 16:36 | NUR ---
[facility] BEDSIDE SWALLOW EVALUATION PATIENT REFERRED TO [facility] BY DR. BRAUN. DYSPHAGIA RISK FACTORS FOR THIS 74 Y.O. MONTSERRATIAN MALE: ACUTE: s/p Syncope, fall, weakness, bradycardia, lung nodule, PUI COVID 19, CAD. H/O: Seizure, HTN, malnutrition, BPH, hemorrhagic CVA (lacunar infarct on Right thalamus) with Right craniotomy and encephalomalacia, right side paralysis, Parkinson disease, Bipolar D/o, convulsions, Hyperlipidemia, functional Dyspnea, Dermatitis, Gastritis, major depressive d/o, Oropharyngeal Dysphagia, Anemia, old inferior wall SD. RELEVANT MEDS: Zofran (Nausea); Restoril (insomnia); Albuterol (SOB); Promethazine HCI (Pain); Namenda (Alzheimer). VITALS on ROOM AIR: HR: 69; RR: 18; SP02 99% POLST: DNR, ok with care home alternative nutrition/hydration. PLOF: Patient does have a prior dx of cognitive communicative deficits and dysphagia. No information on texture of diet at previous facility. [facility] attempted to call Patient's daughter for information regarding prior diet, however, no answer. PER RN: Patient given medications crushed with apple sauce with no overt s/s of aspiration, [facility] referral due to Patient noted to cough with thin liquids. Patient is pleasant and alert for [facility] evaluation, seen at bedside on room air and VSS for session. Patients primary language is Chilean, however, able to communicate wants and needs in Serbian. Patient reporting no history of swallowing deficits. Patient noted with deficits in memory and short term recall, required re-introduction throughout session, also, auditory comprehension is slightly poor. Patient has intact natural dentition, oral motor coordination slightly reduced albeit functional for >90% speech intelligibility in context INITIAL IMPRESSIONS: Mild to Moderate Oropharyngeal Dysphagia (pharyngeal phase appears worse) due to suspected sensorimotor deficits (h/o CVA with right sided paralysis) compounded by poor breathing-swallowing coordination with prolonged rotary mastication with soft solids, mild oral residuals, laryngeal elevation per palpations appears delayed and reduced, overt s/s with thin liquids; no overt s/s of aspiration with nectar thick liquids, puree solids, or soft solids. PO TRIALS: -Thin Liquids via teaspoon and cup resulting in immediate overt s/s of aspiration, coughs appear slightly weak. Patient followed directions for throat clear and re-swallow. Laryngeal elevation appears reduced and delayed. -Corinna Thick Liquids via spoon, cup, and straw: No overt s/s of aspiration, laryngeal elevation appears reduced and delayed per palpation, vocal quality clear, no oral residuals. -Puree Solids: Adequate bolus control, functional A-P transit, no oral residuals, no overt s/s of aspiration. -Soft Solids: Good bolus containment via labial seal, oral motor coordination slightly reduced and bolus re-collection x2, prolonged rotary mastication, mild oral residuals cleared with liquid rinse. PATIENT HAS RISK FOR ASPIRATION GIVEN H/O CVA, PARKINSON AND POOR RESPIRATORY-SWALLOWING COORDINATION. Patient will require 1 to 1 feeding due to Patients difficulty with self-feeding (has tremors/weakness while self-feeding during evaluation) and forgetfulness. Also, would benefit from verbal cues to implement safe swallow strategies. Results, recommendations, and plan communicated to RN. RECOMMENDATIONS: 1. Mechanical soft-Fine ground Solids with Corinna Thick Liquids via 1 to 1 careful handfeeding. Do not feed if respiratory rate is >24 breaths/min, watch for Patients swallow. ----Appreciate RD recommendations for diet type/supplements. 2. [facility] to f/u 5xv a week x 1 week for dysphagia tx and speech/language therapy. 3. Please assist Patient with oral care BID 4. Patient may benefit from MBSS while in house, will monitor swallow efficiency and progress towards goals to determine candidacy. [facility] also completed Speech, Language, and Cognitive Communicative Evaluation, report to follow. Thank you for this referral! [facility] [phone]
--- NOTE | 2019-10-15 16:53 | NUR ---
NURSE NOTES:WOUND CARE NOTES:Pt presented on admission with resurfaced erythema with shearing over previously compromised skin. Site tender when minimally palpated. area of hyperpigmentation noted along borders of Pressure injury . Scrotum is erythematous. L Heel and lateral aspect Boggy with non-blanchable erythema.Tender when minimally palpated. R heel is boggy with non-blanchable erythema. Non-tender when minimally palpated. Tx.Plan: Apply Moisture Barrier Paste to sacrum. Cover with Optifoam drsg. Change every 3 days and prn. Apply Moisture Barrier Paste to Scrotum and bilat Ischial tuberosities with each Incontinence care. Apply Cavilon Skin Barrier to R and L trochanteric areas. Cover each site with Optifoam drsgs. Change every 7 days and prn Apply Cavilon Skin Barrier to Both heels and Malleoli. Cover each site with Optifoam drsgs. Change every 7 days and prn. Reposition at least every 2hours or as tolerated. Off-load heels with pillow.
--- NOTE | 2019-10-15 18:46 | NUR ---
NURSE NOTES: Pt alert & oriented to person with bouts of confusion, L sided weakness and barely able to move L arm but able to slightly lift L leg, elevated L arm and lower extremities to relieve pressure. Optifoam pads on sacrum and both heels. Bilateral lung sounds diminished, pt on room air, no acute respiratory distress noted. IV site to the L FA patent and running IVF, R wrist soft restraints still in place for pt safety, pulse palpable and skin intact. Bed locked and in lowest position, call light within reach.
--- NOTE | 2019-10-15 19:15 | NUR ---
HAND-OFF: Report given to Lucy MATHIAS, endorsed plan of care.
--- NOTE | 2019-10-15 19:24 | NUR ---
NURSE NOTES: Report received from STEW Blanco. Patient AOx1-2, to name and place, with episodes of forgetfulness and confusion. On right wrist soft restraints for safety and pulling out IVs. Received with no IV access, will attempt to initiate a line during the shift. on room air, saturating well. bed in lowest position, brakes engaged and locked. Call light placed within reach. Will continue to monitor.
[2019-10-15 20:00] VITALS: BP 148/75
[2019-10-15] MEDS: Tamsulosin 0.4mg cap ORAL SCH (21:43)
[2019-10-16] VITALS: BP 106/73
--- NOTE | 2019-10-16 01:45 | Progress Note ---
DATE: 10/15/2019 CONSULTING PHYSICIAN: Pao Mcpherson PsyD TREATING ATTENDING PHYSICIAN: Sj Robles DO HISTORY OF PRESENT ILLNESS: Patient is a 74-year-old male patient. This patient was admitted to the hospital for fall, syncope. Patient has been since confused and very agitated, pulling out his IV line, and for these reasons he was referred for psychotherapeutic services. I assessed this patient. Patient is [facility]. He has been disorganized and . He states that he knows that he is in the hospital. He knows the ; however, does not know why he is in the hospital. It is difficult for him to maintain his attention for a long period of time. Most of the time he states "I don't know" when he was asked why he was brought here. He did not know where he was living prior to his hospitalization, did not know what symptoms he has at times. He does remain confused. The nursing staff has also confirmed that the patient has been pulling out his IV line . Patient at this time is very confused, disorganized, suicidal or homicidal thoughts of ideation. There is no indication of auditory or visual hallucinations. PAST MEDICAL HISTORY: History of seizures, hypertension. ALLERGIES: Patient is allergic to Benazepril, quetiapine, and sertraline. SUBSTANCE ABUSE HISTORY: There is no indication of alcohol use, illicit substance use, or IV drug use. PSYCHIATRIC HISTORY: There is no significant information of his psychiatric history at this time. SOCIAL HISTORY: Patient is a 74-year-old single male patient. He is from [facility]. Financially sustained through [facility]. MENTAL STATUS EXAMINATION: He is alert and oriented to person and place. His mood is irritable. Affect is calm. Thought process disorganized. He has poor attention and concentration. Poor insight, judgment, impulse control. DIAGNOSES: 1. Rule out major neurocognitive disorder, Alzheimer's type, with behavioral disturbances and generalized anxiety disorder. 2. Hypertension, seizures, malnutrition. 3. Psychosocial stressors are moderate. STRENGTHS: The patient is currently in a [facility] facility. WEAKNESSES: Patient is confused, disorganized, and helpless. TODAY I ASSESSED THIS PATIENT AND PROVIDED HIM WITH: 1. Reality orientation, which is focused on improving his cognitive level of function as the patient is very confused and disorganized. Oriented to person, place, time, and situation. 2. Provided the patient with supportive psychotherapy. 3. communication skills. 4. Encouraged the patient to participate in treatment milieu as well as medication regimen plan and maintaining medication compliance with the use of positive coping skills to stabilize mood, thoughts, and behavior. Psychotherapy service provide for this patient is 45 minutes. This clinician has reviewed the patient's chart and discussed treatment with treatment team. Pao Mcpherson PsyD. DR: GREGORY JOB#: [id number] CC:
[2019-10-16 04:00] VITALS: BP 111/56
--- NOTE | 2019-10-16 07:05 | NUR ---
NURSE NOTES: Received report from STEW Ayala. Patient AAO x1. No acute distress. Denies pain. Breathing regular and unlabored on room air. Radial pulses and pedal pulses palpable. Bilateral radial soft wrist restraints in place due to safety. Extremities cool and dry, skin color normal for ethnicity, no edema, cap refill <3 seconds. Assisted with hydration and feeding. Side rails raised x 3, call light in reach, bed low and locked, bed alarm on, fall education provided.
[2019-10-16 07:17] LABS: BASOPHILS % (AUTO) 1.3 % (0.0-2.0); EOSINOPHILS % (AUTO) 7.5 % (0.0-3.0); HEMATOCRIT 43.6 % (42.0-52.0); HEMOGLOBIN 13.8 G/DL (14.2-18.0); LYMPHOCYTES % (AUTO) 32.5 % (20.0-45.0); MEAN CORPUSCULAR VOLUME 92 FL (80-99); MONOCYTES % (AUTO) 4.9 % (1.0-10.0); NEUTROPHILS % (AUTO) 53.7 % (45.0-75.0); PLATELET COUNT 162 K/UL (150-450); RED BLOOD COUNT 4.73 M/UL (4.70-6.10); RED CELL DISTRIBUTION WIDTH 14.5 % (11.6-14.8); WHITE BLOOD COUNT 6.2 K/UL (4.8-10.8)
--- NOTE | 2019-10-16 07:31 | NUR ---
HAND-OFF: Report given to STEW roth. plan of care endorsed.
[2019-10-16 07:53] LABS: ANION GAP 8 mmol/L (5-15); BLOOD UREA NITROGEN 12 mg/dL (7-18); CALCIUM 8.7 MG/DL (8.5-10.1); CARBON DIOXIDE 28 MMOL/L (21-32); CHLORIDE 108 MMOL/L (98-107); CREATININE 1.1 MG/DL (0.55-1.30); POTASSIUM 3.7 MMOL/L (3.5-5.1); SODIUM 144 MMOL/L (136-145)
[2019-10-16 08:00] VITALS: BP 120/69
--- NOTE | 2019-10-16 08:22 | NUR ---
RD ASSESSMENT & RECOMMENDATIONS SEE CARE ACTIVITY FOR COMPLETE ASSESSMENT DAILY ESTIMATED NEEDS: Needs based on cardiac, wound 62.7kg 25-35 kcals/kg 6536-8349 total kcals 1.25-1.5 g protein/kg 78-94 g total protein 25-30 mL/kg 1550-6840 total fluid mLs NUTRITION DIAGNOSIS: * Self feeding difficulty R/T h/o CVA and Parkinson's disease as evidenced by pt w/ L side paralysis, requiring assistance during meals, on ms finely chopped texture diet. CURRENT DIET: Reg ms finely chopped w/ NTL PO DIET RECOMMENDATIONS--->>> Low Na/ texture per RENTAL SALES AGENT ADDITIONAL RECOMMENDATIONS: * Calibrated bedscale wt * Add Ensure 1 bottle BID * Wound care: add ELLYN BID * HgA1C for eval * Replete lytes as needed (K 2.8) . .
[2019-10-16] MEDS: Aspirin EC 81mg tab ORAL SCH (09:13)
[2019-10-16] MEDS: Amantadine 100mg cap ORAL SCH ×2 (09:13→17:19)
[2019-10-16] MEDS: Memantine 5 MG TAB ORAL SCH (09:13)
[2019-10-16] MEDS: OLANZapine 2.5mg tab ORAL SCH (09:13)
[2019-10-16] MEDS: levETIRAcetam 500mg/5ml Liquid ORAL SCH (09:13)
[2019-10-16] MEDS: Heparin 5000 units/ml inj SUBQ SCH ×2 (09:18→20:22)
[2019-10-16] MEDS: D5 1/2NS 1,000 ML IV SCH (10:15)
--- NOTE | 2019-10-16 10:57 | Hematology/Onc Progress Note ---
Assessment/Plan Assessment/Plan Assessment and Recs # Pulmonary nodule, noted on cxr, total circumference 6mm --> recs to consider ct scan, will order at this time --> results based on above --> pulm recs noted # Coagulopathy with elev PT --> vit K if any evidence of bleeding --> presurg management in future prn --> trend as needed # Recent Fall, syncope --> orthostatics pending --> per neuro recs as well prn -> ekg has been reviewed # Coronary artery disease with old inferior wall PR based on EKG and lateral T- wave inversion --> as per cards. # History of bradycardia. -> Patient was bradycardic in the past also. # Hypertension. --> per cards, Norvasc 10 mg and lisinopril 10 mg daily. # History of hemorrhagic stroke, no seizures, with evidence of prior right craniotomy and encephalomalacia The timing of this note does not necessarily reflect the time of the patient was seen. Greatly appreciate consultation. Subjective Allergies: Coded Allergies: DONEPEZIL (Verified Allergy, Unknown, 12/21/17) QUETIAPINE (Verified Allergy, Unknown, 12/21/17) SERTRALINE (Verified Allergy, Unknown, 12/21/17) All Systems: reviewed and negative except above Subjective 10/15 with wrist restraints, remains confused, no bleeding noted, no fc Objective Objective Current Medications Medications (Trade) Dose Ordered Sig/Sonia Route PRN Reason Start Time Stop Time Status Last Admin Dose Admin Acetaminophen (Tylenol) 650 mg Q4H PRN ORAL fever 10/14/19 18:15 11/13/19 18:14 Albuterol/ Ipratropium (Albuterol/ Ipratropium) 3 ml Q4H PRN HHN Shortness of Breath 10/14/19 18:15 10/19/19 18:14 Amantadine HCl (Symmetrel) 100 mg TWICE A DAY ORAL 10/15/19 09:00 11/14/19 08:59 10/16/19 09:13 Amlodipine Besylate (Norvasc) 5 mg DAILY ORAL 10/15/19 09:00 11/14/19 08:59 10/15/19 09:33 Aspirin (Ecotrin) 81 mg DAILY ORAL 10/15/19 09:00 11/29/19 08:59 10/16/19 09:13 Clonidine HCl (Catapres Tab) 0.1 mg Q4H PRN ORAL htn 10/14/19 18:00 01/12/20 17:59 Dextrose (Dextrose 50%) 25 ml Q30M PRN IV Hypoglycemia 10/14/19 18:15 01/12/20 18:14 Dextrose (Dextrose 50%) 50 ml Q30M PRN IV Hypoglycemia 10/14/19 18:15 01/12/20 18:14 Dextrose/Sodium Chloride 1,000 ml @ 50 mls/hr Q20H IV 10/14/19 18:15 11/13/19 18:14 10/16/19 10:15 Finasteride (Proscar) 5 mg DAILY ORAL 10/15/19 09:00 01/13/20 08:59 10/16/19 09:13 Heparin Sodium (Porcine) (Heparin 5000 units/ml) 5,000 units EVERY 12 HOURS SUBQ 10/14/19 21:00 11/28/19 20:59 10/16/19 09:18 Levetiracetam (Keppra) 500 mg DAILY ORAL 10/15/19 09:00 11/29/19 08:59 10/16/19 09:13 Lorazepam (Ativan 2mg/ml 1ml) 0.5 mg Q4H PRN IV For Anxiety 10/15/19 15:44 10/22/19 15:43 Memantine (Namenda) 5 mg DAILY ORAL 10/15/19 09:00 11/14/19 08:59 10/16/19 09:13 Nitroglycerin (Ntg) 0.4 mg Q5M X 3 DOSES PRN SL Prn Chest Pain 10/14/19 18:15 11/13/19 18:14 Olanzapine (ZyPREXA) 2.5 mg DAILY ORAL 10/15/19 09:00 11/29/19 08:59 10/16/19 09:13 Ondansetron HCl (Zofran) 4 mg Q6H PRN IVP Nausea & Vomiting 10/14/19 18:15 11/13/19 18:14 Polyethylene Glycol (Miralax) 17 gm HSPRN PRN ORAL Constipation 10/14/19 18:15 11/13/19 18:14 Promethazine HCl/ Codeine (Phenergan with Codeine) 5 ml Q4H PRN ORAL For Cough 10/14/19 18:15 11/13/19 18:14 Tamsulosin HCl (Flomax) 0.4 mg BEDTIME ORAL 10/14/19 21:00 11/13/19 20:59 10/15/19 21:43 Temazepam (Restoril) 15 mg HSPRN PRN ORAL Insomnia 10/14/19 18:15 10/21/19 18:14 10/15/19 21:43 Last 24 Hour Vital Signs Date Time Temp Pulse Resp B/P (MAP) Pulse Ox O2 Delivery O2 Flow Rate FiO2 10/16/19 09:00 56 120/69 10/16/19 09:00 Room Air 10/16/19 08:00 97.7 60 20 120/69 (86) 97 10/16/19 08:00 60 10/16/19 04:00 97.5 52 20 111/56 (74) 99 10/16/19 04:00 51 10/16/19 00:00 59 10/16/19 00:00 97.3 99 20 106/73 (84) 100 10/15/19 21:00 Room Air 10/15/19 20:00 97.7 55 20 148/75 (99) 100 10/15/19 20:00 60 10/15/19 16:00 97.9 62 20 118/68 (85) 98 10/15/19 15:31 67 10/15/19 11:55 97.7 69 18 123/73 (90) 99 10/15/19 11:40 67 10/15/19 09:33 71 107/68 10/15/19 09:00 Room Air 10/15/19 08:00 97.5 71 20 107/68 (81) 97 10/15/19 07:40 72 10/15/19 04:00 97.0 94 22 134/82 (99) 98 10/15/19 04:00 101 10/15/19 00:00 61 10/15/19 00:00 96.5 55 16 136/76 (96) 98 10/14/19 21:00 Room Air 10/14/19 20:00 96.4 61 20 135/78 (97) 99 10/14/19 20:00 62 10/14/19 18:20 Room Air 10/14/19 17:31 98.5 59 16 156/70 100 Room Air 10/14/19 15:37 98.2 49 16 151/79 95 Room Air 10/14/19 13:05 97.9 18 114/84 97 Room Air 10/14/19 13:05 53 18 Room Air 10/14/19 12:48 97.9 53 18 114/84 (94) 97 Room Air Intake and Output 10/15/19 10/16/19 19:00 07:00 Intake Total 240 ml 180 ml Output Total 250 ml 100 ml Balance -10 ml 80 ml Intake Oral 240 ml 180 ml Output Urine Total 250 ml 100 ml # Voids 1 Labs Test 10/14/19 13:28 10/15/19 06:34 10/16/19 05:50 White Blood Count 7.4 K/UL (4.8-10.8) 7.7 K/UL (4.8-10.8) 6.2 K/UL (4.8-10.8) Red Blood Count 4.67 M/UL (4.70-6.10) 4.57 M/UL (4.70-6.10) 4.73 M/UL (4.70-6.10) Hemoglobin 13.5 G/DL (14.2-18.0) 13.3 G/DL (14.2-18.0) 13.8 G/DL (14.2-18.0) Hematocrit 43.2 % (42.0-52.0) 41.6 % (42.0-52.0) 43.6 % (42.0-52.0) Mean Corpuscular Volume 92 FL (80-99) 91 FL (80-99) 92 FL (80-99) Mean Corpuscular Hemoglobin 28.9 PG (27.0-31.0) 29.1 PG (27.0-31.0) 29.3 PG (27.0-31.0) Mean Corpuscular Hemoglobin Concent 31.3 G/DL (32.0-36.0) 32.1 G/DL (32.0-36.0) 31.7 G/DL (32.0-36.0) Red Cell Distribution Width 14.1 % (11.6-14.8) 14.0 % (11.6-14.8) 14.5 % (11.6-14.8) Platelet Count 177 K/UL (150-450) 185 K/UL (150-450) 162 K/UL (150-450) Mean Platelet Volume 9.4 FL (6.5-10.1) 10.0 FL (6.5-10.1) 9.4 FL (6.5-10.1) Neutrophils (%) (Auto) 62.2 % (45.0-75.0) 71.4 % (45.0-75.0) 53.7 % (45.0-75.0) Lymphocytes (%) (Auto) 23.8 % (20.0-45.0) 17.8 % (20.0-45.0) 32.5 % (20.0-45.0) Monocytes (%) (Auto) 6.2 % (1.0-10.0) 5.2 % (1.0-10.0) 4.9 % (1.0-10.0) Eosinophils (%) (Auto) 6.8 % (0.0-3.0) 4.7 % (0.0-3.0) 7.5 % (0.0-3.0) Basophils (%) (Auto) 1.0 % (0.0-2.0) 1.0 % (0.0-2.0) 1.3 % (0.0-2.0) Prothrombin Time 11.9 SEC (9.30-11.50) 12.1 SEC (9.30-11.50) Prothromb Time International Ratio 1.1 (0.9-1.1) 1.1 (0.9-1.1) Activated Partial Thromboplast Time 30 SEC (23-33) 32 SEC (23-33) Sodium Level 144 MMOL/L (136-145) 142 MMOL/L (136-145) 144 MMOL/L (136-145) Potassium Level 4.1 MMOL/L (3.5-5.1) 2.8 MMOL/L (3.5-5.1) 3.7 MMOL/L (3.5-5.1) Chloride Level 107 MMOL/L (98-107) 106 MMOL/L (98-107) 108 MMOL/L (98-107) Carbon Dioxide Level 29 MMOL/L (21-32) 24 MMOL/L (21-32) 28 MMOL/L (21-32) Anion Gap 8 mmol/L (5-15) 11 mmol/L (5-15) 8 mmol/L (5-15) Blood Urea Nitrogen 16 mg/dL (7-18) 14 mg/dL (7-18) 12 mg/dL (7-18) Creatinine 1.0 MG/DL (0.55-1.30) 1.0 MG/DL (0.55-1.30) 1.1 MG/DL (0.55-1.30) Estimat Glomerular Filtration Rate > 60 mL/min (>60) > 60 mL/min (>60) > 60 mL/min (>60) Glucose Level 116 MG/DL (74-106) 102 MG/DL (74-106) 91 MG/DL (74-106) Calcium Level 8.7 MG/DL (8.5-10.1) 8.9 MG/DL (8.5-10.1) 8.7 MG/DL (8.5-10.1) Total Bilirubin 0.3 MG/DL (0.2-1.0) 0.7 MG/DL (0.2-1.0) Aspartate Amino Transf (AST/SGOT) 20 U/L (15-37) 21 U/L (15-37) Alanine Aminotransferase (ALT/SGPT) 20 U/L (12-78) 22 U/L (12-78) Alkaline Phosphatase 80 U/L (46-116) 71 U/L (46-116) Total Creatine Kinase 57 U/L (26-308) Troponin I 0.011 ng/mL (0.000-0.056) 0.050 ng/mL (0.000-0.056) Total Protein 6.7 G/DL (6.4-8.2) 6.3 G/DL (6.4-8.2) Albumin 3.5 G/DL (3.4-5.0) 3.2 G/DL (3.4-5.0) Globulin 3.2 g/dL 3.1 g/dL Albumin/Globulin Ratio 1.1 (1.0-2.7) 1.0 (1.0-2.7) Ammonia 20 umol/L (11-32) Pro-B-Type Natriuretic Peptide 946 pg/mL (0-125) Triglycerides Level 89 MG/DL (30-150) Cholesterol Level 97 MG/DL (< 200) LDL Cholesterol 46 mg/dL (<100) HDL Cholesterol 38 MG/DL (40-60) Cholesterol/HDL Ratio 2.6 (3.3-4.4) Thyroid Stimulating Hormone (TSH) 1.143 uiU/mL (0.358-3.740) Height (Feet): 5 Height (Inches): 6.00 Weight (Pounds): 138 Objective Physical Exam: Vitals: reviewed General: NAD HEENT: nc, at Neck: supple Chest: clear breath sounds bilaterally Cardiovascular: RRR, no s3, s4 Abdomen: soft, nontender, nd Extremities: no cce, normal range of motion Neuro: alert and oriented Mio Nassar MD Oct 16, 2019 10:57
--- NOTE | 2019-10-16 11:40 | General Progress Note ---
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) ICD Codes: I69.398 - Other sequelae of cerebral infarction; R56.9 - Unspecified convulsions SNOMED: 904046109911044 (2) HTN (hypertension) ICD Codes: I10 - Essential (primary) hypertension SNOMED: 84998677 (3) Parkinson disease ICD Codes: G20 - Parkinson's disease SNOMED: 46561188 (4) Left-sided weakness ICD Codes: R53.1 - Weakness SNOMED: 574703868 (5) History of cerebrovascular accident ICD Codes: Z86.73 - Personal history of transient ischemic attack (TIA), and cerebral infarction without residual deficits SNOMED: 640768247 Status: stable, progressing Assessment/Plan: pt diet eval abx neuro psyc cbc bmp am Subjective Constitutional: Reports: weakness Allergies: Coded Allergies: DONEPEZIL (Verified Allergy, Unknown, 12/21/17) QUETIAPINE (Verified Allergy, Unknown, 12/21/17) SERTRALINE (Verified Allergy, Unknown, 12/21/17) All Systems: reviewed and negative except above Subjective confused in bed Objective Last 24 Hour Vital Signs Date Time Temp Pulse Resp B/P (MAP) Pulse Ox O2 Delivery O2 Flow Rate FiO2 10/16/19 09:00 56 120/69 10/16/19 09:00 Room Air 10/16/19 08:00 97.7 60 20 120/69 (86) 97 10/16/19 08:00 60 10/16/19 04:00 97.5 52 20 111/56 (74) 99 10/16/19 04:00 51 10/16/19 00:00 59 10/16/19 00:00 97.3 99 20 106/73 (84) 100 10/15/19 21:00 Room Air 10/15/19 20:00 97.7 55 20 148/75 (99) 100 10/15/19 20:00 60 10/15/19 16:00 97.9 62 20 118/68 (85) 98 10/15/19 15:31 67 10/15/19 11:55 97.7 69 18 123/73 (90) 99 10/15/19 11:40 67 Intake and Output 10/15/19 10/16/19 19:00 07:00 Intake Total 240 ml 180 ml Output Total 250 ml 100 ml Balance -10 ml 80 ml Intake Oral 240 ml 180 ml Output Urine Total 250 ml 100 ml # Voids 1 Laboratory Tests 10/16/19 05:50: White Blood Count 6.2, Red Blood Count 4.73, Hemoglobin 13.8L, Hematocrit 43.6, Mean Corpuscular Volume 92, Mean Corpuscular Hemoglobin 29.3, Mean Corpuscular Hemoglobin Concent 31.7L, Red Cell Distribution Width 14.5, Platelet Count 162, Mean Platelet Volume 9.4, Neutrophils (%) (Auto) 53.7, Lymphocytes (%) (Auto) 32.5, Monocytes (%) (Auto) 4.9, Eosinophils (%) (Auto) 7.5H, Basophils (%) (Auto ) 1.3, Sodium Level 144, Potassium Level 3.7, Chloride Level 108H, Carbon Dioxide Level 28, Anion Gap 8, Blood Urea Nitrogen 12, Creatinine 1.1, Estimat Glomerular Filtration Rate > 60, Glucose Level 91, Calcium Level 8.7 Height (Feet): 5 Height (Inches): 6.00 Weight (Pounds): 138 General Appearance: lethargic EENT: normal ENT inspection Neck: normal alignment Cardiovascular: normal rate, regular rhythm Respiratory/Chest: chest wall non-tender, lungs clear, normal breath sounds Abdomen: normal bowel sounds, non tender, soft Extremities: normal inspection Edema: no edema noted Arm (L), no edema noted Arm (R), no edema noted Leg (L), no edema noted Leg (R), no edema noted Pedal (L), no edema noted Pedal (R), no edema noted Generalized Neurologic: responsive, motor weakness Skin: normal pigmentation, warm/dry Sj Robles DO Oct 16, 2019 11:39
[2019-10-16 12:00] VITALS: BP 110/65
--- NOTE | 2019-10-16 12:33 | Pulmonology Progress Note ---
Subjective ROS Limited/Unobtainable: Yes Interval Events: confused Allergies: Coded Allergies: DONEPEZIL (Verified Allergy, Unknown, 12/21/17) QUETIAPINE (Verified Allergy, Unknown, 12/21/17) SERTRALINE (Verified Allergy, Unknown, 12/21/17) All Systems: reviewed and negative except above Objective Last 24 Hour Vital Signs Date Time Temp Pulse Resp B/P (MAP) Pulse Ox O2 Delivery O2 Flow Rate FiO2 10/16/19 09:00 56 120/69 10/16/19 09:00 Room Air 10/16/19 08:00 97.7 60 20 120/69 (86) 97 10/16/19 08:00 60 10/16/19 04:00 97.5 52 20 111/56 (74) 99 10/16/19 04:00 51 10/16/19 00:00 59 10/16/19 00:00 97.3 99 20 106/73 (84) 100 10/15/19 21:00 Room Air 10/15/19 20:00 97.7 55 20 148/75 (99) 100 10/15/19 20:00 60 10/15/19 16:00 97.9 62 20 118/68 (85) 98 10/15/19 15:31 67 Intake and Output 10/15/19 10/16/19 19:00 07:00 Intake Total 240 ml 180 ml Output Total 250 ml 100 ml Balance -10 ml 80 ml Intake Oral 240 ml 180 ml Output Urine Total 250 ml 100 ml # Voids 1 General Appearance: cachetic HEENT: normocephalic, atraumatic Respiratory: chest wall non-tender, lungs clear Cardiovascular: normal peripheral pulses, normal rate Abdomen: soft, non tender, no organomegaly Extremities: no cyanosis Skin: no rash, no lesions Microbiology Date/Time Source Procedure Growth Status 10/14/19 15:30 Rectal Mucosa VRE Culture - Final NO VANCOMYCIN RESISTANT ENTEROCOCCUS ... Complete Laboratory Tests 10/16/19 05:50: White Blood Count 6.2, Red Blood Count 4.73, Hemoglobin 13.8L, Hematocrit 43.6, Mean Corpuscular Volume 92, Mean Corpuscular Hemoglobin 29.3, Mean Corpuscular Hemoglobin Concent 31.7L, Red Cell Distribution Width 14.5, Platelet Count 162, Mean Platelet Volume 9.4, Neutrophils (%) (Auto) 53.7, Lymphocytes (%) (Auto) 32.5, Monocytes (%) (Auto) 4.9, Eosinophils (%) (Auto) 7.5H, Basophils (%) (Auto ) 1.3, Sodium Level 144, Potassium Level 3.7, Chloride Level 108H, Carbon Dioxide Level 28, Anion Gap 8, Blood Urea Nitrogen 12, Creatinine 1.1, Estimat Glomerular Filtration Rate > 60, Glucose Level 91, Calcium Level 8.7 Current Medications Medications (Trade) Dose Ordered Sig/Sonia Route PRN Reason Start Time Stop Time Status Last Admin Dose Admin Acetaminophen (Tylenol) 650 mg Q4H PRN ORAL fever 10/14/19 18:15 11/13/19 18:14 Albuterol/ Ipratropium (Albuterol/ Ipratropium) 3 ml Q4H PRN HHN Shortness of Breath 10/14/19 18:15 10/19/19 18:14 Amantadine HCl (Symmetrel) 100 mg TWICE A DAY ORAL 10/15/19 09:00 11/14/19 08:59 10/16/19 09:13 Amlodipine Besylate (Norvasc) 5 mg DAILY ORAL 10/15/19 09:00 11/14/19 08:59 10/15/19 09:33 Aspirin (Ecotrin) 81 mg DAILY ORAL 10/15/19 09:00 11/29/19 08:59 10/16/19 09:13 Clonidine HCl (Catapres Tab) 0.1 mg Q4H PRN ORAL htn 10/14/19 18:00 01/12/20 17:59 Dextrose (Dextrose 50%) 25 ml Q30M PRN IV Hypoglycemia 10/14/19 18:15 01/12/20 18:14 Dextrose (Dextrose 50%) 50 ml Q30M PRN IV Hypoglycemia 10/14/19 18:15 01/12/20 18:14 Dextrose/Sodium Chloride 1,000 ml @ 50 mls/hr Q20H IV 10/14/19 18:15 11/13/19 18:14 10/16/19 10:15 Finasteride (Proscar) 5 mg DAILY ORAL 10/15/19 09:00 01/13/20 08:59 10/16/19 09:13 Heparin Sodium (Porcine) (Heparin 5000 units/ml) 5,000 units EVERY 12 HOURS SUBQ 10/14/19 21:00 11/28/19 20:59 10/16/19 09:18 Levetiracetam (Keppra) 500 mg DAILY ORAL 10/15/19 09:00 11/29/19 08:59 10/16/19 09:13 Lorazepam (Ativan 2mg/ml 1ml) 0.5 mg Q4H PRN IV For Anxiety 10/15/19 15:44 10/22/19 15:43 Memantine (Namenda) 5 mg DAILY ORAL 10/15/19 09:00 11/14/19 08:59 10/16/19 09:13 Nitroglycerin (Ntg) 0.4 mg Q5M X 3 DOSES PRN SL Prn Chest Pain 10/14/19 18:15 11/13/19 18:14 Olanzapine (ZyPREXA) 2.5 mg DAILY ORAL 10/15/19 09:00 11/29/19 08:59 10/16/19 09:13 Ondansetron HCl (Zofran) 4 mg Q6H PRN IVP Nausea & Vomiting 10/14/19 18:15 11/13/19 18:14 Polyethylene Glycol (Miralax) 17 gm HSPRN PRN ORAL Constipation 10/14/19 18:15 11/13/19 18:14 Promethazine HCl/ Codeine (Phenergan with Codeine) 5 ml Q4H PRN ORAL For Cough 10/14/19 18:15 11/13/19 18:14 Tamsulosin HCl (Flomax) 0.4 mg BEDTIME ORAL 10/14/19 21:00 11/13/19 20:59 10/15/19 21:43 Temazepam (Restoril) 15 mg HSPRN PRN ORAL Insomnia 10/14/19 18:15 10/21/19 18:14 10/15/19 21:43 Assessment/Plan Problems: (1) Frequent falls (2) Seizure as late effect of cerebrovascular accident (CVA) (3) Parkinson disease (4) HTN (hypertension) (5) Left-sided weakness (6) Vascular dementia (7) BPH (benign prostatic hyperplasia) (8) History of cerebrovascular accident Assessment/Plan afebrile all reviewed continue telemetry monitoring Neuro evaluation for possible uncontrolled seizures still pending monitor BP seizure precaution fall precaution psych evaluation K supplement Sugey Love MD Oct 16, 2019 12:33
--- NOTE | 2019-10-16 12:57 | NUR ---
ST NOTE DYSPHAGIA TX AND SPEECH, LANGUAGE, COGNITIVE COMMUNICATION EVALUATION: Patient seen at bedside for dysphagia treatment and for speech, language, and cognitive communicative evaluation; speech, language, and cognitive communicative report to follow. Patient is on room air, VSS for duration of the session. Per RN Patient is confused, meal intakes for 10/15/19 lunch and dinner are both 75%. DYSPHAGIA TX: -Patient's current diet is mechanical soft chopped with nectar thick liquids, per Patient, feeling a bit better today. Completed meal trial with Patient on current diet, swallow characterized by prolonged rotary mastication, slightly delayed and reduced laryngeal elevation upon palpation and multiple swallows required per 1 bite of bread, Patient noted with intermittent throat clears with re-swallows and brief coughing with bites of bread. Patient additionally required alternating sips and swallows due to intermittent Globus sensations which was resolved with liquid rinse. -Patient given PO trials of thin liquids via cup sip x2 resulting in delayed overt s/s of aspiration. Patient able to resolve episode with multiple swallows and nectar thick liquid rinse. IMPRESSIONS: Patient continues to present with oropharyngeal phase dysphagia, ongoing reduced breathing-swallowing coordination and suspect reduced airway protection. Recommend downgrading Patient to mechanical soft finely chopped with nectar thick liquids via 1 to 1 careful hand feeding. ELECTROMECHANICAL INSPECTOR posted aspiration precautions sign and made RN aware of plan to modify diet. SPEECH/LANGUAGE/COGNITIVE COMMUNICATIVE EVALUATION: (Formal report in care activity section) Completed evaluation using non-standardized measures, standardized protocol had to be modified to meet to comprehension and participation levels of the Patient. Patient was evaluated using a [employer] logger driving horses to minimize language barrier. INITIAL IMPRESSIONS: -Patient presenting with primarily expressive language deficits. Patients naming of pictures and objects was 30% accuracy, spontaneous speech during pictures description task characterized by reduced utterance length (appearing to be related to anomia/word retrieval deficit), and intact semantics. -Auditory comprehension (receptive language) appearing intact with yes/no responses to simple questions being 90% accuracy, less accurate with complex yes/no questions (80% accurate), able to follow 2-step commands without difficulties. -Speech is intelligible >90% in context, oral motor ROM and coordination is functional. -Mild to moderate deficit with safety awareness and insights into deficits, Patients memory (immediate, delayed, working) presents as a moderate deficit. Complex problem solving and reasoning appear as a mild deficit. Patient was only orientated x1 (self) at the beginning of the session, ELECTROMECHANICAL INSPECTOR provided Patient reality-orientation education and training. Patient additionally educated on word retrieval strategies and methods of communicating wants and needs to caregiver. ELECTROMECHANICAL INSPECTOR Cognitive-linguistic training will focus on Patients word retrieval ability, orientation, and safety awareness/problem solving. Also, Patient will be trained and educated on strategies to improve memory for safety awareness and for completion of ADLs. ELECTROMECHANICAL INSPECTOR plans to continue to f/u with Patient for dysphagia tx and cognitive-linguistic training 5x a week x 1 week while in house. Patient educated on results and recommendations and states understanding. Thank you for this referral! ELECTROMECHANICAL INSPECTOR [phone]
--- NOTE | 2019-10-16 13:02 | NUR ---
*-*DISCHARGE PLANNING*-* PATIENT HAS BEEN REFERRED TO: [facility] P: [phone] S/W DESTINY, WILL ACCEPT PATIENT, NEED COVID TEST. ~~~~~~~~~~~~~~~PENDING COVID TEST~~~~~~~~~~~~~~
--- NOTE | 2019-10-16 15:13 | NUR ---
*-*DISCHARGE PLANNED*-* PATIENT HAS BEEN ACCEPTED AND WILL BE DISCHARGE TO: [facility] P: [phone] FOR NURSE TO NURSE REPORT ROOM# 405.SKILL[facility] TRANSPORTATION SET FOR 4:15PM S/W CANDIS [id number] S/W PATIENTS EX , ELIZABETH OWENS, WHO IS IN AGREEMENT WITH DISCHARGE.
[2019-10-16 16:00] VITALS: BP 115/62
--- NOTE | 2019-10-16 16:11 | NUR ---
NURSE NOTES: Per Dr. Villalobos, ok to discharge.
--- NOTE | 2019-10-16 16:11 | NUR ---
NURSE NOTES: Dr. Mckeon updated at bedside. Aware pt. is negative for COVID. SB-SR. MAP within normal limits. Discharge planning in progress.
--- NOTE | 2019-10-16 16:24 | NUR ---
*-*DISCHARGE PLANNED*-* PATIENT HAS BEEN ACCEPTED AND WILL BE DISCHARGE TO: [facility] P: [phone] FOR NURSE TO NURSE REPORT ROOM# 405.SKILLED [facility] TRANSPORTATION SET WILL CALL S/W CANDIS [id number] S/W PATIENTS DAUGHTER LULA , AND PATIENTS EX , ELIZABETH OWENS, WHO IS NOT IN AGREEMENT WITH DISCHARGE.
--- NOTE | 2019-10-16 16:26 | NUR ---
*-DISCHARGE PLANNING*-* S/W PATIENTS DAUGHTER LULA , AND PATIENTS EX , ELIZABETH OWENS, WHO IS NOT IN AGREEMENT WITH DISCHARGE. DISCHARGE ON HOLD
--- NOTE | 2019-10-16 16:42 | Cardiac Electrophysiology PN ---
Assessment/Plan Assessment/Plan 1. Syncope. Patient does not have any chest pain. Ruled out for [place] protocol. Carotid duplex less than 50% stenosis Echo EF 55% 2. Coronary artery disease with old inferior wall [place] based on EKG and lateral T-wave inversion. Patient denies any chest pain. 3. Bradycardia in 50s. Patient was bradycardic in the past also. Avoid ULLOA or AVN blockers 4. Hypertension. On Norvasc 10 mg and lisinopril 10 mg daily. 5. History of hemorrhagic stroke, no seizures, with evidence of prior right craniotomy and encephalomalacia. Further evaluation by Neurology. ARU transfer pending 6. Ruled out Covid DW RN Subjective Subjective Alert in NAD. Ruled out for Covid. Carotid duplex no critical stenosis. No more syncope Awaiting transfer to [facility] Objective Last 24 Hour Vital Signs Date Time Temp Pulse Resp B/P (MAP) Pulse Ox O2 Delivery O2 Flow Rate FiO2 10/16/19 16:00 97.9 56 20 115/62 (79) 97 10/16/19 12:00 97.5 55 18 110/65 (80) 98 10/16/19 12:00 63 10/16/19 09:00 56 120/69 10/16/19 09:00 Room Air 10/16/19 08:00 97.7 60 20 120/69 (86) 97 10/16/19 08:00 60 10/16/19 04:00 97.5 52 20 111/56 (74) 99 10/16/19 04:00 51 10/16/19 00:00 59 10/16/19 00:00 97.3 99 20 106/73 (84) 100 10/15/19 21:00 Room Air 10/15/19 20:00 97.7 55 20 148/75 (99) 100 10/15/19 20:00 60 Intake and Output 10/15/19 10/16/19 19:00 07:00 Intake Total 240 ml 230 ml Output Total 250 ml 100 ml Balance -10 ml 130 ml Intake Oral 240 ml 180 ml IV Total 50 ml Output Urine Total 250 ml 100 ml # Voids 1 Laboratory Tests Test 10/16/19 05:50 White Blood Count 6.2 K/UL (4.8-10.8) Red Blood Count 4.73 M/UL (4.70-6.10) Hemoglobin 13.8 G/DL (14.2-18.0) L Hematocrit 43.6 % (42.0-52.0) Mean Corpuscular Volume 92 FL (80-99) Mean Corpuscular Hemoglobin 29.3 PG (27.0-31.0) Mean Corpuscular Hemoglobin Concent 31.7 G/DL (32.0-36.0) L Red Cell Distribution Width 14.5 % (11.6-14.8) Platelet Count 162 K/UL (150-450) Mean Platelet Volume 9.4 FL (6.5-10.1) Neutrophils (%) (Auto) 53.7 % (45.0-75.0) Lymphocytes (%) (Auto) 32.5 % (20.0-45.0) Monocytes (%) (Auto) 4.9 % (1.0-10.0) Eosinophils (%) (Auto) 7.5 % (0.0-3.0) H Basophils (%) (Auto) 1.3 % (0.0-2.0) Sodium Level 144 MMOL/L (136-145) Potassium Level 3.7 MMOL/L (3.5-5.1) Chloride Level 108 MMOL/L (98-107) H Carbon Dioxide Level 28 MMOL/L (21-32) Anion Gap 8 mmol/L (5-15) Blood Urea Nitrogen 12 mg/dL (7-18) Creatinine 1.1 MG/DL (0.55-1.30) Estimat Glomerular Filtration Rate > 60 mL/min (>60) Glucose Level 91 MG/DL (74-106) Calcium Level 8.7 MG/DL (8.5-10.1) Microbiology Date/Time Source Procedure Growth Status 10/15/19 13:12 Nasopharynx Coronavirus COVID-19 PCR ([facility]) - Final Complete 10/14/19 15:30 Rectal Mucosa VRE Culture - Final NO VANCOMYCIN RESISTANT ENTEROCOCCUS ... Complete Objective NECK: No JVD. LUNGS: Clear. CARDIOVASCULAR: Regular S1 and S2 with no gallop or murmur. ABDOMEN: Soft. EXTREMITIES: No pitting edema. Crow Villalobos MD Oct 16, 2019 16:42
[2019-10-16] MEDS: LORazepam Inj 2mg/ml 1ml IV PRN (19:03)
--- NOTE | 2019-10-16 19:23 | NUR ---
NURSE NOTES: Updated Dr. Villalobos regarding new onset PAC. BP and HR within normal limits. Patient denies SOB, dizziness or chest pain. No new orders.
--- NOTE | 2019-10-16 19:30 | NUR ---
HAND-OFF: Report given to STEW Sevilla.
--- NOTE | 2019-10-16 19:30 | NUR ---
NURSE NOTES: RECEIVED PATIENT LYING IN BED, AWAKE, ALERT/ORIENTED TO PERSON ONLY, REALITY ORIENTATION PROVIDED DURING ASSESSMENT, REQUIRE REPETITIVE TEACHINGS DUE TO COGNITIVE STATUS. VERBALLY RESPONSIVE, DENIES PAIN. NO SIGNS AND SYMPTOMS OF ACUTE CARDIO RESPIRATORY DISTRESS/SHORTNESS OF BREATH, ROOM AIR, SP02 95%, NO PERIPHERAL EDEMA NOTED. IV INTACT TO RIGHT FOREARM/GAUGE 22, WRAPPED WITH KERLEX FOR PREVENTIVE MEASURES. WRIST RESTRAINT INTACT TO RIGHT HAND TO PREVENT PATIENT FROM REMOVING MEDICAL DEVICES. ABDOMEN SOFT/NON DISTENDED,AUDIBLE BOWEL SOUNDS, NO REPORT OF N/V/D. DRESSING DRY AND INTACT TO SACRAL/DTI, BILATERAL HEELS FOR PROPHYLAXIS. SIDE RAILS UP X3/BED IN LOWEST POSITION FOR SAFETY, FREQUENT ROUNDING FOR SAFETY/NEEDS. CONTINUE WITH CURRENT PLAN OF CARE. NAD.
[2019-10-16 20:00] VITALS: BP 155/80
[2019-10-16] MEDS: Tamsulosin 0.4mg cap ORAL SCH (20:21)
[2019-10-17] VITALS: BP 152/82
--- NOTE | 2019-10-17 00:16 | NUR ---
NURSE NOTES: RESTING WELL ON ROUNDS, NAD.
[2019-10-17] MEDS: LORazepam Inj 2mg/ml 1ml IV PRN (02:05)
--- NOTE | 2019-10-17 02:15 | Consultation ---
DATE OF CONSULTATION: 10/16/2019 HISTORY OF PRESENT ILLNESS: The patient is a 74-year-old male patient will fall and syncope . This patient is a 74-year-old male patient who continues to have some depression, confusion, and some mood lability, but anyway, this patient came into the hospital. This is initial evaluation for this patient. This patient actually came into the hospital because the patient is status post fall, weakness, bradycardia, and he also apparently has a lung nodule. He came in from [facility], but he is very confused. I started to talk to him. He normally has altered mental status and confusion. He had overall decline in cognition below his baseline. That is why, he does require daily psychiatric consultation to help restore his cognition close to his baseline. He has got overwhelming feelings of helplessness, hopelessness, low energy, poor appetite, and loss of interest in activity. MEDICAL PROBLEMS: The patient has history of seizure disorder, hypertension, malnutrition, status post CVA and he also has BPH, urinary tract infection, left-sided weakness, cerebrovascular accident, uncontrolled seizures, and Parkinson disease. That is why, he does require inpatient treatment at this time. ALLERGIES: He has got allergies to Aricept, Seroquel, and Zoloft. PSYCHOTROPIC MEDICATIONS ON ADMISSION: He is on Namenda 5 mg daily, Ativan 0.5 mg IV q.4h. p.r.n. anxiety or agitation, and also on Zyprexa at a dose of 2.5 mg daily. PAIN ASSESSMENT: 06/09 pain. DEVELOPMENTAL PROBLEMS: Denies. FAMILY PSYCHIATRIC HISTORY: Unknown. SOCIAL HISTORY: The patient lives in [facility]. Financially supported by [employer] and Medicare. He has got no known legal problems at this time. FAMILY INTERACTIONS AND RELATIONSHIPS: Poor. PSYCHIATRIC HISTORY: Paranoid schizophrenia. He has had multiple psychiatric admissions. STRENGTHS: He is motivated to get better and has a place to live. WEAKNESSES AND LIABILITIES: He is impulsive. Minimal support system. MENTAL STATUS EXAMINATION: A 74-year-old male. His appearance is disheveled. His attitude is irritable and agitated. His affect is labile. Intellect poor because he does not know current events and does not know last 4 presidents. Mood, depressed and anxious. Motor activity, psychomotor agitation. His attention span is poor because he cannot do serial sevens or spell world backwards. Orientation x2. He is oriented to person and place, not to time or situation. Speech is pressured and nonsensical. Thought process, disorganized and illogical. Thought content, he has got auditory hallucinations and paranoid delusions. Perception is poor because of perceptual disturbances such as auditory hallucinations and paranoid delusions. Abstract reasoning is poor because he does not understand proverbs and only has concrete thinking. Insight is poor as he does not recognize having a psych disorder. Judgment is poor because he cannot make medical decisions for himself. No clear signs of any suicidal or homicidal ideations. Short-term memory, 0 out of 3 after 3-word recall, so poor short-term memory. Long-term memory is poor and he cannot recall long-term events in his life such as high school that he went to. DIAGNOSES: 1. Paranoid schizophrenia with acute exacerbation. 2. No secondary diagnosis. 3. Medical diagnoses include seizure disorder, frequent falls, hypertension, nausea, vomiting, status post CVA, left-sided weakness, uncontrolled seizures, Parkinson's disease. 4. Psychosocial stressors, financial. 5. Functional impairment is mild. PLAN: My plan for this patient is to treat the patient with medication regimen consisting of Zyprexa 2.5 mg daily, Ativan 0.5 mg IV every 4 hours p.r.n. anxiety or agitation. Twenty minutes of cognitive behavioral therapy will help him identify his automatic negative thoughts and help convert his negative thoughts to more positive thoughts to reduce depression, anxiety, and mood lability. ESTIMATED LENGTH OF STAY: 3 to 7 days. PROGNOSIS: Poor. PRELIMINARY DISCHARGE PLAN: Discharge him to home once stable. Coordination of care done by forensic social worker at this time. He is gravely disabled and he for safety, potentially danger to self. As far as his syncope, . He will be followed by Psychiatry throughout the hospital course. Twenty minutes of cognitive behavioral therapy will help him identify his automatic negative thoughts and help him convert his negative thoughts to more positive thoughts to reduce depression, anxiety, and mood lability. Chart was reviewed. Discussed with staff. Seen and assessed in his room. Deanne Kednall, M.D. DR: SAMIR JOB#: [id number] CC:
[2019-10-17 04:00] VITALS: BP 144/89
[2019-10-17] MEDS: D5 1/2NS 1,000 ML IV SCH (06:00)
--- NOTE | 2019-10-17 06:08 | NUR ---
NURSE NOTES: RESTED WELL, NO SIGNIFICANT CHANGE OF CONDITION NOTED THROUGHOUT THE NIGHT. SAFETY MAINTAINED. NAD.
--- NOTE | 2019-10-17 07:12 | NUR ---
HAND-OFF: Report given to STEW LION.
--- NOTE | 2019-10-17 07:15 | NUR ---
NURSE NOTES: Received report from STEW Sevilla. Patient AAO x1. Denies pain. No acute distress. Lungs clear to auscultate bilaterally. Radial and pedal pulses equally palpable. Right soft wrist restraint in place due to safety. No edema, skin color normal for ethnicity, warm and dry, cap refill <3 seconds. R forearm IV intact, no redness, or infiltration, IV patent. Bed alarm on, low and locked, call light in reach, fall education provided.
[2019-10-17 08:00] VITALS: BP 160/91
[2019-10-17 08:21] LABS: BASOPHILS % (AUTO) 0.9 % (0.0-2.0); EOSINOPHILS % (AUTO) 5.3 % (0.0-3.0); HEMATOCRIT 45.9 % (42.0-52.0); HEMOGLOBIN 14.7 G/DL (14.2-18.0); LYMPHOCYTES % (AUTO) 19.5 % (20.0-45.0); MEAN CORPUSCULAR VOLUME 90 FL (80-99); MONOCYTES % (AUTO) 5.2 % (1.0-10.0); NEUTROPHILS % (AUTO) 69.1 % (45.0-75.0); PLATELET COUNT 171 K/UL (150-450); RED BLOOD COUNT 5.12 M/UL (4.70-6.10); RED CELL DISTRIBUTION WIDTH 13.9 % (11.6-14.8); WHITE BLOOD COUNT 7.6 K/UL (4.8-10.8)
[2019-10-17 08:33] LABS: ANION GAP 10 mmol/L (5-15); BLOOD UREA NITROGEN 13 mg/dL (7-18); CARBON DIOXIDE 26 MMOL/L (21-32); CHLORIDE 108 MMOL/L (98-107); POTASSIUM 3.8 MMOL/L (3.5-5.1); SODIUM 144 MMOL/L (136-145)
[2019-10-17] MEDS: levETIRAcetam 500mg/5ml Liquid ORAL SCH (08:46)
[2019-10-17] MEDS: Aspirin EC 81mg tab ORAL SCH (08:46)
[2019-10-17] MEDS: Amantadine 100mg cap ORAL SCH (08:46)
[2019-10-17] MEDS: OLANZapine 2.5mg tab ORAL SCH (08:46)
[2019-10-17] MEDS: Memantine 5 MG TAB ORAL SCH (08:46)
[2019-10-17] MEDS: Heparin 5000 units/ml inj SUBQ SCH (08:47)
--- NOTE | 2019-10-17 08:54 | Hematology/Onc Progress Note ---
Assessment/Plan Assessment/Plan Assessment and Recs # Pulmonary nodule, noted on cxr, total circumference 6mm --> recs to consider ct scan, will order at this time --> results based on above --> pulm recs noted # Coagulopathy with elev PT --> vit K if any evidence of bleeding --> presurg management in future prn --> trend as needed # Recent Fall, syncope --> orthostatics pending --> per neuro recs as well prn -> ekg has been reviewed # Coronary artery disease with old inferior wall GA based on EKG and lateral T- wave inversion --> as per cards. # History of bradycardia. -> Patient was bradycardic in the past also. # Hypertension. --> per cards, Norvasc 10 mg and lisinopril 10 mg daily. # History of hemorrhagic stroke, no seizures, with evidence of prior right craniotomy and encephalomalacia The timing of this note does not necessarily reflect the time of the patient was seen. Greatly appreciate consultation. Subjective Constitutional: Denies: no symptoms, chills, fever, malaise, weakness, other HEENT: Denies: no symptoms, eye pain, blurred vision, tearing, double vision, ear pain, ear discharge, nose pain, nose congestion, throat pain, throat swelling, mouth pain, mouth swelling, other Cardiovascular: Denies: no symptoms, chest pain, edema, irregular heart rate, lightheadedness, palpitations, syncope, other Respiratory: Denies: no symptoms, cough, shortness of breath, SOB with excertion, SOB at rest, sputum, wheezing, other Gastrointestinal/Abdominal: Denies: no symptoms, abdomen distended, abdominal pain, black stools, tarry stools, blood in stool, constipated, diarrhea, difficulty swallowing, nausea, poor appetite, poor fluid intake, rectal bleeding , vomiting, other Endocrine: Denies: no symptoms, excessive sweating, flushing, intolerance to cold, intolerance to heat, increased hunger, increased thirst, increased urine, unexplained weight gain, unexplained weight loss, other Hematologic/Lymphatic: Denies: no symptoms, anemia, easy bleeding, easy bruising, adenopathy, other Allergies: Coded Allergies: DONEPEZIL (Verified Allergy, Unknown, 12/21/17) QUETIAPINE (Verified Allergy, Unknown, 12/21/17) SERTRALINE (Verified Allergy, Unknown, 12/21/17) Subjective 10/15 with wrist restraints, remains confused, no bleeding noted, no fc 10/16 remains confused, on restraints, denies any pain, labs reviewed Objective Objective Current Medications Medications (Trade) Dose Ordered Sig/Sonia Route PRN Reason Start Time Stop Time Status Last Admin Dose Admin Acetaminophen (Tylenol) 650 mg Q4H PRN ORAL fever 10/14/19 18:15 11/13/19 18:14 Albuterol/ Ipratropium (Albuterol/ Ipratropium) 3 ml Q4H PRN HHN Shortness of Breath 10/14/19 18:15 10/19/19 18:14 Amantadine HCl (Symmetrel) 100 mg TWICE A DAY ORAL 10/15/19 09:00 11/14/19 08:59 10/17/19 08:46 Amlodipine Besylate (Norvasc) 5 mg DAILY ORAL 10/15/19 09:00 11/14/19 08:59 10/17/19 08:46 Aspirin (Ecotrin) 81 mg DAILY ORAL 10/15/19 09:00 11/29/19 08:59 10/17/19 08:46 Clonidine HCl (Catapres Tab) 0.1 mg Q4H PRN ORAL htn 10/14/19 18:00 01/12/20 17:59 Dextrose (Dextrose 50%) 25 ml Q30M PRN IV Hypoglycemia 10/14/19 18:15 01/12/20 18:14 Dextrose (Dextrose 50%) 50 ml Q30M PRN IV Hypoglycemia 10/14/19 18:15 01/12/20 18:14 Dextrose/Sodium Chloride 1,000 ml @ 50 mls/hr Q20H IV 10/14/19 18:15 11/13/19 18:14 10/17/19 06:00 Finasteride (Proscar) 5 mg DAILY ORAL 10/15/19 09:00 01/13/20 08:59 10/17/19 08:45 Heparin Sodium (Porcine) (Heparin 5000 units/ml) 5,000 units EVERY 12 HOURS SUBQ 10/14/19 21:00 11/28/19 20:59 10/17/19 08:47 Levetiracetam (Keppra) 500 mg DAILY ORAL 10/15/19 09:00 11/29/19 08:59 10/17/19 08:46 Lorazepam (Ativan 2mg/ml 1ml) 0.5 mg Q4H PRN IV For Anxiety 10/15/19 15:44 10/22/19 15:43 10/17/19 02:05 Memantine (Namenda) 5 mg DAILY ORAL 10/15/19 09:00 11/14/19 08:59 10/17/19 08:46 Nitroglycerin (Ntg) 0.4 mg Q5M X 3 DOSES PRN SL Prn Chest Pain 10/14/19 18:15 11/13/19 18:14 Olanzapine (ZyPREXA) 2.5 mg DAILY ORAL 10/15/19 09:00 11/29/19 08:59 10/17/19 08:46 Ondansetron HCl (Zofran) 4 mg Q6H PRN IVP Nausea & Vomiting 10/14/19 18:15 11/13/19 18:14 Polyethylene Glycol (Miralax) 17 gm HSPRN PRN ORAL Constipation 10/14/19 18:15 11/13/19 18:14 Promethazine HCl/ Codeine (Phenergan with Codeine) 5 ml Q4H PRN ORAL For Cough 10/14/19 18:15 11/13/19 18:14 Tamsulosin HCl (Flomax) 0.4 mg BEDTIME ORAL 10/14/19 21:00 11/13/19 20:59 10/16/19 20:21 Temazepam (Restoril) 15 mg HSPRN PRN ORAL Insomnia 10/14/19 18:15 10/21/19 18:14 10/15/19 21:43 Last 24 Hour Vital Signs Date Time Temp Pulse Resp B/P (MAP) Pulse Ox O2 Delivery O2 Flow Rate FiO2 10/17/19 08:46 70 160/91 10/17/19 08:18 Room Air 10/17/19 08:00 97.9 70 20 160/91 (114) 99 10/17/19 04:00 98.9 79 18 144/89 (107) 95 10/17/19 03:22 71 10/17/19 00:00 98.1 86 20 152/82 (105) 96 10/16/19 23:44 62 10/16/19 21:00 Room Air 10/16/19 20:25 72 10/16/19 20:00 98.6 102 18 155/80 (105) 95 10/16/19 16:00 97.9 56 20 115/62 (79) 97 10/16/19 16:00 74 10/16/19 12:00 97.5 55 18 110/65 (80) 98 10/16/19 12:00 63 10/16/19 09:00 56 120/69 10/16/19 09:00 Room Air 10/16/19 08:00 97.7 60 20 120/69 (86) 97 10/16/19 08:00 60 10/16/19 04:00 97.5 52 20 111/56 (74) 99 10/16/19 04:00 51 10/16/19 00:00 59 10/16/19 00:00 97.3 99 20 106/73 (84) 100 10/15/19 21:00 Room Air 10/15/19 20:00 97.7 55 20 148/75 (99) 100 10/15/19 20:00 60 10/15/19 16:00 97.9 62 20 118/68 (85) 98 10/15/19 15:31 67 10/15/19 11:55 97.7 69 18 123/73 (90) 99 10/15/19 11:40 67 10/15/19 09:33 71 107/68 10/15/19 09:00 Room Air Intake and Output 10/16/19 10/17/19 19:00 07:00 Intake Total 960 ml 720 ml Output Total 600 ml 800 ml Balance 360 ml -80 ml Intake Oral 360 ml 120 ml IV Total 600 ml 600 ml Output Urine Total 600 ml 800 ml # Voids 1 # Bowel Movements 1 Labs Test 10/14/19 13:28 10/15/19 06:34 10/16/19 05:50 10/17/19 08:05 White Blood Count 7.4 K/UL (4.8-10.8) 7.7 K/UL (4.8-10.8) 6.2 K/UL (4.8-10.8) 7.6 K/UL (4.8-10.8) Red Blood Count 4.67 M/UL (4.70-6.10) 4.57 M/UL (4.70-6.10) 4.73 M/UL (4.70-6.10) 5.12 M/UL (4.70-6.10) Hemoglobin 13.5 G/DL (14.2-18.0) 13.3 G/DL (14.2-18.0) 13.8 G/DL (14.2-18.0) 14.7 G/DL (14.2-18.0) Hematocrit 43.2 % (42.0-52.0) 41.6 % (42.0-52.0) 43.6 % (42.0-52.0) 45.9 % (42.0-52.0) Mean Corpuscular Volume 92 FL (80-99) 91 FL (80-99) 92 FL (80-99) 90 FL (80- 99) Mean Corpuscular Hemoglobin 28.9 PG (27.0-31.0) 29.1 PG (27.0-31.0) 29.3 PG (27.0-31.0) 28.8 PG (27.0-31.0) Mean Corpuscular Hemoglobin Concent 31.3 G/DL (32.0-36.0) 32.1 G/DL (32.0-36.0) 31.7 G/DL (32.0-36.0) 32.1 G/DL (32.0-36.0) Red Cell Distribution Width 14.1 % (11.6-14.8) 14.0 % (11.6-14.8) 14.5 % (11.6-14.8) 13.9 % (11.6-14.8) Platelet Count 177 K/UL (150-450) 185 K/UL (150-450) 162 K/UL (150-450) 171 K/UL (150-450) Mean Platelet Volume 9.4 FL (6.5-10.1) 10.0 FL (6.5-10.1) 9.4 FL (6.5-10.1) 9.3 FL (6.5-10.1) Neutrophils (%) (Auto) 62.2 % (45.0-75.0) 71.4 % (45.0-75.0) 53.7 % (45.0-75.0) 69.1 % (45.0-75.0) Lymphocytes (%) (Auto) 23.8 % (20.0-45.0) 17.8 % (20.0-45.0) 32.5 % (20.0-45.0) 19.5 % (20.0-45.0) Monocytes (%) (Auto) 6.2 % (1.0-10.0) 5.2 % (1.0-10.0) 4.9 % (1.0-10.0) 5.2 % (1.0-10.0) Eosinophils (%) (Auto) 6.8 % (0.0-3.0) 4.7 % (0.0-3.0) 7.5 % (0.0-3.0) 5.3 % (0.0-3.0) Basophils (%) (Auto) 1.0 % (0.0-2.0) 1.0 % (0.0-2.0) 1.3 % (0.0-2.0) 0.9 % (0.0-2.0) Prothrombin Time 11.9 SEC (9.30-11.50) 12.1 SEC (9.30-11.50) Prothromb Time International Ratio 1.1 (0.9-1.1) 1.1 (0.9-1.1) Activated Partial Thromboplast Time 30 SEC (23-33) 32 SEC (23-33) Sodium Level 144 MMOL/L (136-145) 142 MMOL/L (136-145) 144 MMOL/L (136-145) Potassium Level 4.1 MMOL/L (3.5-5.1) 2.8 MMOL/L (3.5-5.1) 3.7 MMOL/L (3.5-5.1) Chloride Level 107 MMOL/L (98-107) 106 MMOL/L (98-107) 108 MMOL/L (98-107) Carbon Dioxide Level 29 MMOL/L (21-32) 24 MMOL/L (21-32) 28 MMOL/L (21-32) Anion Gap 8 mmol/L (5-15) 11 mmol/L (5-15) 8 mmol/L (5-15) Blood Urea Nitrogen 16 mg/dL (7-18) 14 mg/dL (7-18) 12 mg/dL (7-18) Creatinine 1.0 MG/DL (0.55-1.30) 1.0 MG/DL (0.55-1.30) 1.1 MG/DL (0.55-1.30) Estimat Glomerular Filtration Rate > 60 mL/min (>60) > 60 mL/min (>60) > 60 mL/min (>60) Glucose Level 116 MG/DL (74-106) 102 MG/DL (74-106) 91 MG/DL (74-106) Calcium Level 8.7 MG/DL (8.5-10.1) 8.9 MG/DL (8.5-10.1) 8.7 MG/DL (8.5-10.1) Total Bilirubin 0.3 MG/DL (0.2-1.0) 0.7 MG/DL (0.2-1.0) Aspartate Amino Transf (AST/SGOT) 20 U/L (15-37) 21 U/L (15-37) Alanine Aminotransferase (ALT/SGPT) 20 U/L (12-78) 22 U/L (12-78) Alkaline Phosphatase 80 U/L (46-116) 71 U/L (46-116) Total Creatine Kinase 57 U/L (26-308) Troponin I 0.011 ng/mL (0.000-0.056) 0.050 ng/mL (0.000-0.056) Total Protein 6.7 G/DL (6.4-8.2) 6.3 G/DL (6.4-8.2) Albumin 3.5 G/DL (3.4-5.0) 3.2 G/DL (3.4-5.0) Globulin 3.2 g/dL 3.1 g/dL Albumin/Globulin Ratio 1.1 (1.0-2.7) 1.0 (1.0-2.7) Ammonia 20 umol/L (11-32) Pro-B-Type Natriuretic Peptide 946 pg/mL (0-125) Triglycerides Level 89 MG/DL (30-150) Cholesterol Level 97 MG/DL (< 200) LDL Cholesterol 46 mg/dL (<100) HDL Cholesterol 38 MG/DL (40-60) Cholesterol/HDL Ratio 2.6 (3.3-4.4) Thyroid Stimulating Hormone (TSH) 1.143 uiU/mL (0.358-3.740) Height (Feet): 5 Height (Inches): 6.00 Weight (Pounds): 138 Objective Physical Exam: Vitals: reviewed General: NAD HEENT: nc, at Neck: supple Chest: clear breath sounds bilaterally Cardiovascular: RRR, no s3, s4 Abdomen: soft, nontender, nd Extremities: no cce, normal range of motion Neuro: alert and oriented Mio Nassar MD Oct 17, 2019 08:54
--- NOTE | 2019-10-17 10:02 | General Progress Note ---
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) ICD Codes: I69.398 - Other sequelae of cerebral infarction; R56.9 - Unspecified convulsions SNOMED: 925971765690613 (2) HTN (hypertension) ICD Codes: I10 - Essential (primary) hypertension SNOMED: 64380929 (3) Parkinson disease ICD Codes: G20 - Parkinson's disease SNOMED: 84949616 (4) Left-sided weakness ICD Codes: R53.1 - Weakness SNOMED: 371610484 (5) History of cerebrovascular accident ICD Codes: Z86.73 - Personal history of transient ischemic attack (TIA), and cerebral infarction without residual deficits SNOMED: 410711436 Status: stable, progressing Assessment/Plan: pt diet eval abx neuro psyc dc if clear Subjective Constitutional: Reports: weakness Allergies: Coded Allergies: DONEPEZIL (Verified Allergy, Unknown, 12/21/17) QUETIAPINE (Verified Allergy, Unknown, 12/21/17) SERTRALINE (Verified Allergy, Unknown, 12/21/17) All Systems: reviewed and negative except above Subjective confused in bed Objective Last 24 Hour Vital Signs Date Time Temp Pulse Resp B/P (MAP) Pulse Ox O2 Delivery O2 Flow Rate FiO2 10/17/19 08:46 70 160/91 10/17/19 08:18 Room Air 10/17/19 08:00 97.9 70 20 160/91 (114) 99 10/17/19 04:00 98.9 79 18 144/89 (107) 95 10/17/19 03:22 71 10/17/19 00:00 98.1 86 20 152/82 (105) 96 10/16/19 23:44 62 10/16/19 21:00 Room Air 10/16/19 20:25 72 10/16/19 20:00 98.6 102 18 155/80 (105) 95 10/16/19 16:00 97.9 56 20 115/62 (79) 97 10/16/19 16:00 74 10/16/19 12:00 97.5 55 18 110/65 (80) 98 10/16/19 12:00 63 Intake and Output 10/16/19 10/17/19 19:00 07:00 Intake Total 960 ml 720 ml Output Total 600 ml 800 ml Balance 360 ml -80 ml Intake Oral 360 ml 120 ml IV Total 600 ml 600 ml Output Urine Total 600 ml 800 ml # Voids 1 # Bowel Movements 1 Laboratory Tests 10/17/19 08:05: White Blood Count 7.6, Red Blood Count 5.12, Hemoglobin 14.7, Hematocrit 45.9, Mean Corpuscular Volume 90, Mean Corpuscular Hemoglobin 28.8, Mean Corpuscular Hemoglobin Concent 32.1, Red Cell Distribution Width 13.9, Platelet Count 171, Mean Platelet Volume 9.3, Neutrophils (%) (Auto) 69.1, Lymphocytes (%) (Auto) 19.5L, Monocytes (%) (Auto) 5.2, Eosinophils (%) (Auto) 5.3H, Basophils (%) ( Auto) 0.9, Sodium Level 144, Potassium Level 3.8, Chloride Level 108H, Carbon Dioxide Level 26, Anion Gap 10, Blood Urea Nitrogen 13, Creatinine 1.0, Estimat Glomerular Filtration Rate > 60, Glucose Level 111H, Calcium Level 9.0 Height (Feet): 5 Height (Inches): 6.00 Weight (Pounds): 138 General Appearance: lethargic EENT: normal ENT inspection Neck: normal alignment Cardiovascular: normal peripheral pulses, normal rate, regular rhythm Respiratory/Chest: chest wall non-tender, lungs clear, normal breath sounds Abdomen: normal bowel sounds, non tender, soft Extremities: normal inspection Neurologic: motor weakness Skin: normal pigmentation, warm/dry Sj Robles DO Oct 17, 2019 10:02
--- NOTE | 2019-10-17 11:16 | NUR ---
MAIL CARRIER NOTE SW attempted to meet w/ pt to assess any professor of social work concerns. PT was sleeping. SW will attempt again. Addendum: 10/17/19 at 1345 by LIVIA CASTILLO SW met w/ pt and assessed suicidal ideation. Pt appears to be A&O 2x. Pt wears glasses. Pt reports he had suicidal thought but he does not have a specific plan and he will not act on it. Pt reports having one adult daughter, Ofe. Pt does not share any concern/needs.
[2019-10-17 12:00] VITALS: BP 133/86
--- NOTE | 2019-10-17 12:44 | NUR ---
NURSE NOTES: Per Dr. Love, ok to discharge.
--- NOTE | 2019-10-17 13:32 | NUR ---
NURSE NOTES: Gricelda, [employer] President, aware pt. cleared for discharge by Pulm/Cards.
--- NOTE | 2019-10-17 13:55 | Pulmonology Progress Note ---
Subjective ROS Limited/Unobtainable: Yes Interval Events: confused Allergies: Coded Allergies: DONEPEZIL (Verified Allergy, Unknown, 12/21/17) QUETIAPINE (Verified Allergy, Unknown, 12/21/17) SERTRALINE (Verified Allergy, Unknown, 12/21/17) All Systems: reviewed and negative except above Objective Last 24 Hour Vital Signs Date Time Temp Pulse Resp B/P (MAP) Pulse Ox O2 Delivery O2 Flow Rate FiO2 10/17/19 12:00 87 10/17/19 12:00 97.9 62 20 133/86 (102) 97 10/17/19 08:46 70 160/91 10/17/19 08:18 Room Air 10/17/19 08:00 97.9 70 20 160/91 (114) 99 10/17/19 08:00 74 10/17/19 04:00 98.9 79 18 144/89 (107) 95 10/17/19 03:22 71 10/17/19 00:00 98.1 86 20 152/82 (105) 96 10/16/19 23:44 62 10/16/19 21:00 Room Air 10/16/19 20:25 72 10/16/19 20:00 98.6 102 18 155/80 (105) 95 10/16/19 16:00 97.9 56 20 115/62 (79) 97 10/16/19 16:00 74 Intake and Output 10/16/19 10/17/19 19:00 07:00 Intake Total 960 ml 720 ml Output Total 600 ml 800 ml Balance 360 ml -80 ml Intake Oral 360 ml 120 ml IV Total 600 ml 600 ml Output Urine Total 600 ml 800 ml # Voids 1 # Bowel Movements 1 General Appearance: cachetic HEENT: normocephalic, atraumatic Respiratory: chest wall non-tender, lungs clear Cardiovascular: normal peripheral pulses, normal rate Abdomen: soft, non tender, no organomegaly Extremities: no cyanosis Skin: no rash, no lesions Neurologic: technician support association II-XII grossly normal Microbiology Date/Time Source Procedure Growth Status 10/15/19 13:12 Nasopharynx Coronavirus COVID-19 PCR (TERELL) - Final Complete 10/14/19 15:30 Rectal Mucosa - Final NO CARBAPENEM-RESISTANT ENTEROBACTERI... Complete 10/14/19 15:30 Rectal Mucosa VRE Culture - Final NO VANCOMYCIN RESISTANT ENTEROCOCCUS ... Complete Laboratory Tests 10/17/19 08:05: White Blood Count 7.6, Red Blood Count 5.12, Hemoglobin 14.7, Hematocrit 45.9, Mean Corpuscular Volume 90, Mean Corpuscular Hemoglobin 28.8, Mean Corpuscular Hemoglobin Concent 32.1, Red Cell Distribution Width 13.9, Platelet Count 171, Mean Platelet Volume 9.3, Neutrophils (%) (Auto) 69.1, Lymphocytes (%) (Auto) 19.5L, Monocytes (%) (Auto) 5.2, Eosinophils (%) (Auto) 5.3H, Basophils (%) ( Auto) 0.9, Sodium Level 144, Potassium Level 3.8, Chloride Level 108H, Carbon Dioxide Level 26, Anion Gap 10, Blood Urea Nitrogen 13, Creatinine 1.0, Estimat Glomerular Filtration Rate > 60, Glucose Level 111H, Calcium Level 9.0 Current Medications Medications (Trade) Dose Ordered Sig/Sonia Route PRN Reason Start Time Stop Time Status Last Admin Dose Admin Acetaminophen (Tylenol) 650 mg Q4H PRN ORAL fever 10/14/19 18:15 11/13/19 18:14 Albuterol/ Ipratropium (Albuterol/ Ipratropium) 3 ml Q4H PRN HHN Shortness of Breath 10/14/19 18:15 10/19/19 18:14 Amantadine HCl (Symmetrel) 100 mg TWICE A DAY ORAL 10/15/19 09:00 11/14/19 08:59 10/17/19 08:46 Amlodipine Besylate (Norvasc) 5 mg DAILY ORAL 10/15/19 09:00 11/14/19 08:59 10/17/19 08:46 Aspirin (Ecotrin) 81 mg DAILY ORAL 10/15/19 09:00 11/29/19 08:59 10/17/19 08:46 Clonidine HCl (Catapres Tab) 0.1 mg Q4H PRN ORAL htn 10/14/19 18:00 01/12/20 17:59 Dextrose (Dextrose 50%) 25 ml Q30M PRN IV Hypoglycemia 10/14/19 18:15 01/12/20 18:14 Dextrose (Dextrose 50%) 50 ml Q30M PRN IV Hypoglycemia 10/14/19 18:15 01/12/20 18:14 Dextrose/Sodium Chloride 1,000 ml @ 50 mls/hr Q20H IV 10/14/19 18:15 11/13/19 18:14 10/17/19 06:00 Finasteride (Proscar) 5 mg DAILY ORAL 10/15/19 09:00 01/13/20 08:59 10/17/19 08:45 Heparin Sodium (Porcine) (Heparin 5000 units/ml) 5,000 units EVERY 12 HOURS SUBQ 10/14/19 21:00 11/28/19 20:59 10/17/19 08:47 Levetiracetam (Keppra) 500 mg DAILY ORAL 10/15/19 09:00 11/29/19 08:59 10/17/19 08:46 Lorazepam (Ativan 2mg/ml 1ml) 0.5 mg Q4H PRN IV For Anxiety 10/15/19 15:44 10/22/19 15:43 10/17/19 02:05 Memantine (Namenda) 5 mg DAILY ORAL 10/15/19 09:00 11/14/19 08:59 10/17/19 08:46 Nitroglycerin (Ntg) 0.4 mg Q5M X 3 DOSES PRN SL Prn Chest Pain 10/14/19 18:15 11/13/19 18:14 Olanzapine (ZyPREXA) 2.5 mg DAILY ORAL 10/15/19 09:00 11/29/19 08:59 10/17/19 08:46 Ondansetron HCl (Zofran) 4 mg Q6H PRN IVP Nausea & Vomiting 10/14/19 18:15 11/13/19 18:14 Polyethylene Glycol (Miralax) 17 gm HSPRN PRN ORAL Constipation 10/14/19 18:15 11/13/19 18:14 Promethazine HCl/ Codeine (Phenergan with Codeine) 5 ml Q4H PRN ORAL For Cough 10/14/19 18:15 11/13/19 18:14 Tamsulosin HCl (Flomax) 0.4 mg BEDTIME ORAL 10/14/19 21:00 11/13/19 20:59 10/16/19 20:21 Temazepam (Restoril) 15 mg HSPRN PRN ORAL Insomnia 10/14/19 18:15 10/21/19 18:14 10/15/19 21:43 Assessment/Plan Problems: (1) Frequent falls (2) Seizure as late effect of cerebrovascular accident (CVA) (3) Parkinson disease (4) HTN (hypertension) (5) Left-sided weakness (6) Vascular dementia (7) BPH (benign prostatic hyperplasia) (8) History of cerebrovascular accident Assessment/Plan afebrile all reviewed continue telemetry monitoring Neuro evaluation for possible uncontrolled seizures still pending monitor BP seizure precaution fall precaution psych evaluation dc planning Sugey Love MD Oct 17, 2019 13:55
--- NOTE | 2019-10-17 14:03 | Cardiac Electrophysiology PN ---
Assessment/Plan Assessment/Plan 1. Syncope. Patient does not have any chest pain. Ruled out for AK protocol. Carotid duplex less than 50% stenosis. EF 55% 2. Coronary artery disease with old inferior wall AK based on EKG and lateral T-wave inversion. Patient denies any chest pain. 3. Bradycardia in 50s. Patient was bradycardic in the past also. Avoid ULLOA or AVN blockers 4. Hypertension. On Norvasc 10 mg and lisinopril 10 mg daily. 5. History of hemorrhagic stroke, no seizures, with evidence of prior right craniotomy and encephalomalacia. Further evaluation by Neurology. 6. Ruled out Covid DW RN OK to transfer to [facility] Subjective Subjective Alert in NAD. Ruled out for Covid. In SR No more syncope Awaiting transfer to [facility] Objective Last 24 Hour Vital Signs Date Time Temp Pulse Resp B/P (MAP) Pulse Ox O2 Delivery O2 Flow Rate FiO2 10/17/19 12:00 87 10/17/19 12:00 97.9 62 20 133/86 (102) 97 10/17/19 08:46 70 160/91 10/17/19 08:18 Room Air 10/17/19 08:00 97.9 70 20 160/91 (114) 99 10/17/19 08:00 74 10/17/19 04:00 98.9 79 18 144/89 (107) 95 10/17/19 03:22 71 10/17/19 00:00 98.1 86 20 152/82 (105) 96 10/16/19 23:44 62 10/16/19 21:00 Room Air 10/16/19 20:25 72 10/16/19 20:00 98.6 102 18 155/80 (105) 95 10/16/19 16:00 97.9 56 20 115/62 (79) 97 10/16/19 16:00 74 Intake and Output 10/16/19 10/17/19 19:00 07:00 Intake Total 960 ml 720 ml Output Total 600 ml 800 ml Balance 360 ml -80 ml Intake Oral 360 ml 120 ml IV Total 600 ml 600 ml Output Urine Total 600 ml 800 ml # Voids 1 # Bowel Movements 1 Laboratory Tests Test 10/17/19 08:05 White Blood Count 7.6 K/UL (4.8-10.8) Red Blood Count 5.12 M/UL (4.70-6.10) Hemoglobin 14.7 G/DL (14.2-18.0) Hematocrit 45.9 % (42.0-52.0) Mean Corpuscular Volume 90 FL (80-99) Mean Corpuscular Hemoglobin 28.8 PG (27.0-31.0) Mean Corpuscular Hemoglobin Concent 32.1 G/DL (32.0-36.0) Red Cell Distribution Width 13.9 % (11.6-14.8) Platelet Count 171 K/UL (150-450) Mean Platelet Volume 9.3 FL (6.5-10.1) Neutrophils (%) (Auto) 69.1 % (45.0-75.0) Lymphocytes (%) (Auto) 19.5 % (20.0-45.0) L Monocytes (%) (Auto) 5.2 % (1.0-10.0) Eosinophils (%) (Auto) 5.3 % (0.0-3.0) H Basophils (%) (Auto) 0.9 % (0.0-2.0) Sodium Level 144 MMOL/L (136-145) Potassium Level 3.8 MMOL/L (3.5-5.1) Chloride Level 108 MMOL/L (98-107) H Carbon Dioxide Level 26 MMOL/L (21-32) Anion Gap 10 mmol/L (5-15) Blood Urea Nitrogen 13 mg/dL (7-18) Creatinine 1.0 MG/DL (0.55-1.30) Estimat Glomerular Filtration Rate > 60 mL/min (>60) Glucose Level 111 MG/DL (74-106) H Calcium Level 9.0 MG/DL (8.5-10.1) Microbiology Date/Time Source Procedure Growth Status 10/15/19 13:12 Nasopharynx Coronavirus COVID-19 PCR (TERELL) - Final Complete 10/14/19 15:30 Rectal Mucosa - Final NO CARBAPENEM-RESISTANT ENTEROBACTERI... Complete 10/14/19 15:30 Rectal Mucosa VRE Culture - Final NO VANCOMYCIN RESISTANT ENTEROCOCCUS ... Complete Objective NECK: No JVD. LUNGS: Clear. CARDIOVASCULAR: Regular S1 and S2 with no gallop or murmur. ABDOMEN: Soft. EXTREMITIES: No pitting edema. rCow Villalobos MD Oct 17, 2019 14:03
--- NOTE | 2019-10-17 14:18 | NUR ---
*-*DISCHARGE PLANNED*-* PATIENT HAS BEEN ACCEPTED AND WILL BE DISCHARGED BACK TO: [facility] P: [phone] FOR NURSE TO NURSE REPORT ROOM# 319.[facility] TRANSPORTATION SET FOR 4:30PM S/W S/W PATIENTS EX ON ADAM, ELIZABETH OWENS, WHO IS IN AGREEMENT WITH DISCHARGE PLAN. Addendum: 10/17/19 at 1425 by ANGELA LEDEZMA CM *-*DISCHARGE PLANNED*-* PATIENT HAS BEEN ACCEPTED AND WILL BE DISCHARGED BACK TO: [facility] P: [phone] FOR NURSE TO NURSE REPORT ROOM# 319.[facility] TRANSPORTATION SET FOR 4:30PM S/W JASS [id number] S/W PATIENTS EX ON ADAMELIZABETH, WHO IS IN AGREEMENT WITH DISCHARGE PLAN.
--- NOTE | 2019-10-17 14:27 | NUR ---
*-*DISCHARGE PLANNED*-* PATIENT HAS BEEN ACCEPTED AND WILL BE DISCHARGED BACK TO: [facility] P: [phone] FOR NURSE TO NURSE REPORT ROOM# 319.[facility] TRANSP[facility] SET FOR 3:30PM S/W JASS S/W PATIENTS EX ON FACESHEET, ELIZAEBTH OWENS, WHO IS IN AGREEMENT WITH DISCHARGE PLAN.
--- NOTE | 2019-10-17 15:29 | Progress Note ---
DATE: 10/17/2019 SUBJECTIVE: This is a 74-year-old male, status post fall and syncope, but this patient still has some confusion, some altered mental status, decline in cognition below his baseline. That is why, his attending has requested daily psychiatric consultation. MENTAL STATUS EXAMINATION: This is a 74-year-old male. Appearance is disheveled. Attitude, irritable and agitated. Affect is guarded and restricted. Intellect poor. Mood, depressed and anxious. Motor activity, psychomotor agitation. Attention span is poor. Orientation x2. Speech is low volume, slightly slurred, nonsensical. Thought process, disorganized and illogical. Insight and judgment is poor. DIAGNOSIS: Paranoid schizophrenia with acute exacerbation. PLAN: I am going to treat this patient with medication regimen consisting of Risperdal. Twenty minutes of cognitive behavior therapy to help him identify his automatic negative thoughts, help him convert his negative thoughts to more positive thoughts to reduce depression, anxiety, and mood lability. Chart reviewed. Discussed with staff. Seen and assessed in his room. Deanne Argueta M.D. DR: ZANA JOB#: [id number] CC:
--- NOTE | 2019-10-17 16:11 | NUR ---
HAND-OFF: Report given to DAV Vallejo at [facility]. Reported off to [facility]. Patient stable, off tele monitor, ID band/peripheral IV/condom cath removed. Patient left site with reading glasses (only belongings). Unable to sign belongings and discharge paperowrk due to confused. Copies signed by conventional underwriter and placed in chart. Wound photos taken. Sheyla Segovia notified about discharge to [facility] by Gricelda/Coordinator.
--- NOTE | 2019-10-19 18:04 | Discharge Summary ---
Discharge Summary Discharge Summary _ DATE OF ADMISSION: 10/14/2019 DATE OF DISCHARGE: 10/17/2019 DISCHARGED BY: Dr. Sj Robles CONSULTANTS: Dr. Deanne Mcpherson PsyD [facility] HOSPITAL COURSE: Patient is a 74-year-old male, from [facility], presented to ED due to syncopal episode. Per report, patient had an [facility]. There was no evidence of injury or trauma. He did not have any complaints. He denied any pain. Upon evaluation at the ED, blood pressure was 130/84, heart rate 53. He was afebrile and saturating well on room air. Blood work did not show any leukocytosis. Hemoglobin and hematocrit were stable. Electrolytes were normal. Kidney function normal. Troponin was negative. CT scan of the head neck was ordered due to patient being on blood thinner. There was no acute intracranial abnormalities. EKG showed sinus bradycardia with new lateral T wave inversion. Inferior leads have Q waves but no criteria meeting acute STEMI. Chest x-ray showed possible small right lung nodule. Patient was then admitted for evaluation of syncope. Patient was admitted to the monitored floor. Cardiac enzymes were negative. EKG showed lateral T wave inversion. Patient denied any chest pain. Patient has a history of bradycardia and had been bradycardic in the past. He was resumed Norvasc 10 mg and lisinopril 10 mg for blood pressure control. TSH was normal. He was placed on fall precautions and seizure precautions. He came in with a sacral stage 2 tissue injury. He was given wound care. Advised frequent repositioning and offloading. There was a pulmonary nodule noted on the chest x-ray. Recommend chest CT which can be done as outpatient. He underwent psychiatric evaluation. Patient had overall decline in cognition below his baseline. He was diagnosed with paranoid schizophrenia with acute exacerbation. He was given medication regimen consisting of Zyprexa 2.5 mg daily, Ativan 0.5 mg every 4 hours as needed for anxiety and agitation. Carotid duplex scan showed less than 50% stenosis bilaterally. Patient is on antiplatelet therapy aspirin. Lipid panel showed cholesterol level of 97. LDL 46. HDL 38. COVID-19 testing was negative. Patient was discharged back to skilled nursing. 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 DISCHARGE MEDICATIONS: Refer to Discharge Medication List. DISCHARGE INSTRUCTIONS: Follow-up in a week. I have been assigned to complete a discharge summary on this account, I was not involved with the patient's management.--ADAN Posey Jacqueline Robles NP Oct 19, 2019 18:04
--- NOTE | 2019-10-29 23:45 | Coder Physician Query ---
Clarification is required for compliance, coding accuracy, and to reflect severity of illness for this patient Dear Dr. JOHANNE MILLER Date: 10/29/19 Entomology Teacher/ CDS Name:TamannaRAMSEY "Syncope" documented in Patient is a 74-year-old male, from [facility], presented to ED due to syncopal episode. Cardiac enzymes were negative. EKG showed lateral T wave inversion. Patient has a history of bradycardia and had been bradycardic in the past. There was a pulmonary nodule noted on the chest x-ray. Recommend chest CT which can be done as outpatient. Carotid duplex scan showed less than 50% stenosis bilaterally FINAL DIAGNOSES: Syncope, ruled out for WA Coronary artery disease with old inferior WA Bradycardia in the 50s Hypertension History of hemorrhagic stroke,Vascular dementia Parkinson's disease,Old CVA with left-sided weakness Seizure as late effect of CVA,Frequent falls BPH.Paranoid schizophrenia with acute exacerbation Coagulopathy,Pulmonary nodule noted on chest x-ray Please specify the cause of syncope: [] Bradycardia [] Dehydration [] Orthostatic Hypotension [] Psychogenic [] Dialysis Disequilibrium Syndrome [] Other: [] Unable to determine Physician signature Date Please also document in your Progress Notes and/or Discharge Summary and indicate if the condition was present on admission. KELLY
== END 2019-10-17 16:18 | DRG 309 ==
LOC: EDBD 12:46 → EMR 13:20 → 2E 15:22 → EDBEDREQ 15:47
DX: R00.1 Bradycardia, unspecified (principal); I69.354 Hemiplegia and hemiparesis following cerebral infarction affecting left non-dominant side; F02.81 Dementia in other diseases classified elsewhere, unspecified severity, with behavioral disturbance; F20.0 Paranoid schizophrenia; E46 Unspecified protein-calorie malnutrition; R55 Syncope and collapse; I10 Essential (primary) hypertension; I25.10 Atherosclerotic heart disease of native coronary artery without angina pectoris; I25.2 Old myocardial infarction; R56.9 Unspecified convulsions; L89.152 Pressure ulcer of sacral region, stage 2; Z88.8 Allergy status to other drugs, medicaments and biological substances; G20 Parkinson's disease; F01.50 Vascular dementia, unspecified severity, without behavioral disturbance, psychotic disturbance, mood disturbance, and anxiety; R29.6 Repeated falls; N40.0 Benign prostatic hyperplasia without lower urinary tract symptoms; R79.1 Abnormal coagulation profile; R91.1 Solitary pulmonary nodule; I69.398 Other sequelae of cerebral infarction; Z20.828 Contact with and (suspected) exposure to other viral communicable diseases
CPT/HCPCS: 36415; 70450; 71045; 72125; 80048; 80053; 80061; 82140; 82550; 83880; 84443; 84484; 85025; 85610; 85730; 87081; 92610; 93005; 93306; 93880; 97803; 99285; J8499